=== PATIENT | female | born 1935 | race Caucasian/White ===

== ENCOUNTER 2016-11-03 00:52 | Emergency (ER) | payer MEDICARE, MEDICAID ==
[2016-11-03 01:37] LABS: BASO # 0.1 K/mm3 (0.0-0.2); BASO % 0.6 % (0.0-1.0); EOS # 0.1 K/mm3 (0.0-0.50); EOS % 0.7 % (0.0-3.0); LARGE UNSTAINED CELL # 1.4 K/mm3 (0.0-0.4); LYMPH # 2.4 K/mm3 (1.5-4.5); LYMPH % 4.9 % (24.0-44.0); MEAN CORPUSCULAR HEMOGLOBIN 29.3 pg (27.0-33.0); MEAN CORPUSCULAR HGB CONC 34.2 g/dl (32.0-36.5); MEAN CORPUSCULAR VOLUME 85.8 fl (80.0-96.0); MONO # 1.8 K/mm3 (0.0-0.8); MONO % 8.8 % (0.0-5.0); NEUTROPHILS # 15.7 K/mm3 (1.8-7.7); PLATELET COUNT, AUTOMATED 685 k/mm3 (150-450); WHITE BLOOD COUNT 20.1 K/mm3 (4.0-10.0)
[2016-11-03 01:52] LABS: CALCIUM LEVEL 9.3 MG/DL (8.8-10.2); CREATININE FOR GFR 1.1 MG/DL (0.55-1.02); GLOMERULAR FILTRATION RATE 51.1 (>39); POTASSIUM SERUM 4.3 MEQ/L (3.5-5.1)
[2016-11-03] MEDS ORDERED: IPRATROPIUM 0.5MG/ALBUTEROL 2.5MG INH SOL UD 3ML (DUONEB)(J7620) NEB ONE (02:00)
[2016-11-03] MEDS ORDERED: methylPREDNISolone INJ 40 MG/1 ML VIAL (J2920) IV ONE (02:00)
[2016-11-03] MEDS ORDERED: OMEP40CA2 (03:09)
[2016-11-03] MEDS ORDERED: MONT10TA2 (03:09)
[2016-11-03] MEDS ORDERED: DONE5TAB17 (03:09)
[2016-11-03] MEDS ORDERED: TORS10TA3 (03:09)
[2016-11-03] MEDS ORDERED: LISI-538 (03:09)
[2016-11-03] MEDS ORDERED: DIGI1TAB (03:09)
[2016-11-03] MEDS ORDERED: BISO5TAB5 PO (03:14)
[2016-11-03] MEDS ORDERED: VITAD1000T PO (03:14)
[2016-11-03] MEDS ORDERED: FERR325T3 PO (03:14)
[2016-11-03] MEDS ORDERED: SPIR50TA2 PO (03:14)
[2016-11-03] MEDS ORDERED: ADV250INH INH (03:15)
[2016-11-03] MEDS ORDERED: INCR1INH IN (03:16)
[2016-11-03] MEDS ORDERED: PROA1AER INH (03:20)
[2016-11-03] MEDS ORDERED: ATOR40TA PO (03:20)
[2016-11-03] MEDS ORDERED: CENTCHW3 PO (03:20)
[2016-11-03] MEDS ORDERED: NS 500 ML IV ONE (03:30)
[2016-11-03 04:40] LABS: DIGOXIN LEVEL 1.5 NG/ML (0.5-2.0)
[2016-11-03 05:03] VITALS: BP 163/72
--- NOTE | 2016-11-03 08:28 | ECGEPIP ---
Stationary ECG Study [facility] - ED Test Date: 2016-11-03 Pat Name: MIGUELINA GOMEZ Department: Room: - Gender: F Bellhop: shaniqua : 1935 Requested By: EVANS Cabrales Order Number: [id number] Reading MD: Yuliana Suresh Measurements Intervals [place] Rate: 71 P: 61 WV: 176 QRS: -36 QRSD: 138 T: 79 QT: 373 QTc: 405 Interpretive Statements SINUS RHYTHM MARKED LEFT AXIS DEVIATION LEFT BUNDLE BRANCH BLOCK NO PRIOR FOR COMPARISON Electronically Signed On 11-03-2016 8:28:17 EDT by Yuliana Suresh
--- NOTE | 2016-11-03 09:23 | REP ---
PORTABLE CHEST: AP portable view of the chest is performed. The heart appears slightly enlarged. The pulmonary vasculature is prominent and there are diffuse increased interstitial markings. The findings suggest Congestive heart failure and interstitial edema. Underlying interstitial fibrosis is not excluded. There is some calcification of the thoracic aorta. The visualized osseous structures are intact. IMPRESSION: Findings suggesting mild congestive heart failure and interstitial edema but without prior chest radiographs some degree of chronic interstitial fibrosis is also not excluded. Signed by Cassius Bhatia MD 11/03/2016 07:44 P
== END 2016-11-03 05:13 | disposition home or self-care (01) ==
LOC: EDBD 00:52 → M ED 02:27
DX: R06.02 Shortness of breath (principal); E87.1 Hypo-osmolality and hyponatremia; D72.829 Elevated white blood cell count, unspecified; I50.9 Heart failure, unspecified; Z87.891 Personal history of nicotine dependence; I10 Essential (primary) hypertension; J44.9 Chronic obstructive pulmonary disease, unspecified
CPT/HCPCS: 36415; 71010; 80048; 80162; 81001; 83880; 85025; 93005; 93041; 94640; 94760; 96361; 96374; 99285; J2920

== ENCOUNTER 2017-02-08 19:14 | Emergency (ER) | payer MEDICARE, MEDICAID ==
[~2017-02-08] VITALS: Ht 144.8 cm; Wt 49.5 kg
[~2017-02-08 19:14] MED LIST: ADV250INH INH; ATOR40TA75 PO; BISO5TAB5 PO; CENTCHW3 PO; DIGI1TAB; DONE5TAB17; FERR325T3 PO; INCR1INH IN; LISI-538; MONT10TA2; OMEP40CA2; PROAAER10 INH; SPIR50TA2 PO; TORS10TA3; VITAD1000T PO
[2017-02-08] MEDS: IPRATROPIUM 0.5MG/ALBUTEROL 2.5MG INH SOL UD 3ML (DUONEB)(J7620) NEB PRN ×3 (20:23→20:25)
[2017-02-08 20:29] LABS: ANION GAP 10 MEQ/L (8-16); BLOOD UREA NITROGEN 30 MG/DL (7-18); CALCIUM LEVEL 9.3 MG/DL (8.8-10.2); CARBON DIOXIDE LEVEL 25 MEQ/L (21-32); CHLORIDE LEVEL 95 MEQ/L (98-107); CREATININE FOR GFR 1.58 MG/DL (0.55-1.02); GLOMERULAR FILTRATION RATE 33.6 (>39); GLUCOSE, FASTING 102 MG/DL (83-110); POTASSIUM SERUM 4.5 MEQ/L (3.5-5.1); SODIUM LEVEL 130 MEQ/L (136-145)
[2017-02-08 20:41] LABS: ADD MANUAL DIFFER YES; MEAN CORPUSCULAR HGB CONC 33.9 g/dl (32.0-36.5); MEAN CORPUSCULAR VOLUME 91.4 fl (80.0-96.0); PLATELET COUNT, AUTOMATED 325 k/mm3 (150-450); RED CELL DISTRIBUTION WIDTH 15.5 % (11.5-14.5)
[2017-02-08 21:27] LABS: EOSINOPHILS 5 % (0-5)
[2017-02-08] MEDS ORDERED: OXYMETAZOLINE NASAL SPRAY (AFRIN) ONE (22:45)
[2017-02-08 23:25] VITALS: BP 152/68
[2017-02-09 00:23] LABS: VENOUS BASE EXCESS -1.3 (-2.0-2.0); VENOUS O2 SATURATION 94.6 % (60.0-80.0); VENOUS PARTIAL PRESSURE CO2 30.5 mmHg (38.0-50.0); VENOUS PARTIAL PRESSURE O2 70.5 mmHg (30.0-50.0); VENOUS STANDARD HCO3 23.3 MEQ/L; VENOUS TOTAL CO2 22.3 MEQ/L (24.0-28.0)
[2017-02-09 01:51] VITALS: O2SAT 98
[2017-02-09 02:37] VITALS: BP 108/58
--- NOTE | 2017-02-09 07:51 | REP ---
PA and lateral chest: Comparison is 11/03/2016. The lung betts are clear. The previous interstitial infiltrates have resolved. Lung betts appear hyperinflated suggestive of COPD, requiring clinical confirmation. Cardiac size is normal. The mundo, mediastinum, and bony thorax are unremarkable for patient age. Impression: Lung betts are clear but appear hyperinflated. Signed by Cassius Garza MD 02/09/2017 07:42 A
--- NOTE | 2017-02-10 19:59 | ECGEPIP ---
Stationary ECG Study [facility] - ED Test Date: 2017-02-08 Pat Name: MIGUELINA GOMEZ Department: Room: - Gender: F Room Inspector: david : 1935 Requested By: EVERARDO Choudhury Order Number: [id number] Reading MD: Jimenez Gerber Measurements Intervals [place] Rate: 111 P: 88 [place]: 187 QRS: 33 QRSD: 142 T: 92 QT: 333 QTc: 454 Interpretive Statements SINUS TACHYCARDIA WITH OCCASIONAL VENTRICULAR PREMATURE COMPLEXES LEFT BUNDLE BRANCH BLOCK 11/03/16 RATE DECREASED Electronically Signed On 02-10-2017 19:59:18 EDT by Jimenez Gerber
--- NOTE | 2017-02-10 20:00 | ECGEPIP ---
Stationary ECG Study [facility] - ED Test Date: 2017-02-08 Pat Name: MIGUELINA GOMEZ Department: Room: - Gender: F Career Development Consultant: david : 1935 Requested By: EVERARDO Choudhury Order Number: [id number] Reading MD: Jimenez Gerber Measurements Intervals [place] Rate: 147 P: [place]: 0 QRS: -24 QRSD: 137 T: 94 QT: 294 QTc: 460 Interpretive Statements ATRIAL FLUTTER/TACHYCARDIA WITH RAPID VENTRICULAR RESPONSE LEFT BUNDLE BRANCH BLOCK 02/08/17 RATE INCREASE RHYTHM CHANGE Electronically Signed On 02-10-2017 20:00:39 EDT by Jimenez Gerber
--- NOTE | 2017-02-11 07:09 | ECGEPIP ---
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
== END 2017-02-09 03:06 | disposition home or self-care (01) ==
LOC: M ED 19:14 → EDBD 19:14 → M ED 02-09 03:06
DX: J44.9 Chronic obstructive pulmonary disease, unspecified (principal)

== ENCOUNTER 2017-03-05 09:07 | Emergency (ER) | payer MEDICARE, MEDICAID ==
[2017-03-05 09:12] VITALS: BP 151/61
[2017-03-05] MEDS ORDERED: DIGO0.12 PO (09:27)
[2017-03-05] MEDS ORDERED: XARE15TA PO (09:27)
== END 2017-03-05 10:16 | disposition home or self-care (01) ==
LOC: EDBD 09:07 → M ED 09:07
DX: H11.32 Conjunctival hemorrhage, left eye (principal); Z87.891 Personal history of nicotine dependence

== ENCOUNTER → 2017-03-14 | Outpatient (CLI) | payer MEDICARE, MEDICAID ==
[~2017-03-14] MED LIST changes: +DIGO0.12 PO; +XARE15TA PO
--- NOTE | 2017-03-14 17:32 | REP ---
Clinical: Contusion. Technique: AP, lateral, bilateral oblique views of the right ankle. Findings: Soft tissue swelling is appreciated. Age-related arthritic degenerative changes are noted. No obvious acute fracture or dislocation. Impression: Soft tissue swelling and degenerative changes. No acute fracture or dislocation appreciated. Signed by Torey Varghese MD 03/14/2017 05:24 P
== END ==
LOC: M WUC 16:44
PROVIDERS: ATTEND Physician Assistant
DX: M19.071 Primary osteoarthritis, right ankle and foot (principal)

== ENCOUNTER → 2017-03-17 | Outpatient (REF) | payer MEDICARE ==
[2017-03-17 10:10] LABS: ADD MANUAL DIFFER YES; MEAN CORPUSCULAR HEMOGLOBIN 32.3 pg (27.0-33.0); MEAN CORPUSCULAR HGB CONC 33.5 g/dl (32.0-36.5); MEAN CORPUSCULAR VOLUME 96.4 fl (80.0-96.0); PLATELET COUNT, AUTOMATED 264 k/mm3 (150-450); RED CELL DISTRIBUTION WIDTH 14.7 % (11.5-14.5); WHITE BLOOD COUNT 7.8 K/mm3 (4.0-10.0)
[2017-03-17 11:20] LABS: EOSINOPHILS 2 % (0-5)
[2017-03-17 11:22] LABS: ANISOCYTOSIS 1+
== END ==
PROVIDERS: ATTEND Internal Medicine Pulmonary Disease
DX: D64.9 Anemia, unspecified (principal)

== ENCOUNTER → 2017-05-25 | Outpatient (CLI) | payer MEDICARE ==
[2017-05-25 13:27] LABS: MEAN CORPUSCULAR HEMOGLOBIN 30.6 pg (27.0-33.0); MEAN CORPUSCULAR HGB CONC 32.3 g/dl (32.0-36.5); MEAN CORPUSCULAR VOLUME 94.6 fl (80.0-96.0); PLATELET COUNT, AUTOMATED 367 10^3/uL (150-450); RED CELL DISTRIBUTION WIDTH 13.8 % (11.5-14.5); WHITE BLOOD COUNT 11.4 10^3/uL (4.0-10.0)
[2017-05-25 13:36] LABS: CALCIUM LEVEL 9.7 MG/DL (8.8-10.2); CREATININE FOR GFR 1.73 MG/DL (0.55-1.02); GLOMERULAR FILTRATION RATE 30.2 (>39)
[2017-05-25 13:38] LABS: POTASSIUM SERUM 5.3 MEQ/L (3.5-5.1)
== END ==
LOC: M WUC 09:48
DX: I48.91 Unspecified atrial fibrillation (principal); I10 Essential (primary) hypertension; J44.9 Chronic obstructive pulmonary disease, unspecified; E55.9 Vitamin D deficiency, unspecified

== ENCOUNTER → 2017-07-15 | Outpatient (CLI) | payer MEDICARE | LOC: M WUC 14:04 | DX: R91.8 Other nonspecific abnormal finding of lung field (principal); R05 Cough | CPT/HCPCS: 71046 ==

== ENCOUNTER → 2017-10-28 | Outpatient (CLI) | payer MEDICARE, MEDICAID | LOC: M WUC 11:04 | DX: S20.222A Contusion of left back wall of thorax, initial encounter (principal); X58.XXXA Exposure to other specified factors, initial encounter; Y92.89 Other specified places as the place of occurrence of the external cause | CPT/HCPCS: 71101 ==

== ENCOUNTER → 2017-12-21 | Outpatient (CLI) | payer MEDICARE, MEDICAID ==
[2017-12-21 13:10] LABS: HEMATOCRIT 39.3 % (36.0-47.0); MEAN CORPUSCULAR HEMOGLOBIN 31.3 pg (27.0-33.0); MEAN CORPUSCULAR HGB CONC 33.1 g/dl (32.0-36.5); MEAN CORPUSCULAR VOLUME 94.5 fl (80.0-96.0); PLATELET COUNT, AUTOMATED 344 10^3/uL (150-450); RED BLOOD COUNT 4.16 10^6/uL (4.00-5.40); RED CELL DISTRIBUTION WIDTH 14.2 % (11.5-14.5); WHITE BLOOD COUNT 11.9 10^3/uL (4.0-10.0)
[2017-12-21 13:52] LABS: TOTAL 25(OH) VITAMIN D 37.6 NG/ML (30.0-100.0)
[2017-12-21 14:07] LABS: ALBUMIN 3.9 GM/DL (3.2-5.2); ALBUMIN/GLOBULIN RATIO 0.95 (1.00-1.93); ALKALINE PHOSPHATASE 74 U/L (45-117); ALT/SGPT 67 U/L (12-78); ANION GAP 14 MEQ/L (8-16); AST/SGOT 51 U/L (7-37); BILIRUBIN,TOTAL 0.3 MG/DL (0.2-1.0); BLOOD UREA NITROGEN 68 MG/DL (7-18); CALCIUM LEVEL 9.5 MG/DL (8.8-10.2); CARBON DIOXIDE LEVEL 23 MEQ/L (21-32); CHLORIDE LEVEL 99 MEQ/L (98-107); CHOLESTEROL LEVEL 145 MG/DL (<200); CHOLESTEROL RISK RATIO 4.264 (<5); CREATININE FOR GFR 2.01 MG/DL (0.55-1.30); GLOMERULAR FILTRATION RATE 25.4 (>32); GLUCOSE, FASTING 90 MG/DL (70-100); HDL CHOLESTEROL 34 MG/DL (>40); IRON (FE) 72 UG/DL (50-170); LDL CHOLESTEROL 79.4 MG/DL (<100); NON-HDL-C 111 MG/DL; SODIUM LEVEL 136 MEQ/L (136-145); TRIGLYCERIDES LEVEL 158 MG/DL (<150)
[2017-12-21 14:09] LABS: POTASSIUM SERUM 5.8 MEQ/L (3.5-5.1)
== END ==
LOC: M WUC 09:52
DX: I48.91 Unspecified atrial fibrillation (principal); I10 Essential (primary) hypertension; J44.9 Chronic obstructive pulmonary disease, unspecified; E78.5 Hyperlipidemia, unspecified; D50.9 Iron deficiency anemia, unspecified; E55.9 Vitamin D deficiency, unspecified; Z79.01 Long term (current) use of anticoagulants
CPT/HCPCS: 83540

== ENCOUNTER 2018-01-22 08:46 | Emergency (ER) | payer MEDICARE, MEDICAID ==
[2018-01-22 09:36] LABS: BASO # 0.1 10^3/uL (0.0-0.2); BASO % 0.6 % (0.0-1.0); EOS % 0.3 % (0.0-3.0); HEMATOCRIT 34.4 % (36.0-47.0); HEMOGLOBIN 11.8 g/dl (12.0-15.5); IMMATURE GRANULOCYTE % 1.7 % (0-3.0); LYMPH # 0.8 10^3/uL (1.5-4.5); MEAN CORPUSCULAR HEMOGLOBIN 31.4 pg (27.0-33.0); MEAN CORPUSCULAR HGB CONC 34.3 g/dl (32.0-36.5); MEAN CORPUSCULAR VOLUME 91.5 fl (80.0-96.0); MONO # 1.1 10^3/uL (0.0-0.8); MONO % 7.8 % (0.0-5.0); NEUTROPHILS # 11.7 10^3/uL (1.8-7.7); NEUTROPHILS % 83.6 % (36.0-66.0); PLATELET COUNT, AUTOMATED 314 10^3/uL (150-450); RED BLOOD COUNT 3.76 10^6/uL (4.00-5.40); RED CELL DISTRIBUTION WIDTH 13.8 % (11.5-14.5); WHITE BLOOD COUNT 13.9 10^3/uL (4.0-10.0)
[2018-01-22 10:03] LABS: ANION GAP 9 MEQ/L (8-16); BLOOD UREA NITROGEN 43 MG/DL (7-18); CALCIUM LEVEL 9.3 MG/DL (8.8-10.2); CARBON DIOXIDE LEVEL 27 MEQ/L (21-32); CHLORIDE LEVEL 100 MEQ/L (98-107); CREATININE FOR GFR 1.54 MG/DL (0.55-1.30); GLOMERULAR FILTRATION RATE 34.5 (>32); GLUCOSE, FASTING 115 MG/DL (70-100); POTASSIUM SERUM 4.7 MEQ/L (3.5-5.1); SODIUM LEVEL 136 MEQ/L (136-145); URIC ACID 9.8 MG/DL (2.6-6.0)
[2018-01-22] MEDS ORDERED: cefTRIAXone SOD 1 GM VIAL (J0696) As Ordered (10:48)
[2018-01-22] MEDS: cefTRIAXone SOD 1 GM in D5W MINI-BAG PLUS 50 ML IV (10:51)
[2018-01-22] MEDS: COLCHICINE 0.6 MG TAB PO (11:29)
== END 2018-01-22 12:37 | disposition home or self-care (01) ==
LOC: M ED 08:46
DX: M10.9 Gout, unspecified (principal); L03.115 Cellulitis of right lower limb; N18.3 Chronic kidney disease, stage 3 (moderate); I13.10 Hypertensive heart and chronic kidney disease without heart failure, with stage 1 through stage 4 chronic kidney disease, or unspecified chronic kidney disease; J44.9 Chronic obstructive pulmonary disease, unspecified; B19.20 Unspecified viral hepatitis C without hepatic coma; F03.90 Unspecified dementia, unspecified severity, without behavioral disturbance, psychotic disturbance, mood disturbance, and anxiety; Z87.891 Personal history of nicotine dependence; Z88.0 Allergy status to penicillin; Z88.7 Allergy status to serum and vaccine; Z79.899 Other long term (current) drug therapy; Z79.51 Long term (current) use of inhaled steroids; Z79.01 Long term (current) use of anticoagulants
CPT/HCPCS: J0696

== ENCOUNTER 2018-01-23 07:25 | Emergency (ER) | payer MEDICARE ==
[2018-01-23] MEDS: cefTRIAXone SOD 1 GM in D5W MINI-BAG PLUS 50 ML IV (08:13)
== END 2018-01-23 09:24 | disposition home or self-care (01) ==
LOC: M ED 07:25
DX: Z51.89 Encounter for other specified aftercare (principal); L03.115 Cellulitis of right lower limb; F03.90 Unspecified dementia, unspecified severity, without behavioral disturbance, psychotic disturbance, mood disturbance, and anxiety; I50.9 Heart failure, unspecified; I10 Essential (primary) hypertension; J44.9 Chronic obstructive pulmonary disease, unspecified; K21.9 Gastro-esophageal reflux disease without esophagitis; E03.9 Hypothyroidism, unspecified; D64.9 Anemia, unspecified; F41.9 Anxiety disorder, unspecified; Z79.899 Other long term (current) drug therapy; Z88.0 Allergy status to penicillin; Z88.7 Allergy status to serum and vaccine
CPT/HCPCS: J0696

== ENCOUNTER 2018-03-24 03:48 | Inpatient (IN) | payer MEDICARE ==
[2018-03-24 04:58] LABS: BASO # 0.1 10^3/uL (0.0-0.2); BASO % 0.5 % (0.0-1.0); EOS # 0.2 10^3/uL (0.0-0.50); EOS % 0.7 % (0.0-3.0); HEMATOCRIT 33.3 % (36.0-47.0); HEMOGLOBIN 11.3 g/dl (12.0-15.5); IMMATURE GRANULOCYTE % 1.5 % (0-3.0); LYMPH # 1.3 10^3/uL (1.5-4.5); LYMPH % 6.5 % (24.0-44.0); MEAN CORPUSCULAR HEMOGLOBIN 31.2 pg (27.0-33.0); MEAN CORPUSCULAR HGB CONC 33.9 g/dl (32.0-36.5); MONO # 1.5 10^3/uL (0.0-0.8); MONO % 7.4 % (0.0-5.0); NEUTROPHILS # 17.2 10^3/uL (1.8-7.7); NEUTROPHILS % 83.4 % (36.0-66.0); PLATELET COUNT, AUTOMATED 335 10^3/uL (150-450); RED BLOOD COUNT 3.62 10^6/uL (4.00-5.40); RED CELL DISTRIBUTION WIDTH 14.1 % (11.5-14.5); WHITE BLOOD COUNT 20.7 10^3/uL (4.0-10.0)
[2018-03-24 05:22] LABS: ANION GAP 12 MEQ/L (8-16); BLOOD UREA NITROGEN 40 MG/DL (7-18); CARBON DIOXIDE LEVEL 20 MEQ/L (21-32); CHLORIDE LEVEL 97 MEQ/L (98-107); CPK CREATINE PHOSPHOKINASE 165 U/L (26-192); CREATININE FOR GFR 1.48 MG/DL (0.55-1.30); GLOMERULAR FILTRATION RATE 36.1 (>32); GLUCOSE, FASTING 169 MG/DL (70-100); NT-PRO BNP 4889 PG/ML (<450); POTASSIUM SERUM 4.9 MEQ/L (3.5-5.1); SODIUM LEVEL 129 MEQ/L (136-145); TROPONIN I 0.03 NG/ML (< 0.10)
[2018-03-24] MEDS ORDERED: ISOVUE-370 76% 100ML VIAL (Q9967) As Ordered (05:28)
[2018-03-24 05:42] LABS: KETONE, URINE AUTO RFX NEGATIVE (NEGATIVE); NITRITE, URINE AUTO RFX NEGATIVE (NEGATIVE); RBC, URINE AUTO RFX 3 /HPF (0-3); SPECIFIC GRAVITY UR AUTO RFX 1.008 (1.002-1.035); SQUAM EPITHELIAL CELL UR AURFX 0 /HPF (0-6); WBC, URINE AUTO RFX 2 /HPF (0-3)
[2018-03-24] MEDS: methylPREDNISolone INJ 125 MG/2 ML VIAL (J2930) IV ×2 (05:57→14:29)
[2018-03-24 06:05] LABS: LEUKOCYTE ESTERASE UR AUTO RFX TRACE (NEGATIVE)
[2018-03-24] MEDS: IPRATROPIUM 0.5MG/ALBUTEROL 2.5MG INH SOL UD 3ML (DUONEB)(J7620) NEB ×3 (06:05→10:38)
[2018-03-24 06:12] LABS: ABG BASE EXCESS -3.6 (-2.0-2.0); ABG HCO3 19.6 MEQ/L (22.0-26.0); ABG O2 SATURATION 91.5 % (95.0-99.0); ABG PARTIAL PRESSURE O2 59.9 mmHg (75.0-100.0); ABG STANDARD HCO3 21.4 MEQ/L (22.0-26.0); ABG TOTAL CO2 20.6 MEQ/L (23.0-31.0); ABG pH (ARTERIAL) 7.434 UNITS (7.350-7.450)
[2018-03-24] MEDS ORDERED: ONDANSETRON 4MG/2ML VIAL (J2405) IV (10:45)
[2018-03-24 11:04] LABS: BASO % 0.1 % (0.0-1.0); HEMATOCRIT 33.7 % (36.0-47.0); HEMOGLOBIN 11.6 g/dl (12.0-15.5); IMMATURE GRANULOCYTE % 1.6 % (0-3.0); LYMPH # 0.3 10^3/uL (1.5-4.5); LYMPH % 2.2 % (24.0-44.0); MEAN CORPUSCULAR HEMOGLOBIN 31.3 pg (27.0-33.0); MEAN CORPUSCULAR HGB CONC 34.4 g/dl (32.0-36.5); MEAN CORPUSCULAR VOLUME 90.8 fl (80.0-96.0); MONO # 0.2 10^3/uL (0.0-0.8); MONO % 1.4 % (0.0-5.0); NEUTROPHILS % 94.7 % (36.0-66.0); PLATELET COUNT, AUTOMATED 316 10^3/uL (150-450); RED BLOOD COUNT 3.71 10^6/uL (4.00-5.40); RED CELL DISTRIBUTION WIDTH 14.2 % (11.5-14.5); WHITE BLOOD COUNT 14.8 10^3/uL (4.0-10.0)
[2018-03-24] MEDS: FUROSEMIDE 20 MG/2 ML VIAL (J1940) IV (11:06)
[2018-03-24] MEDS: MOXIFLOXACIN HCL 400 MG in APPROPRIATE DILUENT 1 EA IV (11:07)
[2018-03-24 11:29] LABS: ERYTHROCYTE SEDIMENTATION RATE 70 mm/hr (0-30)
[2018-03-24] MEDS: LEVALBUTEROL 1.25 MG/0.5 ML CONCENTRATE NEB NEB ×3 (11:56→21:27)
[2018-03-24 12:35] LABS: LACTIC ACID SEPSIS PROTOCOL 2.6 MMOL/L (0.4-2.0)
[2018-03-24 12:55] LABS: DIGOXIN LEVEL 1.5 NG/ML (0.5-2.0)
[2018-03-24 12:55] LABS: CALCIUM LEVEL 9.3 MG/DL (8.8-10.2); CPK CREATINE PHOSPHOKINASE 230 U/L (26-192); POTASSIUM SERUM 4.8 MEQ/L (3.5-5.1); T UPTAKE 35 % (30-39)
[2018-03-24] MEDS: VANCOMYCIN HCL 1,000 MG, VIAL MATE ADAPTER 1 EACH in D5W 250 ML IV (13:13)
[2018-03-24] MEDS: NS 1,000 ML IV ×3 (13:13→18:13)
[2018-03-24] MEDS: LACTOBACILLUS ACIDOPHILUS CAP (BACID) PO ×2 (13:44→17:17)
[2018-03-24] MEDS ORDERED: HEPARIN SOD (PORCINE) 5000 UNITS/ML VIAL SC (14:00)
[2018-03-24] MEDS: MULTIVITAMINS/MINERALS THERAP 1 TAB PO (14:28)
[2018-03-24] MEDS: OMEPRAZOLE 20 MG CAP PO (14:28)
[2018-03-24] MEDS: RIVAROXABAN 15 MG TAB (XARELTO) PO (14:28)
[2018-03-24] MEDS: BISOPROLOL FUMARATE 5 MG TAB PO (14:28)
[2018-03-24] MEDS: SENOKOT S TAB PO ×2 (14:29→21:24)
[2018-03-24] MEDS: MONTELUKAST 10 MG TAB PO (14:29)
[2018-03-24] MEDS: VITAMIN D 1,000 INTERNATIONAL UNITS TABLET PO (14:29)
[2018-03-24] MEDS: FERROUS SULFATE 325MG TAB PO ×2 (14:29→21:24)
[2018-03-24] MEDS ORDERED: FUROSEMIDE 20 MG/2 ML VIAL (J1940) IV (18:00)
[2018-03-24 19:14] LABS: ANION GAP 14 MEQ/L (8-16); BLOOD UREA NITROGEN 34 MG/DL (7-18); CARBON DIOXIDE LEVEL 17 MEQ/L (21-32); CHLORIDE LEVEL 96 MEQ/L (98-107); CREATININE FOR GFR 1.62 MG/DL (0.55-1.30); GLOMERULAR FILTRATION RATE 32.5 (>32); GLUCOSE, FASTING 149 MG/DL (70-100); POTASSIUM SERUM 5.1 MEQ/L (3.5-5.1); SODIUM LEVEL 127 MEQ/L (136-145)
[2018-03-24] MEDS: MEROPENEM INJ 1 GM in APPROPRIATE DILUENT 1 EA IV (21:24)
[2018-03-24] MEDS: ATORVASTATIN 20 MG TAB PO (21:24)
[2018-03-24] MEDS: DONEPEZIL 5 MG TAB PO (21:24)
[2018-03-24 22:17] LABS: CPK CREATINE PHOSPHOKINASE 351 U/L (26-192); MB/CK RELATIVE INDEX 3.79 (< OR =4); TROPONIN I 1.93 NG/ML (< 0.10)
[2018-03-24 22:21] LABS: ANION GAP 13 MEQ/L (8-16); BLOOD UREA NITROGEN 34 MG/DL (7-18); C REACTIVE PROTEIN QUANTITATIV 4.25 MG/DL (0.00-0.30); CARBON DIOXIDE LEVEL 18 MEQ/L (21-32); CHLORIDE LEVEL 97 MEQ/L (98-107); CREATININE FOR GFR 1.41 MG/DL (0.55-1.30); GLOMERULAR FILTRATION RATE 38.2 (>32); GLUCOSE, FASTING 178 MG/DL (70-100); MB/CK RELATIVE INDEX 3.26 (< OR =4); SODIUM LEVEL 128 MEQ/L (136-145); TROPONIN I 1.15 NG/ML (< 0.10)
[2018-03-24 22:23] LABS: FREE THYROXINE INDEX 4.7 % (1.3-4.8); THYROXINE (T4) 13.4 UG/DL (4.5-12.0)
[2018-03-24 22:41] LABS: LACTIC ACID SEPSIS PROTOCOL 2.9 MMOL/L (0.4-2.0)
[2018-03-25] MEDS: LEVALBUTEROL 1.25 MG/0.5 ML CONCENTRATE NEB NEB ×6 (00:55→23:30)
[2018-03-25] MEDS: methylPREDNISolone INJ 40 MG/1 ML VIAL (J2920) IV (01:42)
[2018-03-25 02:41] LABS: CPK CREATINE PHOSPHOKINASE 347 U/L (26-192); MB/CK RELATIVE INDEX 4.01 (< OR =4); TROPONIN I 1.59 NG/ML (< 0.10)
[2018-03-25 05:58] LABS: HEMATOCRIT 29.5 % (36.0-47.0); HEMOGLOBIN 10.2 g/dl (12.0-15.5); MEAN CORPUSCULAR HEMOGLOBIN 31.6 pg (27.0-33.0); MEAN CORPUSCULAR HGB CONC 34.6 g/dl (32.0-36.5); MEAN CORPUSCULAR VOLUME 91.3 fl (80.0-96.0); PLATELET COUNT, AUTOMATED 318 10^3/uL (150-450); RED BLOOD COUNT 3.23 10^6/uL (4.00-5.40); RED CELL DISTRIBUTION WIDTH 14.4 % (11.5-14.5); WHITE BLOOD COUNT 18.8 10^3/uL (4.0-10.0)
[2018-03-25] MEDS ORDERED: MOXIFLOXACIN 400 MG TAB PO (06:00)
[2018-03-25 06:24] LABS: ANION GAP 14 MEQ/L (8-16); BLOOD UREA NITROGEN 42 MG/DL (7-18); CALCIUM LEVEL 8.2 MG/DL (8.8-10.2); CARBON DIOXIDE LEVEL 17 MEQ/L (21-32); CHLORIDE LEVEL 96 MEQ/L (98-107); CREATININE FOR GFR 2.03 MG/DL (0.55-1.30); GLOMERULAR FILTRATION RATE 25.1 (>32); GLUCOSE, FASTING 187 MG/DL (70-100); POTASSIUM SERUM 4.5 MEQ/L (3.5-5.1); SODIUM LEVEL 127 MEQ/L (136-145)
[2018-03-25 06:52] LABS: DIGOXIN LEVEL 1.3 NG/ML (0.5-2.0)
[2018-03-25] MEDS: ACETAMINOPHEN TAB 650MG DOSE (2X325MG) PO ×3 (06:52→21:47)
[2018-03-25] MEDS ORDERED: CLOPIDOGREL 75 MG TAB PO (07:07)
[2018-03-25] MEDS ORDERED: ASPIRIN 81 MG ENTERIC TAB PO (07:15)
[2018-03-25] MEDS: NS 1,000 ML IV (07:32)
[2018-03-25] MEDS: ENOXAPARIN 60 MG/0.6 ML SYR (J1650) SC (08:39)
[2018-03-25] MEDS: MONTELUKAST 10 MG TAB PO (08:40)
[2018-03-25] MEDS: SODIUM BICARBONATE 325 MG TAB PO (08:40)
[2018-03-25] MEDS: OMEPRAZOLE 20 MG CAP PO (08:40)
[2018-03-25] MEDS: SENOKOT S TAB PO ×2 (08:40→21:00)
[2018-03-25] MEDS: ASPIRIN 81 MG ENTERIC TAB PO (08:40)
[2018-03-25] MEDS: FERROUS SULFATE 325MG TAB PO ×3 (08:40→21:47)
[2018-03-25] MEDS: VITAMIN D 1,000 INTERNATIONAL UNITS TABLET PO (08:40)
[2018-03-25] MEDS: MEROPENEM INJ 1 GM in APPROPRIATE DILUENT 1 EA IV ×2 (08:40→21:46)
[2018-03-25] MEDS: LACTOBACILLUS ACIDOPHILUS CAP (BACID) PO ×2 (08:40→18:31)
[2018-03-25] MEDS: MULTIVITAMINS/MINERALS THERAP 1 TAB PO (08:40)
[2018-03-25] MEDS: BISOPROLOL FUMARATE 5 MG TAB PO (08:40)
[2018-03-25] MEDS: INFLUENZA VIRUS VACCINE HIGH DOSE 0.5 ML SYRINGE (90662) IM (08:50)
[2018-03-25 10:47] LABS: CPK CREATINE PHOSPHOKINASE 372 U/L (26-192); MB/CK RELATIVE INDEX 3.66 (< OR =4); TROPONIN I 1.14 NG/ML (< 0.10)
[2018-03-25 12:41] LABS: ANION GAP 14 MEQ/L (8-16); BLOOD UREA NITROGEN 46 MG/DL (7-18); CALCIUM LEVEL 8.3 MG/DL (8.8-10.2); CARBON DIOXIDE LEVEL 18 MEQ/L (21-32); CHLORIDE LEVEL 97 MEQ/L (98-107); CREATININE FOR GFR 2.07 MG/DL (0.55-1.30); GLOMERULAR FILTRATION RATE 24.5 (>32); GLUCOSE, FASTING 147 MG/DL (70-100); POTASSIUM SERUM 4.6 MEQ/L (3.5-5.1); SODIUM LEVEL 129 MEQ/L (136-145)
[2018-03-25] MEDS ORDERED: SODIUM BICARBONATE 325 MG TAB PO (13:00)
[2018-03-25] MEDS ORDERED: VANCOMYCIN HCL 750 MG, VIAL MATE ADAPTER 1 EACH in D5W 250 ML IV (13:00)
[2018-03-25] MEDS: SODIUM BICARBONATE 150 MEQ in STERILE WATER LITER BAG 1,000 ML IV (16:23)
[2018-03-25] MEDS: DONEPEZIL 5 MG TAB PO (21:47)
[2018-03-25] MEDS: ATORVASTATIN 20 MG TAB PO (21:47)
[2018-03-26 00:57] LABS: ANION GAP 13 MEQ/L (8-16); BLOOD UREA NITROGEN 52 MG/DL (7-18); CALCIUM LEVEL 8.1 MG/DL (8.8-10.2); CARBON DIOXIDE LEVEL 20 MEQ/L (21-32); CHLORIDE LEVEL 95 MEQ/L (98-107); CREATININE FOR GFR 1.96 MG/DL (0.55-1.30); DIGOXIN LEVEL 1.3 NG/ML (0.5-2.0); GLOMERULAR FILTRATION RATE 26.1 (>32); GLUCOSE, FASTING 116 MG/DL (70-100); POTASSIUM SERUM 4.4 MEQ/L (3.5-5.1); SODIUM LEVEL 128 MEQ/L (136-145)
[2018-03-26] MEDS: LEVALBUTEROL 1.25 MG/0.5 ML CONCENTRATE NEB NEB ×6 (03:04→19:56)
[2018-03-26] MEDS: FUROSEMIDE 20 MG/2 ML VIAL (J1940) IV (04:33)
[2018-03-26] MEDS: SODIUM BICARBONATE 150 MEQ in STERILE WATER LITER BAG 1,000 ML IV (04:34)
[2018-03-26 05:32] LABS: HEMATOCRIT 33.3 % (36.0-47.0); HEMOGLOBIN 11.1 g/dl (12.0-15.5); MEAN CORPUSCULAR HEMOGLOBIN 31.1 pg (27.0-33.0); MEAN CORPUSCULAR HGB CONC 33.3 g/dl (32.0-36.5); MEAN CORPUSCULAR VOLUME 93.3 fl (80.0-96.0); PLATELET COUNT, AUTOMATED 374 10^3/uL (150-450); RED BLOOD COUNT 3.57 10^6/uL (4.00-5.40); RED CELL DISTRIBUTION WIDTH 14.5 % (11.5-14.5); WHITE BLOOD COUNT 27.1 10^3/uL (4.0-10.0)
[2018-03-26 05:57] LABS: ANION GAP 14 MEQ/L (8-16); BLOOD UREA NITROGEN 53 MG/DL (7-18); CALCIUM LEVEL 8.2 MG/DL (8.8-10.2); CARBON DIOXIDE LEVEL 21 MEQ/L (21-32); CHLORIDE LEVEL 92 MEQ/L (98-107); CREATININE FOR GFR 1.99 MG/DL (0.55-1.30); GLOMERULAR FILTRATION RATE 25.7 (>32); GLUCOSE, FASTING 207 MG/DL (70-100); POTASSIUM SERUM 3.9 MEQ/L (3.5-5.1); SODIUM LEVEL 127 MEQ/L (136-145)
[2018-03-26 07:50] LABS: CPK CREATINE PHOSPHOKINASE 233 U/L (26-192); MB/CK RELATIVE INDEX 3.18 (< OR =4); TROPONIN I 0.84 NG/ML (< 0.10)
[2018-03-26] MEDS: ASPIRIN 81 MG ENTERIC TAB PO (08:21)
[2018-03-26] MEDS: FERROUS SULFATE 325MG TAB PO ×3 (08:21→21:25)
[2018-03-26] MEDS: OMEPRAZOLE 20 MG CAP PO (08:21)
[2018-03-26] MEDS: MONTELUKAST 10 MG TAB PO (08:21)
[2018-03-26] MEDS: LINEZOLID 600 MG in APPROPRIATE DILUENT 1 EA IV ×2 (08:22→21:21)
[2018-03-26] MEDS: BISOPROLOL FUMARATE 5 MG TAB PO (08:22)
[2018-03-26] MEDS: VITAMIN D 1,000 INTERNATIONAL UNITS TABLET PO (08:22)
[2018-03-26] MEDS: MULTIVITAMINS/MINERALS THERAP 1 TAB PO (08:22)
[2018-03-26] MEDS: MEROPENEM INJ 1 GM in APPROPRIATE DILUENT 1 EA IV ×2 (08:22→21:22)
[2018-03-26] MEDS: LACTOBACILLUS ACIDOPHILUS CAP (BACID) PO ×2 (08:22→18:00)
[2018-03-26] MEDS: CLOPIDOGREL 75 MG TAB PO (08:22)
[2018-03-26] MEDS: SENOKOT S TAB PO ×2 (08:22→21:24)
[2018-03-26] MEDS: ENOXAPARIN 60 MG/0.6 ML SYR (J1650) SC (08:23)
[2018-03-26 10:20] LABS: REASON FOR REVIEW WBC/LEUKEMIA/BLAST; SLIDE REVIEW Report; SOURCE PERIPHERAL SMEAR
[2018-03-26] MEDS: methylPREDNISolone INJ 125 MG/2 ML VIAL (J2930) IV (13:01)
[2018-03-26] MEDS: **hydrALAZINE** 10 MG TAB PO ×2 (15:01→21:24)
[2018-03-26] MEDS: ISOSORBIDE DIN (ISORDIL) 10 MG TAB PO ×2 (15:01→21:23)
[2018-03-26 15:36] LABS: BODY FLUID CULTURE Not Indicated (.); LEGIONELLA ANTIGEN URINE Negative (Negative); ORGANISM ID Not indicated. (.); SPECIMEN SOURCE Urine (.); URINE STREP PNEUMONIAE ANTIGEN Negative (Negative)
[2018-03-26] MEDS ORDERED: methylPREDNISolone INJ 40 MG/1 ML VIAL (J2920) IV (18:00)
[2018-03-26] MEDS: DONEPEZIL 5 MG TAB PO (21:00)
[2018-03-26] MEDS: ATORVASTATIN 20 MG TAB PO (21:23)
[2018-03-27] MEDS: LEVALBUTEROL 1.25 MG/0.5 ML CONCENTRATE NEB NEB ×6 (00:44→20:43)
[2018-03-27 05:40] LABS: HEMOGLOBIN 9.5 g/dl (12.0-15.5); MEAN CORPUSCULAR HEMOGLOBIN 31.5 pg (27.0-33.0); MEAN CORPUSCULAR HGB CONC 35.2 g/dl (32.0-36.5); MEAN CORPUSCULAR VOLUME 89.4 fl (80.0-96.0); PLATELET COUNT, AUTOMATED 287 10^3/uL (150-450); RED BLOOD COUNT 3.02 10^6/uL (4.00-5.40); RED CELL DISTRIBUTION WIDTH 14.1 % (11.5-14.5); WHITE BLOOD COUNT 13.9 10^3/uL (4.0-10.0)
[2018-03-27] MEDS: ISOSORBIDE DIN (ISORDIL) 10 MG TAB PO ×3 (05:49→21:01)
[2018-03-27] MEDS: ACETAMINOPHEN TAB 650MG DOSE (2X325MG) PO ×2 (05:49→14:37)
[2018-03-27] MEDS: **hydrALAZINE** 10 MG TAB PO ×3 (05:50→21:01)
[2018-03-27 06:14] LABS: ANION GAP 9 MEQ/L (8-16); BLOOD UREA NITROGEN 51 MG/DL (7-18); CALCIUM LEVEL 8.2 MG/DL (8.8-10.2); CARBON DIOXIDE LEVEL 25 MEQ/L (21-32); CHLORIDE LEVEL 92 MEQ/L (98-107); CREATININE FOR GFR 1.59 MG/DL (0.55-1.30); GLOMERULAR FILTRATION RATE 33.3 (>32); GLUCOSE, FASTING 133 MG/DL (70-100); SODIUM LEVEL 126 MEQ/L (136-145)
[2018-03-27 07:28] LABS: OSMOLALITY SERUM 278 MOSM/KG (280-301)
[2018-03-27] MEDS: SENOKOT S TAB PO ×2 (08:19→20:57)
[2018-03-27] MEDS: ENOXAPARIN 60 MG/0.6 ML SYR (J1650) SC (08:19)
[2018-03-27] MEDS: OMEPRAZOLE 20 MG CAP PO (08:19)
[2018-03-27] MEDS: MONTELUKAST 10 MG TAB PO (08:19)
[2018-03-27] MEDS: FERROUS SULFATE 325MG TAB PO ×3 (08:19→20:57)
[2018-03-27] MEDS: VITAMIN D 1,000 INTERNATIONAL UNITS TABLET PO (08:19)
[2018-03-27] MEDS: BISOPROLOL FUMARATE 5 MG TAB PO (08:19)
[2018-03-27] MEDS: LACTOBACILLUS ACIDOPHILUS CAP (BACID) PO ×2 (08:19→17:33)
[2018-03-27] MEDS: INFLUENZA VIRUS VACCINE HIGH DOSE 0.5 ML SYRINGE (90662) IM (08:20)
[2018-03-27] MEDS: MULTIVITAMINS/MINERALS THERAP 1 TAB PO (08:20)
[2018-03-27] MEDS: CLOPIDOGREL 75 MG TAB PO (08:20)
[2018-03-27] MEDS: ASPIRIN 81 MG ENTERIC TAB PO (08:20)
[2018-03-27] MEDS: LINEZOLID 600 MG in APPROPRIATE DILUENT 1 EA IV ×2 (08:22→20:00)
[2018-03-27] MEDS: MEROPENEM INJ 1 GM in APPROPRIATE DILUENT 1 EA IV (08:22)
[2018-03-27] MEDS ORDERED: predniSONE 20 MG TAB PO (09:00)
[2018-03-27] MEDS: TORSEMIDE 20 MG TAB PO (11:45)
[2018-03-27] MEDS: ADVAIR HFA 115/21MCG INHALER INH ×2 (13:39→20:44)
[2018-03-27 20:09] LABS: ANION GAP 13 MEQ/L (8-16); BLOOD UREA NITROGEN 57 MG/DL (7-18); CALCIUM LEVEL 8.2 MG/DL (8.8-10.2); CARBON DIOXIDE LEVEL 22 MEQ/L (21-32); CHLORIDE LEVEL 89 MEQ/L (98-107); GLOMERULAR FILTRATION RATE 28.8 (>32); GLUCOSE, FASTING 158 MG/DL (70-100); POTASSIUM SERUM 3.6 MEQ/L (3.5-5.1); SODIUM LEVEL 124 MEQ/L (136-145)
[2018-03-27] MEDS: DONEPEZIL 5 MG TAB PO (20:56)
[2018-03-27] MEDS: ATORVASTATIN 20 MG TAB PO (20:56)
[2018-03-28] MEDS: LEVALBUTEROL 1.25 MG/0.5 ML CONCENTRATE NEB NEB ×7 (00:02→23:47)
[2018-03-28 04:32] LABS: SODIUM,RANDOM URINE 17 MEQ/L
[2018-03-28] MEDS: SLF 3 ML SYR IV ×3 (05:29→21:55)
[2018-03-28] MEDS: **hydrALAZINE** 10 MG TAB PO ×3 (05:30→21:55)
[2018-03-28] MEDS: ISOSORBIDE DIN (ISORDIL) 10 MG TAB PO ×3 (05:30→21:55)
[2018-03-28 05:38] LABS: HEMATOCRIT 27.9 % (36.0-47.0); HEMOGLOBIN 9.7 g/dl (12.0-15.5); MEAN CORPUSCULAR HEMOGLOBIN 31.4 pg (27.0-33.0); MEAN CORPUSCULAR HGB CONC 34.8 g/dl (32.0-36.5); MEAN CORPUSCULAR VOLUME 90.3 fl (80.0-96.0); PLATELET COUNT, AUTOMATED 305 10^3/uL (150-450); RED BLOOD COUNT 3.09 10^6/uL (4.00-5.40); RED CELL DISTRIBUTION WIDTH 14.1 % (11.5-14.5)
[2018-03-28 06:15] LABS: ANION GAP 12 MEQ/L (8-16); BLOOD UREA NITROGEN 52 MG/DL (7-18); CALCIUM LEVEL 8.3 MG/DL (8.8-10.2); CARBON DIOXIDE LEVEL 23 MEQ/L (21-32); CHLORIDE LEVEL 91 MEQ/L (98-107); CREATININE FOR GFR 1.62 MG/DL (0.55-1.30); DIGOXIN LEVEL 0.7 NG/ML (0.5-2.0); GLOMERULAR FILTRATION RATE 32.5 (>32); GLUCOSE, FASTING 107 MG/DL (70-100); POTASSIUM SERUM 3.7 MEQ/L (3.5-5.1); SODIUM LEVEL 126 MEQ/L (136-145)
[2018-03-28 06:27] LABS: OSMOLALITY URINE 313 MOSM/KG (500-800)
[2018-03-28] MEDS: ADVAIR HFA 115/21MCG INHALER INH ×2 (07:44→20:14)
[2018-03-28] MEDS: MULTIVITAMINS/MINERALS THERAP 1 TAB PO (08:12)
[2018-03-28] MEDS: ACETAMINOPHEN TAB 650MG DOSE (2X325MG) PO (08:12)
[2018-03-28] MEDS: MONTELUKAST 10 MG TAB PO (08:12)
[2018-03-28] MEDS: ASPIRIN 81 MG ENTERIC TAB PO (08:13)
[2018-03-28] MEDS: LACTOBACILLUS ACIDOPHILUS CAP (BACID) PO ×2 (08:13→17:35)
[2018-03-28] MEDS: CLOPIDOGREL 75 MG TAB PO (08:13)
[2018-03-28] MEDS: OMEPRAZOLE 20 MG CAP PO (08:13)
[2018-03-28] MEDS: SENOKOT S TAB PO ×2 (08:13→20:26)
[2018-03-28] MEDS: FERROUS SULFATE 325MG TAB PO ×3 (08:13→20:25)
[2018-03-28] MEDS: BISOPROLOL FUMARATE 5 MG TAB PO (08:13)
[2018-03-28] MEDS: VITAMIN D 1,000 INTERNATIONAL UNITS TABLET PO (08:13)
[2018-03-28] MEDS: ENOXAPARIN 60 MG/0.6 ML SYR (J1650) SC (08:14)
[2018-03-28] MEDS: LINEZOLID 600 MG in APPROPRIATE DILUENT 1 EA IV (08:14)
[2018-03-28] MEDS: TOLVAPTAN 7.5 MG HALF-TAB PO (11:19)
[2018-03-28 19:07] LABS: ANION GAP 9 MEQ/L (8-16); BLOOD UREA NITROGEN 43 MG/DL (7-18); CALCIUM LEVEL 8.2 MG/DL (8.8-10.2); CARBON DIOXIDE LEVEL 24 MEQ/L (21-32); CHLORIDE LEVEL 93 MEQ/L (98-107); CREATININE FOR GFR 1.67 MG/DL (0.55-1.30); GLOMERULAR FILTRATION RATE 31.4 (>32); GLUCOSE, FASTING 133 MG/DL (70-100); POTASSIUM SERUM 3.8 MEQ/L (3.5-5.1); SODIUM LEVEL 126 MEQ/L (136-145)
[2018-03-28] MEDS: ATORVASTATIN 20 MG TAB PO (20:25)
[2018-03-28] MEDS: DONEPEZIL 5 MG TAB PO (20:26)
[2018-03-28] MEDS ORDERED: TORSEMIDE 20 MG TAB PO (21:00)
[2018-03-29] MEDS: LEVALBUTEROL 1.25 MG/0.5 ML CONCENTRATE NEB NEB ×5 (04:00→20:00)
[2018-03-29 05:54] LABS: HEMATOCRIT 29.5 % (36.0-47.0); HEMOGLOBIN 10.1 g/dl (12.0-15.5); MEAN CORPUSCULAR HEMOGLOBIN 31.5 pg (27.0-33.0); MEAN CORPUSCULAR HGB CONC 34.2 g/dl (32.0-36.5); MEAN CORPUSCULAR VOLUME 91.9 fl (80.0-96.0); PLATELET COUNT, AUTOMATED 343 10^3/uL (150-450); RED BLOOD COUNT 3.21 10^6/uL (4.00-5.40); RED CELL DISTRIBUTION WIDTH 14.3 % (11.5-14.5); WHITE BLOOD COUNT 14.3 10^3/uL (4.0-10.0)
[2018-03-29] MEDS: ISOSORBIDE DIN (ISORDIL) 10 MG TAB PO ×3 (06:05→21:31)
[2018-03-29] MEDS: **hydrALAZINE** 10 MG TAB PO ×3 (06:06→21:32)
[2018-03-29] MEDS: SLF 3 ML SYR IV ×3 (06:06→21:32)
[2018-03-29 06:34] LABS: ANION GAP 13 MEQ/L (8-16); BLOOD UREA NITROGEN 40 MG/DL (7-18); CARBON DIOXIDE LEVEL 22 MEQ/L (21-32); CHLORIDE LEVEL 98 MEQ/L (98-107); CREATININE FOR GFR 1.46 MG/DL (0.55-1.30); DIGOXIN LEVEL 0.7 NG/ML (0.5-2.0); GLOMERULAR FILTRATION RATE 36.7 (>32); GLUCOSE, FASTING 106 MG/DL (70-100); POTASSIUM SERUM 4.4 MEQ/L (3.5-5.1); SODIUM LEVEL 133 MEQ/L (136-145)
[2018-03-29] MEDS: ADVAIR HFA 115/21MCG INHALER INH ×2 (07:35→20:30)
[2018-03-29] MEDS: MONTELUKAST 10 MG TAB PO (08:07)
[2018-03-29] MEDS: LACTOBACILLUS ACIDOPHILUS CAP (BACID) PO ×2 (08:09→17:04)
[2018-03-29] MEDS: ENOXAPARIN 60 MG/0.6 ML SYR (J1650) SC (08:09)
[2018-03-29] MEDS: BISOPROLOL FUMARATE 5 MG TAB PO (08:09)
[2018-03-29] MEDS: OMEPRAZOLE 20 MG CAP PO (08:10)
[2018-03-29] MEDS: SENOKOT S TAB PO (08:10)
[2018-03-29] MEDS: FERROUS SULFATE 325MG TAB PO ×3 (08:10→21:32)
[2018-03-29] MEDS: ASPIRIN 81 MG ENTERIC TAB PO (08:10)
[2018-03-29] MEDS: MULTIVITAMINS/MINERALS THERAP 1 TAB PO (08:10)
[2018-03-29] MEDS: CLOPIDOGREL 75 MG TAB PO (08:10)
[2018-03-29] MEDS: VITAMIN D 1,000 INTERNATIONAL UNITS TABLET PO (08:11)
[2018-03-29] MEDS: ACETAMINOPHEN TAB 650MG DOSE (2X325MG) PO (19:10)
[2018-03-29] MEDS: DONEPEZIL 5 MG TAB PO (21:31)
[2018-03-29] MEDS: ATORVASTATIN 20 MG TAB PO (21:32)
[2018-03-30] MEDS: LEVALBUTEROL 1.25 MG/0.5 ML CONCENTRATE NEB NEB ×7 (03:27→23:47)
[2018-03-30] MEDS: SLF 3 ML SYR IV ×3 (05:40→21:30)
[2018-03-30] MEDS: ISOSORBIDE DIN (ISORDIL) 10 MG TAB PO ×3 (05:41→21:29)
[2018-03-30] MEDS: ACETAMINOPHEN TAB 650MG DOSE (2X325MG) PO ×3 (05:41→14:39)
[2018-03-30] MEDS: **hydrALAZINE** 10 MG TAB PO ×3 (05:41→21:30)
[2018-03-30 06:13] LABS: HEMATOCRIT 26.8 % (36.0-47.0); HEMOGLOBIN 9.2 g/dl (12.0-15.5); MEAN CORPUSCULAR HEMOGLOBIN 31.5 pg (27.0-33.0); MEAN CORPUSCULAR HGB CONC 34.3 g/dl (32.0-36.5); MEAN CORPUSCULAR VOLUME 91.8 fl (80.0-96.0); PLATELET COUNT, AUTOMATED 334 10^3/uL (150-450); RED BLOOD COUNT 2.92 10^6/uL (4.00-5.40); RED CELL DISTRIBUTION WIDTH 14.6 % (11.5-14.5); WHITE BLOOD COUNT 12.8 10^3/uL (4.0-10.0)
[2018-03-30 06:37] LABS: ANION GAP 11 MEQ/L (8-16); BLOOD UREA NITROGEN 37 MG/DL (7-18); CARBON DIOXIDE LEVEL 22 MEQ/L (21-32); CHLORIDE LEVEL 103 MEQ/L (98-107); GLUCOSE, FASTING 121 MG/DL (70-100); MAGNESIUM LEVEL 2.7 MG/DL (1.8-2.4); POTASSIUM SERUM 4.4 MEQ/L (3.5-5.1); SODIUM LEVEL 136 MEQ/L (136-145)
[2018-03-30] MEDS: LACTOBACILLUS ACIDOPHILUS CAP (BACID) PO ×2 (07:44→17:02)
[2018-03-30] MEDS: VITAMIN D 1,000 INTERNATIONAL UNITS TABLET PO (07:44)
[2018-03-30] MEDS: OMEPRAZOLE 20 MG CAP PO (07:44)
[2018-03-30] MEDS: CLOPIDOGREL 75 MG TAB PO (07:44)
[2018-03-30] MEDS: FERROUS SULFATE 325MG TAB PO ×3 (07:44→21:00)
[2018-03-30] MEDS: MULTIVITAMINS/MINERALS THERAP 1 TAB PO (07:44)
[2018-03-30] MEDS: ASPIRIN 81 MG ENTERIC TAB PO (07:44)
[2018-03-30] MEDS: MONTELUKAST 10 MG TAB PO (07:44)
[2018-03-30] MEDS: BISOPROLOL FUMARATE 5 MG TAB PO (07:45)
[2018-03-30] MEDS: ADVAIR HFA 115/21MCG INHALER INH ×2 (07:58→20:55)
[2018-03-30] MEDS: TORSEMIDE 20 MG TAB PO (13:01)
[2018-03-30] MEDS: ATORVASTATIN 20 MG TAB PO (21:29)
[2018-03-30] MEDS: DONEPEZIL 5 MG TAB PO (21:30)
[2018-03-30 21:37] LABS: HEMATOCRIT 27.5 % (36.0-47.0); HEMOGLOBIN 9.3 g/dl (12.0-15.5)
[2018-03-31 03:10] LABS: ANION GAP 9 MEQ/L (8-16); BLOOD UREA NITROGEN 36 MG/DL (7-18); CALCIUM LEVEL 8.4 MG/DL (8.8-10.2); CARBON DIOXIDE LEVEL 23 MEQ/L (21-32); CHLORIDE LEVEL 102 MEQ/L (98-107); CREATININE FOR GFR 1.45 MG/DL (0.55-1.30); GLUCOSE, FASTING 119 MG/DL (70-100); POTASSIUM SERUM 4.6 MEQ/L (3.5-5.1); SODIUM LEVEL 134 MEQ/L (136-145)
[2018-03-31] MEDS: LEVALBUTEROL 1.25 MG/0.5 ML CONCENTRATE NEB NEB (04:00)
[2018-03-31] MEDS: NITROGLYCERIN 0.4 MG SUBL TABLET SL (04:13)
[2018-03-31 04:25] LABS: BEDSIDE GLUCOSE 139 MG/DL (83-110)
[2018-03-31] MEDS ORDERED: METOPROLOL 5 MG/5 ML VIAL As Ordered (04:26)
[2018-03-31] MEDS: METOPROLOL 5 MG/5 ML VIAL IV ×2 (04:30→04:40)
[2018-03-31 04:45] LABS: HEMATOCRIT 27.1 % (36.0-47.0); HEMOGLOBIN 9.3 g/dl (12.0-15.5); MEAN CORPUSCULAR HEMOGLOBIN 32.3 pg (27.0-33.0); MEAN CORPUSCULAR HGB CONC 34.3 g/dl (32.0-36.5); MEAN CORPUSCULAR VOLUME 94.1 fl (80.0-96.0); PLATELET COUNT, AUTOMATED 353 10^3/uL (150-450); RED BLOOD COUNT 2.88 10^6/uL (4.00-5.40); RED CELL DISTRIBUTION WIDTH 15.1 % (11.5-14.5); WHITE BLOOD COUNT 17.6 10^3/uL (4.0-10.0)
[2018-03-31 05:07] LABS: ANION GAP 10 MEQ/L (8-16); BLOOD UREA NITROGEN 34 MG/DL (7-18); CALCIUM LEVEL 8.4 MG/DL (8.8-10.2); CARBON DIOXIDE LEVEL 22 MEQ/L (21-32); CHLORIDE LEVEL 102 MEQ/L (98-107); CPK CREATINE PHOSPHOKINASE 78 U/L (26-192); CREATININE FOR GFR 1.47 MG/DL (0.55-1.30); GLOMERULAR FILTRATION RATE 36.4 (>32); GLUCOSE, FASTING 123 MG/DL (70-100); MB/CK RELATIVE INDEX 2.95 (< OR =4); POTASSIUM SERUM 4.6 MEQ/L (3.5-5.1); SODIUM LEVEL 134 MEQ/L (136-145); TROPONIN I 0.08 NG/ML (< 0.10)
[2018-03-31] MEDS: SLF 3 ML SYR IV ×3 (06:00→21:04)
[2018-03-31] MEDS: ACETAMINOPHEN TAB 650MG DOSE (2X325MG) PO ×2 (06:10→21:03)
[2018-03-31] MEDS: ISOSORBIDE DIN (ISORDIL) 10 MG TAB PO ×3 (06:11→21:03)
[2018-03-31] MEDS: **hydrALAZINE** 10 MG TAB PO ×3 (06:11→21:04)
[2018-03-31] MEDS ORDERED: LEVALBUTEROL 1.25 MG/0.5 ML CONCENTRATE NEB INH (07:15)
[2018-03-31] MEDS: ADVAIR HFA 115/21MCG INHALER INH ×2 (07:24→20:14)
[2018-03-31] MEDS: LACTOBACILLUS ACIDOPHILUS CAP (BACID) PO ×2 (08:12→17:12)
[2018-03-31] MEDS: BISOPROLOL FUMARATE 5 MG TAB PO (08:18)
[2018-03-31] MEDS: TORSEMIDE 20 MG TAB PO (08:18)
[2018-03-31] MEDS: MULTIVITAMINS/MINERALS THERAP 1 TAB PO (08:18)
[2018-03-31] MEDS: MONTELUKAST 10 MG TAB PO (08:18)
[2018-03-31] MEDS: PANTOPRAZOLE 40MG INJ (PROTONIX) (C9113) IV ×2 (08:19→21:04)
[2018-03-31] MEDS: VITAMIN D 1,000 INTERNATIONAL UNITS TABLET PO (08:19)
[2018-03-31] MEDS: FERROUS SULFATE 325MG TAB PO ×3 (08:19→21:03)
[2018-03-31 10:44] LABS: HEMATOCRIT 28.2 % (36.0-47.0); HEMOGLOBIN 9.4 g/dl (12.0-15.5)
[2018-03-31] MEDS: DIGOXIN 0.25 MG TAB PO (16:25)
[2018-03-31 18:11] LABS: HEMATOCRIT 27.5 % (36.0-47.0); HEMOGLOBIN 9.4 g/dl (12.0-15.5)
[2018-03-31] MEDS: ATORVASTATIN 20 MG TAB PO (21:03)
[2018-03-31] MEDS: DONEPEZIL 5 MG TAB PO (21:04)
[2018-04-01 01:59] LABS: HEMATOCRIT 25.4 % (36.0-47.0); HEMOGLOBIN 8.6 g/dl (12.0-15.5)
[2018-04-01] MEDS: **hydrALAZINE** 10 MG TAB PO ×3 (05:45→20:20)
[2018-04-01] MEDS: ISOSORBIDE DIN (ISORDIL) 10 MG TAB PO ×3 (05:45→20:19)
[2018-04-01] MEDS: SLF 3 ML SYR IV ×3 (05:45→20:20)
[2018-04-01 06:15] LABS: BEDSIDE GLUCOSE 143 MG/DL (83-110)
[2018-04-01] MEDS: ADVAIR HFA 115/21MCG INHALER INH ×2 (07:42→20:14)
[2018-04-01] MEDS: MONTELUKAST 10 MG TAB PO (08:06)
[2018-04-01] MEDS: VITAMIN D 1,000 INTERNATIONAL UNITS TABLET PO (08:06)
[2018-04-01] MEDS: TORSEMIDE 20 MG TAB PO (08:06)
[2018-04-01] MEDS: PANTOPRAZOLE 40MG INJ (PROTONIX) (C9113) IV ×2 (08:06→20:19)
[2018-04-01] MEDS: FERROUS SULFATE 325MG TAB PO ×3 (08:06→20:20)
[2018-04-01] MEDS: MULTIVITAMINS/MINERALS THERAP 1 TAB PO (08:06)
[2018-04-01] MEDS: LACTOBACILLUS ACIDOPHILUS CAP (BACID) PO ×2 (08:06→17:40)
[2018-04-01] MEDS: DIGOXIN 0.25 MG TAB PO (08:07)
[2018-04-01] MEDS: BISOPROLOL FUMARATE 5 MG TAB PO (08:07)
[2018-04-01] MEDS: ACETAMINOPHEN TAB 650MG DOSE (2X325MG) PO ×2 (08:26→20:18)
[2018-04-01] MEDS: FUROSEMIDE 40 MG/4 ML VIAL (J1940) IV (08:51)
[2018-04-01] MEDS: MORPHINE 4 MG/ML 1ML VIAL/SYRINGE (J2270) IV (08:52)
[2018-04-01] MEDS: AMIODARONE HCL 150 MG in APPROPRIATE DILUENT 1 EA IV (09:28)
[2018-04-01 10:24] LABS: ALBUMIN 3.2 GM/DL (3.2-5.2); ANION GAP 13 MEQ/L (8-16); BLOOD UREA NITROGEN 43 MG/DL (7-18); CALCIUM LEVEL 8.7 MG/DL (8.8-10.2); CARBON DIOXIDE LEVEL 21 MEQ/L (21-32); CHLORIDE LEVEL 102 MEQ/L (98-107); CREATININE FOR GFR 1.75 MG/DL (0.55-1.30); GLOMERULAR FILTRATION RATE 29.8 (>32); GLUCOSE, FASTING 138 MG/DL (70-100); PHOSPHORUS LEVEL 4.1 MG/DL (2.5-4.9); POTASSIUM SERUM 4.7 MEQ/L (3.5-5.1); SODIUM LEVEL 136 MEQ/L (136-145)
[2018-04-01 12:13] LABS: IMMEDIATE SPIN CROSSMATCH 1 1
[2018-04-01] MEDS: ATORVASTATIN 20 MG TAB PO (20:19)
[2018-04-01] MEDS: DONEPEZIL 5 MG TAB PO (20:20)
[2018-04-02 04:49] LABS: ALBUMIN 3.3 GM/DL (3.2-5.2); ANION GAP 12 MEQ/L (8-16); BLOOD UREA NITROGEN 42 MG/DL (7-18); CALCIUM LEVEL 8.9 MG/DL (8.8-10.2); CARBON DIOXIDE LEVEL 21 MEQ/L (21-32); CHLORIDE LEVEL 102 MEQ/L (98-107); CREATININE FOR GFR 1.62 MG/DL (0.55-1.30); GLOMERULAR FILTRATION RATE 32.5 (>32); GLUCOSE, FASTING 115 MG/DL (70-100); PHOSPHORUS LEVEL 3.8 MG/DL (2.5-4.9); POTASSIUM SERUM 4.3 MEQ/L (3.5-5.1); SODIUM LEVEL 135 MEQ/L (136-145)
[2018-04-02] MEDS: SLF 3 ML SYR IV ×3 (05:01→21:06)
[2018-04-02] MEDS: **hydrALAZINE** 10 MG TAB PO (05:01)
[2018-04-02] MEDS: ISOSORBIDE DIN (ISORDIL) 10 MG TAB PO ×3 (05:01→21:04)
[2018-04-02 06:39] LABS: HEMATOCRIT 29.7 % (36.0-47.0); HEMOGLOBIN 10.3 g/dl (12.0-15.5); MEAN CORPUSCULAR HEMOGLOBIN 32.1 pg (27.0-33.0); MEAN CORPUSCULAR HGB CONC 34.7 g/dl (32.0-36.5); MEAN CORPUSCULAR VOLUME 92.5 fl (80.0-96.0); PLATELET COUNT, AUTOMATED 338 10^3/uL (150-450); RED BLOOD COUNT 3.21 10^6/uL (4.00-5.40); RED CELL DISTRIBUTION WIDTH 15.4 % (11.5-14.5); WHITE BLOOD COUNT 18.4 10^3/uL (4.0-10.0)
[2018-04-02 06:51] LABS: ADD MANUAL DIFFER YES; DIFF SLIDE NUMBER 75; POS COUNT POS FLAG; POSITIVE MORPH POS FLAG
[2018-04-02 07:04] LABS: BASOPHILS 1 % (0-4); EOSINOPHILS 1 % (0-5); LYMPHOCYTES 9 % (16-52); MONOCYTES 4 % (0-8); NEUTROPHILS 85 % (35-75)
[2018-04-02 07:06] LABS: PLATELET ESTIMATE NORMAL (NORMAL)
[2018-04-02 07:07] LABS: POLYCHROMASIA 1+
[2018-04-02] MEDS: ADVAIR HFA 115/21MCG INHALER INH ×2 (07:45→20:25)
[2018-04-02] MEDS: MULTIVITAMINS/MINERALS THERAP 1 TAB PO (08:27)
[2018-04-02] MEDS: LACTOBACILLUS ACIDOPHILUS CAP (BACID) PO ×2 (08:27→17:10)
[2018-04-02] MEDS: PANTOPRAZOLE 40MG INJ (PROTONIX) (C9113) IV ×2 (08:27→21:05)
[2018-04-02] MEDS: VITAMIN D 1,000 INTERNATIONAL UNITS TABLET PO (08:27)
[2018-04-02] MEDS: ACETAMINOPHEN TAB 650MG DOSE (2X325MG) PO ×2 (08:27→12:09)
[2018-04-02] MEDS: BISOPROLOL FUMARATE 5 MG TAB PO (08:28)
[2018-04-02] MEDS: TORSEMIDE 20 MG TAB PO ×2 (08:28→17:10)
[2018-04-02] MEDS: DIGOXIN 0.125 MG TAB PO (08:28)
[2018-04-02] MEDS: FERROUS SULFATE 325MG TAB PO ×3 (08:28→21:05)
[2018-04-02] MEDS: MONTELUKAST 10 MG TAB PO ×2 (09:00)
[2018-04-02] MEDS: ASPIRIN 81 MG ENTERIC TAB PO (10:54)
[2018-04-02] MEDS: CLOPIDOGREL 75 MG TAB PO (10:54)
[2018-04-02] MEDS: **hydrALAZINE HCL** 25 MG TAB PO ×2 (13:40→21:05)
[2018-04-02] MEDS: ATORVASTATIN 20 MG TAB PO (21:04)
[2018-04-02] MEDS: DONEPEZIL 5 MG TAB PO (21:04)
[2018-04-03 04:37] LABS: BASO # 0.1 10^3/uL (0.0-0.2); BASO % 0.6 % (0.0-1.0); EOS # 0.1 10^3/uL (0.0-0.50); EOS % 0.5 % (0.0-3.0); HEMATOCRIT 33.5 % (36.0-47.0); HEMOGLOBIN 11.3 g/dl (12.0-15.5); IMMATURE GRANULOCYTE % 4.9 % (0-3.0); LYMPH # 2.4 10^3/uL (1.5-4.5); LYMPH % 11.3 % (24.0-44.0); MEAN CORPUSCULAR HEMOGLOBIN 31.7 pg (27.0-33.0); MEAN CORPUSCULAR HGB CONC 33.7 g/dl (32.0-36.5); MEAN CORPUSCULAR VOLUME 93.8 fl (80.0-96.0); MONO # 1.6 10^3/uL (0.0-0.8); MONO % 7.5 % (0.0-5.0); NEUTROPHILS # 16.1 10^3/uL (1.8-7.7); NEUTROPHILS % 75.2 % (36.0-66.0); PLATELET COUNT, AUTOMATED 367 10^3/uL (150-450); RED BLOOD COUNT 3.57 10^6/uL (4.00-5.40); RED CELL DISTRIBUTION WIDTH 16.1 % (11.5-14.5); WHITE BLOOD COUNT 21.4 10^3/uL (4.0-10.0)
[2018-04-03 05:07] LABS: ALBUMIN 3.5 GM/DL (3.2-5.2); ANION GAP 12 MEQ/L (8-16); BLOOD UREA NITROGEN 41 MG/DL (7-18); CARBON DIOXIDE LEVEL 21 MEQ/L (21-32); CHLORIDE LEVEL 99 MEQ/L (98-107); CREATININE FOR GFR 1.72 MG/DL (0.55-1.30); DIGOXIN LEVEL 1.6 NG/ML (0.5-2.0); GLOMERULAR FILTRATION RATE 30.4 (>32); GLUCOSE, FASTING 121 MG/DL (70-100); PHOSPHORUS LEVEL 3.3 MG/DL (2.5-4.9); POTASSIUM SERUM 4.5 MEQ/L (3.5-5.1); SODIUM LEVEL 132 MEQ/L (136-145)
[2018-04-03] MEDS: ISOSORBIDE DIN (ISORDIL) 10 MG TAB PO ×3 (05:21→21:20)
[2018-04-03] MEDS: **hydrALAZINE HCL** 25 MG TAB PO ×3 (05:22→21:20)
[2018-04-03] MEDS: SLF 3 ML SYR IV ×3 (05:22→21:21)
[2018-04-03] MEDS: ACETAMINOPHEN TAB 650MG DOSE (2X325MG) PO ×2 (06:29→17:24)
[2018-04-03] MEDS: ADVAIR HFA 115/21MCG INHALER INH ×2 (07:34→20:23)
[2018-04-03] MEDS: PANTOPRAZOLE 40MG INJ (PROTONIX) (C9113) IV ×2 (08:11→21:20)
[2018-04-03] MEDS: DIGOXIN 0.125 MG TAB PO (08:12)
[2018-04-03] MEDS: ASPIRIN 81 MG ENTERIC TAB PO (08:12)
[2018-04-03] MEDS: CLOPIDOGREL 75 MG TAB PO (08:12)
[2018-04-03] MEDS: BISOPROLOL FUMARATE 5 MG TAB PO (08:12)
[2018-04-03] MEDS: FERROUS SULFATE 325MG TAB PO ×3 (08:12→21:20)
[2018-04-03] MEDS: VITAMIN D 1,000 INTERNATIONAL UNITS TABLET PO (08:13)
[2018-04-03] MEDS: TORSEMIDE 20 MG TAB PO ×2 (08:13→17:24)
[2018-04-03] MEDS: MONTELUKAST 10 MG TAB PO (08:13)
[2018-04-03] MEDS: LACTOBACILLUS ACIDOPHILUS CAP (BACID) PO ×2 (08:13→17:24)
[2018-04-03] MEDS: MULTIVITAMINS/MINERALS THERAP 1 TAB PO (08:13)
[2018-04-03] MEDS: FUROSEMIDE 40 MG/4 ML VIAL (J1940) IV (11:32)
[2018-04-03] MEDS: ATORVASTATIN 20 MG TAB PO (21:19)
[2018-04-03] MEDS: DONEPEZIL 5 MG TAB PO (21:20)
[2018-04-04] MEDS: ISOSORBIDE DIN (ISORDIL) 10 MG TAB PO ×3 (05:24→21:53)
[2018-04-04] MEDS: **hydrALAZINE HCL** 25 MG TAB PO ×3 (05:24→21:54)
[2018-04-04] MEDS: SLF 3 ML SYR IV ×4 (05:26→21:54)
[2018-04-04 05:34] LABS: BASO # 0.1 10^3/uL (0.0-0.2); BASO % 0.6 % (0.0-1.0); EOS # 0.2 10^3/uL (0.0-0.50); HEMATOCRIT 31.6 % (36.0-47.0); HEMOGLOBIN 10.8 g/dl (12.0-15.5); IMMATURE GRANULOCYTE % 4.5 % (0-3.0); LYMPH # 1.4 10^3/uL (1.5-4.5); MEAN CORPUSCULAR HEMOGLOBIN 32.1 pg (27.0-33.0); MEAN CORPUSCULAR HGB CONC 34.2 g/dl (32.0-36.5); MONO # 1.3 10^3/uL (0.0-0.8); MONO % 8.5 % (0.0-5.0); NEUTROPHILS % 76.4 % (36.0-66.0); PLATELET COUNT, AUTOMATED 334 10^3/uL (150-450); RED BLOOD COUNT 3.36 10^6/uL (4.00-5.40); RED CELL DISTRIBUTION WIDTH 16.3 % (11.5-14.5); WHITE BLOOD COUNT 15.6 10^3/uL (4.0-10.0)
[2018-04-04 05:53] LABS: ALBUMIN 3.1 GM/DL (3.2-5.2); ANION GAP 10 MEQ/L (8-16); BLOOD UREA NITROGEN 34 MG/DL (7-18); CALCIUM LEVEL 8.6 MG/DL (8.8-10.2); CARBON DIOXIDE LEVEL 25 MEQ/L (21-32); CHLORIDE LEVEL 98 MEQ/L (98-107); GLOMERULAR FILTRATION RATE 30.8 (>32); GLUCOSE, FASTING 93 MG/DL (70-100); PHOSPHORUS LEVEL 2.9 MG/DL (2.5-4.9); POTASSIUM SERUM 3.6 MEQ/L (3.5-5.1); SODIUM LEVEL 133 MEQ/L (136-145)
[2018-04-04] MEDS: TIOTROPIUM INHALER/CAPSULE (SPIRIVA) INH (07:47)
[2018-04-04] MEDS: ADVAIR HFA 115/21MCG INHALER INH ×2 (07:48→20:22)
[2018-04-04] MEDS: LACTOBACILLUS ACIDOPHILUS CAP (BACID) PO ×2 (08:13→17:14)
[2018-04-04] MEDS: ACETAMINOPHEN TAB 650MG DOSE (2X325MG) PO ×3 (09:06→21:58)
[2018-04-04] MEDS: FERROUS SULFATE 325MG TAB PO ×3 (09:08→21:52)
[2018-04-04] MEDS: BISOPROLOL FUMARATE 5 MG TAB PO ×2 (09:08→21:53)
[2018-04-04] MEDS: TORSEMIDE 20 MG TAB PO ×2 (09:08→17:14)
[2018-04-04] MEDS: ASPIRIN 81 MG ENTERIC TAB PO (09:09)
[2018-04-04] MEDS: PANTOPRAZOLE 40MG TAB (PROTONIX) PO ×2 (09:09→21:53)
[2018-04-04] MEDS: MONTELUKAST 10 MG TAB PO (09:09)
[2018-04-04] MEDS: VITAMIN D 1,000 INTERNATIONAL UNITS TABLET PO (09:09)
[2018-04-04] MEDS: MULTIVITAMINS/MINERALS THERAP 1 TAB PO (09:09)
[2018-04-04] MEDS: FUROSEMIDE 40 MG/4 ML VIAL (J1940) IV (11:35)
[2018-04-04] MEDS: DONEPEZIL 5 MG TAB PO (21:53)
[2018-04-04] MEDS: ATORVASTATIN 20 MG TAB PO (21:53)
[2018-04-05] MEDS: ISOSORBIDE DIN (ISORDIL) 10 MG TAB PO ×2 (05:08→13:49)
[2018-04-05] MEDS: **hydrALAZINE HCL** 25 MG TAB PO ×3 (05:09→23:59)
[2018-04-05] MEDS: SLF 3 ML SYR IV ×3 (05:09→23:58)
[2018-04-05 06:07] LABS: BASO # 0.1 10^3/uL (0.0-0.2); BASO % 0.7 % (0.0-1.0); EOS # 0.2 10^3/uL (0.0-0.50); EOS % 1.2 % (0.0-3.0); HEMATOCRIT 34.2 % (36.0-47.0); HEMOGLOBIN 11.5 g/dl (12.0-15.5); IMMATURE GRANULOCYTE % 2.7 % (0-3.0); LYMPH # 1.1 10^3/uL (1.5-4.5); LYMPH % 7.6 % (24.0-44.0); MEAN CORPUSCULAR HGB CONC 33.6 g/dl (32.0-36.5); MEAN CORPUSCULAR VOLUME 95.3 fl (80.0-96.0); MONO # 1.3 10^3/uL (0.0-0.8); MONO % 8.5 % (0.0-5.0); NEUTROPHILS # 11.9 10^3/uL (1.8-7.7); NEUTROPHILS % 79.3 % (36.0-66.0); PLATELET COUNT, AUTOMATED 369 10^3/uL (150-450); RED BLOOD COUNT 3.59 10^6/uL (4.00-5.40); RED CELL DISTRIBUTION WIDTH 16.8 % (11.5-14.5); WHITE BLOOD COUNT 14.9 10^3/uL (4.0-10.0)
[2018-04-05 06:33] LABS: ALBUMIN 3.5 GM/DL (3.2-5.2); ANION GAP 12 MEQ/L (8-16); BLOOD UREA NITROGEN 40 MG/DL (7-18); CALCIUM LEVEL 9.4 MG/DL (8.8-10.2); CARBON DIOXIDE LEVEL 25 MEQ/L (21-32); CHLORIDE LEVEL 101 MEQ/L (98-107); GLOMERULAR FILTRATION RATE 30.8 (>32); GLUCOSE, FASTING 97 MG/DL (70-100); PHOSPHORUS LEVEL 3.5 MG/DL (2.5-4.9); POTASSIUM SERUM 3.6 MEQ/L (3.5-5.1); SODIUM LEVEL 138 MEQ/L (136-145)
[2018-04-05] MEDS ORDERED: MAGNESIUM OXIDE 400 MG TAB (MAG-OX) PO (06:45)
[2018-04-05] MEDS: TIOTROPIUM INHALER/CAPSULE (SPIRIVA) INH (07:17)
[2018-04-05] MEDS: ADVAIR HFA 115/21MCG INHALER INH ×2 (07:18→20:35)
[2018-04-05] MEDS: LACTOBACILLUS ACIDOPHILUS CAP (BACID) PO ×2 (07:49→18:05)
[2018-04-05] MEDS: PANTOPRAZOLE 40MG TAB (PROTONIX) PO ×2 (08:24→20:08)
[2018-04-05] MEDS: MULTIVITAMINS/MINERALS THERAP 1 TAB PO (08:24)
[2018-04-05] MEDS: MONTELUKAST 10 MG TAB PO (08:24)
[2018-04-05] MEDS: VITAMIN D 1,000 INTERNATIONAL UNITS TABLET PO (08:24)
[2018-04-05] MEDS: ASPIRIN 81 MG ENTERIC TAB PO (08:24)
[2018-04-05] MEDS: TORSEMIDE 20 MG TAB PO ×2 (08:24→16:40)
[2018-04-05] MEDS: BISOPROLOL FUMARATE 5 MG TAB PO ×2 (08:25→20:08)
[2018-04-05] MEDS: FERROUS SULFATE 325MG TAB PO ×3 (08:25→20:08)
[2018-04-05] MEDS: ACETAMINOPHEN TAB 650MG DOSE (2X325MG) PO ×2 (08:26→13:00)
[2018-04-05] MEDS: ATORVASTATIN 20 MG TAB PO (20:06)
[2018-04-05] MEDS: DONEPEZIL 5 MG TAB PO (20:08)
[2018-04-06] MEDS: SLF 3 ML SYR IV ×3 (06:18→21:17)
[2018-04-06] MEDS: ISOSORBIDE DIN (ISORDIL) 10 MG TAB PO ×4 (06:18→21:15)
[2018-04-06] MEDS: **hydrALAZINE HCL** 25 MG TAB PO ×3 (06:18→21:16)
[2018-04-06 06:20] LABS: BASO # 0.1 10^3/uL (0.0-0.2); BASO % 0.5 % (0.0-1.0); EOS # 0.2 10^3/uL (0.0-0.50); EOS % 1.1 % (0.0-3.0); HEMATOCRIT 36.4 % (36.0-47.0); HEMOGLOBIN 12.1 g/dl (12.0-15.5); IMMATURE GRANULOCYTE % 1.4 % (0-3.0); LYMPH # 1.1 10^3/uL (1.5-4.5); LYMPH % 7.5 % (24.0-44.0); MEAN CORPUSCULAR HEMOGLOBIN 31.5 pg (27.0-33.0); MEAN CORPUSCULAR HGB CONC 33.2 g/dl (32.0-36.5); MEAN CORPUSCULAR VOLUME 94.8 fl (80.0-96.0); MONO # 1.1 10^3/uL (0.0-0.8); MONO % 7.7 % (0.0-5.0); NEUTROPHILS % 81.8 % (36.0-66.0); PLATELET COUNT, AUTOMATED 376 10^3/uL (150-450); RED BLOOD COUNT 3.84 10^6/uL (4.00-5.40); RED CELL DISTRIBUTION WIDTH 16.5 % (11.5-14.5); WHITE BLOOD COUNT 14.6 10^3/uL (4.0-10.0)
[2018-04-06 06:42] LABS: ALBUMIN 3.7 GM/DL (3.2-5.2); ANION GAP 11 MEQ/L (8-16); BLOOD UREA NITROGEN 49 MG/DL (7-18); CALCIUM LEVEL 9.7 MG/DL (8.8-10.2); CARBON DIOXIDE LEVEL 25 MEQ/L (21-32); CHLORIDE LEVEL 100 MEQ/L (98-107); CREATININE FOR GFR 1.74 MG/DL (0.55-1.30); GLUCOSE, FASTING 103 MG/DL (70-100); PHOSPHORUS LEVEL 3.9 MG/DL (2.5-4.9); POTASSIUM SERUM 3.5 MEQ/L (3.5-5.1); SODIUM LEVEL 136 MEQ/L (136-145)
[2018-04-06] MEDS: VITAMIN D 1,000 INTERNATIONAL UNITS TABLET PO (08:06)
[2018-04-06] MEDS: BISOPROLOL FUMARATE 5 MG TAB PO ×2 (08:06→21:17)
[2018-04-06] MEDS: ASPIRIN 81 MG ENTERIC TAB PO (08:06)
[2018-04-06] MEDS: TORSEMIDE 20 MG TAB PO (08:06)
[2018-04-06] MEDS: LACTOBACILLUS ACIDOPHILUS CAP (BACID) PO ×2 (08:06→18:01)
[2018-04-06] MEDS: MULTIVITAMINS/MINERALS THERAP 1 TAB PO (08:07)
[2018-04-06] MEDS: FERROUS SULFATE 325MG TAB PO ×3 (08:07→21:16)
[2018-04-06] MEDS: PANTOPRAZOLE 40MG TAB (PROTONIX) PO ×2 (08:07→21:17)
[2018-04-06] MEDS: MONTELUKAST 10 MG TAB PO (08:07)
[2018-04-06] MEDS: ADVAIR HFA 115/21MCG INHALER INH ×2 (08:42→20:07)
[2018-04-06] MEDS: TIOTROPIUM INHALER/CAPSULE (SPIRIVA) INH (08:42)
[2018-04-06] MEDS: ACETAMINOPHEN TAB 650MG DOSE (2X325MG) PO (10:13)
[2018-04-06] MEDS: ATORVASTATIN 20 MG TAB PO (21:16)
[2018-04-06] MEDS: DONEPEZIL 5 MG TAB PO (21:17)
[2018-04-07] MEDS: ISOSORBIDE DIN (ISORDIL) 10 MG TAB PO ×3 (05:49→21:01)
[2018-04-07] MEDS: **hydrALAZINE HCL** 25 MG TAB PO ×3 (05:49→21:01)
[2018-04-07] MEDS: SLF 3 ML SYR IV ×3 (05:51→14:00)
[2018-04-07 05:56] LABS: BASO # 0.1 10^3/uL (0.0-0.2); BASO % 0.6 % (0.0-1.0); EOS # 0.2 10^3/uL (0.0-0.50); EOS % 1.4 % (0.0-3.0); HEMOGLOBIN 12.1 g/dl (12.0-15.5); IMMATURE GRANULOCYTE % 1.4 % (0-3.0); LYMPH % 6.3 % (24.0-44.0); MEAN CORPUSCULAR HEMOGLOBIN 32.1 pg (27.0-33.0); MEAN CORPUSCULAR HGB CONC 33.6 g/dl (32.0-36.5); MEAN CORPUSCULAR VOLUME 95.5 fl (80.0-96.0); MONO # 1.3 10^3/uL (0.0-0.8); MONO % 8.2 % (0.0-5.0); NEUTROPHILS # 13.4 10^3/uL (1.8-7.7); NEUTROPHILS % 82.1 % (36.0-66.0); PLATELET COUNT, AUTOMATED 365 10^3/uL (150-450); RED BLOOD COUNT 3.77 10^6/uL (4.00-5.40); RED CELL DISTRIBUTION WIDTH 16.7 % (11.5-14.5); WHITE BLOOD COUNT 16.3 10^3/uL (4.0-10.0)
[2018-04-07 06:21] LABS: ALBUMIN 3.4 GM/DL (3.2-5.2); ANION GAP 9 MEQ/L (8-16); BLOOD UREA NITROGEN 47 MG/DL (7-18); CALCIUM LEVEL 8.6 MG/DL (8.8-10.2); CARBON DIOXIDE LEVEL 24 MEQ/L (21-32); CHLORIDE LEVEL 102 MEQ/L (98-107); CREATININE FOR GFR 1.87 MG/DL (0.55-1.30); GLOMERULAR FILTRATION RATE 27.6 (>32); GLUCOSE, FASTING 98 MG/DL (70-100); PHOSPHORUS LEVEL 3.6 MG/DL (2.5-4.9); POTASSIUM SERUM 3.6 MEQ/L (3.5-5.1); SODIUM LEVEL 135 MEQ/L (136-145)
[2018-04-07] MEDS: ADVAIR HFA 115/21MCG INHALER INH ×2 (06:59→20:39)
[2018-04-07] MEDS: TIOTROPIUM INHALER/CAPSULE (SPIRIVA) INH (07:00)
[2018-04-07] MEDS: LACTOBACILLUS ACIDOPHILUS CAP (BACID) PO ×2 (07:31→17:39)
[2018-04-07] MEDS: ACETAMINOPHEN TAB 650MG DOSE (2X325MG) PO ×2 (07:46→17:05)
[2018-04-07] MEDS: PANTOPRAZOLE 40MG TAB (PROTONIX) PO ×2 (09:05→20:56)
[2018-04-07] MEDS: MULTIVITAMINS/MINERALS THERAP 1 TAB PO (09:05)
[2018-04-07] MEDS: TORSEMIDE 20 MG TAB PO (09:05)
[2018-04-07] MEDS: VITAMIN D 1,000 INTERNATIONAL UNITS TABLET PO (09:06)
[2018-04-07] MEDS: MONTELUKAST 10 MG TAB PO (09:06)
[2018-04-07] MEDS: FERROUS SULFATE 325MG TAB PO ×3 (09:06→20:56)
[2018-04-07] MEDS: ASPIRIN 81 MG ENTERIC TAB PO (09:06)
[2018-04-07] MEDS: BISOPROLOL FUMARATE 5 MG TAB PO ×2 (09:07→20:56)
[2018-04-07] MEDS: DONEPEZIL 5 MG TAB PO (20:56)
[2018-04-07] MEDS: ATORVASTATIN 20 MG TAB PO (20:56)
[2018-04-08] MEDS: **hydrALAZINE HCL** 25 MG TAB PO (05:42)
[2018-04-08] MEDS: ISOSORBIDE DIN (ISORDIL) 10 MG TAB PO (05:42)
[2018-04-08 05:52] LABS: BASO # 0.1 10^3/uL (0.0-0.2); BASO % 0.8 % (0.0-1.0); EOS # 0.2 10^3/uL (0.0-0.50); EOS % 1.8 % (0.0-3.0); HEMOGLOBIN 11.7 g/dl (12.0-15.5); LYMPH # 1.3 10^3/uL (1.5-4.5); MEAN CORPUSCULAR HEMOGLOBIN 31.6 pg (27.0-33.0); MEAN CORPUSCULAR HGB CONC 33.4 g/dl (32.0-36.5); MEAN CORPUSCULAR VOLUME 94.6 fl (80.0-96.0); MONO # 1.1 10^3/uL (0.0-0.8); MONO % 8.6 % (0.0-5.0); NEUTROPHILS # 10.2 10^3/uL (1.8-7.7); NEUTROPHILS % 77.8 % (36.0-66.0); PLATELET COUNT, AUTOMATED 355 10^3/uL (150-450); RED CELL DISTRIBUTION WIDTH 16.4 % (11.5-14.5); WHITE BLOOD COUNT 13.1 10^3/uL (4.0-10.0)
[2018-04-08 06:20] LABS: ALBUMIN 3.5 GM/DL (3.2-5.2); ANION GAP 10 MEQ/L (8-16); BLOOD UREA NITROGEN 49 MG/DL (7-18); CALCIUM LEVEL 9.1 MG/DL (8.8-10.2); CARBON DIOXIDE LEVEL 24 MEQ/L (21-32); CHLORIDE LEVEL 105 MEQ/L (98-107); CREATININE FOR GFR 1.67 MG/DL (0.55-1.30); GLOMERULAR FILTRATION RATE 31.4 (>32); GLUCOSE, FASTING 88 MG/DL (70-100); PHOSPHORUS LEVEL 3.3 MG/DL (2.5-4.9); POTASSIUM SERUM 3.4 MEQ/L (3.5-5.1); SODIUM LEVEL 139 MEQ/L (136-145)
[2018-04-08] MEDS: ADVAIR HFA 115/21MCG INHALER INH (07:55)
[2018-04-08] MEDS: TIOTROPIUM INHALER/CAPSULE (SPIRIVA) INH (07:58)
[2018-04-08] MEDS: LACTOBACILLUS ACIDOPHILUS CAP (BACID) PO (08:12)
[2018-04-08] MEDS: ASPIRIN 81 MG ENTERIC TAB PO (08:13)
[2018-04-08] MEDS: TORSEMIDE 20 MG TAB PO (08:13)
[2018-04-08] MEDS: VITAMIN D 1,000 INTERNATIONAL UNITS TABLET PO (08:13)
[2018-04-08] MEDS: MONTELUKAST 10 MG TAB PO (08:13)
[2018-04-08] MEDS: MULTIVITAMINS/MINERALS THERAP 1 TAB PO (08:13)
[2018-04-08] MEDS: FERROUS SULFATE 325MG TAB PO (08:13)
[2018-04-08] MEDS: ACETAMINOPHEN TAB 650MG DOSE (2X325MG) PO (08:13)
[2018-04-08] MEDS: PANTOPRAZOLE 40MG TAB (PROTONIX) PO (08:13)
[2018-04-08] MEDS: BISOPROLOL FUMARATE 5 MG TAB PO (08:34)
== END 2018-04-08 12:53 | DRG 280 ==
LOC: M MSPAV 03-31 15:51 → M PCU 04-03 06:10 → M ICU 04-01 09:50 → M PCU 03-25 12:07 → M ED 03:48 → M ED INP 10:39 → M MSPAV 13:51
PROC: 30233N1 Transfusion of Nonautologous Red Blood Cells into Peripheral Vein, Percutaneous Approach (ICD-10-PCS; principal; 2018-04-01)
DX: I21.4 Non-ST elevation (NSTEMI) myocardial infarction (principal); I50.23 Acute on chronic systolic (congestive) heart failure; I13.0 Hypertensive heart and chronic kidney disease with heart failure and stage 1 through stage 4 chronic kidney disease, or unspecified chronic kidney disease; E87.2 Acidosis; N17.9 Acute kidney failure, unspecified; N18.4 Chronic kidney disease, stage 4 (severe); I47.2 Ventricular tachycardia; E87.1 Hypo-osmolality and hyponatremia; K92.2 Gastrointestinal hemorrhage, unspecified; D68.32 Hemorrhagic disorder due to extrinsic circulating anticoagulants; I42.0 Dilated cardiomyopathy; J44.9 Chronic obstructive pulmonary disease, unspecified; Z66 Do not resuscitate; I25.10 Atherosclerotic heart disease of native coronary artery without angina pectoris; I48.0 Paroxysmal atrial fibrillation; I44.7 Left bundle-branch block, unspecified; T50.8X5A Adverse effect of diagnostic agents, initial encounter; N14.2 Nephropathy induced by unspecified drug, medicament or biological substance; E78.5 Hyperlipidemia, unspecified; F03.90 Unspecified dementia, unspecified severity, without behavioral disturbance, psychotic disturbance, mood disturbance, and anxiety; K21.9 Gastro-esophageal reflux disease without esophagitis; E55.9 Vitamin D deficiency, unspecified; D63.1 Anemia in chronic kidney disease; E78.00 Pure hypercholesterolemia, unspecified; D50.9 Iron deficiency anemia, unspecified; Z90.710 Acquired absence of both cervix and uterus; Z87.891 Personal history of nicotine dependence; Z79.82 Long term (current) use of aspirin; Z79.51 Long term (current) use of inhaled steroids; Z79.899 Other long term (current) drug therapy; Z88.0 Allergy status to penicillin; Z88.7 Allergy status to serum and vaccine

== ENCOUNTER 2018-04-18 00:01 | Inpatient (IN) | payer MEDICARE ==
[2018-04-18] MEDS: NITROGLYCERIN 2% OINT 1 GM *U/D* PKT TOP (00:45)
[2018-04-18 00:48] LABS: BASO # 0.2 10^3/uL (0.0-0.2); BASO % 0.9 % (0.0-1.0); EOS # 0.3 10^3/uL (0.0-0.50); EOS % 1.5 % (0.0-3.0); HEMATOCRIT 41.6 % (36.0-47.0); HEMOGLOBIN 13.1 g/dl (12.0-15.5); IMMATURE GRANULOCYTE % 3.5 % (0-3.0); LYMPH # 3.6 10^3/uL (1.5-4.5); LYMPH % 19.3 % (24.0-44.0); MEAN CORPUSCULAR HEMOGLOBIN 31.3 pg (27.0-33.0); MEAN CORPUSCULAR HGB CONC 31.5 g/dl (32.0-36.5); MEAN CORPUSCULAR VOLUME 99.5 fl (80.0-96.0); MONO # 1.1 10^3/uL (0.0-0.8); MONO % 5.8 % (0.0-5.0); NEUTROPHILS # 12.8 10^3/uL (1.8-7.7); PLATELET COUNT, AUTOMATED 370 10^3/uL (150-450); RED BLOOD COUNT 4.18 10^6/uL (4.00-5.40); RED CELL DISTRIBUTION WIDTH 15.5 % (11.5-14.5); WHITE BLOOD COUNT 18.6 10^3/uL (4.0-10.0)
[2018-04-18] MEDS: FUROSEMIDE 40 MG/4 ML VIAL (J1940) IV ×4 (00:50→20:57)
[2018-04-18 01:02] LABS: ANION GAP 12 MEQ/L (8-16); BLOOD UREA NITROGEN 55 MG/DL (7-18); CALCIUM LEVEL 8.4 MG/DL (8.8-10.2); CARBON DIOXIDE LEVEL 23 MEQ/L (21-32); CHLORIDE LEVEL 97 MEQ/L (98-107); CPK CREATINE PHOSPHOKINASE 86 U/L (26-192); CREATININE FOR GFR 2.17 MG/DL (0.55-1.30); GLOMERULAR FILTRATION RATE 23.2 (>32); GLUCOSE, FASTING 350 MG/DL (70-100); MB/CK RELATIVE INDEX 1.74 (< OR =4); NT-PRO BNP 13880 PG/ML (<450); POTASSIUM SERUM 4.5 MEQ/L (3.5-5.1); SODIUM LEVEL 132 MEQ/L (136-145); TROPONIN I 0.07 NG/ML (< 0.10)
[2018-04-18] MEDS: IPRATROPIUM 0.5MG/ALBUTEROL 2.5MG INH SOL UD 3ML (DUONEB)(J7620) NEB ×8 (01:03→23:35)
[2018-04-18 01:04] LABS: ABG BASE EXCESS -8.7 (-2.0-2.0); ABG HCO3 21.6 MEQ/L (22.0-26.0); ABG O2 SATURATION 99.1 % (95.0-99.0); ABG PARTIAL PRESSURE CO2 66.4 mmHg (35.0-45.0); ABG PARTIAL PRESSURE O2 178.8 mmHg (75.0-100.0); ABG STANDARD HCO3 17.6 MEQ/L (22.0-26.0); ABG TOTAL CO2 23.6 MEQ/L (23.0-31.0)
[2018-04-18 01:09] LABS: INFLUENZA A AMPLIFICATION NEGATIVE (NEGATIVE); INFLUENZA B AMPLIFICATION NEGATIVE (NEGATIVE)
[2018-04-18 01:10] LABS: LACTIC ACID SEPSIS PROTOCOL 4.9 MMOL/L (0.4-2.0)
[2018-04-18 01:12] LABS: PROTHROMBIN TIME 14.3 SECONDS (12.1-14.4)
[2018-04-18] MEDS: ERTAPENEM SODIUM 1 GM in NS MINI-BAG PLUS 50 ML IV (01:15)
[2018-04-18 02:30] LABS: ABG BASE EXCESS -8.1 (-2.0-2.0); ABG HCO3 22.1 MEQ/L (22.0-26.0); ABG O2 SATURATION 95.3 % (95.0-99.0); ABG PARTIAL PRESSURE O2 98.6 mmHg (75.0-100.0); ABG TOTAL CO2 24.1 MEQ/L (23.0-31.0)
[2018-04-18 02:31] LABS: ABG pH (ARTERIAL) 7.146 UNITS (7.350-7.450)
[2018-04-18 02:32] LABS: ABG PARTIAL PRESSURE CO2 65.4 mmHg (35.0-45.0)
[2018-04-18 04:23] LABS: ABG HCO3 18.8 MEQ/L (22.0-26.0); ABG O2 SATURATION 96.1 % (95.0-99.0); ABG PARTIAL PRESSURE O2 87.3 mmHg (75.0-100.0); ABG STANDARD HCO3 18.8 MEQ/L (22.0-26.0); ABG pH (ARTERIAL) 7.301 UNITS (7.350-7.450)
[2018-04-18] MEDS ORDERED: GLUCAGON FOR INJ 1 MG VIAL (J1610) SC (05:30)
[2018-04-18] MEDS ORDERED: DEXTROSE 50% 50 ML SYRINGE IV (05:30)
[2018-04-18] MEDS ORDERED: GLUCOSE 4 GM CHEW TABLET PO (05:30)
[2018-04-18 06:01] LABS: BEDSIDE GLUCOSE 123 MG/DL (83-110)
[2018-04-18] MEDS: HumaLOG INSULIN (NovoLOG) PER UNIT SC ×4 (06:09→18:51)
[2018-04-18] MEDS: HEPARIN SOD (PORCINE) 5000 UNITS/ML VIAL SC ×3 (07:51→20:58)
[2018-04-18] MEDS: cefTRIAXone SOD 1 GM in D5W MINI-BAG PLUS 50 ML IV (07:51)
[2018-04-18] MEDS: methylPREDNISolone INJ 125 MG/2 ML VIAL (J2930) IV (07:51)
[2018-04-18 07:54] LABS: BASO # 0.1 10^3/uL (0.0-0.2); BASO % 0.3 % (0.0-1.0); HEMOGLOBIN 15.4 g/dl (12.0-15.5); IMMATURE GRANULOCYTE % 1.6 % (0-3.0); LYMPH # 0.5 10^3/uL (1.5-4.5); LYMPH % 2.1 % (24.0-44.0); MEAN CORPUSCULAR HEMOGLOBIN 31.6 pg (27.0-33.0); MEAN CORPUSCULAR HGB CONC 32.1 g/dl (32.0-36.5); MEAN CORPUSCULAR VOLUME 98.4 fl (80.0-96.0); MONO % 4.4 % (0.0-5.0); NEUTROPHILS # 21.4 10^3/uL (1.8-7.7); NEUTROPHILS % 91.6 % (36.0-66.0); PLATELET COUNT, AUTOMATED 284 10^3/uL (150-450); RED BLOOD COUNT 4.88 10^6/uL (4.00-5.40); RED CELL DISTRIBUTION WIDTH 15.3 % (11.5-14.5); WHITE BLOOD COUNT 23.3 10^3/uL (4.0-10.0)
[2018-04-18] MEDS ORDERED: AZITHROMYCIN INJ 500 MG, VIAL MATE ADAPTER 1 EACH in D5W 250 ML IV (08:00)
[2018-04-18] MEDS: FERROUS SULFATE 325MG TAB PO ×3 (08:01→20:57)
[2018-04-18] MEDS: VITAMIN D 1,000 INTERNATIONAL UNITS TABLET PO (08:01)
[2018-04-18] MEDS: OMEPRAZOLE 20 MG CAP PO (08:02)
[2018-04-18] MEDS: BISOPROLOL FUMARATE 5 MG TAB PO (08:02)
[2018-04-18] MEDS: MULTIVITAMINS/MINERALS THERAP 1 TAB PO (08:02)
[2018-04-18] MEDS: MONTELUKAST 10 MG TAB PO (08:04)
[2018-04-18 08:31] LABS: ALBUMIN 3.3 GM/DL (3.2-5.2); ALBUMIN/GLOBULIN RATIO 0.77 (1.00-1.93); ALKALINE PHOSPHATASE 82 U/L (45-117); ALT/SGPT 35 U/L (12-78); ANION GAP 13 MEQ/L (8-16); AST/SGOT 54 U/L (7-37); BILIRUBIN,TOTAL 0.5 MG/DL (0.2-1.0); BLOOD UREA NITROGEN 60 MG/DL (7-18); CALCIUM LEVEL 8.9 MG/DL (8.8-10.2); CARBON DIOXIDE LEVEL 23 MEQ/L (21-32); CHLORIDE LEVEL 102 MEQ/L (98-107); CREATININE FOR GFR 2.26 MG/DL (0.55-1.30); GLOMERULAR FILTRATION RATE 22.2 (>32); GLUCOSE, FASTING 119 MG/DL (70-100); POTASSIUM SERUM 3.8 MEQ/L (3.5-5.1); SODIUM LEVEL 138 MEQ/L (136-145); TOTAL PROTEIN 7.6 GM/DL (6.4-8.2)
[2018-04-18] MEDS: ADVAIR HFA 115/21MCG INHALER INH ×2 (09:00→20:05)
[2018-04-18] MEDS ORDERED: FUROSEMIDE 40 MG/4 ML VIAL (J1940) IV (09:00)
[2018-04-18] MEDS: POTASSIUM CHLORIDE 10 MEQ SR TABLET PO (09:01)
[2018-04-18 09:57] LABS: TOTAL T3 90.5 NG/DL (60.0-181.0)
[2018-04-18] MEDS: ACETAMINOPHEN TAB 650MG DOSE (2X325MG) PO (11:09)
[2018-04-18 11:59] LABS: BEDSIDE GLUCOSE 127 MG/DL (83-110)
[2018-04-18 12:55] LABS: TROPONIN I 1.54 NG/ML (< 0.10)
[2018-04-18] MEDS: CLOPIDOGREL 75 MG TAB PO (15:50)
[2018-04-18] MEDS: ASPIRIN 325 MG TAB PO (15:50)
[2018-04-18 16:01] LABS: APPEARANCE, URINE CLEAR (CLEAR); BACTERIA, URINE AUTO 1+ (NEGATIVE); BILIRUBIN, URINE AUTO NEGATIVE (NEGATIVE); BLOOD, URINE BLOOD 2+ (NEGATIVE); COLOR, URINE YELLOW (YELLOW); GLUCOSE, URINE (UA) AUTO NEGATIVE (NEGATIVE); KETONE, URINE AUTO NEGATIVE (NEGATIVE); LEUKOCYTE ESTERASE, URINE AUTO 2+ (NEGATIVE); NITRITE, URINE AUTO NEGATIVE (NEGATIVE); PROTEIN, URINE AUTO NEGATIVE (NEGATIVE); RBC, URINE AUTO 20 /HPF (0-3); SPECIFIC GRAVITY URINE AUTO 1.014 (1.002-1.035); SQUAMOUS EPITHELIAL CELL UR AU 0 /HPF (0-6); UROBILINOGEN, URINE AUTO 0.2 mg/dL (0.0-2.0); WBC, URINE AUTO 38 /HPF (0-3)
[2018-04-18 18:05] LABS: BEDSIDE GLUCOSE 113 MG/DL (83-110)
[2018-04-18 18:51] LABS: CPK CREATINE PHOSPHOKINASE 201 U/L (26-192); MB/CK RELATIVE INDEX 5.62 (< OR =4); TROPONIN I 1.93 NG/ML (< 0.10)
[2018-04-18] MEDS: ATORVASTATIN 20 MG TAB PO (20:57)
[2018-04-18] MEDS: DONEPEZIL 5 MG TAB PO (21:00)
[2018-04-18 23:56] LABS: BEDSIDE GLUCOSE 111 MG/DL (83-110)
[2018-04-19] MEDS: HumaLOG INSULIN (NovoLOG) PER UNIT SC ×6 (00:02→20:11)
[2018-04-19] MEDS: IPRATROPIUM 0.5MG/ALBUTEROL 2.5MG INH SOL UD 3ML (DUONEB)(J7620) NEB ×5 (04:00→20:00)
[2018-04-19 05:08] LABS: BASO % 0.1 % (0.0-1.0); EOS % 0.1 % (0.0-3.0); HEMATOCRIT 34.8 % (36.0-47.0); IMMATURE GRANULOCYTE % 0.7 % (0-3.0); LYMPH # 1.2 10^3/uL (1.5-4.5); LYMPH % 6.2 % (24.0-44.0); MEAN CORPUSCULAR HEMOGLOBIN 31.5 pg (27.0-33.0); MEAN CORPUSCULAR HGB CONC 33.3 g/dl (32.0-36.5); MEAN CORPUSCULAR VOLUME 94.6 fl (80.0-96.0); MONO # 1.1 10^3/uL (0.0-0.8); MONO % 5.6 % (0.0-5.0); NEUTROPHILS # 16.9 10^3/uL (1.8-7.7); NEUTROPHILS % 87.3 % (36.0-66.0); PLATELET COUNT, AUTOMATED 249 10^3/uL (150-450); RED BLOOD COUNT 3.68 10^6/uL (4.00-5.40); RED CELL DISTRIBUTION WIDTH 15.1 % (11.5-14.5); WHITE BLOOD COUNT 19.3 10^3/uL (4.0-10.0)
[2018-04-19 05:22] LABS: HEMOGLOBIN 11.6 g/dl (12.0-15.5)
[2018-04-19 05:32] LABS: ALBUMIN 2.8 GM/DL (3.2-5.2); ALKALINE PHOSPHATASE 57 U/L (45-117); ALT/SGPT 26 U/L (12-78); ANION GAP 11 MEQ/L (8-16); AST/SGOT 46 U/L (7-37); BILIRUBIN,TOTAL 0.4 MG/DL (0.2-1.0); BLOOD UREA NITROGEN 67 MG/DL (7-18); CALCIUM LEVEL 8.6 MG/DL (8.8-10.2); CARBON DIOXIDE LEVEL 24 MEQ/L (21-32); CHLORIDE LEVEL 101 MEQ/L (98-107); CREATININE FOR GFR 2.04 MG/DL (0.55-1.30); GLOMERULAR FILTRATION RATE 24.9 (>32); GLUCOSE, FASTING 102 MG/DL (70-100); MAGNESIUM LEVEL 2.5 MG/DL (1.8-2.4); POTASSIUM SERUM 4.2 MEQ/L (3.5-5.1); SODIUM LEVEL 136 MEQ/L (136-145); TOTAL PROTEIN 6.3 GM/DL (6.4-8.2)
[2018-04-19] MEDS: HEPARIN SOD (PORCINE) 5000 UNITS/ML VIAL SC ×3 (06:21→21:23)
[2018-04-19] MEDS: cefTRIAXone SOD 1 GM in D5W MINI-BAG PLUS 50 ML IV (06:21)
[2018-04-19 07:56] LABS: TROPONIN I 1.68 NG/ML (< 0.10)
[2018-04-19] MEDS: methylPREDNISolone INJ 40 MG/1 ML VIAL (J2920) IV (08:15)
[2018-04-19] MEDS: FUROSEMIDE 40 MG/4 ML VIAL (J1940) IV ×2 (08:15→20:36)
[2018-04-19] MEDS: MULTIVITAMINS/MINERALS THERAP 1 TAB PO (08:16)
[2018-04-19] MEDS: BISOPROLOL FUMARATE 5 MG TAB PO (08:16)
[2018-04-19] MEDS: ASPIRIN 325 MG TAB PO (08:16)
[2018-04-19] MEDS: VITAMIN D 1,000 INTERNATIONAL UNITS TABLET PO (08:16)
[2018-04-19] MEDS: OMEPRAZOLE 20 MG CAP PO (08:16)
[2018-04-19] MEDS: CLOPIDOGREL 75 MG TAB PO (08:16)
[2018-04-19] MEDS: FERROUS SULFATE 325MG TAB PO ×3 (08:16→20:36)
[2018-04-19] MEDS: MONTELUKAST 10 MG TAB PO (08:16)
[2018-04-19] MEDS: ADVAIR HFA 115/21MCG INHALER INH ×2 (08:38→21:05)
[2018-04-19 12:34] LABS: BEDSIDE GLUCOSE 128 MG/DL (83-110)
[2018-04-19 16:41] LABS: BEDSIDE GLUCOSE 179 MG/DL (83-110)
[2018-04-19] MEDS ORDERED: SLF 3 ML SYR IV (17:00)
[2018-04-19 20:09] LABS: BEDSIDE GLUCOSE 105 MG/DL (83-110)
[2018-04-19] MEDS: ATORVASTATIN 20 MG TAB PO (20:36)
[2018-04-19] MEDS: DONEPEZIL 5 MG TAB PO (20:36)
[2018-04-19] MEDS: SLF 3 ML SYR IV (21:24)
[2018-04-20] MEDS: IPRATROPIUM 0.5MG/ALBUTEROL 2.5MG INH SOL UD 3ML (DUONEB)(J7620) NEB ×6 (04:00→20:00)
[2018-04-20 05:15] LABS: BASO % 0.1 % (0.0-1.0); EOS % 0.1 % (0.0-3.0); HEMATOCRIT 34.5 % (36.0-47.0); HEMOGLOBIN 11.6 g/dl (12.0-15.5); IMMATURE GRANULOCYTE % 1.4 % (0-3.0); LYMPH # 1.1 10^3/uL (1.5-4.5); LYMPH % 6.6 % (24.0-44.0); MEAN CORPUSCULAR HEMOGLOBIN 31.3 pg (27.0-33.0); MEAN CORPUSCULAR HGB CONC 33.6 g/dl (32.0-36.5); MONO # 1.4 10^3/uL (0.0-0.8); MONO % 8.6 % (0.0-5.0); NEUTROPHILS # 13.8 10^3/uL (1.8-7.7); NEUTROPHILS % 83.2 % (36.0-66.0); PLATELET COUNT, AUTOMATED 313 10^3/uL (150-450); RED BLOOD COUNT 3.71 10^6/uL (4.00-5.40); RED CELL DISTRIBUTION WIDTH 15.4 % (11.5-14.5); WHITE BLOOD COUNT 16.6 10^3/uL (4.0-10.0)
[2018-04-20] MEDS: SLF 3 ML SYR IV ×3 (05:15→22:00)
[2018-04-20] MEDS: HEPARIN SOD (PORCINE) 5000 UNITS/ML VIAL SC ×3 (05:29→22:00)
[2018-04-20] MEDS: cefTRIAXone SOD 1 GM in D5W MINI-BAG PLUS 50 ML IV (05:30)
[2018-04-20 05:51] LABS: ALBUMIN 3.1 GM/DL (3.2-5.2); ALBUMIN/GLOBULIN RATIO 0.84 (1.00-1.93); ALKALINE PHOSPHATASE 59 U/L (45-117); ALT/SGPT 32 U/L (12-78); ANION GAP 11 MEQ/L (8-16); AST/SGOT 57 U/L (7-37); BILIRUBIN,TOTAL 0.4 MG/DL (0.2-1.0); BLOOD UREA NITROGEN 63 MG/DL (7-18); CALCIUM LEVEL 9.2 MG/DL (8.8-10.2); CARBON DIOXIDE LEVEL 23 MEQ/L (21-32); CHLORIDE LEVEL 103 MEQ/L (98-107); CREATININE FOR GFR 1.71 MG/DL (0.55-1.30); GLOMERULAR FILTRATION RATE 30.6 (>32); GLUCOSE, FASTING 104 MG/DL (70-100); MAGNESIUM LEVEL 2.7 MG/DL (1.8-2.4); SODIUM LEVEL 137 MEQ/L (136-145); TOTAL PROTEIN 6.8 GM/DL (6.4-8.2)
[2018-04-20] MEDS: HumaLOG INSULIN (NovoLOG) PER UNIT SC ×4 (07:30→21:00)
[2018-04-20] MEDS: ASPIRIN 325 MG TAB PO (08:57)
[2018-04-20] MEDS: FUROSEMIDE 40 MG/4 ML VIAL (J1940) IV ×2 (08:57→20:54)
[2018-04-20] MEDS: predniSONE 20 MG TAB PO (08:58)
[2018-04-20] MEDS: OMEPRAZOLE 20 MG CAP PO (08:58)
[2018-04-20] MEDS: MULTIVITAMINS/MINERALS THERAP 1 TAB PO (08:58)
[2018-04-20] MEDS: MONTELUKAST 10 MG TAB PO (08:58)
[2018-04-20] MEDS: CLOPIDOGREL 75 MG TAB PO (08:58)
[2018-04-20] MEDS: VITAMIN D 1,000 INTERNATIONAL UNITS TABLET PO (08:58)
[2018-04-20] MEDS: FERROUS SULFATE 325MG TAB PO ×3 (09:00→20:54)
[2018-04-20] MEDS: BISOPROLOL FUMARATE 5 MG TAB PO (09:00)
[2018-04-20] MEDS: ADVAIR HFA 115/21MCG INHALER INH ×2 (09:20→21:00)
[2018-04-20 11:57] LABS: BEDSIDE GLUCOSE 115 MG/DL (83-110)
[2018-04-20 16:41] LABS: BEDSIDE GLUCOSE 134 MG/DL (83-110)
[2018-04-20 19:55] LABS: BEDSIDE GLUCOSE 116 MG/DL (83-110)
[2018-04-20] MEDS: ATORVASTATIN 20 MG TAB PO (20:53)
[2018-04-20] MEDS: DONEPEZIL 5 MG TAB PO (20:53)
[2018-04-21] MEDS: IPRATROPIUM 0.5MG/ALBUTEROL 2.5MG INH SOL UD 3ML (DUONEB)(J7620) NEB ×6 (03:19→20:00)
[2018-04-21 05:15] LABS: BASO % 0.3 % (0.0-1.0); EOS % 0.3 % (0.0-3.0); HEMATOCRIT 36.9 % (36.0-47.0); HEMOGLOBIN 12.5 g/dl (12.0-15.5); IMMATURE GRANULOCYTE % 4.4 % (0-3.0); LYMPH # 1.5 10^3/uL (1.5-4.5); LYMPH % 9.2 % (24.0-44.0); MEAN CORPUSCULAR HEMOGLOBIN 31.6 pg (27.0-33.0); MEAN CORPUSCULAR HGB CONC 33.9 g/dl (32.0-36.5); MEAN CORPUSCULAR VOLUME 93.2 fl (80.0-96.0); MONO # 1.4 10^3/uL (0.0-0.8); NEUTROPHILS # 12.2 10^3/uL (1.8-7.7); NEUTROPHILS % 76.8 % (36.0-66.0); PLATELET COUNT, AUTOMATED 333 10^3/uL (150-450); RED BLOOD COUNT 3.96 10^6/uL (4.00-5.40); RED CELL DISTRIBUTION WIDTH 15.1 % (11.5-14.5); WHITE BLOOD COUNT 15.9 10^3/uL (4.0-10.0)
[2018-04-21] MEDS: HEPARIN SOD (PORCINE) 5000 UNITS/ML VIAL SC ×3 (05:19→22:00)
[2018-04-21] MEDS: SLF 3 ML SYR IV ×3 (05:20→22:00)
[2018-04-21] MEDS: cefTRIAXone SOD 1 GM in D5W MINI-BAG PLUS 50 ML IV (05:20)
[2018-04-21 05:47] LABS: ANION GAP 9 MEQ/L (8-16); AST/SGOT 41 U/L (7-37); BLOOD UREA NITROGEN 61 MG/DL (7-18); CALCIUM LEVEL 8.8 MG/DL (8.8-10.2); CARBON DIOXIDE LEVEL 26 MEQ/L (21-32); CHLORIDE LEVEL 102 MEQ/L (98-107); GLOMERULAR FILTRATION RATE 30.8 (>32); GLUCOSE, FASTING 85 MG/DL (70-100); POTASSIUM SERUM 3.6 MEQ/L (3.5-5.1); SODIUM LEVEL 137 MEQ/L (136-145)
[2018-04-21 05:48] LABS: ALBUMIN/GLOBULIN RATIO 0.77 (1.00-1.93); ALKALINE PHOSPHATASE 56 U/L (45-117); ALT/SGPT 33 U/L (12-78); BILIRUBIN,TOTAL 0.3 MG/DL (0.2-1.0); MAGNESIUM LEVEL 2.4 MG/DL (1.8-2.4); TOTAL PROTEIN 6.9 GM/DL (6.4-8.2)
[2018-04-21] MEDS: HumaLOG INSULIN (NovoLOG) PER UNIT SC ×4 (07:28→20:57)
[2018-04-21] MEDS: ADVAIR HFA 115/21MCG INHALER INH ×2 (07:57→21:51)
[2018-04-21] MEDS: CLOPIDOGREL 75 MG TAB PO (08:42)
[2018-04-21] MEDS: OMEPRAZOLE 20 MG CAP PO (08:42)
[2018-04-21] MEDS: FERROUS SULFATE 325MG TAB PO ×3 (08:42→20:57)
[2018-04-21] MEDS: predniSONE 20 MG TAB PO (08:42)
[2018-04-21] MEDS: ASPIRIN 325 MG TAB PO (08:42)
[2018-04-21] MEDS: VITAMIN D 1,000 INTERNATIONAL UNITS TABLET PO (08:43)
[2018-04-21] MEDS: MONTELUKAST 10 MG TAB PO (08:43)
[2018-04-21] MEDS: BISOPROLOL FUMARATE 5 MG TAB PO (08:43)
[2018-04-21] MEDS: FUROSEMIDE 40 MG/4 ML VIAL (J1940) IV ×2 (08:43→20:57)
[2018-04-21] MEDS: MULTIVITAMINS/MINERALS THERAP 1 TAB PO (08:43)
[2018-04-21 15:09] LABS: BEDSIDE GLUCOSE 111 MG/DL (83-110)
[2018-04-21 17:03] LABS: BEDSIDE GLUCOSE 200 MG/DL (83-110)
[2018-04-21 20:11] LABS: BEDSIDE GLUCOSE 98 MG/DL (83-110)
[2018-04-21] MEDS: ATORVASTATIN 20 MG TAB PO (20:56)
[2018-04-21] MEDS: DONEPEZIL 5 MG TAB PO (20:57)
[2018-04-22] MEDS: IPRATROPIUM 0.5MG/ALBUTEROL 2.5MG INH SOL UD 3ML (DUONEB)(J7620) NEB ×2 (04:00)
[2018-04-22 06:02] LABS: HEMATOCRIT 36.9 % (36.0-47.0); HEMOGLOBIN 12.2 g/dl (12.0-15.5); MEAN CORPUSCULAR HEMOGLOBIN 31.1 pg (27.0-33.0); MEAN CORPUSCULAR HGB CONC 33.1 g/dl (32.0-36.5); MEAN CORPUSCULAR VOLUME 94.1 fl (80.0-96.0); PLATELET COUNT, AUTOMATED 321 10^3/uL (150-450); RED BLOOD COUNT 3.92 10^6/uL (4.00-5.40); RED CELL DISTRIBUTION WIDTH 14.8 % (11.5-14.5); WHITE BLOOD COUNT 15.2 10^3/uL (4.0-10.0)
[2018-04-22 06:07] LABS: ADD MANUAL DIFFER YES; POS COUNT POS FLAG; POSITIVE MORPH POS FLAG
[2018-04-22 06:08] LABS: DIFF SLIDE NUMBER 10
[2018-04-22 06:26] LABS: ALBUMIN 3.2 GM/DL (3.2-5.2); ALBUMIN/GLOBULIN RATIO 0.89 (1.00-1.93); ALKALINE PHOSPHATASE 54 U/L (45-117); ALT/SGPT 39 U/L (12-78); ANION GAP 8 MEQ/L (8-16); AST/SGOT 43 U/L (7-37); BILIRUBIN,TOTAL 0.3 MG/DL (0.2-1.0); BLOOD UREA NITROGEN 53 MG/DL (7-18); CALCIUM LEVEL 9.1 MG/DL (8.8-10.2); CARBON DIOXIDE LEVEL 26 MEQ/L (21-32); CHLORIDE LEVEL 100 MEQ/L (98-107); CREATININE FOR GFR 1.53 MG/DL (0.55-1.30); GLOMERULAR FILTRATION RATE 34.8 (>32); GLUCOSE, FASTING 83 MG/DL (70-100); MAGNESIUM LEVEL 2.5 MG/DL (1.8-2.4); POTASSIUM SERUM 3.8 MEQ/L (3.5-5.1); SODIUM LEVEL 134 MEQ/L (136-145); TOTAL PROTEIN 6.8 GM/DL (6.4-8.2)
[2018-04-22] MEDS: cefTRIAXone SOD 1 GM in D5W MINI-BAG PLUS 50 ML IV (06:30)
[2018-04-22] MEDS: HEPARIN SOD (PORCINE) 5000 UNITS/ML VIAL SC (06:30)
[2018-04-22] MEDS: SLF 3 ML SYR IV (06:30)
[2018-04-22 06:41] LABS: ATYPICAL LYMPH 1 % (0-5); EOSINOPHILS 2 % (0-5); LYMPHOCYTES 10 % (16-52); MONOCYTES 8 % (0-8)
[2018-04-22 06:42] LABS: MYELOCYTES 0 % (0-0); NEUTROPHILS 79 % (35-75)
[2018-04-22 06:43] LABS: ANISOCYTOSIS 1+; PLATELET ESTIMATE NORMAL (NORMAL)
[2018-04-22] MEDS: ADVAIR HFA 115/21MCG INHALER INH (08:28)
[2018-04-22 08:58] LABS: BEDSIDE GLUCOSE 177 MG/DL (83-110)
[2018-04-22] MEDS: HumaLOG INSULIN (NovoLOG) PER UNIT SC ×2 (09:00→12:00)
[2018-04-22] MEDS: ASPIRIN 325 MG TAB PO (10:45)
[2018-04-22] MEDS: OMEPRAZOLE 20 MG CAP PO (10:45)
[2018-04-22] MEDS: MONTELUKAST 10 MG TAB PO (10:46)
[2018-04-22] MEDS: CLOPIDOGREL 75 MG TAB PO (10:46)
[2018-04-22] MEDS: MULTIVITAMINS/MINERALS THERAP 1 TAB PO (10:46)
[2018-04-22] MEDS: predniSONE 20 MG TAB PO (10:46)
[2018-04-22] MEDS: VITAMIN D 1,000 INTERNATIONAL UNITS TABLET PO (10:46)
[2018-04-22] MEDS: FERROUS SULFATE 325MG TAB PO (10:46)
[2018-04-22] MEDS: FUROSEMIDE 40 MG/4 ML VIAL (J1940) IV (10:48)
[2018-04-22] MEDS: BISOPROLOL FUMARATE 5 MG TAB PO (10:48)
[2018-04-22 11:57] LABS: BEDSIDE GLUCOSE 54 MG/DL (83-110)
[2018-04-22 13:07] LABS: BEDSIDE GLUCOSE 174 MG/DL (83-110)
== END 2018-04-22 13:25 | DRG 280 ==
LOC: M PCU 04-19 16:42 → M ED 00:01 → M ED INP 06:13 → M ICU 06:45
DX: I13.0 Hypertensive heart and chronic kidney disease with heart failure and stage 1 through stage 4 chronic kidney disease, or unspecified chronic kidney disease (principal); I21.4 Non-ST elevation (NSTEMI) myocardial infarction; J96.21 Acute and chronic respiratory failure with hypoxia; J96.22 Acute and chronic respiratory failure with hypercapnia; I50.23 Acute on chronic systolic (congestive) heart failure; J44.1 Chronic obstructive pulmonary disease with (acute) exacerbation; I47.2 Ventricular tachycardia; N18.3 Chronic kidney disease, stage 3 (moderate); D50.9 Iron deficiency anemia, unspecified; E78.5 Hyperlipidemia, unspecified; K21.9 Gastro-esophageal reflux disease without esophagitis; Z66 Do not resuscitate; I25.10 Atherosclerotic heart disease of native coronary artery without angina pectoris; I25.5 Ischemic cardiomyopathy; Z79.899 Other long term (current) drug therapy; Z87.891 Personal history of nicotine dependence

== ENCOUNTER → 2018-05-24 | Outpatient (REF) | payer MEDICARE ==
[2018-05-24 10:46] LABS: BASO # 0.1 10^3/uL (0.0-0.2); BASO % 1.3 % (0.0-1.0); EOS # 0.2 10^3/uL (0.0-0.50); EOS % 1.6 % (0.0-3.0); HEMATOCRIT 39.8 % (36.0-47.0); HEMOGLOBIN 13.1 g/dl (12.0-15.5); LYMPH # 1.7 10^3/uL (1.5-4.5); MEAN CORPUSCULAR HEMOGLOBIN 30.5 pg (27.0-33.0); MEAN CORPUSCULAR HGB CONC 32.9 g/dl (32.0-36.5); MEAN CORPUSCULAR VOLUME 92.8 fl (80.0-96.0); MONO # 1.1 10^3/uL (0.0-0.8); MONO % 11.2 % (0.0-5.0); NEUTROPHILS # 6.3 10^3/uL (1.8-7.7); NEUTROPHILS % 63.9 % (36.0-66.0); PLATELET COUNT, AUTOMATED 498 10^3/uL (150-450); RED BLOOD COUNT 4.29 10^6/uL (4.00-5.40); RED CELL DISTRIBUTION WIDTH 15.1 % (11.5-14.5); WHITE BLOOD COUNT 9.8 10^3/uL (4.0-10.0)
[2018-05-24 11:08] LABS: ALBUMIN 3.5 GM/DL (3.2-5.2); ANION GAP 7 MEQ/L (8-16); BLOOD UREA NITROGEN 36 MG/DL (7-18); CALCIUM LEVEL 9.4 MG/DL (8.8-10.2); CARBON DIOXIDE LEVEL 29 MEQ/L (21-32); CHLORIDE LEVEL 98 MEQ/L (98-107); CREATININE FOR GFR 1.47 MG/DL (0.55-1.30); GLOMERULAR FILTRATION RATE 36.4 (>32); GLUCOSE, FASTING 81 MG/DL (70-100); MAGNESIUM LEVEL 2.5 MG/DL (1.8-2.4); PHOSPHORUS LEVEL 4.1 MG/DL (2.5-4.9); POTASSIUM SERUM 4.5 MEQ/L (3.5-5.1); SODIUM LEVEL 134 MEQ/L (136-145); URIC ACID 9.9 MG/DL (2.6-6.0)
[2018-05-24 11:19] LABS: PTH INTACT 45.2 PG/ML (18.5-88.0)
[2018-05-24 18:33] LABS: APPEARANCE, URINE CLEAR (CLEAR); BACTERIA, URINE AUTO NEGATIVE (NEGATIVE); BILIRUBIN, URINE AUTO NEGATIVE (NEGATIVE); BLOOD, URINE BLOOD NEGATIVE (NEGATIVE); COLOR, URINE YELLOW (YELLOW); GLUCOSE, URINE (UA) AUTO NEGATIVE (NEGATIVE); KETONE, URINE AUTO NEGATIVE (NEGATIVE); LEUKOCYTE ESTERASE, URINE AUTO TRACE (NEGATIVE); NITRITE, URINE AUTO NEGATIVE (NEGATIVE); PROTEIN, URINE AUTO NEGATIVE (NEGATIVE); RBC, URINE AUTO 0 /HPF (0-3); SPECIFIC GRAVITY URINE AUTO 1.011 (1.002-1.035); SQUAMOUS EPITHELIAL CELL UR AU 0 /HPF (0-6); UROBILINOGEN, URINE AUTO 0.2 mg/dL (0.0-2.0); WBC, URINE AUTO 1 /HPF (0-3)
== END ==
DX: N18.3 Chronic kidney disease, stage 3 (moderate) (principal)
CPT/HCPCS: 83735

== ENCOUNTER 2018-06-07 09:26 | Emergency (ER) | payer MEDICARE ==
[2018-06-07 11:00] LABS: VENOUS HCO3 22.9 MEQ/L (23.0-27.0); VENOUS O2 SATURATION 86.5 % (60.0-80.0); VENOUS PARTIAL PRESSURE CO2 35.7 mmHg (38.0-50.0); VENOUS PARTIAL PRESSURE O2 54.6 mmHg (30.0-50.0); VENOUS PH 7.425 UNITS (7.330-7.430); VENOUS STANDARD HCO3 23.4 MEQ/L
[2018-06-07 11:10] LABS: BASO # 0.1 10^3/uL (0.0-0.2); EOS # 0.2 10^3/uL (0.0-0.50); EOS % 1.6 % (0.0-3.0); HEMATOCRIT 37.6 % (36.0-47.0); HEMOGLOBIN 12.7 g/dl (12.0-15.5); IMMATURE GRANULOCYTE % 1.6 % (0-3.0); LYMPH # 1.2 10^3/uL (1.5-4.5); LYMPH % 10.2 % (24.0-44.0); MEAN CORPUSCULAR HEMOGLOBIN 30.9 pg (27.0-33.0); MEAN CORPUSCULAR HGB CONC 33.8 g/dl (32.0-36.5); MEAN CORPUSCULAR VOLUME 91.5 fl (80.0-96.0); MONO % 8.4 % (0.0-5.0); NEUTROPHILS # 9.1 10^3/uL (1.8-7.7); NEUTROPHILS % 77.2 % (36.0-66.0); PLATELET COUNT, AUTOMATED 434 10^3/uL (150-450); RED BLOOD COUNT 4.11 10^6/uL (4.00-5.40); RED CELL DISTRIBUTION WIDTH 14.5 % (11.5-14.5); WHITE BLOOD COUNT 11.8 10^3/uL (4.0-10.0)
[2018-06-07 11:23] LABS: INR 1.04; PROTHROMBIN TIME 13.7 SECONDS (12.1-14.4)
[2018-06-07 11:30] LABS: LACTIC ACID SEPSIS PROTOCOL 1.3 MMOL/L (0.4-2.0)
[2018-06-07 11:38] LABS: ALBUMIN 3.2 GM/DL (3.2-5.2); ALBUMIN/GLOBULIN RATIO 0.68 (1.00-1.93); ALKALINE PHOSPHATASE 74 U/L (45-117); ALT/SGPT 63 U/L (12-78); ANION GAP 8 MEQ/L (8-16); AST/SGOT 63 U/L (7-37); BILIRUBIN,DIRECT < 0.1 MG/DL (0.0-0.2); BILIRUBIN,TOTAL 0.3 MG/DL (0.2-1.0); BLOOD UREA NITROGEN 36 MG/DL (7-18); CALCIUM LEVEL 9.6 MG/DL (8.8-10.2); CARBON DIOXIDE LEVEL 25 MEQ/L (21-32); CHLORIDE LEVEL 100 MEQ/L (98-107); CPK CREATINE PHOSPHOKINASE 68 U/L (26-192); CREATININE FOR GFR 1.48 MG/DL (0.55-1.30); GLOMERULAR FILTRATION RATE 36.1 (>32); GLUCOSE, FASTING 105 MG/DL (70-100); MB/CK RELATIVE INDEX 1.76 (< OR =4); NT-PRO BNP 4233 PG/ML (<450); POTASSIUM SERUM 3.8 MEQ/L (3.5-5.1); SODIUM LEVEL 133 MEQ/L (136-145); TOTAL PROTEIN 7.9 GM/DL (6.4-8.2); TROPONIN I 0.02 NG/ML (< 0.10)
[2018-06-07] MEDS: FUROSEMIDE 40 MG/4 ML VIAL (J1940) IV (13:01)
[2018-06-07] MEDS: FUROSEMIDE 100 MG/10 ML VIAL (J1940) IV (14:55)
== END 2018-06-07 15:56 | disposition home or self-care (01) ==
LOC: M ED 09:26
DX: I50.9 Heart failure, unspecified (principal); I44.7 Left bundle-branch block, unspecified; I48.91 Unspecified atrial fibrillation; I25.10 Atherosclerotic heart disease of native coronary artery without angina pectoris; I10 Essential (primary) hypertension; J44.9 Chronic obstructive pulmonary disease, unspecified; E78.5 Hyperlipidemia, unspecified; N18.9 Chronic kidney disease, unspecified; I25.5 Ischemic cardiomyopathy; Z87.891 Personal history of nicotine dependence; I51.7 Cardiomegaly; Z79.82 Long term (current) use of aspirin; Z79.899 Other long term (current) drug therapy; Z88.0 Allergy status to penicillin; Z88.7 Allergy status to serum and vaccine
CPT/HCPCS: J1940

== ENCOUNTER 2018-06-21 21:07 | Observation (INO) | payer MEDICARE ==
[2018-06-21 21:51] LABS: BASO # 0.1 10^3/uL (0.0-0.2); BASO % 0.8 % (0.0-1.0); EOS # 0.5 10^3/uL (0.0-0.50); EOS % 2.5 % (0.0-3.0); HEMOGLOBIN 11.1 g/dl (12.0-15.5); LYMPH # 1.8 10^3/uL (1.5-4.5); LYMPH % 9.7 % (24.0-44.0); MEAN CORPUSCULAR HEMOGLOBIN 30.2 pg (27.0-33.0); MEAN CORPUSCULAR HGB CONC 33.6 g/dl (32.0-36.5); MEAN CORPUSCULAR VOLUME 89.7 fl (80.0-96.0); MONO % 5.7 % (0.0-5.0); NEUTROPHILS # 14.4 10^3/uL (1.8-7.7); NEUTROPHILS % 79.3 % (36.0-66.0); PLATELET COUNT, AUTOMATED 495 10^3/uL (150-450); RED BLOOD COUNT 3.68 10^6/uL (4.00-5.40); RED CELL DISTRIBUTION WIDTH 14.1 % (11.5-14.5); WHITE BLOOD COUNT 18.2 10^3/uL (4.0-10.0)
[2018-06-21 22:17] LABS: LACTIC ACID SEPSIS PROTOCOL 1.9 MMOL/L (0.4-2.0)
[2018-06-21 22:23] LABS: ABG BASE EXCESS -3.9 (-2.0-2.0); ABG HCO3 18.3 MEQ/L (22.0-26.0); ABG O2 SATURATION 98.5 % (95.0-99.0); ABG PARTIAL PRESSURE CO2 25.2 mmHg (35.0-45.0); ABG PARTIAL PRESSURE O2 115.2 mmHg (75.0-100.0); ABG STANDARD HCO3 21.2 MEQ/L (22.0-26.0); ABG TOTAL CO2 19.1 MEQ/L (23.0-31.0)
[2018-06-21 22:49] LABS: ANION GAP 11 MEQ/L (8-16); BLOOD UREA NITROGEN 29 MG/DL (7-18); CALCIUM LEVEL 8.3 MG/DL (8.8-10.2); CARBON DIOXIDE LEVEL 24 MEQ/L (21-32); CHLORIDE LEVEL 95 MEQ/L (98-107); CPK CREATINE PHOSPHOKINASE 91 U/L (26-192); GLUCOSE, FASTING 230 MG/DL (70-100); MB/CK RELATIVE INDEX 1.98 (< OR =4); POTASSIUM SERUM 3.9 MEQ/L (3.5-5.1); SODIUM LEVEL 130 MEQ/L (136-145); TROPONIN I 0.04 NG/ML (< 0.10)
[2018-06-21 23:28] LABS: NT-PRO BNP 28218 PG/ML (<450)
[2018-06-21] MEDS: FUROSEMIDE 40 MG/4 ML VIAL (J1940) IV (23:55)
[2018-06-22] MEDS: ADVAIR HFA 115/21MCG INHALER INH ×3 (01:15→23:19)
[2018-06-22] MEDS ORDERED: UMECLIDINIUM INH (01:15)
[2018-06-22] MEDS ORDERED: ONDANSETRON 4MG/2ML VIAL (J2405) IV (01:15)
[2018-06-22] MEDS ORDERED: ACETAMINOPHEN TAB 650MG DOSE (2X325MG) PO (01:15)
[2018-06-22] MEDS ORDERED: IPRATROPIUM 0.5MG/ALBUTEROL 2.5MG INH SOL UD 3ML (DUONEB)(J7620) NEB (01:15)
[2018-06-22] MEDS: DONEPEZIL 5 MG TAB PO ×2 (01:46→22:02)
[2018-06-22] MEDS: ATORVASTATIN 20 MG TAB PO ×2 (01:46→22:02)
[2018-06-22] MEDS: FUROSEMIDE 40 MG/4 ML VIAL (J1940) IV ×2 (04:29→08:24)
[2018-06-22] MEDS: HEPARIN SOD (PORCINE) 5000 UNITS/ML VIAL SC ×3 (06:20→22:02)
[2018-06-22 07:16] LABS: CPK CREATINE PHOSPHOKINASE 77 U/L (26-192); MB/CK RELATIVE INDEX 2.73 (< OR =4); TROPONIN I 0.07 NG/ML (< 0.10)
[2018-06-22 07:35] LABS: BASO % 0.3 % (0.0-1.0); EOS % 0.1 % (0.0-3.0); HEMATOCRIT 32.5 % (36.0-47.0); LYMPH # 0.6 10^3/uL (1.5-4.5); LYMPH % 5.9 % (24.0-44.0); MEAN CORPUSCULAR HEMOGLOBIN 29.6 pg (27.0-33.0); MEAN CORPUSCULAR HGB CONC 33.8 g/dl (32.0-36.5); MEAN CORPUSCULAR VOLUME 87.6 fl (80.0-96.0); MONO # 0.1 10^3/uL (0.0-0.8); MONO % 1.5 % (0.0-5.0); NEUTROPHILS # 8.8 10^3/uL (1.8-7.7); NEUTROPHILS % 91.2 % (36.0-66.0); PLATELET COUNT, AUTOMATED 506 10^3/uL (150-450); RED BLOOD COUNT 3.71 10^6/uL (4.00-5.40); RED CELL DISTRIBUTION WIDTH 13.9 % (11.5-14.5); WHITE BLOOD COUNT 9.6 10^3/uL (4.0-10.0)
[2018-06-22 07:44] LABS: ALBUMIN 2.4 GM/DL (3.2-5.2); ALKALINE PHOSPHATASE 69 U/L (45-117); ALT/SGPT 31 U/L (12-78); ANION GAP 11 MEQ/L (8-16); AST/SGOT 27 U/L (7-37); BILIRUBIN,TOTAL 0.3 MG/DL (0.2-1.0); BLOOD UREA NITROGEN 25 MG/DL (7-18); CALCIUM LEVEL 9.1 MG/DL (8.8-10.2); CARBON DIOXIDE LEVEL 24 MEQ/L (21-32); CHLORIDE LEVEL 99 MEQ/L (98-107); CREATININE FOR GFR 1.34 MG/DL (0.55-1.30); GLOMERULAR FILTRATION RATE 40.5 (>32); GLUCOSE, FASTING 159 MG/DL (70-100); MAGNESIUM LEVEL 2.2 MG/DL (1.8-2.4); POTASSIUM SERUM 3.4 MEQ/L (3.5-5.1); SODIUM LEVEL 134 MEQ/L (136-145); TOTAL PROTEIN 7.2 GM/DL (6.4-8.2)
[2018-06-22] MEDS: FERROUS SULFATE 325MG TAB PO (08:24)
[2018-06-22] MEDS: CLOPIDOGREL 75 MG TAB PO (08:24)
[2018-06-22] MEDS: BISOPROLOL FUMARATE 5 MG TAB PO (08:24)
[2018-06-22] MEDS: VITAMIN D 1,000 INTERNATIONAL UNITS TABLET PO (08:24)
[2018-06-22] MEDS: OMEPRAZOLE 20 MG CAP PO (08:24)
[2018-06-22] MEDS: MONTELUKAST 10 MG TAB PO (08:24)
[2018-06-22] MEDS: ASPIRIN ENTERIC 325 MG TAB PO (08:24)
[2018-06-22] MEDS: MULTIVITAMINS/MINERALS THERAP 1 TAB PO (08:24)
[2018-06-22] MEDS: POTASSIUM CHLORIDE 10 MEQ SR TABLET PO (10:26)
[2018-06-22 15:05] LABS: CPK CREATINE PHOSPHOKINASE 80 U/L (26-192); MB/CK RELATIVE INDEX 2.88 (< OR =4); TROPONIN I 0.04 NG/ML (< 0.10)
[2018-06-22] MEDS: FUROSEMIDE 40 MG TAB PO (17:19)
[2018-06-22 22:38] LABS: CPK CREATINE PHOSPHOKINASE 74 U/L (26-192); MB/CK RELATIVE INDEX 2.84 (< OR =4); TROPONIN I 0.03 NG/ML (< 0.10)
[2018-06-23] MEDS: HEPARIN SOD (PORCINE) 5000 UNITS/ML VIAL SC (05:56)
[2018-06-23 06:16] LABS: HEMATOCRIT 30.7 % (36.0-47.0); HEMOGLOBIN 10.3 g/dl (12.0-15.5); MEAN CORPUSCULAR HEMOGLOBIN 29.8 pg (27.0-33.0); MEAN CORPUSCULAR HGB CONC 33.6 g/dl (32.0-36.5); MEAN CORPUSCULAR VOLUME 88.7 fl (80.0-96.0); PLATELET COUNT, AUTOMATED 522 10^3/uL (150-450); RED BLOOD COUNT 3.46 10^6/uL (4.00-5.40); WHITE BLOOD COUNT 14.8 10^3/uL (4.0-10.0)
[2018-06-23 06:32] LABS: ANION GAP 12 MEQ/L (8-16); BLOOD UREA NITROGEN 37 MG/DL (7-18); CALCIUM LEVEL 9.1 MG/DL (8.8-10.2); CARBON DIOXIDE LEVEL 22 MEQ/L (21-32); CHLORIDE LEVEL 100 MEQ/L (98-107); CREATININE FOR GFR 1.31 MG/DL (0.55-1.30); GLOMERULAR FILTRATION RATE 41.6 (>32); GLUCOSE, FASTING 115 MG/DL (70-100); POTASSIUM SERUM 3.8 MEQ/L (3.5-5.1); SODIUM LEVEL 134 MEQ/L (136-145)
[2018-06-23] MEDS: FUROSEMIDE 40 MG TAB PO (08:05)
[2018-06-23] MEDS: MULTIVITAMINS/MINERALS THERAP 1 TAB PO (08:06)
[2018-06-23] MEDS: BISOPROLOL FUMARATE 5 MG TAB PO (08:06)
[2018-06-23] MEDS: CLOPIDOGREL 75 MG TAB PO (08:06)
[2018-06-23] MEDS: FERROUS SULFATE 325MG TAB PO (08:06)
[2018-06-23] MEDS: ASPIRIN ENTERIC 325 MG TAB PO (08:06)
[2018-06-23] MEDS: OMEPRAZOLE 20 MG CAP PO (08:06)
[2018-06-23] MEDS: VITAMIN D 1,000 INTERNATIONAL UNITS TABLET PO (08:06)
[2018-06-23] MEDS: PREVNAR 13 VACCINE SYRINGE (CPT CODE:90670) IM (08:07)
[2018-06-23] MEDS: MONTELUKAST 10 MG TAB PO (08:08)
[2018-06-23] MEDS: ADVAIR HFA 115/21MCG INHALER INH (08:12)
== END 2018-06-23 13:16 ==
LOC: M ED INP 06-22 00:31 → M MSPAV 06-22 12:41 → M ED 21:07
DX: J96.01 Acute respiratory failure with hypoxia (principal); I50.23 Acute on chronic systolic (congestive) heart failure; I25.5 Ischemic cardiomyopathy; N18.3 Chronic kidney disease, stage 3 (moderate); F03.90 Unspecified dementia, unspecified severity, without behavioral disturbance, psychotic disturbance, mood disturbance, and anxiety; I25.10 Atherosclerotic heart disease of native coronary artery without angina pectoris; D50.9 Iron deficiency anemia, unspecified; K21.9 Gastro-esophageal reflux disease without esophagitis; Z79.01 Long term (current) use of anticoagulants; Z79.82 Long term (current) use of aspirin; Z79.899 Other long term (current) drug therapy; Z88.0 Allergy status to penicillin; Z88.7 Allergy status to serum and vaccine; Z87.891 Personal history of nicotine dependence
CPT/HCPCS: J1940

== ENCOUNTER → 2018-08-01 | Outpatient (REF) | payer MEDICARE ==
[~2018-08-01] MED LIST changes: +ACET1TAB55 PO; +ACET500T15 PO; +ALLO10TA PO; +ASPI1TAB20 PO; +ASPI325T25 PO; +ASPI81TAEC PO; +CENTTAB12 PO; +CLOP75TA2 PO; -DONE5TAB17; +DONE5TAB64 PO; +HYDR10TAB PO; +HYDR25TA PO; -INCR1INH IN; +INCR1INH INH; +ISOS10TA PO; +KEFL500C17 PO; -LISI-538; +LISI-538 PO; -MONT10TA2; +MONT10TA2 PO; -OMEP40CA2; +OMEP40CA2 PO; +PRED10TA2 PO; +SING10TA32 PO; +SPIR-10 PO; -SPIR50TA2 PO; +SPIR50TA4 PO; -TORS10TA3; +TORS10TA3 PO; +TORS20TA2 PO; +VITA100066 PO; +VITMTA PO
[2018-08-01 14:27] LABS: APPEARANCE, URINE CLEAR (CLEAR); BACTERIA, URINE AUTO NEGATIVE (NEGATIVE); BILIRUBIN, URINE AUTO NEGATIVE (NEGATIVE); BLOOD, URINE BLOOD NEGATIVE (NEGATIVE); COLOR, URINE YELLOW (YELLOW); GLUCOSE, URINE (UA) AUTO NEGATIVE (NEGATIVE); KETONE, URINE AUTO NEGATIVE (NEGATIVE); LEUKOCYTE ESTERASE, URINE AUTO TRACE (NEGATIVE); NITRITE, URINE AUTO NEGATIVE (NEGATIVE); PROTEIN, URINE AUTO NEGATIVE (NEGATIVE); RBC, URINE AUTO 0 /HPF (0-3); SPECIFIC GRAVITY URINE AUTO 1.006 (1.002-1.035); SQUAMOUS EPITHELIAL CELL UR AU 0 /HPF (0-6); UROBILINOGEN, URINE AUTO 0.2 mg/dL (0.0-2.0); WBC, URINE AUTO 1 /HPF (0-3)
== END ==
LOC: M LAB REF 14:10
PROVIDERS: ATTEND Internal Medicine Nephrology
DX: N18.3 Chronic kidney disease, stage 3 (moderate) (principal); D50.9 Iron deficiency anemia, unspecified; E79.0 Hyperuricemia without signs of inflammatory arthritis and tophaceous disease

== ENCOUNTER → 2018-08-02 | Outpatient (REF) | payer MEDICARE ==
[2018-08-02 10:23] LABS: BASO # 0.1 10^3/uL (0.0-0.2); BASO % 1.1 % (0.0-1.0); EOS # 0.3 10^3/uL (0.0-0.50); EOS % 3.3 % (0.0-3.0); HEMATOCRIT 29.2 % (36.0-47.0); HEMOGLOBIN 9.3 g/dl (12.0-15.5); LYMPH # 1.2 10^3/uL (1.5-4.5); LYMPH % 14.5 % (24.0-44.0); MEAN CORPUSCULAR HEMOGLOBIN 29.8 pg (27.0-33.0); MEAN CORPUSCULAR HGB CONC 31.8 g/dl (32.0-36.5); MEAN CORPUSCULAR VOLUME 93.6 fl (80.0-96.0); MONO # 0.8 10^3/uL (0.0-0.8); MONO % 9.8 % (0.0-5.0); NEUTROPHILS # 5.8 10^3/uL (1.8-7.7); NEUTROPHILS % 70.7 % (36.0-66.0); PLATELET COUNT, AUTOMATED 393 10^3/uL (150-450); RED BLOOD COUNT 3.12 10^6/uL (4.00-5.40); WHITE BLOOD COUNT 8.2 10^3/uL (4.0-10.0)
[2018-08-02 10:47] LABS: ALBUMIN 3.5 GM/DL (3.2-5.2); CALCIUM LEVEL 9.2 MG/DL (8.8-10.2); CREATININE FOR GFR 1.35 MG/DL (0.55-1.30); GLOMERULAR FILTRATION RATE 40.2 (>32); MAGNESIUM LEVEL 2.4 MG/DL (1.8-2.4); PHOSPHORUS LEVEL 3.7 MG/DL (2.5-4.9); POTASSIUM SERUM 4.3 MEQ/L (3.5-5.1); URIC ACID 6.6 MG/DL (2.6-6.0)
== END ==
PROVIDERS: ATTEND Internal Medicine Nephrology
DX: N18.9 Chronic kidney disease, unspecified (principal); D50.9 Iron deficiency anemia, unspecified

== ENCOUNTER → 2018-08-18 | Outpatient (CLI) | payer MEDICARE ==
--- NOTE | 2018-08-18 14:57 | REP ---
LUMBAR SPINE, FIVE VIEWS: HISTORY: Back pain. There is no acute fracture or subluxation. There is an old compression fracture of the L1 vertebral body with minimal height loss. The lumbar intervertebral discs are decreased in height consistent with disc degeneration. Osteophytes are present on L2 through L5. There is narrowing of the L5-S1 facet joints. The bony structure is osteopenic. IMPRESSION: Degenerative change, as described above. Electronically Signed by Ryan Sanchez MD 08/18/2018 03:00 P
== END ==
LOC: M WUC 14:03
PROVIDERS: ATTEND Physician Assistant
DX: M54.5 Low back pain (principal); M51.36 Other intervertebral disc degeneration, lumbar region

== ENCOUNTER 2018-12-23 05:45 | Emergency (ER) | payer MEDICARE, MEDICAID ==
[~2018-12-23] VITALS: Ht 152.4 cm; Wt 55.0 kg
[~2018-12-23 05:45] MED LIST changes: +ASPI-255 PO; -ASPI325T25 PO
[2018-12-23] MEDS ORDERED: DONE5TAB82 PO (06:17)
[2018-12-23] MEDS ORDERED: HYDR-3910 PO (06:17)
[2018-12-23] MEDS ORDERED: TORS10TA3 PO (06:17)
[2018-12-23] MEDS ORDERED: LISI-538 PO (06:17)
[2018-12-23] MEDS ORDERED: ISOS1TAB13 PO (06:17)
[2018-12-23] MEDS ORDERED: NS 1,000 ML IV ONE (06:30)
[2018-12-23] MEDS ORDERED: TORSEMIDE 20 MG TAB PO STA (06:32)
[2018-12-23] MEDS ORDERED: BISOPROLOL FUMARATE 5 MG TAB PO ONE (06:45)
[2018-12-23] MEDS ORDERED: ASPIRIN 325 MG TAB PO ONE (06:45)
[2018-12-23] MEDS ORDERED: ISOSORBIDE DIN (ISORDIL) 10 MG TAB PO ONE (06:45)
[2018-12-23 07:09] LABS: HEMATOCRIT 35.4 % (36.0-47.0); MEAN CORPUSCULAR HEMOGLOBIN 32.3 pg (27.0-33.0); MEAN CORPUSCULAR HGB CONC 33.9 g/dl (32.0-36.5); MEAN CORPUSCULAR VOLUME 95.4 fl (80.0-96.0); PLATELET COUNT, AUTOMATED 291 10^3/uL (150-450); RED BLOOD COUNT 3.71 10^6/uL (4.00-5.40); WHITE BLOOD COUNT 11.9 10^3/uL (4.0-10.0)
[2018-12-23 07:28] VITALS: BP 150/78
[2018-12-23 07:49] LABS: ALBUMIN 3.4 GM/DL (3.2-5.2); BILIRUBIN,DIRECT 0.1 MG/DL (0.0-0.2); BILIRUBIN,TOTAL 0.2 MG/DL (0.2-1.0); CK-MB VALUE MASS 2.3 NG/ML (<3.6); MB/CK RELATIVE INDEX 1.52 (< OR =4); THYROID STIMULATING HORMONE 8.01 uIU/ML (0.358-3.740); TOTAL PROTEIN 6.9 GM/DL (6.4-8.2); TROPONIN I 0.07 NG/ML (< 0.10)
--- NOTE | 2018-12-23 07:59 | REP ---
PA and lateral chest: Comparison is 03/25/2018. There is chronic hyperinflation compatible with COPD, unchanged. There are no infiltrates. There are no pleural effusions. The previous bilateral pleural effusions have resolved. There is chronic cardiomegaly. The mundo, mediastinum, skeletal structures are unremarkable. Impression: Chronic cardiomegaly. Chronic hyperinflation compatible with COPD. No acute cardiopulmonary findings. Electronically Signed by Cassius Garza MD 12/23/2018 07:51 A
[2018-12-23] MEDS ORDERED: NS 500 ML IV ONE (08:15)
[2018-12-23 09:09] LABS: MAGNESIUM LEVEL 2.4 MG/DL (1.8-2.4)
[2018-12-23 11:04] LABS: CK-MB VALUE MASS 2.6 NG/ML (<3.6); MB/CK RELATIVE INDEX 1.88 (< OR =4); TROPONIN I 0.06 NG/ML (< 0.10)
[2018-12-23] MEDS ORDERED: MACR100C43 PO (11:50)
[2018-12-23 11:57] VITALS: BP 166/70
--- NOTE | 2018-12-25 06:30 | ECGEPIP ---
[facility] - ED Test Date: 2018-12-23 Pat Name: MIGUELINA GOMEZ Department: Room: - Gender: Female Business Services Associate: joyce : 1935 Requested By: KANIKA Zamora PA-C Order Number: [id number] Reading MD: Bunny Najera Measurements Intervals [place] Rate: 67 P: 81 OR: 206 QRS: QRSD: 154 T: 81 QT: 442 QTc: 468 Interpretive Statements SINUS RHYTHM LEFT BUNDLE BRANCH BLOCK SIMILAR TO PRIOR ON SAME DATE Electronically Signed on 12-25-2018 6:29:52 EDT by Bunny Najera
--- NOTE | 2018-12-25 06:30 | ECGEPIP ---
[facility] - ED Test Date: 2018-12-23 Pat Name: MIGUELINA GOMEZ Department: Room: - Gender: Female Die Cast Technician: LOUIE : 1935 Requested By: NEHA HALL Order Number: [id number] Reading MD: Bunny Najera Measurements Intervals [place] Rate: 76 P: 83 [place]: 183 QRS: QRSD: 160 T: 127 QT: 409 QTc: 462 Interpretive Statements SINUS RHYTHM WITH FREQUENT VENTRICULAR PREMATURE COMPLEXES LEFT BUNDLE BRANCH BLOCK SIMILAR TO 06/21/18 Electronically Signed on 12-25-2018 6:29:34 EDT by Bunny Najera
== END 2018-12-23 12:10 | disposition home or self-care (01) ==
LOC: M ED 05:45
DX: J44.9 Chronic obstructive pulmonary disease, unspecified (principal); N39.0 Urinary tract infection, site not specified; R61 Generalized hyperhidrosis; I44.7 Left bundle-branch block, unspecified; K92.1 Melena; I48.91 Unspecified atrial fibrillation; I50.9 Heart failure, unspecified; I25.2 Old myocardial infarction; I13.0 Hypertensive heart and chronic kidney disease with heart failure and stage 1 through stage 4 chronic kidney disease, or unspecified chronic kidney disease; N18.3 Chronic kidney disease, stage 3 (moderate); E78.5 Hyperlipidemia, unspecified; K21.9 Gastro-esophageal reflux disease without esophagitis; F03.90 Unspecified dementia, unspecified severity, without behavioral disturbance, psychotic disturbance, mood disturbance, and anxiety; I47.2 Ventricular tachycardia; Z87.891 Personal history of nicotine dependence; Z88.0 Allergy status to penicillin; Z88.7 Allergy status to serum and vaccine; Z79.899 Other long term (current) drug therapy; Z79.51 Long term (current) use of inhaled steroids; Z79.82 Long term (current) use of aspirin; Z79.02 Long term (current) use of antithrombotics/antiplatelets

== ENCOUNTER → 2019-01-19 | Outpatient (REF) | payer MEDICARE, MEDICAID ==
[~2019-01-19] MED LIST changes: +ASPI-524 PO; -ASPI1TAB20 PO; +DONE5TAB82 PO; +HYDR-3910 PO; +ISOS1TAB13 PO; +MACR100C43 PO
[2019-01-19 17:43] LABS: APPEARANCE, URINE CLEAR (CLEAR); BACTERIA, URINE AUTO NEGATIVE (NEGATIVE); BILIRUBIN, URINE AUTO NEGATIVE (NEGATIVE); BLOOD, URINE BLOOD NEGATIVE (NEGATIVE); COLOR, URINE YELLOW (YELLOW); GLUCOSE, URINE (UA) AUTO NEGATIVE (NEGATIVE); KETONE, URINE AUTO NEGATIVE (NEGATIVE); LEUKOCYTE ESTERASE, URINE AUTO TRACE (NEGATIVE); NITRITE, URINE AUTO NEGATIVE (NEGATIVE); PROTEIN, URINE AUTO NEGATIVE (NEGATIVE); RBC, URINE AUTO 1 /HPF (0-3); SPECIFIC GRAVITY URINE AUTO 1.009 (1.002-1.035); SQUAMOUS EPITHELIAL CELL UR AU 0 /HPF (0-6); UROBILINOGEN, URINE AUTO 0.2 mg/dL (0.0-2.0); WBC, URINE AUTO 0 /HPF (0-3)
== END ==
PROVIDERS: ATTEND Nurse Practitioner Family
DX: M54.5 Low back pain (principal); N39.9 Disorder of urinary system, unspecified; N18.3 Chronic kidney disease, stage 3 (moderate); E79.0 Hyperuricemia without signs of inflammatory arthritis and tophaceous disease

== ENCOUNTER → 2019-03-07 | Outpatient (REF) | payer MEDICARE, MEDICAID ==
[2019-03-07 08:55] LABS: BASO # 0.1 10^3/uL (0.0-0.2); BASO % 1.4 % (0.0-1.0); EOS # 0.3 10^3/uL (0.0-0.5); EOS % 3.6 % (0.0-3.0); HEMATOCRIT 38.9 % (36.0-47.0); LYMPH # 1.2 10^3/uL (1.5-5.0); LYMPH % 14.3 % (24.0-44.0); MEAN CORPUSCULAR HEMOGLOBIN 31.3 pg (27.0-33.0); MEAN CORPUSCULAR HGB CONC 33.4 g/dl (32.0-36.5); MEAN CORPUSCULAR VOLUME 93.5 fl (80.0-96.0); MONO # 0.7 10^3/uL (0.0-0.8); MONO % 8.6 % (0.0-5.0); NEUTROPHILS # 5.7 10^3/uL (1.5-8.5); NEUTROPHILS % 70.4 % (36.0-66.0); PLATELET COUNT, AUTOMATED 319 10^3/uL (150-450); RED BLOOD COUNT 4.16 10^6/uL (4.00-5.40)
[2019-03-07 09:22] LABS: ALBUMIN 3.9 GM/DL (3.2-5.2); CALCIUM LEVEL 10.2 MG/DL (8.8-10.2); CREATININE FOR GFR 1.48 MG/DL (0.55-1.30); PHOSPHORUS LEVEL 3.8 MG/DL (2.5-4.9); POTASSIUM SERUM 4.3 MEQ/L (3.5-5.1); URIC ACID 5.6 MG/DL (2.6-6.0)
[2019-03-07 09:32] LABS: PTH INTACT 46.8 PG/ML (18.5-88.0); TOTAL 25(OH) VITAMIN D 38.5 NG/ML (30.0-100.0)
== END ==
PROVIDERS: ATTEND Internal Medicine Nephrology
DX: N18.3 Chronic kidney disease, stage 3 (moderate) (principal); E79.0 Hyperuricemia without signs of inflammatory arthritis and tophaceous disease

== ENCOUNTER 2019-03-23 07:15 | Emergency (ER) | payer MEDICARE, MEDICAID ==
[~2019-03-23] VITALS: Ht 142.2 cm; Wt 54.5 kg
[~2019-03-23 07:15] MED LIST changes: -ASPI-524 PO; +ASPI325T57 PO; +BISO5TAB14 PO; -BISO5TAB5 PO; +CHOL100029 PO; +DIGO0.123 PO; -OMEP40CA2 PO; +OMEP40CA97 PO; -VITAD1000T PO
[2019-03-23 08:13] LABS: BASO # 0.1 10^3/uL (0.0-0.2); EOS # 0.2 10^3/uL (0.0-0.5); EOS % 1.7 % (0.0-3.0); HEMATOCRIT 38.1 % (36.0-47.0); HEMOGLOBIN 13.2 g/dl (12.0-15.5); LYMPH % 9.6 % (24.0-44.0); MEAN CORPUSCULAR HEMOGLOBIN 32.4 pg (27.0-33.0); MEAN CORPUSCULAR HGB CONC 34.6 g/dl (32.0-36.5); MEAN CORPUSCULAR VOLUME 93.4 fl (80.0-96.0); MONO # 0.9 10^3/uL (0.0-0.8); MONO % 8.3 % (0.0-5.0); NEUTROPHILS # 8.2 10^3/uL (1.5-8.5); NEUTROPHILS % 77.9 % (36.0-66.0); PLATELET COUNT, AUTOMATED 304 10^3/uL (150-450); RED BLOOD COUNT 4.08 10^6/uL (4.00-5.40); WHITE BLOOD COUNT 10.5 10^3/uL (4.0-10.0)
[2019-03-23] MEDS ORDERED: TORS20TA2 PO (08:19)
[2019-03-23] MEDS ORDERED: ADV250INH INH (08:19)
[2019-03-23] MEDS ORDERED: ASPI81TA26 PO (08:19)
[2019-03-23 08:24] LABS: INR 1.11
[2019-03-23 08:36] LABS: ALBUMIN 3.6 GM/DL (3.2-5.2); ALT/SGPT 65 U/L (12-78); BILIRUBIN,DIRECT 0.1 MG/DL (0.0-0.2); BILIRUBIN,TOTAL 0.5 MG/DL (0.2-1.0); BLOOD UREA NITROGEN 39 MG/DL (7-18); CALCIUM LEVEL 9.4 MG/DL (8.8-10.2); CARBON DIOXIDE LEVEL 21 MEQ/L (21-32); CHLORIDE LEVEL 104 MEQ/L (98-107); CK-MB VALUE MASS 2.2 NG/ML (<3.6); CPK CREATINE PHOSPHOKINASE 123 U/L (26-192); CREATININE FOR GFR 1.34 MG/DL (0.55-1.30); GLOMERULAR FILTRATION RATE 40.4 (>32); GLUCOSE, FASTING 104 MG/DL (70-100); LIPASE 225 U/L (73-393); MB/CK RELATIVE INDEX 1.79 (< OR =4); SODIUM LEVEL 136 MEQ/L (136-145); TOTAL PROTEIN 6.8 GM/DL (6.4-8.2); TROPONIN I < 0.02 NG/ML (< 0.10)
[2019-03-23] MEDS ORDERED: OMEPRAZOLE 20 MG CAP PO ONE (09:15)
[2019-03-23] MEDS ORDERED: TORSEMIDE 20 MG TAB PO ONE (09:15)
[2019-03-23] MEDS ORDERED: ISOSORBIDE DIN (ISORDIL) 10 MG TAB PO ONE (09:15)
[2019-03-23] MEDS ORDERED: bisoproloL fumarate 5 MG TAB PO ONE ×2 (09:15→13:00)
[2019-03-23] MEDS ORDERED: ASPIRIN 81 MG CHEW TABLET PO ONE (09:15)
[2019-03-23] MEDS ORDERED: CLOPIDOGREL 75 MG TAB PO ONE (09:15)
[2019-03-23] MEDS ORDERED: **hydrALAZINE** 50 MG TAB PO ONE (09:15)
[2019-03-23] MEDS ORDERED: FERROUS SULFATE 325MG TAB PO ONE (09:15)
--- NOTE | 2019-03-23 10:21 | REP ---
PA and lateral chest: Comparison is 12/23/2018. The lung betts are hyperinflated, unchanged. There are no infiltrates or pleural effusions. There are no masses or nodules. There is cardiomegaly, unchanged. The mundo, mediastinum, and skeletal structures are unchanged. 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 Impression: There are no acute cardiopulmonary findings. There is chronic hyperinflation and chronic cardiomegaly. Electronically Signed by Cassius Garza MD 03/23/2019 10:13 A
[2019-03-23] MEDS ORDERED: BISOPROLOL FUM 2.5 MG PER 1/2TAB PO ONE (12:45)
[2019-03-23] MEDS ORDERED: PILL CUTTER 1 EACH XX ONE (12:57)
[2019-03-23] MEDS ORDERED: AMIODARONE HCL 150 MG in IV 1 EA IV STA ×2 (15:12→16:28)
[2019-03-23 18:20] VITALS: BP 139/72
--- NOTE | 2019-03-23 21:37 | ECGEPIP ---
[facility] - ED Test Date: 2019-03-23 Pat Name: MIGUELINA GOMEZ Department: Room: - Gender: Female Station Manager: DEMARCUS : 1935 Requested By: Yuliana Suresh Order Number: [id number] Reading MD: Yuliana Suresh Measurements Intervals [place] Rate: 122 P: 237 [place]: 145 QRS: -3 QRSD: 146 T: 116 QT: 327 QTc: 468 Interpretive Statements ATRIAL FLUTTER/JUNCTIONAL TACHYCARDIA WITH FREQUENT VENTRICULAR PREMATURE COMPLEXES LEFT BUNDLE BRANCH BLOCK Electronically Signed on 03-23-2019 21:37:42 EDT by Yuliana Suresh
--- NOTE | 2019-03-23 21:45 | ECGEPIP ---
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
--- NOTE | 2019-03-24 06:27 | ECGEPIP ---
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
[2019-03-28] MEDS ORDERED: BISO5TAB14 PO (12:04)
== END 2019-03-23 18:27 | disposition home or self-care (01) ==
LOC: M ED 07:15 → EDBD 07:15 → M ED 18:27
DX: R00.0 Tachycardia, unspecified (principal); J44.9 Chronic obstructive pulmonary disease, unspecified; I44.7 Left bundle-branch block, unspecified; I48.91 Unspecified atrial fibrillation; Z79.899 Other long term (current) drug therapy; Z79.82 Long term (current) use of aspirin; Z79.01 Long term (current) use of anticoagulants; Z88.0 Allergy status to penicillin; Z88.7 Allergy status to serum and vaccine

== ENCOUNTER 2019-03-24 07:06 | Inpatient (IN) | payer MEDICARE, MEDICAID ==
[~2019-03-24] VITALS: Ht 152.4 cm; Wt 56.1 kg
[~2019-03-24 07:06] MED LIST changes: +ASPI81TA26 PO; -BISO5TAB14 PO; +BISO5TAB9 PO; -DIGO0.123 PO; +OMEP40CA2 PO; -OMEP40CA97 PO
[2019-03-24 07:49] LABS: BASO # 0.1 10^3/uL (0.0-0.2); BASO % 0.8 % (0.0-1.0); EOS # 0.2 10^3/uL (0.0-0.5); EOS % 1.8 % (0.0-3.0); HEMATOCRIT 39.6 % (36.0-47.0); HEMOGLOBIN 13.6 g/dl (12.0-15.5); LYMPH # 0.9 10^3/uL (1.5-5.0); LYMPH % 9.5 % (24.0-44.0); MEAN CORPUSCULAR HEMOGLOBIN 31.9 pg (27.0-33.0); MEAN CORPUSCULAR HGB CONC 34.3 g/dl (32.0-36.5); MONO # 0.7 10^3/uL (0.0-0.8); MONO % 7.2 % (0.0-5.0); NEUTROPHILS # 7.7 10^3/uL (1.5-8.5); NEUTROPHILS % 79.4 % (36.0-66.0); PLATELET COUNT, AUTOMATED 324 10^3/uL (150-450); RED BLOOD COUNT 4.26 10^6/uL (4.00-5.40); WHITE BLOOD COUNT 9.7 10^3/uL (4.0-10.0)
[2019-03-24] MEDS ORDERED: BISOPROLOL FUMARATE 5 MG TAB PO ONE (08:00)
[2019-03-24 08:01] LABS: INR 1.14; PROTHROMBIN TIME 14.3 SECONDS (11.8-14.0)
[2019-03-24 08:02] LABS: PARTIAL THROMBOPLASTIN TIME 30.3 SECONDS (25.0-38.4)
[2019-03-24 08:06] LABS: BLOOD UREA NITROGEN 41 MG/DL (7-18); CALCIUM LEVEL 9.4 MG/DL (8.8-10.2); CARBON DIOXIDE LEVEL 22 MEQ/L (21-32); CHLORIDE LEVEL 99 MEQ/L (98-107); CPK CREATINE PHOSPHOKINASE 106 U/L (26-192); CREATININE FOR GFR 1.55 MG/DL (0.55-1.30); GLOMERULAR FILTRATION RATE 34.2 (>32); GLUCOSE, FASTING 120 MG/DL (70-100); MB/CK RELATIVE INDEX 1.89 (< OR =4); POTASSIUM SERUM 3.6 MEQ/L (3.5-5.1); SODIUM LEVEL 133 MEQ/L (136-145); TROPONIN I < 0.02 NG/ML (< 0.10)
[2019-03-24 08:07] LABS: FREE T4 1.35 NG/DL (0.76-1.46); MAGNESIUM LEVEL 2.2 MG/DL (1.8-2.4); PHOSPHORUS LEVEL 3.5 MG/DL (2.5-4.9); THYROID STIMULATING HORMONE 5.32 uIU/ML (0.358-3.740)
--- NOTE | 2019-03-24 08:22 | REP ---
Portable chest, 07:57 a.m., single AP view with the patient sitting: Comparison is the PA and lateral chest of 03/23/2019. There is hyperinflation, unchanged. However, there is diffuse interstitial coarsening as an interval change compatible with vascular engorgement. There are no focal infiltrates or pleural effusions. There is cardiomegaly, unchanged, considering the current study is performed portably. The mundo, mediastinum, skeletal structures are unchanged. Impression: Diffuse interstitial coarsening compatible with vascular engorgement as an interval change. No pleural effusion or focal infiltrate. Cardiomegaly and hyperinflation are unchanged. Electronically Signed by Cassius Garza MD 03/24/2019 08:13 A
[2019-03-24] MEDS ORDERED: TORSEMIDE 20 MG TAB PO ONE (08:30)
[2019-03-24 12:30] VITALS: BP 120/60
--- NOTE | 2019-03-24 12:48 | HPEPDOC ---
[facility] Medical History & Physical Date of Admission Mar 24, 2019 Date of Service: Mar 24, 2019 History and Physical CHIEF COMPLAINT: Near-syncope HISTORY OF PRESENT ILLNESS: Patient is a 83 year old Female with PMH Afib, CAD, HFrEF, CKD, and COPD presented brought into the ER after being unsteady and reported experienced near syncope this morning. Patient was previously in the ER yesterday in Afib and subsequently discharged home after treatment. However, developed similar problems today, didn't feel well this morning and came in also noted to have intermittent periods of Afib. Patient currently appears well and denies any particular complaints including any chest pain, SOB, palpitations, fever, chills. PAST MEDICAL HISTORY: Refer to [facility] PAST SURGICAL HISTORY: Appendectomy SOCIAL HISTORY: Former tobacco use. Denies alcohol or illicit drug use. FAMILY HISTORY: Adopted. Unknown ALLERGIES: Please see below. REVIEW OF SYSTEMS: 10 point review of system negative except as stated in HPI HOME MEDICATIONS: Please see below. PHYSICAL EXAMINATION: General: No acute distress, Alert Eyes: Normal sclera, EOMI, DAVID HENT: Atraumatic, neck supple, moist mucous membranes Cardiovascular: Irregular irregular rhythm, HR 80-110s. Pulmonary: Clear to auscultation b/l, bibasilar crackles. GI: Soft, nontender, nondistended Skin: Warm and dry Neuro: CN grossly intact. No focal deficits. LABORATORY DATA: See below. IMAGING: CXR- Impression: Diffuse interstitial coarsening compatible with vascular engorgement as an interval change. No pleural effusion or focal infiltrate. Cardiomegaly and hyperinflation are unchanged. MICROBIOLOGY: Please see below. ASSESSMENT AND PLAN: 1. Afib w/ RVR - HR still fluctuates between 80-110s. - Asymptomatic currently. - Will require PT given unsteadiness prior to arrival. - Follows with Dr. Alvarez as outpatient. Consult Dr. Ybarra while inpatient. - c/w Bisoprolol at current dose currently. Will monitor until tomorrow to see if any adjustments needed. - On ASA and Plavix but not AC? Antiplatelets held. Started on 1mg/kg Lovenox daily for now in setting of CKD. Cardio to follow. 2. HFrEF - Last ECHO 2018 EF 35-40%. - No LE swelling but has bibasilar crackles and congestion on CXR. - BNP 7000. On torsemide 20 mg at home. Will hold and start on lasix 40 mg IV BID instead. - Monitor I/O. daily weights, fluid restriction. 3. CAD - Resume home meds. 4. CKD - Monitor BMPs. code status: DNR Vital Signs Vital Signs Date Time Temp Pulse Resp B/P (MAP) Pulse Ox O2 Delivery O2 Flow Rate FiO2 03/24/19 12:06 100 03/24/19 12:00 20 126/65 (85) 95 Room Air 03/24/19 07:15 97.0 Laboratory Data Labs 24H Laboratory Tests 2 03/24/19 07:27: Immature Granulocyte % (Auto) 1.3, White Blood Count 9.7, Red Blood Count 4.26, Hemoglobin 13.6, Hematocrit 39.6, Mean Corpuscular Volume 93.0, Mean Corpuscular Hemoglobin 31.9, Mean Corpuscular Hemoglobin Concent 34.3, Red Cell Distribution Width 15.8H, Platelet Count 324, Neutrophils (%) (Auto) 79.4H, Lymphocytes (%) (Auto) 9.5L, Monocytes (%) (Auto) 7.2H, Eosinophils (%) (Auto) 1.8, Basophils (%) (Auto) 0.8, Neutrophils # (Auto) 7.7, Lymphocytes # (Auto) 0.9L, Monocytes # (Auto) 0.7, Eosinophils # (Auto) 0.2, Basophils # (Auto) 0.1, Nucleated Red Blood Cells % (auto) 0.0, Prothrombin Time 14.3H, Prothromb Time International Ratio 1.14, Activated Partial Thromboplast Time 30.3, Anion Gap 12, Glomerular Filtration Rate 34.2, Blood Urea Nitrogen 41H, Creatinine 1.55H, Sodium Level 133L, Potassium Level 3.6, Chloride Level 99, Carbon Dioxide Level 22, Calcium Level 9.4, Total Creatine Kinase 106, Phosphorus Level 3.5, Magnesium Level 2.2, Creatine Kinase MB 2.0, Creatine Kinase MB Relative Index 1.89, Troponin I < 0.02, RC-Uqa-I-Type Natriuretic Peptide 7273H, Thyroid Stimulating Hormone (TSH) 5.320H, Free Thyroxine 1.35 CBC/BMP Laboratory Tests 03/24/19 07:27 Red Blood Count 4.26, Mean Corpuscular Volume 93.0, Mean Corpuscular Hemoglobin 31.9, Mean Corpuscular Hemoglobin Concent 34.3, Red Cell Distribution Width 15.8 H, Neutrophils (%) (Auto) 79.4 H, Lymphocytes (%) (Auto) 9.5 L, Monocytes (%) (Auto) 7.2 H, Eosinophils (%) (Auto) 1.8, Basophils (%) (Auto) 0.8, Neutrophils # (Auto) 7.7, Lymphocytes # (Auto) 0.9 L, Monocytes # (Auto) 0.7, Eosinophils # (Auto) 0.2, Basophils # (Auto) 0.1, Calcium Level 9.4, Total Creatine Kinase 106 Home Medications Scheduled Allopurinol (Allopurinol) 100 Mg Tab, 200 MG PO DAILY Aspirin (Aspirin EC) 81 Mg Tablet.dr, 81 MG PO DAILY Atorvastatin Calcium (Atorvastatin Calcium) 40 Mg Tab, 40 MG PO QHS Bisoprolol Fumarate (Bisoprolol Fumarate) 5 Mg Tab, 5 MG PO DAILY Cholecalciferol (Vitamin D3) (Vitamin D3) 1,000 Unit Tab, 1,000 UNIT PO DAILY Clopidogrel Bisulfate (Clopidogrel) 75 Mg Tab, 75 MG PO DAILY Ferrous Sulfate (Ferrous Sulfate) 325 Mg Tab, 325 MG PO TID 899/ Hydralazine HCl (Hydralazine HCl) 25 Mg Tablet, 50 MG PO TID 899/ Isosorbide Dinitrate (Isosorbide Dinitrate) 10 Mg Tablet, 10 MG PO TID 00/ Montelukast Sodium (Singulair) 10 Mg Tab, 10 MG PO DAILY Multivitamins (Thera M Plus Tablet) 1 Tab Tab, 1 TAB PO DAILY Omeprazole (Omeprazole) 40 Mg Cap, 40 MG PO DAILY Salmeterol/Fluticasone (Advair 250-50 Diskus) 1 Each Blst.w.dev, 1 PUFF INH BID Torsemide (Torsemide) 20 Mg Tablet, 20 MG PO DAILY Umeclidinium [place] (Incruse Ellipta) 62.5 Mcg/Inh Inh, 1 PUFF INH DAILY Scheduled PRN Acetaminophen (Acetaminophen) 325 Mg Tab, 650 MG PO Q6H PRN for PAIN Albuterol Sulfate (Proair Hfa) 108 Mcg/Act Aer, 2 PUFF INH QID PRN for SHORTNESS OF BREATH Allergies Coded Allergies: tetanus toxoid, adsorbed (Verified Allergy, Mild, REDNESS / SWELLING, 03/24/19) Penicillins (Verified Allergy, Unknown, 03/24/19) A-FIB/CHADSVASC A-FIB History Current/History of A-Fib/PAF?: Yes Current PO Anticoag Therapy: Yes SHYAM THOMSON MD Mar 24, 2019 12:48
[2019-03-24] MEDS ORDERED: IPRATROPIUM 0.5MG/ALBUTEROL 2.5MG INH SOL UD 3ML (DUONEB)(J7620) NEB PRN (13:00)
[2019-03-24] MEDS: ALLOPURINOL 100 MG TAB PO SCH (14:00)
[2019-03-24] MEDS ORDERED: HEPARIN SOD (PORCINE) 5000 UNITS/ML VIAL SQ SCH (14:00)
[2019-03-24] MEDS ORDERED: FUROSEMIDE 40 MG/4 ML VIAL (J1940) IV ONE (14:00)
[2019-03-24] MEDS: OMEPRAZOLE 20 MG CAP PO SCH (14:01)
[2019-03-24] MEDS: FERROUS SULFATE 325MG TAB PO SCH ×2 (14:01→20:39)
[2019-03-24] MEDS: MONTELUKAST 10 MG TAB PO SCH (14:01)
[2019-03-24] MEDS: MULTIVITAMINS/MINERALS THERAP 1 TAB PO SCH (14:01)
[2019-03-24] MEDS: **hydrALAZINE** 50 MG TAB PO SCH ×2 (14:01→20:39)
[2019-03-24] MEDS: VITAMIN D 1,000 INTERNATIONAL UNITS TABLET PO SCH (14:01)
[2019-03-24] MEDS: ENOXAPARIN 60 MG/0.6 ML SYR (J1650) SC SCH (15:44)
[2019-03-24 16:00] VITALS: BP 125/81
--- NOTE | 2019-03-24 19:08 | ECGEPIP ---
[facility] - ED Test Date: 2019-03-24 Pat Name: MIGUELINA GOMEZ Department: Room: - Gender: Female Director Of Preclinical Research: PETERSON : 1935 Requested By: MARYLOU Carpenter Order Number: [id number] Reading MD: Bunny Najera Measurements Intervals [place] Rate: 107 P: OR: 0 QRS: -28 QRSD: 154 T: 96 QT: 382 QTc: 512 Interpretive Statements ATRIAL FLUTTER WITH RAPID VENTRICULAR RESPONSE LEFT BUNDLE BRANCH BLOCK SIMILAR TO PRIOR ON SAME DATE Electronically Signed on 03-24-2019 19:08:45 EDT by Bunny Najera
--- NOTE | 2019-03-24 19:08 | ECGEPIP ---
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
[2019-03-24 20:00] VITALS: BP 116/79
[2019-03-24] MEDS: ATORVASTATIN 20 MG TAB PO SCH (20:39)
[2019-03-24] MEDS: ISOSORBIDE DIN (ISORDIL) 10 MG TAB PO SCH (20:40)
[2019-03-24] MEDS: ADVAIR HFA 115/21MCG INHALER INH SCH (20:54)
[2019-03-24] MEDS ORDERED: AMIODARONE HCL 150 MG in APPROPRIATE DILUENT 1 EA IV STA (20:58)
[2019-03-24 23:59] VITALS: BP 131/79
[2019-03-25] MEDS ORDERED: AMIODARONE 100MG TABLET (PACERONE) PO STA (00:14)
[2019-03-25 04:00] VITALS: BP 124/76
[2019-03-25] MEDS ORDERED: METOPROLOL 5 MG/5 ML VIAL IV STA (04:36)
[2019-03-25 05:55] LABS: HEMOGLOBIN 13.4 g/dl (12.0-15.5); MEAN CORPUSCULAR HEMOGLOBIN 32.3 pg (27.0-33.0); MEAN CORPUSCULAR HGB CONC 34.4 g/dl (32.0-36.5); PLATELET COUNT, AUTOMATED 319 10^3/uL (150-450); RED BLOOD COUNT 4.15 10^6/uL (4.00-5.40); WHITE BLOOD COUNT 9.3 10^3/uL (4.0-10.0)
[2019-03-25 06:17] LABS: CALCIUM LEVEL 9.3 MG/DL (8.8-10.2); CREATININE FOR GFR 1.69 MG/DL (0.55-1.30); GLOMERULAR FILTRATION RATE 30.9 (>32); POTASSIUM SERUM 3.8 MEQ/L (3.5-5.1)
[2019-03-25] MEDS ORDERED: AMIODARONE HCL 150 MG in APPROPRIATE DILUENT 1 EA IV STA (06:30)
--- NOTE | 2019-03-25 06:38 | IPNPDOC ---
Text Note Date of Service The patient was seen on 03/25/19. NOTE Pt is here for AF RVR. She is on Bisoprolol 5 mg po daily. Yesterday pt was given Amiodarone 150 mg IVP one time dose with good result. She became tachy again during the night and was given another dose of Amiodarone 100 mg po one time, again with good result. This morning, HR is 130/min. Lopressor 5 mg IVp was tried with no response at all. CCB is not preferred due to underlying HFrEF. Will initiate full 24 hr dosing of IV Amiodarone, starting with IVP and followed by IV maintenance rate. Then oral Amiodarone can be started tomorrow. VS,Fishbone, I+O VS, Fishbone, I+O Laboratory Tests 03/24/19 07:27 Red Blood Count 4.26, Mean Corpuscular Volume 93.0, Mean Corpuscular Hemoglobin 31.9, Mean Corpuscular Hemoglobin Concent 34.3, Red Cell Distribution Width 15.8 H, Neutrophils (%) (Auto) 79.4 H, Lymphocytes (%) (Auto) 9.5 L, Monocytes (%) (Auto) 7.2 H, Eosinophils (%) (Auto) 1.8, Basophils (%) (Auto) 0.8, Neutrophils # (Auto) 7.7, Lymphocytes # (Auto) 0.9 L, Monocytes # (Auto) 0.7, Eosinophils # (Auto) 0.2, Basophils # (Auto) 0.1, Calcium Level 9.4, Total Creatine Kinase 106 03/25/19 05:41 Red Blood Count 4.15, Mean Corpuscular Volume 94.0, Mean Corpuscular Hemoglobin 32.3, Mean Corpuscular Hemoglobin Concent 34.4, Red Cell Distribution Width 15.7 H, Calcium Level 9.3 Vital Signs Date Time Temp Pulse Resp B/P (MAP) Pulse Ox O2 Delivery O2 Flow Rate FiO2 03/25/19 04:49 130 138/84 03/25/19 04:00 97.7 16 96 03/24/19 12:00 Room Air I&O- Last 24 Hours up to 6 AM 03/25/19 05:59 Intake Total 340 ml Output Total 2100 ml Balance -1760 ml GEOFFREY LEON MD Mar 25, 2019 06:38
[2019-03-25] MEDS ORDERED: AMIODARONE HCL 360 MG in APPROPRIATE DILUENT 1 EA IV SCH (06:45)
[2019-03-25] MEDS: ADVAIR HFA 115/21MCG INHALER INH SCH ×2 (07:36→21:02)
[2019-03-25 08:00] VITALS: BP 130/77
[2019-03-25] MEDS: VITAMIN D 1,000 INTERNATIONAL UNITS TABLET PO SCH (08:37)
[2019-03-25] MEDS: MULTIVITAMINS/MINERALS THERAP 1 TAB PO SCH (08:43)
[2019-03-25] MEDS: FERROUS SULFATE 325MG TAB PO SCH ×3 (08:43→20:24)
[2019-03-25] MEDS: MONTELUKAST 10 MG TAB PO SCH (08:44)
[2019-03-25] MEDS: ISOSORBIDE DIN (ISORDIL) 10 MG TAB PO SCH ×3 (08:44→20:25)
[2019-03-25] MEDS: ALLOPURINOL 100 MG TAB PO SCH (08:44)
[2019-03-25] MEDS: OMEPRAZOLE 20 MG CAP PO SCH (08:44)
[2019-03-25] MEDS: **hydrALAZINE** 50 MG TAB PO SCH ×3 (08:44→20:25)
[2019-03-25] MEDS ORDERED: TORSEMIDE 20 MG TAB PO SCH (09:00)
[2019-03-25] MEDS ORDERED: CLOPIDOGREL 75 MG TAB PO SCH (09:00)
[2019-03-25] MEDS ORDERED: FUROSEMIDE 40 MG/4 ML VIAL (J1940) IV SCH (09:00)
[2019-03-25] MEDS ORDERED: ASPIRIN 81 MG ENTERIC TAB PO SCH (09:00)
[2019-03-25] MEDS ORDERED: BISOPROLOL FUMARATE 5 MG TAB PO SCH (09:00)
[2019-03-25 12:00] VITALS: BP 137/82
[2019-03-25] MEDS: AMIODARONE HCL 360 MG in APPROPRIATE DILUENT 1 EA IV SCH (12:44)
--- NOTE | 2019-03-25 14:45 | IPN ---
DATE: 03/25/2019 Mrs. Goncalves tells me this morning that she is feeling well. She denies any sensation of chest pain, palpitations or shortness of breath. She does report though that in the last few weeks she has had virtually constant sensation of weakness. She denies any luz dyspnea unless she is ambulating. She also denies any chest discomfort, paroxysmal nocturnal dyspnea (PND), orthopnea in the last few weeks. On presentation to emergency room, she was found to be in atrial flutter with rapid ventricular response. She was given initial amiodarone which led to transient slowing of the atrial flutter. It was interpreted as a resumption of sinus rhythm, but I believe it was incorrect. She then was discharged, but then came back again with the same complaint and this time she was admitted. At her baseline, she takes bisoprolol 5 mg daily. She was given just her standard dose yesterday and was relatively reasonably well-controlled during the day, but then evening hours became tachycardiac again and additional doses of amiodarone were given. This morning, her heart rate is around 110 beats per minute. She still receiving additional dose of intravenous (IV) amiodarone. She has no acute complaints. VITAL SIGNS: Blood pressure 130/77, heart rate 120 irregularly irregular, afebrile. Saturation 95% on room air. Weight is documented as 55 kg. She is alert and oriented, appropriate. I do not appreciate jugular venous pulse elevation. Lungs are reasonably clear. No wheezing, rhonchi is noted. Heart exam reveals somewhat difficult to hear heart sounds. I do not appreciate any gallop, rub or murmur. Abdomen is soft, nontender. There is no peripheral edema. Neurologically she is intact. LABORATORY: As of this morning, sodium 135, potassium 3.8, BUN 46, creatinine 1.7, glucose 115. Complete blood count (CBC) is within normal limits. Several ECGs on her chart all demonstrate left bundle branch block atrial flutter that is of atypical variety and variable heart rate. Review of telemetry tracings do not reveal any bradycardic arrhythmic episodes. ASSESSMENT AND PLAN: Mr. Goncalves is an 83-year-old female who comes with atrial flutter with rapid ventricular response (RVR). She has a questionable history of prior coronary artery disease and based on records from last year, she had approximately moderate left ventricular systolic dysfunction. She is relatively asymptomatic other than poorly described sensation of weakness. She has been treated with recurrent doses of amiodarone. In my opinion, it is not overly realistic that we will accomplish resumption of sinus mechanism. It is not completely clear to me whether she has been in the atrial flutter for a long period of time or just recently, but she was not properly anticoagulated and consequently, I do not believe we should attempt converting her into sinus rhythm. I am going to increase the dose of bisoprolol to 5 mg twice a day. I would discontinue amiodarone. We will continue Lovenox for the time being and depending on her clinical state, most likely will replace it with oral anticoagulants within a day or two, but I still want to have some flexibility in case there is some change in her condition that requires additional procedures or interventions. Hopefully, the bisoprolol will be sufficient to control her rate and if not, then we can consider adding second agent. The second issue is that of congestive heart failure. On presentation, she had a very high BNP, but it is in setting of renal insufficiency and also in setting of prominent tachycardia. 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 Echocardiogram is pending. She has been treated with diuretics, bisoprolol, amiodarone and hydralazine. Blood pressure is well-controlled. For the time being, I am going to leave medications unchanged, but the sharma in controlling her heart failure is principally rate control and that should remain our focus. I will follow the patient with you.
[2019-03-25] MEDS: ENOXAPARIN 60 MG/0.6 ML SYR (J1650) SC SCH (14:56)
--- NOTE | 2019-03-25 15:26 | IPNPDOC ---
Date Seen The patient was seen on 03/25/19. Progress Note SUBJECTIVE: Patient reported feeling well and denies any complaints. Reportedly continued to go into Afib w/ RVR overnight. Was given IV amiodarone followed by one dose of PO amiodarone with improvement after each time but went into tachyarrythmia again. Subsequently started on Amiodarone drip. OBJECTIVE PHYSICAL EXAMINATION: VITAL SIGNS: Please see below. General: No acute distress, Alert Eyes: Normal sclera, EOMI, DAVID HENT: Atraumatic, neck supple, moist mucous membranes Cardiovascular: Irregular irregular rhythm Pulmonary: Clear to auscultation b/l, bibasilar crackles. GI: Soft, nontender, nondistended Skin: Warm and dry Neuro: CN grossly intact. No focal deficits. LABORATORY DATA, IMAGING STUDIES, MICROBIOLOGY: Please see below. ASSESSMENT AND PLAN: 1. Afib w/ RVR - HR labile with periods of Afib w/ RVR. - Asymptomatic - Follows with Dr. Alvarez as outpatient. - c/w Bisoprolol had been increased per cardio recommendation. Amiodarone drip discontinued. - On ASA and Plavix but not AC? Antiplatelets held. Started on 1mg/kg Lovenox daily for now in setting of CKD. 2. HFrEF - Last ECHO 2018 EF 35-40%. - No LE swelling but has bibasilar crackles and congestion on CXR. - BNP 7000. On torsemide 20 mg at home. Will hold and start on lasix 40 mg IV BID instead. - Monitor I/O. daily weights, fluid restriction. 3. CAD - Resume home meds. 4. CKD - Monitor BMPs. code status: DNR VS, I&O, 24H, Fishbone Vital Signs/I&O Vital Signs Date Time Temp Pulse Resp B/P (MAP) Pulse Ox O2 Delivery O2 Flow Rate FiO2 03/25/19 12:43 137/82 03/25/19 12:00 96.8 108 16 96 03/24/19 12:00 Room Air I&O- Last 24 Hours up to 6 AM 03/25/19 06:00 Intake Total 340 ml Output Total 2100 ml Balance -1760 ml Laboratory Data 24H LABS Laboratory Tests 2 03/25/19 05:41: Nucleated Red Blood Cells % (auto) 0.0, Anion Gap 11, Glomerular Filtration Rate 30.9L, Blood Urea Nitrogen 46H, Creatinine 1.69H, Sodium Level 135L, Potassium Level 3.8, Chloride Level 99, Carbon Dioxide Level 25, Calcium Level 9.3 CBC/BMP Laboratory Tests 03/25/19 05:41 Red Blood Count 4.15, Mean Corpuscular Volume 94.0, Mean Corpuscular Hemoglobin 32.3, Mean Corpuscular Hemoglobin Concent 34.4, Red Cell Distribution Width 15.7 H, Calcium Level 9.3 SHYAM THOMSON MD Mar 25, 2019 15:26
[2019-03-25 16:00] VITALS: BP 127/76
[2019-03-25 20:00] VITALS: BP 118/65
[2019-03-25] MEDS: BISOPROLOL FUMARATE 5 MG TAB PO SCH (20:25)
[2019-03-25] MEDS: ATORVASTATIN 20 MG TAB PO SCH (20:25)
[2019-03-25 23:59] VITALS: BP 108/64
[2019-03-26] MEDS: AMIODARONE HCL 360 MG in APPROPRIATE DILUENT 1 EA IV SCH (01:17)
[2019-03-26 04:00] VITALS: BP 119/74
[2019-03-26 06:06] LABS: HEMATOCRIT 34.2 % (36.0-47.0); HEMOGLOBIN 11.8 g/dl (12.0-15.5); MEAN CORPUSCULAR HGB CONC 34.5 g/dl (32.0-36.5); MEAN CORPUSCULAR VOLUME 92.7 fl (80.0-96.0); PLATELET COUNT, AUTOMATED 270 10^3/uL (150-450); RED BLOOD COUNT 3.69 10^6/uL (4.00-5.40); WHITE BLOOD COUNT 8.7 10^3/uL (4.0-10.0)
[2019-03-26 06:29] LABS: CALCIUM LEVEL 9.1 MG/DL (8.8-10.2); CREATININE FOR GFR 1.57 MG/DL (0.55-1.30); GLOMERULAR FILTRATION RATE 33.7 (>32)
[2019-03-26] MEDS: ADVAIR HFA 115/21MCG INHALER INH SCH ×2 (07:25→19:46)
[2019-03-26] MEDS: VITAMIN D 1,000 INTERNATIONAL UNITS TABLET PO SCH (07:42)
[2019-03-26] MEDS: OMEPRAZOLE 20 MG CAP PO SCH (07:42)
[2019-03-26] MEDS: ALLOPURINOL 100 MG TAB PO SCH (07:42)
[2019-03-26] MEDS: MONTELUKAST 10 MG TAB PO SCH (07:43)
[2019-03-26] MEDS: FERROUS SULFATE 325MG TAB PO SCH ×3 (07:43→20:33)
[2019-03-26] MEDS: MULTIVITAMINS/MINERALS THERAP 1 TAB PO SCH (07:43)
[2019-03-26] MEDS: **hydrALAZINE** 50 MG TAB PO SCH ×3 (07:44→20:34)
[2019-03-26] MEDS: ISOSORBIDE DIN (ISORDIL) 10 MG TAB PO SCH ×3 (07:45→20:34)
[2019-03-26] MEDS: BISOPROLOL FUMARATE 5 MG TAB PO SCH ×2 (07:45→20:34)
[2019-03-26] MEDS: FUROSEMIDE 40 MG/4 ML VIAL (J1940) IV SCH (07:49)
[2019-03-26 08:00] VITALS: BP 142/78
[2019-03-26] MEDS ORDERED: POTASSIUM CHLORIDE 10 MEQ SR TABLET PO ONE ×2 (08:00→10:00)
[2019-03-26] MEDS ORDERED: FLUBLOK(EGG FREE)(QUAD)INFLUENZA VACC 0.5ML SYRINGE (90682)18YRS&OLDER IM ONE (09:00)
[2019-03-26] MEDS ORDERED: BISOPROLOL FUMARATE 5 MG TAB PO ONE (11:45)
[2019-03-26 12:00] VITALS: BP 121/60
--- NOTE | 2019-03-26 13:27 | IPNPDOC ---
Date Seen The patient was seen on 03/26/19. Progress Note SUBJECTIVE: Patient denies any complaints this morning. Reportedly had some confusion overnight. HR up to 100s yesterday evenings but had been noted to be <100 today so far. OBJECTIVE PHYSICAL EXAMINATION: VITAL SIGNS: Please see below. General: No acute distress, Alert Eyes: Normal sclera, EOMI, DAVID HENT: Atraumatic, neck supple, moist mucous membranes Cardiovascular: Irregular irregular rhythm Pulmonary: Clear to auscultation b/l, bibasilar crackles. GI: Soft, nontender, nondistended Skin: Warm and dry Neuro: CN grossly intact. No focal deficits. LABORATORY DATA, IMAGING STUDIES, MICROBIOLOGY: Please see below. ASSESSMENT AND PLAN: 1. Afib w/ RVR - HR labile with periods of Afib w/ RVR. - Asymptomatic - Follows with Dr. Alvarez as outpatient. - c/w Bisoprolol had been increased per cardio recommendation. Amiodarone drip discontinued. - On ASA and Plavix but not AC? Antiplatelets held. Started on 1mg/kg Lovenox daily for now in setting of CKD. 2. HFrEF - Last ECHO 2018 EF 35-40%. - No LE swelling but has bibasilar crackles and congestion on CXR on presentation. - BNP 7000. On torsemide 20 mg at home. c/w lasix 40 mg IV daily here. - Monitor I/O. daily weights, fluid restriction. 3. CAD - Resume home meds. 4. CKD - Monitor BMPs. Dispo: Likely can be d/c tomorrow if HR remains stable with no periods of Afib/flutter w/ RVR. code status: DNR VS, I&O, 24H, [facility] Vital Signs/I&O Vital Signs Date Time Temp Pulse Resp B/P (MAP) Pulse Ox O2 Delivery O2 Flow Rate FiO2 03/26/19 08:00 97.6 96 20 142/78 (99) 96 03/24/19 12:00 Room Air I&O- Last 24 Hours up to 6 AM 03/26/19 05:59 Intake Total 540 ml Output Total 800 ml Balance -260 ml Laboratory Data 24H LABS Laboratory Tests 2 03/26/19 05:39: Nucleated Red Blood Cells % (auto) 0.0, Anion Gap 12, Glomerular Filtration Rate 33.7, Blood Urea Nitrogen 49H, Creatinine 1.57H, Sodium Level 136, Potassium Level 3.0#L, Chloride Level 101, Carbon Dioxide Level 23, Calcium Level 9.1 CBC/BMP Laboratory Tests 03/26/19 05:39 Red Blood Count 3.69 L, Mean Corpuscular Volume 92.7, Mean Corpuscular H emoglobin 32.0, Mean Corpuscular Hemoglobin Concent 34.5, Red Cell Distribution Width 15.5 H, Calcium Level 9.1 SHYAM THOMSON MD Mar 26, 2019 13:27
--- NOTE | 2019-03-26 14:17 | IPN ---
DATE: 03/26/2019 Mrs. Goncalves continues to feel well. She denies any sensation of palpitation, shortness of breath or chest discomfort. She seemed to be in good mood. Telemetry monitoring reveals ongoing atrial fibrillation/flutter. Heart rate is on average around 100 beats per minute, but she gets at times quite tachycardiac, especially with activity. There have not been any bradycardic events. Blood pressure 142/78, heart rate as above. She is afebrile. Saturation 96% on room air. Fluid balance yesterday was poorly recorded, but weight is unchanged and 55.3 kg. She is alert and oriented and appropriate. Jugular venous pulse does not appear grossly elevated. Lungs clear. Heart exam irregularly irregular rhythm. No gallop or rub. Abdomen is soft, nontender. No peripheral edema. LABORATORY: Sodium 136, potassium 3.0, BUN 59, creatinine 1.6 and glucose 112. Complete blood count (CBC): Hemoglobin 11.9, hematocrit 34, platelet count 270,000. An echocardiogram was not performed. ASSESSMENT AND PLAN: Mrs. Goncalves is an 83-year-old female who presents with atrial fibrillation/flutter that is still not well rate-controlled. I am going to give her an extra dose of bisoprolol today, but hopefully the increased dose of 10 mg daily will eventually accomplish reasonable rate control. I do not believe we are too far from that goal already. Otherwise, as far as the heart failure is concerned, she seems to be reasonably well compensated. I do not appreciate any obvious volume overload. I do think that the manifestation is principally due to tachycardia. I did not make any additional changes to her medications today. I will still leave her on Lovenox in order to provide flexibility with anticoagulation provided she still might need a pacemaker we see some evidence for tachy/kathie syndrome. So far it has not been the case.
[2019-03-26] MEDS: ENOXAPARIN 60 MG/0.6 ML SYR (J1650) SC SCH (14:19)
[2019-03-26 16:00] VITALS: BP 132/70
[2019-03-26] MEDS: ACETAMINOPHEN TAB 650MG DOSE (2X325MG) PO PRN (18:58)
[2019-03-26 20:00] VITALS: BP 128/60
[2019-03-26] MEDS: ATORVASTATIN 20 MG TAB PO SCH (20:34)
[2019-03-27] VITALS: BP 129/65
[2019-03-27 04:00] VITALS: BP 126/68
[2019-03-27 05:53] LABS: HEMOGLOBIN 11.3 g/dl (12.0-15.5); MEAN CORPUSCULAR HEMOGLOBIN 31.7 pg (27.0-33.0); MEAN CORPUSCULAR HGB CONC 34.2 g/dl (32.0-36.5); MEAN CORPUSCULAR VOLUME 92.4 fl (80.0-96.0); PLATELET COUNT, AUTOMATED 262 10^3/uL (150-450); RED BLOOD COUNT 3.57 10^6/uL (4.00-5.40); WHITE BLOOD COUNT 9.7 10^3/uL (4.0-10.0)
[2019-03-27 06:09] LABS: CREATININE FOR GFR 1.88 MG/DL (0.55-1.30); GLOMERULAR FILTRATION RATE 27.3 (>32); POTASSIUM SERUM 3.5 MEQ/L (3.5-5.1)
--- NOTE | 2019-03-27 07:44 | IPN ---
DATE: 03/27/2019 Mrs. Goncalves has been feeling well. She does not have any complaints today. Yesterday after she received her morning dose of bisoprolol, she went into a higher degree of AV block and 2:1 conduction of her atrial flutter around noontime, but then last night converted to sinus rhythm. Her heart rate stayed in the 60s. Vital signs otherwise, blood pressure reveals 126/68, heart rate as above. She is afebrile. Saturation 94% on room air. Fluid balance yesterday was about negative 900. Weight is 55.9, which is not much change since yesterday. She is alert and oriented, appropriate. Her jugular venous pressure (JVP) does not sound elevated, lungs though reveal bilateral fine crackles. I do not appreciate any wheezing or rhonchi. Heart exam reveals regular rhythm without gallop or rub. Abdomen is soft. Extremities are free of edema. LABORATORIES: Basic metabolic panel reveals sodium 134, potassium 3.5, BUN 54, creatinine 1.9, glucose 96 and CBC unchanged, essentially with hemoglobin of 11.3, hematocrit 33, platelet count 262,000. ASSESSMENT/PLAN: Mrs. Goncalves is an elderly female who presented with multiple runs of atrial flutter with rapid ventricular response. She received several doses of amiodarone, mostly for rate control, but then to my surprise she actually converted to sinus rhythm on higher dose of beta-olga lidia. Even before conversion, her heart rate was well controlled on bisoprolol 5 mg twice a day. Consequently, I would leave her medications unchanged and continue current dose of bisoprolol. We need to anticoagulate her but I am somewhat concerned about the fact that her hemoglobin has been slowly dropping. Because she is elderly, I think she probably would be better off resuming Xarelto at a reduced dose rather than Eliquis. Will see how the hemoglobin evolves from now on. The other complication is that of progressive renal failure. It is probably from over diuresis even though she still has crackles, she is completely comfortable and she is not hypoxic. Consequently, I am going to hold her dose of diuretic today and we will order a followup BNP tomorrow. Her condition remains guarded anyway even though she clinically feels well.
[2019-03-27 07:58] VITALS: BP 140/62
[2019-03-27] MEDS: VITAMIN D 1,000 INTERNATIONAL UNITS TABLET PO SCH (08:30)
[2019-03-27] MEDS: ALLOPURINOL 100 MG TAB PO SCH (08:30)
[2019-03-27] MEDS: BISOPROLOL FUMARATE 5 MG TAB PO SCH ×2 (08:30→21:15)
[2019-03-27] MEDS: MONTELUKAST 10 MG TAB PO SCH (08:31)
[2019-03-27] MEDS: OMEPRAZOLE 20 MG CAP PO SCH (08:31)
[2019-03-27] MEDS: ISOSORBIDE DIN (ISORDIL) 10 MG TAB PO SCH ×3 (08:31→21:16)
[2019-03-27] MEDS: **hydrALAZINE** 50 MG TAB PO SCH ×3 (08:31→21:16)
[2019-03-27] MEDS: FERROUS SULFATE 325MG TAB PO SCH ×3 (08:31→21:16)
[2019-03-27] MEDS: MULTIVITAMINS/MINERALS THERAP 1 TAB PO SCH (08:31)
[2019-03-27] MEDS: ADVAIR HFA 115/21MCG INHALER INH SCH ×2 (09:19→20:49)
[2019-03-27 11:51] VITALS: BP 130/66
[2019-03-27] MEDS: ENOXAPARIN 60 MG/0.6 ML SYR (J1650) SC SCH (14:06)
[2019-03-27 16:00] VITALS: BP 133/69
--- NOTE | 2019-03-27 18:34 | IPNPDOC ---
Text Note Date of Service The patient was seen on 03/27/19. NOTE Subjective: Patient stated that she feels better today, she denies fever, chi lls, nausea, vomiting, diarrhea or dysuria Objective: General - NAD, sitting up in bed, well groomed Eyes - PERRLA, EOM intact Neck - No noticeable or palpable swelling, redness or rash around throat or on face Lymph Nodes - No lymphadenopathy Cardiovascular - RRR no m/r/g, no JVD, no carotid bruits Lungs - no use of accessory muscles, mild crackles no wheezes Skin - No rashes, skin warm and dry, no erythematous areas Abdomen - Normal bowel sounds, abdomen soft and nontender Extremities - No edema, cyanosis or clubbing Musculo Skeletal - 5/5 strength, normal range of motion, no swollen or erythematous joints. Neurological Alert and oriented x 3, CN 2-12 grossly intact Assessment and plan: Patient is 83 years old female with past medical history of atrial fibrillation who presented hospital with atrial flutter. Patient has been treated with amiodarone, after that she was converted to sinus rhythm. 1. Afib w/ RVR - Skin Former recommended to continue bisoprolol 5 mg twice a day. Patient on the sinus rhythm - Follows with Dr. Alvarez as outpatient. - Xarelto 2. HFrEF - Last ECHO 2018 EF 35-40%. I will hold diuresis for today due to worsening kidney function - Monitor I/O. daily weights, fluid restriction. 3. CAD - Resume home meds. 4. CKD Worsening kidney function today most likely due to over diuresis - Monitor BMPs. VS,Fishbone, I+O VS, Fishbone, I+O Laboratory Tests 03/27/19 05:08 Red Blood Count 3.57 L, Mean Corpuscular Volume 92.4, Mean Corpuscular Hemoglobin 31.7, Mean Corpuscular Hemoglobin Concent 34.2, Red Cell Distribution Width 15.5 H, Calcium Level 9.0 Vital Signs Date Time Temp Pulse Resp B/P (MAP) Pulse Ox O2 Delivery O2 Flow Rate FiO2 03/27/19 16:00 99.4 72 18 133/69 (90) 95 03/24/19 12:00 Room Air I&O- Last 24 Hours up to 6 AM 03/27/19 05:59 Intake Total 840 ml Output Total 1150 ml Balance -310 ml MINESH ROUSE DO Mar 27, 2019 18:34
[2019-03-27] MEDS: ACETAMINOPHEN TAB 650MG DOSE (2X325MG) PO PRN (18:52)
[2019-03-27 20:00] VITALS: BP 141/63
--- NOTE | 2019-03-27 20:10 | ECGEPIP ---
[facility] Test Date: 2019-03-27 Pat Name: MIGUELINA GOMEZ Department: Room: [place] [address] Gender: Female [employer]: SERGIO : 1935 Requested By: Bianca Ybarra Order Number: [id number] Reading MD: Koko Esquivel Measurements Intervals [place] Rate: 62 P: 54 [place]: 220 QRS: -17 QRSD: 158 T: 60 QT: 461 QTc: 471 Interpretive Statements Normal sinus rhythm with first degree AV block Left bundle branch block Compared to prior tracing of 03/24/2019, atrial fibrillation has resolved Electronically Signed on 03-27-2019 20:10:27 EDT by Koko Esquivel
--- NOTE | 2019-03-27 20:15 | ECHO ---
DATE OF PROCEDURE: 03/27/2019 REFERRING PHYSICIAN: Dr. Pavon and Dr. Ybarra. INDICATION: Shortness of breath. Left bundle branch block. Height 152 cm, weight 55 kg. DIMENSIONS: IVS: 0.6 LV: 5.3 LVPW: 0.9 LA: 4.3 Aorta: 2.8 IVC: 2.0 Left atrial volume index: 44 Mitral E wave velocity: 119 A wave: 34 E prime septal: 5.6 E prime lateral: 8.3 FINDINGS: The study is of acceptable technical quality. The patient is in sinus rhythm with first-degree AV block and left bundle branch block. Left ventricle is of normal size. There is septal wall motion abnormality consistent with underlying conduction system disease. Overall left ventricular ejection fraction (LVEF) is estimated at around 45-50%. Right ventricle appears at least mildly dilated. Both atria are severely enlarged. Aortic valve is sclerotic but mobility of leaflets is preserved. There are degenerative abnormalities of mitral valve with thickening of mitral leaflets. I do not appreciate any prolapse. Tricuspid valve appears normal. Pulmonic valve also appears normal. No pericardial effusion is noted. Inferior vena cava is in upper limits of normal size, and there is no appreciable collapse with respiration indicative of high central venous pressure. Aortic root is normal. Aortic arch and abdominal aorta were not seen. Doppler interrogation of aortic valve reveals no significant stenosis or insufficiency. There is approximately moderate mitral insufficiency and mild tricuspid insufficiency. Calculated pulmonary artery pressure is around 70 mmHg corresponding at a minimum to moderately severe pulmonary hypertension. Pulmonic valve exhibits trace insufficiency. Mitral inflow pattern and tissue Doppler imaging of mitral annulus revealed grade 2 diastolic dysfunction. CONCLUSIONS: 1. Study is of acceptable technical quality. 2. Normal LV size with septal wall motion abnormality consistent with left bundle branch block, overall estimated LVEF 45-50%. Grade 2 diastolic dysfunction. 3. Aortic sclerosis but no significant stenosis or insufficiency. 4. Moderate mitral insufficiency. 5. Mild tricuspid insufficiency. 6. High central venous pressure. 7. Moderately severe pulmonary hypertension. COMMENTS: Subacute bacterial endocarditis (SBE) prophylaxis is not recommended.
[2019-03-27] MEDS: ATORVASTATIN 20 MG TAB PO SCH (21:16)
[2019-03-28] VITALS: BP 148/69
[2019-03-28 04:00] VITALS: BP 124/68
[2019-03-28 06:14] LABS: HEMATOCRIT 32.5 % (36.0-47.0); HEMOGLOBIN 11.3 g/dl (12.0-15.5); MEAN CORPUSCULAR HEMOGLOBIN 32.4 pg (27.0-33.0); MEAN CORPUSCULAR HGB CONC 34.8 g/dl (32.0-36.5); MEAN CORPUSCULAR VOLUME 93.1 fl (80.0-96.0); PLATELET COUNT, AUTOMATED 236 10^3/uL (150-450); RED BLOOD COUNT 3.49 10^6/uL (4.00-5.40)
[2019-03-28 06:42] LABS: CALCIUM LEVEL 9.1 MG/DL (8.8-10.2); CREATININE FOR GFR 1.2 MG/DL (0.55-1.30); GLOMERULAR FILTRATION RATE 45.9 (>32); MAGNESIUM LEVEL 2.5 MG/DL (1.8-2.4); POTASSIUM SERUM 3.4 MEQ/L (3.5-5.1)
--- NOTE | 2019-03-28 07:40 | IPN ---
DATE OF SERVICE: 03/28/2019 Mrs. Goncalves tells me that she is feeling well. She slept well. She denies any significant dyspnea even though she does admit that yesterday when she was ambulating she got short of breath with activity. Fortunately, on telemetry, she has been maintaining sinus rhythm. There has not been any recurrence of arrhythmia since yesterday. She denies any chest pain. Vital Signs: Blood pressure 124/68. Heart rate has been mostly in 60s and 70s, sinus rhythm. Saturation 95% room air. She is afebrile. Fluid balance yesterday was recorded about 300 positive, but I am sure that both intake as was output is not well recorded. Weight is 56.1 kg, which is slightly up since yesterday. Her jugular venous pulse (JVP), I do not appreciate any elevation. Lungs: Reveal bilateral end inspiratory crackles over bases only, sounds better than yesterday. Heart exam reveals a regular rhythm. There is a paradoxical splitting second heart sound. I do not appreciate any obvious murmur corresponding to mitral insufficiency. The abdomen is soft, nontender. No peripheral edema. Neurologically, she is mostly intact. LABORATORIES: Basic metabolic panel: Sodium 136, potassium 3.4, BUN 35, creatinine 1.2, GFR 46 and glucose 98. Terminal pro BNP is almost 14,000 though. An echocardiogram performed yesterday revealed left ventricle ejection fraction of around 45-50% with septal wall motion abnormality corresponding to left bundle branch block and approximately moderate mitral insufficiency. Grade 2 diastolic dysfunction. There was a high CVP and moderately severe pulmonary hypertension. ASSESSMENT/PLAN: Mrs. Goncalves is an 83-year-old female who presented with paroxysmal atrial flutter. She received several doses of amiodarone and ultimately converted to sinus rhythm and currently has been maintaining it on bisoprolol 5 mg twice a day which represents a doubling of her outpatient dose. As a second issue, it is that of congestive heart failure. She does have ejection fraction (EF) of around 40-45%. It is more in keeping with heart failure with preserved rather than reduced ejection fraction. Because there are no therapies in this setting that has been shown to improve prognosis, it is not clear what is the appropriate treatment. She certainly does need the beta blockers to reduce the frequency of tachycardia, but what additional therapies to apply is certainly unclear. The current medications seem to be appropriate. She developed fairly rapidly worsening renal insufficiency since admission, but creatinine has improved since yesterday just holding the Lasix yesterday. I would recommend to restart it at a 40 mg daily dose. I think that we can continue her hydralazine as well. She potentially could have underlying renal vascular disease. Unfortunately, the presence of fairly significant pulmonary hypertension is typically a harbinger of poor prognosis and generally difficult to treat a situation. Finally, as far as the atrial fibrillation/flutter is concerned, she needs anticoagulation. Xarelto was chosen by hospitalist team, which I think is perfectly appropriate, but she is only on 10 mg daily which is not a therapeutic dose. I recommend to increase the dose to 15 mg daily on discharge. She is feeling much better and from my perspective she probably can be discharged. I will arrange for prompt followup next week with Dr. Alvarez.
[2019-03-28] MEDS ORDERED: POTASSIUM CHLORIDE 10 MEQ SR TABLET PO ONE (07:45)
[2019-03-28 07:55] VITALS: BP 131/63
[2019-03-28] MEDS: FUROSEMIDE 40 MG/4 ML VIAL (J1940) IV SCH (09:21)
[2019-03-28] MEDS: VITAMIN D 1,000 INTERNATIONAL UNITS TABLET PO SCH (09:22)
[2019-03-28] MEDS: MULTIVITAMINS/MINERALS THERAP 1 TAB PO SCH (09:22)
[2019-03-28] MEDS: OMEPRAZOLE 20 MG CAP PO SCH (09:22)
[2019-03-28] MEDS: ALLOPURINOL 100 MG TAB PO SCH (09:22)
[2019-03-28] MEDS: BISOPROLOL FUMARATE 5 MG TAB PO SCH (09:22)
[2019-03-28] MEDS: FERROUS SULFATE 325MG TAB PO SCH ×2 (09:23→12:33)
[2019-03-28] MEDS: ISOSORBIDE DIN (ISORDIL) 10 MG TAB PO SCH ×2 (09:23→12:34)
[2019-03-28] MEDS: MONTELUKAST 10 MG TAB PO SCH (09:23)
[2019-03-28] MEDS: **hydrALAZINE** 50 MG TAB PO SCH ×2 (09:23→12:34)
[2019-03-28] MEDS: ADVAIR HFA 115/21MCG INHALER INH SCH (11:40)
[2019-03-28] MEDS ORDERED: BISO5TAB9 PO (12:04)
[2019-03-28] MEDS ORDERED: XARE10TA PO (12:04)
[2019-03-28 12:34] VITALS: BP 140/63
[2019-03-28] MEDS ORDERED: RIVAROXABAN 10 MG TAB (XARELTO) PO SCH (18:00)
--- NOTE | 2019-03-28 21:37 | DS.PDOC ---
Discharge Summary General Date of Admission Mar 24, 2019 at 11:20 Date of Discharge 03/28/19 Attending Physician: MINESH ROUSE DO Discharge Summary PROCEDURES PERFORMED DURING STAY: None ADMITTING DIAGNOSES: 1. Afib w/ RVR 2. HFrEF, acute on chronic 3. CAD 4. JOSE ANTONIO DISCHARGE DIAGNOSES: 1. Afib w/ RVR 2. HFrEF, acute on chronic 3. CAD 4. JOSE ANTONIO COMPLICATIONS/CHIEF COMPLAINT: Atrial Flutter W Rapid Ventricular Response. HISTORY OF PRESENT ILLNESS:Patient is a 83 year old Female with PMH Afib, CAD, HFrEF, CKD, and COPD presented brought into the ER after being unsteady and reported experienced near syncope this morning. Patient was previously in the ER yesterday in Afib and subsequently discharged home after treatment. However, developed similar problems today, didn't feel well this morning and came in also noted to have intermittent periods of Afib. Patient currently appears well and denies any particular complaints including any chest pain, SOB, palpitations, fever, chills. HOSPITAL COURSE: She received several doses of amiodarone and ultimately converted to sinus rhythm and currently has been maintaining it on bisoprolol 5 mg twice a day which represents a doubling of her outpatient dose. As a second issue, it is that of congestive heart failure. She does have ejection fraction (EF) of around 40- 45%. It is more in keeping with heart failure with preserved rather than reduced ejection fraction. She developed fairly rapidly worsening renal insufficiency since admission, but creatinine has improved when Lasix was on hold. Xarelto was prescribed for atrial fibrillation. followup next week with Dr. Alvarez. DISCHARGE MEDICATIONS: Please see below. ALLERGIES: Please see below. PHYSICAL EXAMINATION ON DISCHARGE: General: No acute distress, Alert Eyes: Normal sclera, EOMI, DAVID HENT: Atraumatic, neck supple, moist mucous membranes Cardiovascular: Irregular irregular rhythm, HR 80-110s. Pulmonary: Clear to auscultation b/l, bibasilar crackles. GI: Soft, nontender, nondistended Skin: Warm and dry Neuro: CN grossly intact. No focal deficits. LABORATORY DATA: Please see below. IMAGING: Echocardiogram Height 152 cm, weight 55 kg. DIMENSIONS: IVS: 0.6 LV: 5.3 LVPW: 0.9 LA: 4.3 Aorta: 2.8 IVC: 2.0 Left atrial volume index: 44 Mitral E wave velocity: 119 A wave: 34 E prime septal: 5.6 E prime lateral: 8.3 FINDINGS: The study is of acceptable technical quality. The patient is in sinus rhythm with first-degree AV block and left bundle branch block. Left ventricle is of normal size. There is septal wall motion abnormality consistent with underlying conduction system disease. Overall left ventricular ejection fraction (LVEF) is estimated at around 45-50%. Right ventricle appears at least mildly dilated. Both atria are severely enlarged. Aortic valve is sclerotic but mobility of leaflets is preserved. There are degenerative abnormalities of mitral valve with thickening of mitral leaflets. I do not appreciate any prolapse. Tricuspid valve appears normal. Pulmonic valve also appears normal. No pericardial effusion is noted. Inferior vena cava is in upper limits of normal size, and there is no appreciable collapse with respiration indicative of high central venous pressure. Aortic root is normal. Aortic arch and abdominal aorta were not seen. Doppler interrogation of aortic valve reveals no significant stenosis or insufficiency. There is approximately moderate mitral insufficiency and mild tricuspid insufficiency. Calculated pulmonary artery pressure is around 70 mmHg corresponding at a minimum to moderately severe pulmonary hypertension. Pulmonic valve exhibits trace insufficiency. Mitral inflow pattern and tissue Doppler imaging of mitral annulus revealed grade 2 diastolic dysfunction. CONCLUSIONS: 1. Study is of acceptable technical quality. 2. Normal LV size with septal wall motion abnormality consistent with left bundle branch block, overall estimated LVEF 45-50%. Grade 2 diastolic dysfunction. 3. Aortic sclerosis but no significant stenosis or insufficiency. 4. Moderate mitral insufficiency. 5. Mild tricuspid insufficiency. 6. High central venous pressure. 7. Moderately severe pulmonary hypertension. COMMENTS: Subacute bacterial endocarditis (SBE) prophylaxis is not recommended PROGNOSIS: Favorable ACTIVITY: As tolerated DIET: Cardiac DISCHARGE PLAN:followup next week with Dr. Alvarez. DISPOSITION: [facility]. DISCHARGE INSTRUCTIONS: Take all prescribed medications ITEMS TO FOLLOWUP ON ON OUTPATIENT: Follow-up with PCP in one week DISCHARGE CONDITION: Stable TIME SPENT ON DISCHARGE: Greater than 20 minutes. Vital Signs/I&Os Vital Signs Date Time Temp Pulse Resp B/P (MAP) Pulse Ox O2 Delivery O2 Flow Rate FiO2 03/28/19 12:34 140/63 03/28/19 09:22 70 03/28/19 07:55 99.7 18 94 03/24/19 12:00 Room Air I&O- Last 24 Hours up to 6 AM 03/28/19 05:59 Intake Total 800 ml Output Total 800 ml Balance 0 ml Laboratory Data Labs 24H Laboratory Tests 2 03/28/19 05:57: Nucleated Red Blood Cells % (auto) 0.0, Anion Gap 9, Glomerular Filtration Rate 45.9, Blood Urea Nitrogen 35H, Creatinine 1.20, Sodium Level 136, Potassium Level 3.4L, Chloride Level 107, Carbon Dioxide Level 20L, Calcium Level 9.1, Magnesium Level 2.5H, [id number]-Type Natriuretic Peptide 58524N CBC/BMP Laboratory Tests 03/28/19 05:57 Red Blood Count 3.49 L, Mean Corpuscular Volume 93.1, Mean Corpuscular Hemoglobin 32.4, Mean Corpuscular Hemoglobin Concent 34.8, Red Cell Distribution Width 15.5 H, Calcium Level 9.1 Discharge Medications Scheduled Allopurinol (Allopurinol) 100 Mg Tab, 200 MG PO DAILY, (Reported) Aspirin (Aspirin EC) 81 Mg Tablet.dr, 81 MG PO DAILY, (Reported) Atorvastatin Calcium (Atorvastatin Calcium) 40 Mg Tab, 40 MG PO QHS, (Reported) Bisoprolol Fumarate (Bisoprolol Fumarate) 5 Mg Tablet, 5 MG PO BID Cholecalciferol (Vitamin D3) (Vitamin D3) 1,000 Unit Tab, 1,000 UNIT PO DAILY, (Reported) Clopidogrel Bisulfate (Clopidogrel) 75 Mg Tab, 75 MG PO DAILY, (Reported) Ferrous Sulfate (Ferrous Sulfate) 325 Mg Tab, 325 MG PO TID, (Reported) Hydralazine HCl (Hydralazine HCl) 25 Mg Tablet, 50 MG PO TID, (Reported) Isosorbide Dinitrate (Isosorbide Dinitrate) 10 Mg Tablet, 10 MG PO TID, (Reported) Montelukast Sodium (Singulair) 10 Mg Tab, 10 MG PO DAILY, (Reported) Multivitamins (Thera M Plus Tablet) 1 Tab Tab, 1 TAB PO DAILY, (Reported) Omeprazole (Omeprazole) 40 Mg Cap, 40 MG PO DAILY, (Reported) Rivaroxaban (Xarelto) 10 Mg Tablet, 10 MG PO DAILY@18 Salmeterol/Fluticasone (Advair 250-50 Diskus) 1 Each Blst.w.dev, 1 PUFF INH BID, (Reported) Torsemide (Torsemide) 20 Mg Tablet, 20 MG PO DAILY, (Reported) Umeclidinium [place] (Incruse Ellipta) 62.5 Mcg/Inh Inh, 1 PUFF INH DAILY, (Reported) Scheduled PRN Acetaminophen (Acetaminophen) 325 Mg Tab, 650 MG PO Q6H PRN for PAIN, (Reported) Albuterol Sulfate (Proair Hfa) 108 Mcg/Act Aer, 2 PUFF INH QID PRN for SHORTNESS OF BREATH, (Reported) Allergies Coded Allergies: tetanus toxoid, adsorbed (Verified Allergy, Mild, REDNESS / SWELLING, 03/24/19) Penicillins (Verified Allergy, Unknown, 03/24/19) MINESH ROUSE DO Mar 28, 2019 21:37
== END 2019-03-28 13:31 | DRG 291 ==
LOC: EDBD 07:06 → M ED 07:06 → M ED INP 11:20 → M PCU 12:35
PROVIDERS: ADMIT Student in an Organized Health Care Education/Training Program; ATTEND Internal Medicine
DX: I13.0 Hypertensive heart and chronic kidney disease with heart failure and stage 1 through stage 4 chronic kidney disease, or unspecified chronic kidney disease (principal); I50.33 Acute on chronic diastolic (congestive) heart failure; I48.92 Unspecified atrial flutter; N17.9 Acute kidney failure, unspecified; I35.8 Other nonrheumatic aortic valve disorders; I25.10 Atherosclerotic heart disease of native coronary artery without angina pectoris; N18.9 Chronic kidney disease, unspecified; I44.7 Left bundle-branch block, unspecified; I48.91 Unspecified atrial fibrillation; I42.8 Other cardiomyopathies; Z66 Do not resuscitate; Z79.82 Long term (current) use of aspirin; Z79.899 Other long term (current) drug therapy; Z88.0 Allergy status to penicillin; Z88.7 Allergy status to serum and vaccine; Z79.02 Long term (current) use of antithrombotics/antiplatelets

== ENCOUNTER → 2019-04-05 | Outpatient (REF) | payer MEDICARE, MEDICAID ==
[~2019-04-05] MED LIST changes: +XARE10TA PO
[2019-04-05 10:13] LABS: HEMATOCRIT 35.4 % (36.0-47.0); HEMOGLOBIN 11.7 g/dl (12.0-15.5); MEAN CORPUSCULAR HEMOGLOBIN 32.3 pg (27.0-33.0); MEAN CORPUSCULAR HGB CONC 33.1 g/dl (32.0-36.5); MEAN CORPUSCULAR VOLUME 97.8 fl (80.0-96.0); PLATELET COUNT, AUTOMATED 359 10^3/uL (150-450); RED BLOOD COUNT 3.62 10^6/uL (4.00-5.40); WHITE BLOOD COUNT 11.4 10^3/uL (4.0-10.0)
[2019-04-05 10:25] LABS: ALBUMIN 3.6 GM/DL (3.2-5.2); BILIRUBIN,TOTAL 0.4 MG/DL (0.2-1.0); CALCIUM LEVEL 9.8 MG/DL (8.8-10.2); CHOLESTEROL RISK RATIO 3.056 (<5); CREATININE FOR GFR 1.57 MG/DL (0.55-1.30); GLOMERULAR FILTRATION RATE 33.7 (>32); POTASSIUM SERUM 3.8 MEQ/L (3.5-5.1); THYROID STIMULATING HORMONE 5.14 uIU/ML (0.358-3.740); TOTAL PROTEIN 7.3 GM/DL (6.4-8.2)
[2019-04-05 10:54] LABS: TOTAL 25(OH) VITAMIN D 39.6 NG/ML (30.0-100.0)
== END ==
PROVIDERS: ATTEND Family Medicine
DX: I48.91 Unspecified atrial fibrillation (principal); I10 Essential (primary) hypertension; E78.5 Hyperlipidemia, unspecified; D50.9 Iron deficiency anemia, unspecified; Z79.01 Long term (current) use of anticoagulants; E55.9 Vitamin D deficiency, unspecified

== ENCOUNTER 2019-04-09 01:59 | Emergency (ER) | payer MEDICARE, MEDICAID ==
[~2019-04-09] VITALS: Ht 152.4 cm; Wt 54.5 kg
[~2019-04-09 01:59] MED LIST changes: -OMEP40CA2 PO; +OMEP40CA97 PO
[2019-04-09 03:45] LABS: BASO # 0.1 10^3/uL (0.0-0.2); BASO % 0.4 % (0.0-1.0); EOS # 0.2 10^3/uL (0.0-0.5); EOS % 1.1 % (0.0-3.0); HEMATOCRIT 28.4 % (36.0-47.0); HEMOGLOBIN 9.4 g/dl (12.0-15.5); LYMPH # 0.7 10^3/uL (1.5-5.0); LYMPH % 4.8 % (24.0-44.0); MEAN CORPUSCULAR HEMOGLOBIN 31.6 pg (27.0-33.0); MEAN CORPUSCULAR HGB CONC 33.1 g/dl (32.0-36.5); MEAN CORPUSCULAR VOLUME 95.6 fl (80.0-96.0); MONO # 0.8 10^3/uL (0.0-0.8); MONO % 5.4 % (0.0-5.0); NEUTROPHILS # 12.4 10^3/uL (1.5-8.5); NEUTROPHILS % 86.8 % (36.0-66.0); PLATELET COUNT, AUTOMATED 329 10^3/uL (150-450); RED BLOOD COUNT 2.97 10^6/uL (4.00-5.40); WHITE BLOOD COUNT 14.3 10^3/uL (4.0-10.0)
[2019-04-09 04:04] LABS: BLOOD UREA NITROGEN 47 MG/DL (7-18); CALCIUM LEVEL 8.4 MG/DL (8.8-10.2); CARBON DIOXIDE LEVEL 25 MEQ/L (21-32); CHLORIDE LEVEL 104 MEQ/L (98-107); CK-MB VALUE MASS 1.2 NG/ML (<3.6); CPK CREATINE PHOSPHOKINASE 61 U/L (26-192); CREATININE FOR GFR 1.41 MG/DL (0.55-1.30); GLOMERULAR FILTRATION RATE 38.1 (>32); GLUCOSE, FASTING 107 MG/DL (70-100); MAGNESIUM LEVEL 2.1 MG/DL (1.8-2.4); MB/CK RELATIVE INDEX 1.97 (< OR =4); POTASSIUM SERUM 3.3 MEQ/L (3.5-5.1); SODIUM LEVEL 138 MEQ/L (136-145); TROPONIN I < 0.02 NG/ML (< 0.10)
[2019-04-09 05:00] VITALS: BP 147/68
--- NOTE | 2019-04-09 08:03 | REP ---
Portable chest, 03:09 a.m., single AP view with the patient sitting: Comparison is 03/24/2019. Lung betts are hyperinflated, unchanged. There is diffuse interstitial coarsening, unchanged. There is cardiomegaly, unchanged. The mundo, mediastinum, skeletal structures are unchanged. Impression: There is no interval change. Electronically Signed by Cassius Garza MD 04/09/2019 07:55 A
--- NOTE | 2019-04-18 07:29 | ECGEPIP ---
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
== END 2019-04-09 05:17 | disposition home or self-care (01) ==
LOC: M ED 01:59
DX: I48.92 Unspecified atrial flutter (principal); I44.7 Left bundle-branch block, unspecified; I50.9 Heart failure, unspecified; E07.9 Disorder of thyroid, unspecified; Z79.899 Other long term (current) drug therapy; Z79.82 Long term (current) use of aspirin; Z79.01 Long term (current) use of anticoagulants; Z88.0 Allergy status to penicillin; Z88.7 Allergy status to serum and vaccine

== ENCOUNTER → 2019-05-02 | Outpatient (REF) | payer MEDICARE, MEDICAID ==
[2019-05-02 08:48] LABS: HEMATOCRIT 37.1 % (36.0-47.0); HEMOGLOBIN 12.1 g/dl (12.0-15.5); MEAN CORPUSCULAR HEMOGLOBIN 33.1 pg (27.0-33.0); MEAN CORPUSCULAR HGB CONC 32.6 g/dl (32.0-36.5); MEAN CORPUSCULAR VOLUME 101.4 fl (80.0-96.0); PLATELET COUNT, AUTOMATED 340 10^3/uL (150-450); RED BLOOD COUNT 3.66 10^6/uL (4.00-5.40); WHITE BLOOD COUNT 8.3 10^3/uL (4.0-10.0)
[2019-05-02 09:28] LABS: ALBUMIN 3.8 GM/DL (3.2-5.2); BILIRUBIN,TOTAL 0.4 MG/DL (0.2-1.0); CALCIUM LEVEL 9.8 MG/DL (8.8-10.2); CHOLESTEROL RISK RATIO 2.584 (<5); CREATININE FOR GFR 1.38 MG/DL (0.55-1.30); GLOMERULAR FILTRATION RATE 39.1 (>32); POTASSIUM SERUM 3.9 MEQ/L (3.5-5.1); THYROID STIMULATING HORMONE 4.92 uIU/ML (0.358-3.740); TOTAL PROTEIN 7.1 GM/DL (6.4-8.2)
[2019-05-02 09:29] LABS: TOTAL 25(OH) VITAMIN D 40.1 NG/ML (30.0-100.0)
== END ==
PROVIDERS: ATTEND Family Medicine
DX: I48.91 Unspecified atrial fibrillation (principal); F41.9 Anxiety disorder, unspecified; I11.0 Hypertensive heart disease with heart failure; J44.9 Chronic obstructive pulmonary disease, unspecified; I50.9 Heart failure, unspecified; E78.5 Hyperlipidemia, unspecified; D50.9 Iron deficiency anemia, unspecified; Z79.899 Other long term (current) drug therapy

== ENCOUNTER → 2019-06-22 | Outpatient (REF) | payer MEDICARE ==
[~2019-06-22] MED LIST changes: +DIGO0.123 PO
== END ==
PROVIDERS: ATTEND Internal Medicine Nephrology
DX: Z53.9 Procedure and treatment not carried out, unspecified reason (principal)

== ENCOUNTER → 2019-07-04 | Outpatient (REF) | payer MEDICARE, MEDICAID ==
[2019-07-04 10:06] LABS: BASO # 0.1 10^3/uL (0.0-0.2); BASO % 0.8 % (0.0-1.0); EOS # 0.2 10^3/uL (0.0-0.5); EOS % 1.3 % (0.0-3.0); HEMATOCRIT 36.2 % (36.0-47.0); HEMOGLOBIN 11.8 g/dl (12.0-15.5); LYMPH # 1.4 10^3/uL (1.5-5.0); MEAN CORPUSCULAR HEMOGLOBIN 31.8 pg (27.0-33.0); MEAN CORPUSCULAR HGB CONC 32.6 g/dl (32.0-36.5); MEAN CORPUSCULAR VOLUME 97.6 fl (80.0-96.0); MONO % 7.3 % (0.0-5.0); NEUTROPHILS # 10.9 10^3/uL (1.5-8.5); PLATELET COUNT, AUTOMATED 327 10^3/uL (150-450); RED BLOOD COUNT 3.71 10^6/uL (4.00-5.40); WHITE BLOOD COUNT 13.6 10^3/uL (4.0-10.0)
[2019-07-04 10:35] LABS: ALBUMIN 3.6 GM/DL (3.2-5.2); CALCIUM LEVEL 9.3 MG/DL (8.8-10.2); CREATININE FOR GFR 1.37 MG/DL (0.55-1.30); GLOMERULAR FILTRATION RATE 39.4 (>32); MAGNESIUM LEVEL 2.3 MG/DL (1.8-2.4); PHOSPHORUS LEVEL 3.3 MG/DL (2.5-4.9); POTASSIUM SERUM 4.3 MEQ/L (3.5-5.1)
[2019-07-04 10:46] LABS: PTH INTACT 100.2 PG/ML (18.5-88.0)
== END ==
PROVIDERS: ATTEND Nurse Practitioner Family
DX: N18.3 Chronic kidney disease, stage 3 (moderate) (principal); N25.81 Secondary hyperparathyroidism of renal origin; D63.1 Anemia in chronic kidney disease; E83.42 Hypomagnesemia

== ENCOUNTER 2019-07-23 12:36 | Inpatient (IN) | payer MEDICARE, MEDICAID ==
[~2019-07-23] VITALS: Ht 152.4 cm; Wt 53.9 kg
[~2019-07-23 12:36] MED LIST changes: +BISO5TAB14 PO; -BISO5TAB9 PO
[2019-07-23 13:27] LABS: BASO # 0.1 10^3/uL (0.0-0.2); BASO % 0.7 % (0.0-1.0); EOS # 0.1 10^3/uL (0.0-0.5); EOS % 0.8 % (0.0-3.0); HEMATOCRIT 28.8 % (36.0-47.0); HEMOGLOBIN 9.2 g/dl (12.0-15.5); LYMPH # 0.6 10^3/uL (1.5-5.0); LYMPH % 5.3 % (24.0-44.0); MEAN CORPUSCULAR HEMOGLOBIN 31.1 pg (27.0-33.0); MEAN CORPUSCULAR HGB CONC 31.9 g/dl (32.0-36.5); MEAN CORPUSCULAR VOLUME 97.3 fl (80.0-96.0); MONO # 0.6 10^3/uL (0.0-0.8); MONO % 4.8 % (0.0-5.0); NEUTROPHILS # 10.3 10^3/uL (1.5-8.5); NEUTROPHILS % 86.5 % (36.0-66.0); PLATELET COUNT, AUTOMATED 317 10^3/uL (150-450); RED BLOOD COUNT 2.96 10^6/uL (4.00-5.40); WHITE BLOOD COUNT 11.9 10^3/uL (4.0-10.0)
[2019-07-23 13:42] LABS: INR 1.25; PARTIAL THROMBOPLASTIN TIME 31.7 SECONDS (25.0-38.4); PROTHROMBIN TIME 15.4 SECONDS (11.8-14.0)
[2019-07-23] MEDS ORDERED: CENT1TAB PO (13:49)
[2019-07-23] MEDS ORDERED: TORS10TA3 PO (13:49)
[2019-07-23] MEDS ORDERED: BISO5TAB14 PO (13:49)
[2019-07-23] MEDS ORDERED: ALPR0.25 PO (13:49)
[2019-07-23] MEDS ORDERED: XARE10TA PO (13:49)
[2019-07-23] MEDS ORDERED: SERT-141 PO (13:49)
[2019-07-23] MEDS ORDERED: VITAD1000T PO (13:49)
[2019-07-23 13:54] LABS: ALBUMIN 3.3 GM/DL (3.2-5.2); ALT/SGPT 37 U/L (12-78); BILIRUBIN,DIRECT < 0.1 MG/DL (0.0-0.2); BILIRUBIN,TOTAL 0.2 MG/DL (0.2-1.0); LIPASE 208 U/L (73-393); TOTAL PROTEIN 6.4 GM/DL (6.4-8.2)
[2019-07-23 14:43] LABS: APPEARANCE, URINE CLEAR (CLEAR); BACTERIA, URINE AUTO NEGATIVE (NEGATIVE); BILIRUBIN, URINE AUTO NEGATIVE (NEGATIVE); BLOOD, URINE BLOOD NEGATIVE (NEGATIVE); COLOR, URINE YELLOW (YELLOW); GLUCOSE, URINE (UA) AUTO NEGATIVE (NEGATIVE); KETONE, URINE AUTO NEGATIVE (NEGATIVE); LEUKOCYTE ESTERASE, URINE AUTO NEGATIVE (NEGATIVE); NITRITE, URINE AUTO NEGATIVE (NEGATIVE); PROTEIN, URINE AUTO NEGATIVE (NEGATIVE); RBC, URINE AUTO 0 /HPF (0-3); SPECIFIC GRAVITY URINE AUTO 1.004 (1.002-1.035); SQUAMOUS EPITHELIAL CELL UR AU 0 /HPF (0-6); UROBILINOGEN, URINE AUTO 0.2 mg/dL (0.0-2.0); WBC, URINE AUTO 0 /HPF (0-3)
[2019-07-23] MEDS ORDERED: ACETAMINOPHEN 325 MG TAB PO PRN (15:45)
[2019-07-23] MEDS ORDERED: ALPRAZolam 0.25 MG TAB PO PRN (15:45)
[2019-07-23] MEDS ORDERED: ALBUTEROL 90 MCG/ACT 8GM HFA INHALER INH PRN (15:45)
[2019-07-23 17:15] VITALS: BP 165/69
[2019-07-23 17:51] LABS: INR 1.23; PROTHROMBIN TIME 15.2 SECONDS (11.8-14.0)
--- NOTE | 2019-07-23 17:56 | HPE ---
DATE OF ADMISSION: 07/23/2019 PRIMARY CARE PROVIDER: Nicole Light NP TIME: Approximately 3:30 p.m. CHIEF COMPLAINT: Melena. HISTORY OF PRESENT ILLNESS: Ms. Goncalves is an 83-year-old woman who has a past medical history notable for paroxysmal atrial fibrillation. She was last hospitalized on 03/24 though 03/28/2019 for syncope and treatment of acute on chronic systolic congestive heart failure (CHF). At that time, she was started on Xarelto. She also has a history of chronic obstructive pulmonary disease (COPD). She is not oxygen or steroid dependent. She has chronic kidney disease stage III. She does not use any nonsteroidal antiinflammatory drugs (NSAIDs) but appears that she was on aspirin in addition to the Xarelto based on medication reconciliation form. She is a resident of [facility] and over the last several days has had melanotic stools. These have not been associated with any lightheadedness, chest discomfort, angina, increasing fatigue, or worsening shortness of breath. She was brought to the emergency room today by her daughter, Christoph, for evaluation. In the emergency department, she was noted to be guaiac positive. In addition, review of her complete blood count (CBC) today indicates that she has a hemoglobin of 9.2 g/dL, which is a drop from 19 days ago back on 07/04/2019 when her hemoglobin was 11.8 as an outpatient. The patient's daughter, Christoph, tells me that four years ago her mother also had a gastrointestinal bleed when she lived in [place] and at that time she had been on Xarelto and needed blood transfusion during that hospital stay. She apparently was never scoped, from what they told me, but she did followup with a GI specialist as an outpatient and underwent a capsule endoscopy, which Christoph tells me did not find a source of bleeding. Therefore, she was discontinued from the Xarelto up until this past March when it was resumed. ALLERGIES: PENICILLIN, which causes unknown reaction that she can not recollect, as well as TETANUS TOXOID, which causes her to develop swelling and redness. HOME MEDICATIONS: - acetaminophen - ProAir - allopurinol - alprazolam - aspirin - atorvastatin - bisoprolol - cholecalciferol - ferrous sulfate - hydralazine - isosorbide dinitrate - Singulair - multivitamin - omeprazole - Advair - sertraline - torsemide - Ellipta PAST MEDICAL HISTORY: Notable for: 1. Atrial fibrillation, paroxysmal. 2. Coronary artery disease. 3. Chronic kidney disease stage III. 4. Chronic obstructive pulmonary disease (COPD). 5. Chronic systolic congestive heart failure (CHF) with a left ventricular ejection fraction between 35 and 40%. 6. History of blood transfusion 4 years ago following a gastrointestinal bleed. 7. History of gastrointestinal bleed, unspecified, 4 years ago. 8. History of hyperuricemia. 9. History of chronic iron deficiency anemia. Currently on iron tablets and was recently decreased from two iron tablets a day to one iron tablet a day by her kidney specialist. SURGICAL HISTORY: Notable for: 1. Appendectomy. SOCIAL HISTORY: She lives at [facility]. She has been there for approximately 4 years. She is otherwise independent. She uses no assistive devices to ambulate. She is a DO NOT RESUSCITATE. Her daughter Christoph is her medical power of windsurfing instructor. FAMILY HISTORY: Unknown as the patient was adopted. She has no known family history. REVIEW OF SYSTEMS: 12-systems reviewed with the patient and otherwise negative except what is mentioned in the history of present illness. PHYSICAL EXAMINATION: VITAL SIGNS: The patient's temperature is 96.6, pulse 70, respirations 18, blood pressure is 152/69, oxygen saturation 97% on room air. GENERAL: The is alert and oriented times three. She does not have any pallor, diaphoresis or jaundice. No bruising is noted on her skin. HEENT: Head is atraumatic. Pupils are symmetric and reactive to light. Oropharynx is clear. NECK: Supple. LUNGS: Lung sounds are present without any wheeze or rhonchi. HEART: S1, S2. She is currently in normal sinus rhythm. No audible murmurs or gallops. ABDOMEN: Soft, nontender, nondistended without any palpable masses. No noticeable organomegaly. EXTREMITIES: Without any significant cyanosis, clubbing, or edema. NEUROLOGIC: Cranial nerves II through XII are grossly intact. The patient's speech is fluent. She has no facial asymmetry. She is moving all four extremities. She is able to communicate her needs without assistance. LABORATORIES: Relevant laboratories: White count 11.9, hemoglobin 9.2, hematocrit 28.8, platelet count 317,000. PT is 15.4, INR is 1.25. Lipase 208, albumin 3.3, total protein 6.4, alkaline phosphatase 70, ALT is 37, AST is 36. Urinalysis is negative. Creatinine is 1.5, BUN 29. Sodium 130, potassium 3.8, chloride 97, bicarbonate 23. Lactic acid is 1.1. IMPRESSION: 1. Recurrent gastrointestinal bleed on Xarelto. 2. Acute blood loss anemia secondary to Xarelto therapy. 3. Paroxysmal atrial fibrillation, currently in sinus rhythm. 4. Chronic systolic congestive heart failure (CHF), currently compensated. 5. Chronic kidney disease stage III. 6. Chronic iron deficiency anemia. 7. Chronic obstructive pulmonary disease (COPD), currently compensated. PLAN: The patient will be admitted to the general medical floor with telemetry. She is rather stable from this. I am going to check a complete blood count (CBC) in the morning unless she becomes hemodynamically unstable or has further large melanotic stools. She will be placed on Protonix 40 mg intravenously every 12 hours. No GI is available today, but she is rather stable. I will consult Dr. Woodward of GI in the morning to reassess her. Given that this is likely her secondary bleed within 4 years on Xarelto, would recommend discontinuing it and likely just keeping her on a baby aspirin. We can ask her nurses' association executive director to weigh in on this also. The patient will be continued on her Zebeta, as well as torsemide. We will hold isosorbide and hydralazine, as well as aspirin and Xarelto for now. The remainder of her home medications will be continued, see my orders for details. She will be placed on SCDs and thromboembolic compression stockings (TEDS) for deep vein thrombosis (DVT) prophylaxis. She will be on Protonix for GI prophylaxis. The patient can have dinner tonight. I will keep her nothing by mouth after midnight in the event that Dr. Woodward will possibly do an esophagogastroduodenoscopy (EGD) tomorrow. I will contact Dr. Woodward in the morning to update him and see if he can perform upper endoscopy of her, at least I think that she needs that. If he can not, then we can start her on a clear diet and we will can proceed with an endoscopy or colonoscopy at his discretion.
[2019-07-23] MEDS: ADVAIR HFA 230/21MCG INHALER INH SCH (20:22)
[2019-07-23] MEDS: ATORVASTATIN 20 MG TAB PO SCH (21:54)
[2019-07-23] MEDS: PANTOPRAZOLE 40MG INJ (PROTONIX) (C9113) IV SCH (21:54)
[2019-07-23] MEDS: bisoproloL fumarate 5 MG TAB PO SCH (21:54)
[2019-07-23 22:00] VITALS: BP 136/85
[2019-07-23] MEDS ORDERED: D5W/0.9% SODIUM CHLORIDE 1,000 ML IV SCH (23:55)
[2019-07-24] VITALS (8 sets, daily range): BP systolic 148–169; BP diastolic 57–68
[2019-07-24 01:41] LABS: BASO # 0.1 10^3/uL (0.0-0.2); BASO % 0.6 % (0.0-1.0); EOS # 0.3 10^3/uL (0.0-0.5); EOS % 2.5 % (0.0-3.0); HEMATOCRIT 26.5 % (36.0-47.0); HEMOGLOBIN 8.8 g/dl (12.0-15.5); LYMPH # 1.4 10^3/uL (1.5-5.0); LYMPH % 13.8 % (24.0-44.0); MEAN CORPUSCULAR HEMOGLOBIN 31.5 pg (27.0-33.0); MEAN CORPUSCULAR HGB CONC 33.2 g/dl (32.0-36.5); MONO # 1.1 10^3/uL (0.0-0.8); MONO % 10.5 % (0.0-5.0); NEUTROPHILS # 7.2 10^3/uL (1.5-8.5); NEUTROPHILS % 71.3 % (36.0-66.0); PLATELET COUNT, AUTOMATED 270 10^3/uL (150-450); RED BLOOD COUNT 2.79 10^6/uL (4.00-5.40); WHITE BLOOD COUNT 10.1 10^3/uL (4.0-10.0)
[2019-07-24 02:04] LABS: CK-MB VALUE MASS 1.8 NG/ML (<3.6); MB/CK RELATIVE INDEX 1.62 (< OR =4); TROPONIN I 0.02 NG/ML (< 0.10)
[2019-07-24 05:58] LABS: HEMATOCRIT 26.7 % (36.0-47.0); HEMOGLOBIN 8.8 g/dl (12.0-15.5); MEAN CORPUSCULAR HEMOGLOBIN 31.4 pg (27.0-33.0); MEAN CORPUSCULAR VOLUME 95.4 fl (80.0-96.0); PLATELET COUNT, AUTOMATED 279 10^3/uL (150-450); WHITE BLOOD COUNT 7.9 10^3/uL (4.0-10.0)
[2019-07-24 06:26] LABS: CALCIUM LEVEL 8.5 MG/DL (8.8-10.2); CREATININE FOR GFR 1.46 MG/DL (0.55-1.30); GLOMERULAR FILTRATION RATE 36.6 (>32); POTASSIUM SERUM 3.5 MEQ/L (3.5-5.1)
[2019-07-24] MEDS: ADVAIR HFA 230/21MCG INHALER INH SCH ×2 (07:26→19:25)
[2019-07-24] MEDS ORDERED: TORSEMIDE 10 MG TABLET PO SCH (09:00)
[2019-07-24] MEDS: bisoproloL fumarate 5 MG TAB PO SCH ×2 (09:00→20:19)
[2019-07-24] MEDS: PANTOPRAZOLE 40MG INJ (PROTONIX) (C9113) IV SCH ×2 (10:24→20:16)
[2019-07-24] MEDS ORDERED: LIDOCAINE 2% INJ 100 MG/5 ML SDV (FOR ANES.) As Ordered ONE (13:45)
[2019-07-24] MEDS ORDERED: propofoL 200 MG/20 ML VIAL As Ordered ONE (13:45)
--- NOTE | 2019-07-24 15:03 | CR.PDOC ---
General Date of Consultation: Jul 24, 2019 Referring Provider: MARJORIE TAYLOR MD Attending Physician: SAM ESTEVES MD Consultation Primary physician/ hospitalist: -Dr. Taylor Reason for consult: -Melena and drop in hemoglobin and hematocrit. HPI: 83-year-old female patient with COPD, CKD stage III, OPD, chronic systolic CHF, paroxysmal atrial fibrillation, on xarelto and aspirin, prior history of obscure GI bleeding (had EGD, colonoscopy, capsule endoscopy in past as per patient's d aughter), was admitted from [facility], for symptoms of dark stools for the past several days. Patient is noted to have drop in hemoglobin and hematocrit from baseline and GI was consulted for further evaluation. Patient has mild dementia but is alert, oriented 3, and able to answer q uestions appropriately. Patient reports dark stools for a few weeks without any abdominal pain, nausea or vomiting. Patient reports not having any bowel movement today. As per patient's daughter, patient had similar symptoms in the past with anemia and recalls having workup in [facility] or in [place] in the past. (On review of records, patient did not have any prior endoscopic tests in [facility].) Pertinent negative GI symptoms: Patient denies fever, sick contacts, recent travel, nausea, vomiting, diarrhea, abdominal pain, loss of appetite, early satiety or unintentional weight loss. No history of hematemesis, melena or hematochezia. Patient reports regular bowel movements. Review of Systems: GI: as stated above CVS: No chest pain, No palpitations, No leg swelling. RS: No Shortness of breath, No Wheezing, no cough RN REVIEW: No dizziness, No motor weakness, No sensory problems Hematology: No bruising, No gum bleeding, Musculoskeletal: No joint pain, ambulating well. Skin: No rash : No hematuria, No burning sensation of the urine ENT: No ear discharge/ pain, No dysphagia. Eyes: No photophobia. Jaundice Home medications: reviewed. Antithrombotic agents: -On aspirin and Xarelto Medical h/o: As above. Surgical h/o: None on abdomen. Social h/o: Alcohol: -Denies, smoking: Denies, IVDA/ drugs: Denies. Family h/o of GI cancers - None Prior Endoscopies: As per HPI. No prior endoscopy workup noted in [facility] provation EMR.. Prior GI evaluations: -None in [facility] Exam: Vitals: reviewed General: Alert and oriented x 3, not in distress HEENT: Mild pallor, no icterus. Normal oropharynx, NO cervical lymph nodes. Chest: symmetric with bilateral clear air entry, CVS: S1, S2 heard, normal, no murmurs . Abdomen: non-distended, no surgical scars, soft, non-tender, no palpable masses, normal bowel sounds heard. Rectal exam: Patient refused. Extremities: no pedal edema, pulses palpable. RN REVIEW: no focal motor or sensory deficits. Moves all extremities Skin: no rash. Labs: reviewed. Impression: -History of dark/melanotic stools, for past few weeks with drop in hemoglobin and hematocrit in a patient on anticoagulation, and history of CHF and CKD -- likely upper GI bleeding from AVMs vs PUD vs less likely right sided Colon bleeding vs small bowel bleeding. Recommendations: - Patient educated about the test results, possible differential diagnoses and All questions answered. - Monitor hemoglobin and hematocrit and transfuse if needed to keep hemoglobin around 8-9. - Avoid NSAIDs. Can continue aspirin 81 MG. - Continue to hold Xarelto for now. If not contraindicated. - Patient is scheduled for urgent EGD for further evaluation - The procedure, indications, risks (bleeding, perforation, infection, hypotension, respiratory depression, allergy, need for endotracheal intubation, surgery, colostomy, cardiac arrest, even ), benefits, limitations (e.g., missing a lesion), and all other alternatives (including no intervention) were explained to the patient who understood and agreed for the procedure. - Obtain prior endoscopy results from [facility]. - Post procedure recommendations based on EGD findings. Addendum postprocedure: -- No active bleeding or high-risk lesions noted in EGD. -- obtain prior records and further work up based on that. -- At this time, but on the diet. -- Continue monitoring hemoglobin and hematocrit and clinical symptoms.. -- If any drop in hemoglobin or external bleeding, consider obtaining a GI bleeding scan to localize the bleeding. -- Based on prior records, we will consider colonoscopy, either as inpatient or outpatient. -- At this time, discussed the risks and benefits of Xarelto with patient and her daughter. Further decision on anticoagulation as per risks and benefits. As there is no active GI bleeding at this time, there is no contraindication for anticoagulation at this time. Plan of care discussed with patient, her daughter and primary team. Patient verbalized understanding and agreed with the plan. Vital Signs/I&O Vital Signs Date Time Temp Pulse Resp B/P (MAP) Pulse Ox O2 Delivery O2 Flow Rate FiO2 07/24/19 09:00 97.8 57 18 152/58 (89) 96 Room Air I&O- Last 24 Hours up to 6 AM 07/24/19 06:00 Intake Total 1105 ml Output Total 1200 ml Balance -95 ml Laboratory Data CBC/BMP Laboratory Tests 07/24/19 01:31 07/24/19 05:38 Allergies Coded Allergies: tetanus toxoid, adsorbed (Verified Allergy, Mild, REDNESS / SWELLING, 04/09/19) Penicillins (Verified Allergy, Unknown, 04/09/19) Home Medications Scheduled Allopurinol (Allopurinol) 100 Mg Tab, 200 MG PO DAILY, (Reported) Aspirin (Aspirin EC) 81 Mg Tablet.dr, 81 MG PO DAILY, (Reported) Atorvastatin Calcium (Atorvastatin Calcium) 40 Mg Tab, 40 MG PO QHS, (Reported) Bisoprolol Fumarate (Bisoprolol Fumarate) 5 Mg Tablet, 5 MG PO BID, (Reported) Cholecalciferol (Vitamin D3) (Vitamin D3) 1,000 Unit Tablet, 1,000 UNITS PO DAILY, (Reported) Ferrous Sulfate (Ferrous Sulfate) 325 Mg Tab, 325 MG PO DAILY, (Reported) Hydralazine HCl (Hydralazine HCl) 25 Mg Tablet, 50 MG PO TID, (Reported) 899/ Isosorbide Dinitrate (Isosorbide Dinitrate) 10 Mg Tablet, 10 MG PO TID, (Reported) 899/ Montelukast Sodium (Singulair) 10 Mg Tab, 10 MG PO DAILY, (Reported) Multivit-Min/FA/Lycopen/Lutein (Centrum Silver Tablet) 1 Each Tablet, 1 TAB PO DAILY, (Reported) Omeprazole (Omeprazole) 40 Mg Cap, 40 MG PO DAILY, (Reported) Rivaroxaban (Xarelto) 10 Mg Tablet, 10 MG PO QPM, (Reported) Salmeterol/Fluticasone (Advair 250-50 Diskus) 1 Each Blst.w.dev, 1 PUFF INH BID, (Reported) Sertraline Hcl (Sertraline HCl) 50 Mg Tablet, 50 MG PO DAILY, (Reported) Torsemide (Torsemide) 10 Mg Tablet, 20 MG PO DAILY, (Reported) Umeclidinium [place] (Incruse Ellipta) 62.5 Mcg/Inh Inh, 1 PUFF INH DAILY, (Reported) Scheduled PRN Acetaminophen (Acetaminophen) 325 Mg Tab, 650 MG PO Q6H PRN for PAIN, (Reported) Albuterol Sulfate (Proair Hfa) 108 Mcg/Act Aer, 2 PUFF INH QID PRN for SHORTNESS OF BREATH, (Reported) Alprazolam (Alprazolam) 0.25 Mg Tablet, 0.25 MG PO DAILY PRN for ANXIETY, (Reported) SAM ESTEVES MD Jul 24, 2019 15:03
--- NOTE | 2019-07-24 15:17 | ROOR ---
Patient Name: Chana Goncalves Procedure Date: 07/24/2019 2:59 PM Date of : 1935 Age: 83 Room: [facility] Gender: Female Note Status: Finalized Procedure: Upper GI endoscopy Indications: Melena Providers: Rosalino Woodward MD Referring MD: 2. Inpatient 2. Inpatient Requesting Provider: Medicines: Monitored Anesthesia Care Complications: No immediate complications. Procedure: Pre-Anesthesia Assessment: - Prior to the procedure, a History and Physical was performed, and patient medications and allergies were reviewed. The patient is competent. The risks and benefits of the procedure and the sedation options and risks were discussed with the patient. All questions were answered and informed consent was obtained. Patient identification and proposed procedure were verified by the physician, the nurse and the anesthesiologist in the procedure room. Mental Status Examination: alert and oriented. Airway Examination: normal oropharyngeal airway and neck mobility. Respiratory Examination: clear to auscultation. CV Examination: normal. Prophylactic Antibiotics: The patient does not require prophylactic antibiotics. Prior Anticoagulants: The patient has taken no previous anticoagulant or antiplatelet agents. ASA Grade Assessment: III - A patient with severe systemic disease. After reviewing the risks and benefits, the patient was deemed in satisfactory condition to undergo the procedure. The anesthesia plan was to use monitored anesthesia care (MAC). Immediately prior to administration of medications, the patient was re-assessed for adequacy to receive sedatives. The heart rate, respiratory rate, oxygen saturations, blood pressure, adequacy of pulmonary ventilation, and response to care were monitored throughout the procedure. The physical status of the patient was re-assessed after the procedure. The Endoscope was introduced through the mouth, and advanced to the third part of duodenum. The upper GI endoscopy was accomplished without difficulty. The patient tolerated the procedure well. Findings: The examined esophagus was normal. No gross lesions were noted in the entire examined stomach. There is no endoscopic evidence of bleeding or ulceration in the entire examined stomach. The duodenal bulb and second portion of the duodenum were normal. Impression: - Normal esophagus. - No gross lesions in the stomach. - Normal duodenal bulb and second portion of the duodenum. - No specimens collected. Recommendation: - Patient has a contact number available for emergencies. The signs and symptoms of potential delayed complications were discussed with the patient. Return to normal activities tomorrow. Written discharge instructions were provided to the patient. - High fiber diet. - Continue present medications. - Perform a colonoscopy if patient agrees, to be scheduled after bowel preparation. - [facility] patient [facility] for [facility] care. - Check hemoglobin and hematocrit daily. - Return to primary care physician. Rosalino Woodward MD Rosalino Woodward MD 07/24/2019 3:16:43 PM Electronically signed by Rosalino Woodward MD Number of Addenda: 0 Note Initiated On: 07/24/2019 2:59 PM Estimated Blood Loss: Estimated blood loss: none.
[2019-07-24] MEDS: VITAMIN D 1,000 INTERNATIONAL UNITS TABLET PO SCH (16:30)
[2019-07-24] MEDS: MULTIVITAMINS/MINERALS THERAP 1 TAB PO SCH (16:30)
[2019-07-24] MEDS: allopurinoL 100 MG TAB PO SCH (16:31)
[2019-07-24] MEDS: SERTRALINE HCL 50 MG TAB PO SCH (16:31)
[2019-07-24] MEDS: MONTELUKAST 10 MG TAB PO SCH (16:31)
[2019-07-24] MEDS: TORSEMIDE 20 MG TAB PO SCH (16:32)
[2019-07-24] MEDS: ATORVASTATIN 20 MG TAB PO SCH (20:16)
--- NOTE | 2019-07-24 20:35 | IPNPDOC ---
Subjective Date Seen The patient was seen on 07/24/19. Subjective Chief Complaint/HPI Resting comfortably this morning awaiting EGD. Objective Physical Examination General Exam: Positive: Alert Eye Exam: Negative: Sclera icteric ENT Exam: Positive: Atraumatic, Mucous membr. moist/pink Neck Exam: Positive: Supple Chest Exam: Positive: Clear to auscultation Heart Exam: Positive: Rate Normal Telemetry: Positive: No significant arrhythmia, Sinus Abdomen Exam: Positive: Normal bowel sounds Extremity Exam: Negative: Edema Skin Exam: Negative: Rash Neuro Exam: Positive: Normal Speech Assessment /Plan Assessment 1. Recurrent gastrointestinal bleed on Xarelto. 2. Acute blood loss anemia secondary to Xarelto therapy. 3. Paroxysmal atrial fibrillation, currently in sinus rhythm. 4. Chronic systolic congestive heart failure (CHF), currently compensated. 5. Chronic kidney disease stage III. 6. Chronic iron deficiency anemia. 7. Chronic obstructive pulmonary disease (COPD), currently compensated. Plan: - EGD results d/w Dr. Woodward - monitor CBC - start diet - likely home in next 1-2 days if CBC stable - continue to home xarelto - GI trying to get results of previous GI studies done 5 years ago Plan/VTE VTE Prophylaxis Ordered?: No (gi bleed) VS, I&O, 24H, Fishbone Vital Signs/I&O Vital Signs Date Time Temp Pulse Resp B/P (MAP) Pulse Ox O2 Delivery O2 Flow Rate FiO2 07/24/19 20:19 62 153/57 07/24/19 18:00 97.8 20 94 Room Air I&O- Last 24 Hours up to 6 AM 07/24/19 09:00 Intake Total 1105 ml Output Total 1750 ml Balance -645 ml Laboratory Data 24H LABS Laboratory Tests 2 07/24/19 01:31: Immature Granulocyte % (Auto) 1.3, Neutrophils (%) (Auto) 71.3H, Lymphocytes (%) (Auto) 13.8L, Monocytes (%) (Auto) 10.5H, Eosinophils (%) (Auto) 2.5, Basophils (%) (Auto) 0.6, Neutrophils # (Auto) 7.2, Lymphocytes # (Auto) 1.4L, Monocytes # (Auto) 1.1H, Eosinophils # (Auto) 0.3, Basophils # (Auto) 0.1, Nucleated Red B lood Cells % (auto) 0.0, Total Creatine Kinase 111, Creatine Kinase MB 1.8, Creatine Kinase MB Relative Index 1.62, Troponin I 0.02 07/24/19 05:38: Nucleated Red Blood Cells % (auto) 0.0, Anion Gap 6L, Glomerular Filtration Rate 36.6, Calcium Level 8.5L, Magnesium Level 2.4 CBC/BMP Laboratory Tests 07/24/19 01:31 07/24/19 05:38 MARJORIE GOMEZ MD Jul 24, 2019 20:35
[2019-07-25] VITALS (7 sets, daily range): BP systolic 102–157; BP diastolic 40–86
[2019-07-25 06:15] LABS: HEMATOCRIT 28.7 % (36.0-47.0); HEMOGLOBIN 9.6 g/dl (12.0-15.5); MEAN CORPUSCULAR HEMOGLOBIN 31.6 pg (27.0-33.0); MEAN CORPUSCULAR HGB CONC 33.4 g/dl (32.0-36.5); MEAN CORPUSCULAR VOLUME 94.4 fl (80.0-96.0); PLATELET COUNT, AUTOMATED 320 10^3/uL (150-450); RED BLOOD COUNT 3.04 10^6/uL (4.00-5.40); WHITE BLOOD COUNT 10.7 10^3/uL (4.0-10.0)
--- NOTE | 2019-07-25 06:45 | ECGEPIP ---
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
[2019-07-25] MEDS: ADVAIR HFA 230/21MCG INHALER INH SCH ×2 (07:37→20:00)
[2019-07-25] MEDS: allopurinoL 100 MG TAB PO SCH (09:59)
[2019-07-25] MEDS: PANTOPRAZOLE 40MG INJ (PROTONIX) (C9113) IV SCH ×2 (09:59→20:47)
[2019-07-25] MEDS: SERTRALINE HCL 50 MG TAB PO SCH (10:00)
[2019-07-25] MEDS: MULTIVITAMINS/MINERALS THERAP 1 TAB PO SCH (10:00)
[2019-07-25] MEDS: VITAMIN D 1,000 INTERNATIONAL UNITS TABLET PO SCH (10:00)
[2019-07-25] MEDS: TORSEMIDE 20 MG TAB PO SCH (10:00)
[2019-07-25] MEDS: MONTELUKAST 10 MG TAB PO SCH (10:09)
[2019-07-25] MEDS: bisoproloL fumarate 5 MG TAB PO SCH ×2 (10:09→20:47)
[2019-07-25] MEDS ORDERED: ISOS1TAB13 PO (12:16)
[2019-07-25] MEDS ORDERED: HYDR-3911 PO (12:16)
[2019-07-25] MEDS: ISOSORBIDE DIN (ISORDIL) 10 MG TAB PO SCH ×2 (12:36→17:25)
[2019-07-25 12:47] LABS: HEMATOCRIT 30.5 % (36.0-47.0); HEMOGLOBIN 9.9 g/dl (12.0-15.5)
[2019-07-25 13:06] LABS: CALCIUM LEVEL 9.5 MG/DL (8.8-10.2); CREATININE FOR GFR 1.37 MG/DL (0.55-1.30); GLOMERULAR FILTRATION RATE 39.4 (>32); POTASSIUM SERUM 3.4 MEQ/L (3.5-5.1)
--- NOTE | 2019-07-25 15:46 | IPN ---
DATE: 07/25/2019 The patient denies any bright red blood per rectum, melena, black-tarry stools. Denies dizziness, lightheadedness, chest pain, pressure, tightness, shortness of breath, fever, chills, cough. The patient denies dysuria, urgency, frequency. She has now worked with physical therapy (PT). According to Dr. Woodward, esophagogastroduodenoscopy (EGD) was negative. No signs of acute bleeding. Awaiting records from her previous colonoscopy. The patient is continued only on aspirin and has been off of the anticoagulation due to recent bleed. White count remains stable with hemoglobin of 9.6, hematocrit of 28.7. The patient says that she does well in assisted living, she goes with the flow, walks around with her walker without any dyspnea on exertion. PHYSICAL EXAMINATION: VITAL SIGNS: Temperature 97.8, pulse 63, respiratory rate 21, blood pressure 152/58, 94% on room air. GENERAL: The patient is awake, alert, oriented. Answering questions appropriately. Anicteric. No jaundice. No use of respiratory accessory muscles. No jugular venous distention (JVD). No thyromegaly. LUNGS: Clear to auscultation. No wheezing or rales. HEART: S1, S2. Sinus rhythm. No murmurs, rubs or gallops. ABDOMEN: Soft, nontender, nondistended. EXTREMITIES: No pitting edema, cyanosis. No clubbing. LABORATORY DATA: 07/25/2019 white count 10.7, hemoglobin 9.6, hematocrit 28, platelet count 320. Sodium 137, potassium 3.5, chloride 107, bicarbonate 24, BUN 28, creatinine 1.46, glucose 103. Repeat metabolic panel is still pending. Esophagogastroduodenoscopy (EGD) by Dr. Woodward of gastroenterology showed normal esophagus, no gross lesions in the stomach, normal duodenal bulb in second portion of the duodenum. No specimens collected. Recommendation is for high fiber diet. ASSESSMENT AND PLAN: This is an 83-year-old female with paroxysmal atrial fibrillation, systolic heart failure, follows with Dr. Alvarez, chronic obstructive pulmonary disease (COPD), not oxygen or steroid dependent with chronic kidney disease stage III, denied any nonsteroidal antiinflammatory drugs use, presented to the emergency room with melena. EGD was negative. Per Dr. Woodward, the patient may followup in the office for outpatient colonoscopy if needed. ACTIVE ISSUES: 1. Melena, resolved. EGD was negative. The patient has continued on aspirin. Xarelto has been discontinued due to melena. Defer to gastroenterology for further workup as an outpatient. Await physical therapy (PT) clearance and then the patient may be discharged home. 2. Hypertension. The patient may be resumed back on hydralazine and isosorbide with holding parameters for a systolic pressure less than 140. She appears to be stable on torsemide 20 mg daily with no complaints of dizziness or lightheadedness and Bisoprolol 5 mg twice a day. 3. Chronic obstructive pulmonary disease (COPD), currently compensated. Continue on ProAir as needed. She is not steroid or home oxygen dependent. 4. Chronic iron deficiency anemia. Continue with ferrous sulfate. 5. Depression. On sertraline. 6. Congestive heart failure (CHF) with systolic dysfunction, stable and compensated on torsemide, Bisoprolol and atorvastatin. 7. Dyslipidemia. On chronic atorvastatin. 8. Anxiety. On as needed alprazolam. 9. Active gastrointestinal bleed, resolved. EGD was negative. Xarelto has been discontinued. She is currently only on aspirin and Prilosec. Diet has been advanced to 2-gram sodium diet, which she is tolerating. DISPOSITION: Discharge today if cleared by physical therapy (PT). Outpatient followup with gastroenterology, Dr. Woodward. [facility]
[2019-07-25] MEDS: **hydrALAZINE** 50 MG TAB PO SCH ×2 (17:25→20:45)
[2019-07-25] MEDS: ATORVASTATIN 20 MG TAB PO SCH (20:45)
[2019-07-26] VITALS (8 sets, daily range): BP systolic 138–156; BP diastolic 52–68
[2019-07-26] MEDS: ISOSORBIDE DIN (ISORDIL) 10 MG TAB PO SCH ×3 (06:01→17:44)
[2019-07-26] MEDS: ADVAIR HFA 230/21MCG INHALER INH SCH ×2 (07:32→19:49)
[2019-07-26] MEDS: MONTELUKAST 10 MG TAB PO SCH (08:25)
[2019-07-26] MEDS: bisoproloL fumarate 5 MG TAB PO SCH ×2 (08:25→20:21)
[2019-07-26] MEDS: PANTOPRAZOLE 40MG INJ (PROTONIX) (C9113) IV SCH (08:25)
[2019-07-26] MEDS: VITAMIN D 1,000 INTERNATIONAL UNITS TABLET PO SCH (08:25)
[2019-07-26] MEDS: TORSEMIDE 20 MG TAB PO SCH (08:26)
[2019-07-26] MEDS: MULTIVITAMINS/MINERALS THERAP 1 TAB PO SCH (08:26)
[2019-07-26] MEDS: allopurinoL 100 MG TAB PO SCH (08:26)
[2019-07-26] MEDS: **hydrALAZINE** 50 MG TAB PO SCH ×3 (08:26→20:21)
[2019-07-26] MEDS: SERTRALINE HCL 50 MG TAB PO SCH (08:26)
[2019-07-26] MEDS ORDERED: POTASSIUM CHLORIDE 10% LIQ 20 MEQ/15 ML UDC PO ONE (08:30)
[2019-07-26] MEDS: CIPROFLOXACIN 250 MG TAB PO SCH (10:12)
[2019-07-26] MEDS: LACTOBACILLUS ACIDOPHILUS CAP (BACID) PO SCH ×3 (10:12→17:44)
[2019-07-26] MEDS: SUCRALFATE SUSP 1GM/10ML UD PO SCH ×2 (10:12→20:21)
[2019-07-26 12:07] LABS: HEMATOCRIT 29.7 % (36.0-47.0); HEMOGLOBIN 9.5 g/dl (12.0-15.5)
--- NOTE | 2019-07-26 14:56 | IPN ---
DATE: 07/26/2019 Per nursing, the patient had a melanotic stool, small amount. According to the patient, it was very small. She denies any lightheadedness, dizziness, shortness of breath, chest pain, pressure, tightness. No gastric pain, nausea or vomiting. PHYSICAL EXAMINATION: VITAL SIGNS: Temperature 98.1, pulse 58, respiratory rate 15, blood pressure 138/58, 96% on room air. GENERAL: Awake, alert, oriented times three. Answering questions appropriately. Anicteric sclerae. No jaundice. Edentulous. Moist mucous membranes. LUNGS: Clear to auscultation. No wheezing, rales or rhonchi. HEART: S1, S2. Sinus rhythm. No murmurs, rubs or gallops. ABDOMEN: Soft, nontender, nondistended. Positive bowel sounds times four quadrants. No hepatosplenomegaly. No abdominal bruits. EXTREMITIES: No cyanosis or clubbing. LABORATORY DATA: Hemoglobin 9.9, hematocrit 30.5 on 07/25/2019. Today's laboratories are still pending. ASSESSMENT AND PLAN: 83-year-old female with a history of paroxysmal atrial fibrillation, systolic heart failure, follows with Dr. Alvarez, chronic obstructive pulmonary disease (COPD), not oxygen or steroid dependent with chronic kidney disease stage III, who presented to the emergency room with melena, transfused 1 unit of blood. Underwent esophagogastroduodenoscopy (EGD), which was negative with outpatient followup for colonoscopy if needed. ACTIVE ISSUES: 1. Melena. Hemoglobin and hematocrit are stable. EGD was negative. The patient was continued on aspirin. Xarelto has been discontinued. Per gastroenterology, outpatient workup is needed. The patient has had a prior workup in the past. She has been encouraged to continue just on aspirin. No bright red blood per rectum or coffee ground emesis. Awaiting physical therapy (PT) clearance and may be discharged any time. 2. Hypertension. On hydralazine and isosorbide with holding parameters. She has been resumed on torsemide and bisoprolol. 3. Chronic obstructive pulmonary disease (COPD). On ProAir. Not steroid or home oxygen dependent. Appears to be compensated. 4. Chronic iron deficiency anemia. On ferrous sulfate. 5. Depression. On sertraline. 6. Congestive heart failure (CHF) with systolic dysfunction. Currently euvolemic and stable. Appears to be compensated. She was resumed back on her torsemide, bisoprolol and atorvastatin. 7. Dyslipidemia. On chronic atorvastatin. 8. Anxiety. On alprazolam. DISPOSITION: Awaiting clearance from physical therapy (PT). Otherwise, repeat hemoglobin and hematocrit. If stable, may be discharged home. [facility]
[2019-07-26] MEDS: ATORVASTATIN 20 MG TAB PO SCH (20:21)
[2019-07-26] MEDS: PANTOPRAZOLE 40MG TAB (PROTONIX) PO SCH (20:21)
[2019-07-26 22:12] LABS: HEMATOCRIT 27.1 % (36.0-47.0)
[2019-07-27 02:00] VITALS: BP 136/61
[2019-07-27] MEDS: CIPROFLOXACIN 250 MG TAB PO SCH (03:16)
[2019-07-27 06:00] VITALS: BP 130/64
[2019-07-27] MEDS: ISOSORBIDE DIN (ISORDIL) 10 MG TAB PO SCH ×2 (06:03→11:49)
[2019-07-27 06:04] LABS: HEMATOCRIT 31.1 % (36.0-47.0); HEMOGLOBIN 10.6 g/dl (12.0-15.5); MEAN CORPUSCULAR HEMOGLOBIN 31.7 pg (27.0-33.0); MEAN CORPUSCULAR HGB CONC 34.1 g/dl (32.0-36.5); MEAN CORPUSCULAR VOLUME 93.1 fl (80.0-96.0); PLATELET COUNT, AUTOMATED 369 10^3/uL (150-450); RED BLOOD COUNT 3.34 10^6/uL (4.00-5.40); WHITE BLOOD COUNT 11.6 10^3/uL (4.0-10.0)
[2019-07-27] MEDS: ADVAIR HFA 230/21MCG INHALER INH SCH (07:28)
[2019-07-27 10:00] VITALS: BP 131/75
[2019-07-27] MEDS: SERTRALINE HCL 50 MG TAB PO SCH (10:47)
[2019-07-27] MEDS: MONTELUKAST 10 MG TAB PO SCH (10:47)
[2019-07-27] MEDS: MULTIVITAMINS/MINERALS THERAP 1 TAB PO SCH (10:47)
[2019-07-27] MEDS: VITAMIN D 1,000 INTERNATIONAL UNITS TABLET PO SCH (10:47)
[2019-07-27] MEDS: SUCRALFATE SUSP 1GM/10ML UD PO SCH (10:47)
[2019-07-27] MEDS: LACTOBACILLUS ACIDOPHILUS CAP (BACID) PO SCH ×2 (10:47→11:48)
[2019-07-27] MEDS: PANTOPRAZOLE 40MG TAB (PROTONIX) PO SCH (10:47)
[2019-07-27] MEDS: TORSEMIDE 20 MG TAB PO SCH (10:48)
[2019-07-27] MEDS: allopurinoL 100 MG TAB PO SCH (10:48)
[2019-07-27] MEDS: bisoproloL fumarate 5 MG TAB PO SCH (10:49)
[2019-07-27] MEDS: **hydrALAZINE** 50 MG TAB PO SCH (10:50)
[2019-07-27 11:49] VITALS: BP 129/80
[2019-07-27] MEDS ORDERED: CIPR-250 PO (11:56)
[2019-07-27] MEDS ORDERED: POTASSIUM CHLORIDE 10 MEQ SR TABLET PO ONE (12:00)
[2019-07-27 12:37] LABS: CALCIUM LEVEL 9.3 MG/DL (8.8-10.2); CREATININE FOR GFR 1.33 MG/DL (0.55-1.30); GLOMERULAR FILTRATION RATE 40.8 (>32); POTASSIUM SERUM 4.1 MEQ/L (3.5-5.1)
[2019-07-27] MEDS ORDERED: CARA1TAB6 PO (12:50)
--- NOTE | 2019-07-27 14:13 | DSES ---
DATE OF ADMISSION: 07/23/2019 DATE OF DISCHARGE: 07/27/2019 DISCHARGE DIAGNOSES: Melena. Acute gastrointestinal (GI) bleed. Acute blood loss anemia. Symptomatic anemia. Chronic atrial fibrillation. Recurrent GI bleed in the setting of chronic Xarelto use. Chronic congestive heart failure. Systolic dysfunction, compensated. Chronic kidney disease, stage III. Chronic iron deficiency anemia. Chronic obstructive pulmonary disease (COPD), compensated. Urinary tract infection. DISCHARGE INSTRUCTIONS: Patient is to continue aspirin but to stop Xarelto. Followup with Dr. Woodward as an outpatient. Followup with cardiology within a week of hospital discharge and primary care physician to monitor for fluid balance and congestive heart failure exacerbation in light of recent symptomatic anemia. DISCHARGE MEDICATIONS: - Cipro 250 by mouth every 18 hours for 3 days, two tablets dispensed - hydralazine 50 mg by mouth three times a day - isosorbide 10 mg three times a day - acetaminophen 650 mg every 6 hours as needed - ProAir two puffs four times a day as needed - allopurinol 200 daily - alprazolam 0.25 as needed for anxiety - aspirin 81 mg daily - atorvastatin 40 mg nightly - bisoprolol 5 twice a day - vitamin D 1000 mcg daily - ferrous sulfate 325 daily - montelukast 10 daily - multivitamin one tablet daily - Prilosec 40 daily - Advair 250/50 one puff twice a day - sertraline 50 daily - torsemide 20 daily - Incruse Ellipta one puff daily Patient's Xarelto has been discontinued due to acute GI bleed. HOSPITAL COURSE: This is an 83-year-old female from [facility] who presented to the emergency room with melena for several days with drop in her hemoglobin and hematocrit to 9.2 and 8.8 not requiring blood transfusion. Patient was hemodynamically stable. Her baseline hemoglobin was 11.8. Pressure on admission was [address] Woodward was consulted. Esophagogastroduodenoscopy (EGD) was normal. She was kept off of Xarelto and was given Protonix twice a day and kept on aspirin. Patient had two more episodes of melanotic stools which were small in amount. Vital signs remained stable with systolic pressures of 130-140, hemoglobin remained stable with 10 on discharge and hematocrit of 31. Patient had no complaints of hematemesis, coffee-ground emesis or bright red blood per rectum. Denied any chest pain, pressure or tightness. She passed a home safety evaluation. Daughter was concerned due to slight mental status change of being disoriented to date. Urinalysis was sent and was found to have 3+ leukocyte esterase, 79 WBC and 2+ bacteria. She was treated with 3 days of ciprofloxacin renally dosed at 250 every 18 hours to be finished as an outpatient. She was resumed back on her home dose of hydralazine and isosorbide. She was continued on Carafate and Prilosec and currently stable for hospital discharge without patient followup with Dr. Woodward. PHYSICAL EXAM ON DISCHARGE: Temperature 97.6, pulse 65, respiratory rate 18, blood pressure 130/64, 97% on room air. Generally, the patient is edentulous. No jugular venous distention (JVD). No thyromegaly or cervical lymphadenopathy. No icterus, jaundice. No pallor. No cyanosis. No use of respiratory accessory muscle. Able to speak in full sentences. Cooperative. Moist mucous membranes. Lungs clear to auscultation. No wheezing, rales or rhonchi. Heart: S1, S2 irregularly irregular. Abdomen is soft, nontender, nondistended. Positive bowel sounds. Extremity: No pitting edema. DISCHARGE LABORATORY DATA: White count 11.6, hemoglobin 10, hematocrit 31, platelet count 369. Sodium 134, potassium 4.1, chloride 103, bicarbonate 23, BUN 33, creatinine 0.33, glucose 9.3. Microbiology: Urine cultures pending. Urinalysis: Hazy in appearance, 5 pH, specific gravity 1.011, negative protein, glucose, ketone, blood, nitrate, bilirubin urobilinogen of 0.2, leukocyte esterase is 3+, 79 WBC, 2+ bacteria. Time spent on discharge: 30 minutes. [facility]
== END 2019-07-27 14:18 | DRG 378 ==
LOC: M ED 12:36 → M ED INP 15:39 → ENRESERV 16:14 → M MSPAV 17:12
PROVIDERS: ADMIT Internal Medicine; ATTEND General Practice
PROC: 0DJ08ZZ Inspection of Upper Intestinal Tract, Via Natural or Artificial Opening Endoscopic (ICD-10-PCS; principal; 2019-07-24 14:40)
DX: K92.1 Melena (principal); I50.22 Chronic systolic (congestive) heart failure; D62 Acute posthemorrhagic anemia; I48.0 Paroxysmal atrial fibrillation; J44.9 Chronic obstructive pulmonary disease, unspecified; N18.3 Chronic kidney disease, stage 3 (moderate); D50.9 Iron deficiency anemia, unspecified; I25.10 Atherosclerotic heart disease of native coronary artery without angina pectoris; Z66 Do not resuscitate; Z88.0 Allergy status to penicillin; Z88.7 Allergy status to serum and vaccine; Z79.82 Long term (current) use of aspirin; Z79.899 Other long term (current) drug therapy; Z90.49 Acquired absence of other specified parts of digestive tract

== ENCOUNTER 2019-09-07 15:39 | Emergency (ER) | payer MEDICARE, MEDICAID ==
[~2019-09-07 15:39] MED LIST changes: +ALPR0.25 PO; +CARA1TAB6 PO; +CENT1TAB PO; +CIPR-250 PO; +HYDR-3911 PO; -MONT10TA2 PO; +MONT10TA4 PO; +SERT-141 PO; +VITAD1000T PO
[2019-09-07] MEDS ORDERED: EMLA CREAM 5GM (LIDOCAINE/PRILOCAINE) TOP ONE (16:15)
--- NOTE | 2019-09-07 16:51 | REPVR ---
PROCEDURE INFORMATION: Exam: CT Head Without Contrast Exam date and time: 09/07/2019 4:01 PM Age: 83 years old Clinical indication: Injury or trauma; Fall; Initial encounter; Blunt trauma (contusions or hematomas) TECHNIQUE: Imaging protocol: Computed tomography of the head without contrast. Radiation optimization: All CT scans at this facility use at least one of these dose optimization techniques: automated exposure control; mA and/or kV adjustment per patient size (includes targeted exams where dose is matched to clinical indication); or iterative reconstruction. COMPARISON: No relevant prior studies available. FINDINGS: Brain: There is no acute intracranial hemorrhage, cerebral edema, or midline shift. Chronic microvascular ischemic changes are seen in the periventricular white matter. Moderate cerebral and mild cerebellar volume loss is present. Ventricles: Mild ex vacuo dilation of the lateral and third ventricles is noted. Bones/joints: No acute fracture. Sinuses: There is no acute sinusitis. Mastoid air cells: The mastoid air cells are clear. Orbits: The included orbital structures are unremarkable. Soft tissues: Unremarkable. Vasculature: Atherosclerotic calcifications are seen involving the cavernous carotid arteries. IMPRESSION: 1. No acute intracranial abnormality. 2. Atrophy and chronic deep white matter ischemic change. Electronically signed by: Omer Aparicio On 09/07/2019 16:50:36 PM
--- NOTE | 2019-09-07 17:00 | REPVR ---
PROCEDURE INFORMATION: Exam: CT Cervical Spine Without Contrast Exam date and time: 09/07/2019 4:01 PM Age: 83 years old Clinical indication: Injury or trauma; Fall; Initial encounter; Blunt trauma TECHNIQUE: Imaging protocol: Computed tomography images of the cervical spine without contrast. Radiation optimization: All CT scans at this facility use at least one of these dose optimization techniques: automated exposure control; mA and/or kV adjustment per patient size (includes targeted exams where dose is matched to clinical indication); or iterative reconstruction. COMPARISON: CR SPINE LS COMPLETE 08/18/2018 2:09 PM FINDINGS: Vertebrae: There is no acute fracture. Minimal anterolisthesis of C3 on C4 is present. There is 3 mm of anterolisthesis of C4 on C5. Minor retrolisthesis of C5 on C6 is present. Discs/Spinal canal/Neural foramina: Moderate/severe degenerative changes of the cervical spine are present. Severe disc space narrowing is present at C5-C6 and C6-C7. There is at least moderate spinal canal stenosis at C5-C6. Multilevel neural foraminal narrowing from uncinate spurring and facet arthropathy is noted. Soft tissues: Unremarkable. Lungs: Is centrilobular emphysema is present in the lung apices. Vasculature: Atherosclerotic calcifications are present at the carotid bifurcations. IMPRESSION: 1. No acute abnormality. 2. Chronic findings as discussed above. Electronically signed by: Omer Aparicio On 09/07/2019 17:00:11 PM
--- NOTE | 2019-09-07 17:07 | REPVR ---
PROCEDURE INFORMATION: Exam: CT Lumbar Spine Without Contrast Exam date and time: 09/07/2019 4:13 PM Age: 83 years old Clinical indication: Injury or trauma; Fall; Initial encounter; Blunt trauma (contusions or hematomas); Additional info: Fall, vertebral tenderness TECHNIQUE: Imaging protocol: Computed tomography images of the lumbar spine without contrast. Radiation optimization: All CT scans at this facility use at least one of these dose optimization techniques: automated exposure control; mA and/or kV adjustment per patient size (includes targeted exams where dose is matched to clinical indication); or iterative reconstruction. COMPARISON: CR SPINE LS COMPLETE 08/18/2018 2:09 PM FINDINGS: Vertebrae: Bone mineralization is decreased, suggestive of osteopenia. A chronic L1 superior endplate compression fracture is present. Additionally, there appears to be an acute fracture involving the inferior endplate of L1. There is approximately 40% loss of L1 vertebral body height. No significant retropulsion into the spinal canal is present. No other fracture is seen. Discs/Spinal canal/Neural foramina: Moderate degenerative changes of the lumbar spine are present. There is moderate spinal canal stenosis at L3-L4 due to circumferential disc bulging and thickening of the ligamentum flavum. Moderate/severe canal stenosis is present at L4-L5 due to the same reasons. Vasculature: Atherosclerotic calcifications are noted within the aorta and its branches. Soft tissues: Unremarkable. IMPRESSION: Probable acute inferior endplate compression fracture at L1, superimposed on a chronic superior endplate L1 compression fracture Electronically signed by: Omer Aparicio On 09/07/2019 17:06:38 PM
[2019-09-07] MEDS ORDERED: ACETAMINOPH W/CODEINE #3 TAB UD PO ONE (17:45)
[2019-09-07] MEDS ORDERED: TYLETAB14 PO (18:21)
[2019-09-07 19:03] VITALS: BP 129/55
== END 2019-09-07 19:04 | disposition home or self-care (01) ==
LOC: M ED 15:39
DX: S01.01XA Laceration without foreign body of scalp, initial encounter (principal); W01.198A Fall on same level from slipping, tripping and stumbling with subsequent striking against other object, initial encounter; Y92.128 Other place in nursing home as the place of occurrence of the external cause; I10 Essential (primary) hypertension; J44.9 Chronic obstructive pulmonary disease, unspecified; I48.91 Unspecified atrial fibrillation; Z79.899 Other long term (current) drug therapy; Z79.82 Long term (current) use of aspirin; Z88.0 Allergy status to penicillin; Z88.7 Allergy status to serum and vaccine; Z87.891 Personal history of nicotine dependence

== ENCOUNTER 2019-09-24 07:40 | Inpatient (IN) | payer MEDICARE, MEDICAID ==
[~2019-09-24] VITALS: Ht 160 cm; Wt 51.6 kg
[~2019-09-24 07:40] MED LIST changes: +TYLETAB14 PO
[2019-09-24] MEDS ORDERED: ONDANSETRON 4MG/2ML VIAL (J2405) IV ONE (08:00)
[2019-09-24] MEDS ORDERED: MORPHINE 2 MG/ML 1ML VIAL (J2270) IV ONE (08:00)
--- NOTE | 2019-09-24 08:20 | REP ---
Clinical: Fall. Comparison: 09/07/2019 . Findings: Age-related atrophy and microvascular ischemic changes are appreciated. The ventricles and sulci are symmetric. Bhatia-white differentiation is maintained. There is no evidence for acute intracranial hemorrhage, mass/mass effect, pathology or infarction. No extra-axial fluid collection. Calvarium is intact. Paranasal sinuses and mastoid air cells are clear. Impression: Age related atrophy and microvascular ischemic changes. No acute intracranial hemorrhage, infarction, or mass/mass effect. Electronically Signed by Torey Varghese MD 09/24/2019 08:12 A
--- NOTE | 2019-09-24 08:25 | REP ---
Clinical: Trauma. Fall. Technique: Axial noncontrast images from the skull base to the thoracic inlet with coronal and sagittal re-formations. Comparison: 09/07/2019. Findings: Advanced multilevel degenerative disc osteophyte complexes are appreciated centered at C5-6 with endplate heterogeneity, subchondral cystic changes, osteophytosis, and disc space obliteration along with osteophytosis is most pronounced. Findings remain stable compared to prior examination and there is no evidence for acute fracture / compression injury or subluxation. Spinal canal appears patent. Posterior elements and spinous processes appear intact. Paravertebral soft tissues are within normal limits. Impression: Advanced multilevel degenerative spondylosis essentially unchanged compared to 09/07/2019. No evidence for acute cervical spine trauma/injury. Electronically Signed by Torey Varghese MD 09/24/2019 08:16 A
--- NOTE | 2019-09-24 08:39 | REP ---
Clinical: Trauma. Fall. Technique: AP, lateral, bilateral oblique views of the right hand. Findings: Advanced osteopenia and arthritic degenerative changes are appreciated. No obvious acute fracture or dislocation identified. No subcutaneous emphysema or radiodense foreign body. Impression: Osteopenia and degenerative changes. No obvious acute fracture or dislocation. Electronically Signed by Torey Varghese MD 09/24/2019 08:31 A
--- NOTE | 2019-09-24 08:40 | REP ---
Clinical: Trauma. Fall. Technique: AP, lateral, bilateral oblique views of the right wrist. Findings: Advanced osteopenia and arthritic degenerative changes are appreciated. No obvious acute fracture or dislocation identified. No subcutaneous emphysema or radiodense foreign body. Impression: Osteopenia and degenerative changes. No obvious acute fracture or dislocation. Electronically Signed by Torey Varghese MD 09/24/2019 08:32 A
--- NOTE | 2019-09-24 08:42 | REP ---
Clinical: Trauma. Fall. Technique: AP and lateral views of the right humerus. Findings: There is a displaced transverse fracture through the proximal humeral metaphysis. Overlying soft tissue swelling noted. No subcutaneous emphysema or foreign body. Impression: Displaced transverse fracture through the proximal humeral metaphysis. Electronically Signed by Torey Varghese MD 09/24/2019 08:34 A
--- NOTE | 2019-09-24 08:43 | REP ---
Clinical: Trauma. Fall. Technique: Single AP view of the right forearm. Findings: Osteopenia and age-related degenerative changes noted at the elbow and wrist. No acute fracture or dislocation. Subcutaneous emphysema or foreign body. Impression: No acute fracture or dislocation. Electronically Signed by Torey Varghese MD 09/24/2019 08:35 A
--- NOTE | 2019-09-24 08:45 | REP ---
Clinical: Trauma. Fall. Technique: Internal rotation, external rotation, and Y view of the right shoulder. Findings: There is a comminuted displaced fracture involving the proximal humeral metaphysis. Overlying soft tissue swelling noted. Acromioclavicular joint and associated osseous structures appear intact. The glenoid appears grossly intact. Impression: Comminuted displaced fracture involving the proximal humeral metaphysis. Electronically Signed by Torey Varghese MD 09/24/2019 08:37 A
[2019-09-24] MEDS ORDERED: TYLETAB14 PO (08:50)
[2019-09-24] MEDS ORDERED: SERT25TA21 PO (08:50)
[2019-09-24] MEDS ORDERED: HYDR-3911 PO (08:50)
[2019-09-24] MEDS ORDERED: ISOS10TA PO (08:50)
[2019-09-24] MEDS ORDERED: TORS20TA2 PO (08:50)
[2019-09-24 09:00] LABS: BASO # 0.1 10^3/uL (0.0-0.2); BASO % 0.6 % (0.0-1.0); EOS # 0.2 10^3/uL (0.0-0.5); EOS % 1.7 % (0.0-3.0); HEMATOCRIT 38.5 % (36.0-47.0); HEMOGLOBIN 12.7 g/dl (12.0-15.5); LYMPH # 0.7 10^3/uL (1.5-5.0); LYMPH % 5.2 % (24.0-44.0); MEAN CORPUSCULAR HEMOGLOBIN 29.5 pg (27.0-33.0); MEAN CORPUSCULAR VOLUME 89.5 fl (80.0-96.0); MONO # 0.8 10^3/uL (0.0-0.8); NEUTROPHILS # 10.8 10^3/uL (1.5-8.5); NEUTROPHILS % 85.1 % (36.0-66.0); PLATELET COUNT, AUTOMATED 300 10^3/uL (150-450); WHITE BLOOD COUNT 12.7 10^3/uL (4.0-10.0)
[2019-09-24] MEDS: ADVAIR HFA 115/21MCG INHALER INH SCH ×2 (09:00→20:49)
--- NOTE | 2019-09-24 09:34 | REP ---
Clinical: Trauma. Fracture. Technique: Axial noncontrast images through the right shoulder with coronal and sagittal re-formations. Findings: There is a comminuted displaced fracture involving the proximal humeral metaphysis extending cranially with involvement through the humeral neck, tuberosity and humeral head. Overlying post traumatic soft tissue swelling and small joint effusion. The scapula including glenoid and acromion process are intact. The clavicle is intact. The acromioclavicular joint appears stable. Impression: Comminuted displaced fracture of the proximal humerus extending from the humeral metaphysis through the region of the tuberosity and humeral head. Electronically Signed by Torey Varghese MD 09/24/2019 09:25 A
[2019-09-24] MEDS ORDERED: PERCOCET 5MG/325MG TAB PO ONE (09:45)
[2019-09-24] MEDS ORDERED: ALBUTEROL 90 MCG/ACT 8GM HFA INHALER INH PRN (10:00)
[2019-09-24] MEDS ORDERED: ACETAMINOPHEN TAB 650MG DOSE (2X325MG) PO PRN (10:00)
[2019-09-24] MEDS ORDERED: ALPRAZolam 0.25 MG TAB PO PRN (10:00)
--- NOTE | 2019-09-24 10:03 | REP ---
Clinical: Trauma . Comparison: 04/09/2019 . Findings: The mediastinum and cardiac silhouette are stable and mild cardiomegaly is again suggested. The lung betts demonstrate chronic interstitial changes without acute consolidation, effusion, or pneumothorax. Proximal right humeral fracture. Impression: Stable cardiomegaly and chronic interstitial changes. No acute cardiopulmonary process appreciated. Electronically Signed by Torey Varghese MD 09/24/2019 09:54 A
--- NOTE | 2019-09-24 10:09 | HPEPDOC ---
General Date of Admission Sep 24, 2019 at 07:41 Date of Service: Sep 24, 2019 Chief Complaint The patient is a 83-year-old female admitted with a reason for visit of Fx Humeral Head Closed. Source: Patient Exam Limitations: No limitations Timing/Duration: 1-3 hours Severity: Mild Associated Symptoms: Mechanical fall History of Present Illness Patient is 83 years old female with past history of atrial fibrillation, COPD, systolic CHF presented to the hospital after mechanical fall. Patient stated that in the morning due to slippage she fell down on the floor, she did not hit her head. In Emergency room patient was found to have comminuted displaced fracture of the proximal humerus extending from the humeral metaphysis through the region of the tuberosity and humeral head. Also patient complaining only moderate pain over her right hand on flexion and extension. Imaging study right hand negative fracture. Orthopedic team was contacted by phone, they recommended no surgical intervention at this time. Patient denied fever, chills, nausea, vomiting, chest pain, diarrhea or dysuria Home Medications Scheduled Allopurinol (Allopurinol) 100 Mg Tab, 200 MG PO DAILY, (Reported) Aspirin (Aspirin EC) 81 Mg Tablet.dr, 81 MG PO DAILY, (Reported) Atorvastatin Calcium (Atorvastatin Calcium) 40 Mg Tab, 40 MG PO QHS, (Reported) Bisoprolol Fumarate (Bisoprolol Fumarate) 5 Mg Tablet, 5 MG PO BID, (Reported) Cholecalciferol (Vitamin D3) (Vitamin D3) 1,000 Unit Tablet, 1,000 UNITS PO DAILY, (Reported) Ferrous Sulfate (Ferrous Sulfate) 325 Mg Tab, 325 MG PO DAILY, (Reported) Hydralazine HCl (Hydralazine HCl) 50 Mg Tablet, 50 MG PO TID, (Reported) Isosorbide Dinitrate (Isosorbide Dinitrate) 10 Mg Tablet, 10 MG PO TID, (Reported) Montelukast Sodium (Singulair) 10 Mg Tab, 10 MG PO DAILY, (Reported) Multivit-Min/FA/Lycopen/Lutein (Centrum Silver Tablet) 1 Each Tablet, 1 TAB PO DAILY, (Reported) Omeprazole (Omeprazole) 40 Mg Cap, 40 MG PO DAILY, (Reported) Salmeterol/Fluticasone (Advair 250-50 Diskus) 1 Each Blst.w.dev, 1 PUFF INH BID, (Reported) Sertraline HCl (Sertraline HCl) 25 Mg Tablet, 25 MG PO DAILY, (Reported) TAKE WITH 50MG FOR 75MG DAILY DOSE Sertraline Hcl (Sertraline HCl) 50 Mg Tablet, 50 MG PO DAILY, (Reported) TAKE WITH 25MG FOR 75MG DAILY DOSE Torsemide (Torsemide) 20 Mg Tablet, 20 MG PO DAILY, (Reported) Umeclidinium [place] (Incruse Ellipta) 62.5 Mcg/Inh Inh, 1 PUFF INH DAILY, (Reported) Scheduled PRN Acetaminophen (Acetaminophen) 325 Mg Tab, 650 MG PO Q6H PRN for PAIN, (Reported) Acetaminophen with Codeine (Tylenol with Codeine #3 Tablet) 1 Each Tablet, 1 TAB PO Q4H PRN for PAIN, (Reported) Albuterol Sulfate (Proair Hfa) 108 Mcg/Act Aer, 2 PUFF INH QID PRN for SHORTNESS OF BREATH, (Reported) Alprazolam (Alprazolam) 0.25 Mg Tablet, 0.25 MG PO DAILY PRN for ANXIETY, (Reported) Allergies Coded Allergies: tetanus toxoid, adsorbed (Verified Allergy, Mild, REDNESS / SWELLING, 04/09/19) Penicillins (Verified Allergy, Unknown, 04/09/19) Past Medical History Medical History 1. Atrial fibrillation, paroxysmal. 2. Coronary artery disease. 3. Chronic kidney disease stage III. 4. Chronic obstructive pulmonary disease (COPD). 5. Chronic systolic congestive heart failure (CHF) with a left ventricular ejection fraction between 35 and 40%. 6. History of blood transfusion 4 years ago following a gastrointestinal bleed. 7. History of gastrointestinal bleed, unspecified, 4 years ago. 8. History of hyperuricemia. 9. History of chronic iron deficiency anemia. Currently on iron tablets and was recently decreased from two iron tablets a day to one iron tablet a day by her kidney specialist. Surgical History Appendectomy. Family History Unknown as the patient was adopted. She has no known family history. Social History * Smoker: Denies Alcohol: Denies Drugs: denies [place] [facility] [place] approximately 4 years. She is otherwise independent. She uses no assistive devices to ambulate. She is a DO NOT RESUSCITATE. Her daughter Christoph is her medical power of commonwealth attorney. A-FIB/CHADSVASC A-FIB History Current/History of A-Fib/PAF?: Yes Current PO Anticoag Therapy: No Treatment Reason Anticoagulant not given: Other (recent GI bleed, risk of mechanical falls) Review of Systems Constitutional: Denies: Chills, Fever Eyes: Denies: Pain, Vision change ENT: Denies: Head Aches Skin: Denies: Rash Pulmonary: Denies: Dyspnea Cardiovascular: Denies: Chest Pain Gastrointestinal: Denies: Nausea, Vomiting Genitourinary: Denies: Dysuria, Frequency Hematologic: Denies: Bruising, Bleeding Excessively Endocrine: Denies: Polydipsia, Polyphagia Musculoskeletal: Reports: Shoulder Pain, Arm Pain Neurological: Denies: Weakness Psych: Reports: Mood Normal Physical Examination General Exam: Positive: Alert, Cooperative Eye Exam: Positive: PERRLA ENT Exam: Positive: Atraumatic Neck Exam: Positive: Supple; Negative: JVD Chest Exam: Positive: Clear to auscultation Heart Exam: Positive: Rate Normal, Irregular Rhythm; Negative: Regular Rhythm Telemetry: Negative: No significant arrhythmia Abdomen Exam: Positive: Normal bowel sounds Extremity Exam: Positive: Clubbing, Tenderness (over the right shoulder), Swelling (over the right shoulder); Negative: Cyanosis Skin Exam: Positive: Nl turgor and temperature Neuro Exam: Positive: Sensation Intact, Cranial Nerves 3-12 NL Psych Exam: Positive: Mental status NL Vital Signs Vital Signs Date Time Temp Pulse Resp B/P (MAP) Pulse Ox O2 Delivery O2 Flow Rate FiO2 09/24/19 09:55 55 18 143/67 95 Nasal Cannula 1.0 09/24/19 07:55 96.0 Laboratory Data Labs 24H Laboratory Tests 2 09/24/19 08:08: POC Glucose (Misc Panel) 111H, POC Sodium (Misc Panel) 133L, POC Potassium (Misc Panel) 4.6, POC Chloride (Misc Panel) 98, POC Total CO2 (Misc Panel) 28.0H, POC Blood Urea Nitrogen (Misc Panel 33H, POC Ionized Calcium (Misc Panel) 4.6, POC Creatinine (Misc Panel) 1.0, POC Hematocrit (Misc Panel) 45.0 09/24/19 08:41: Immature Granulocyte % (Auto) 1.4, Neutrophils (%) (Auto) 85.1H, Lymphocytes (%) (Auto) 5.2L, Monocytes (%) (Auto) 6.0H, Eosinophils (%) (Auto) 1.7, Basophils (%) (Auto) 0.6, Neutrophils # (Auto) 10.8H, Lymphocytes # (Auto) 0.7L, Monocytes # (Auto) 0.8, Eosinophils # (Auto) 0.2, Basophils # (Auto) 0.1, Nucleated Red Blood Cells % (auto) 0.0 CBC/BMP Laboratory Tests 09/24/19 08:41 Assessment/Plan Patient is 83 years old female with past history of atrial fibrillation, COPD, systolic CHF presented to the hospital after mechanical fall. Patient stated that in the morning due to slippage she fell down on the floor, she did not hit her head. In Emergency room patient was found to have comminuted displaced fracture of the proximal humerus extending from the humeral metaphysis through the region of the tuberosity and humeral head. Orthopedic team was contacted by phone, they recommended no surgical intervention at this time. Patient denied fever, chills, nausea, vomiting, chest pain, diarrhea or dysuria Problems (1) Fracture of humeral head, closed Status: Acute Problem Text: Appreciate/agree with orthopedic team consult PT OT evaluation Pain management (2) CHF (congestive heart failure) Status: Acute Problem Text: Not in acute exacerbation Systolic CHF with ejection fraction around 35-40% Continue home meds (3) Fall Status: Acute Problem Text: PT/OT evaluation (4) Sprain of wrist, right Status: Acute Problem Text: Pain management PT/OT (5) Atrial fibrillation Status: Chronic Problem Text: Patient was not on the anticoagulation therapy due to recent GI bleed Heart rate is under control Continue home meds Plan / VTE VTE Prophylaxis Ordered?: Yes MINESH ROUSE DO Sep 24, 2019 10:09
[2019-09-24] MEDS ORDERED: traMADol 50 MG TAB PO PRN (10:15)
[2019-09-24] MEDS: **hydrALAZINE** 50 MG TAB PO SCH ×3 (10:22→20:35)
[2019-09-24] MEDS: ASPIRIN 81 MG ENTERIC TAB PO SCH (10:22)
[2019-09-24] MEDS: FERROUS SULFATE 325MG TAB PO SCH (10:23)
[2019-09-24] MEDS: SERTRALINE HCL 50 MG TAB PO SCH (10:23)
[2019-09-24] MEDS: SERTRALINE HCL 25 MG TABLET PO SCH (10:23)
[2019-09-24] MEDS: OMEPRAZOLE 20 MG CAP PO SCH (10:23)
[2019-09-24] MEDS: TORSEMIDE 20 MG TAB PO SCH (10:24)
[2019-09-24] MEDS: bisoproloL fumarate 5 MG TAB PO SCH ×2 (10:24→20:35)
[2019-09-24] MEDS: VITAMIN D 1,000 INTERNATIONAL UNITS TABLET PO SCH (10:24)
[2019-09-24] MEDS: MONTELUKAST 10 MG TAB PO SCH (10:25)
[2019-09-24] MEDS: MULTIVITAMINS/MINERALS THERAP 1 TAB PO SCH (10:25)
[2019-09-24 10:58] VITALS: BP 138/68
[2019-09-24] MEDS: ISOSORBIDE DIN (ISORDIL) 10 MG TAB PO SCH ×2 (12:03→16:36)
--- NOTE | 2019-09-24 13:49 | CR ---
DATE OF CONSULTATION: 09/24/2019 INDICATION: Right proximal humerus fracture. HISTORY OF PRESENT ILLNESS: Ms. Goncalves is an elderly female that sustained a mechanical fall and injured her right shoulder. X-rays of the shoulder, humerus, elbow, wrist, forearm were obtained. She has a significantly displaced right proximal humerus fracture. No fractures in the hand. She is having some wrist pain, so I asked the emergency room (ER) to place her in a removable Colles splint. By report, she had a skin tear on one of her fingers. Most of the pain is in her shoulder. She denies any numbness and tingling in her fingers. The patient was seen up on the medical-surgical floor. For the patient's full past medical history, past surgical history, medications, allergies, social history and review of systems, please see the admitting hospitalist's history and physical. PHYSICAL EXAMINATION: Reveals an elderly female in no distress. She is alert and oriented times three. She responds to questions appropriately. The patient frequently laughs; there may be some early dementia or that could just be her. Skin: In the shoulder is intact without open lesions. However, there is extensive swelling and ecchymosis. Musculoskeletal: The patient can fire EPL, FPL and IO. Any palpation at the right shoulder elicits pain. Shoulder range of motion deferred. I personally reviewed all of her x-rays, as well as a CT scan that I requested of the right shoulder. It shows a significantly displaced and angulated proximal humerus fracture. Glenohumeral joint is reduced. ASSESSMENT/PLAN: Chana has a displaced right proximal humerus fracture. She may have an occult fracture in her wrist but nothing conclusive on x-ray. The recommendations are for her to use a sling and swathe. The sling she has for now is sufficient. We discussed operative and nonoperative treatment. The patient does not want surgery. I agree with this. Although the patient might heal her fracture in its current alignment, it is significantly displaced. I will strongly consider placing her into a hanging arm cast for approximately 2 weeks to allow gravity to work on ligamentotaxis to help realign the fracture. Certainly she is at a risk for nonunion in its current alignment, but there is still a greater than 50% chance that it heals. I think if we can get her in a better alignment with the hanging arm cast, this will be best for her and will do that at the office. For now, the wrist brace can be removed for hygiene. When she follows up in the office, will also repeat the wrist x-rays. She should take vitamin D anywhere from 2-5000 units by mouth daily for next 3 months. She should follow up in [facility] office either this afternoon or early the following week with Dr. Saeed. All the patient's questions were answered, and the plan was communicated to her nurse.
[2019-09-24] MEDS: ACETAMINOPH W/CODEINE #3 TAB UD PO PRN ×2 (15:05→20:34)
[2019-09-24] MEDS: HEPARIN SOD (PORCINE) 5000 UNITS/ML VIAL (J1644 PER 1000UNITS) SC SCH (20:35)
[2019-09-24] MEDS ORDERED: ATORVASTATIN 20 MG TAB PO SCH (21:00)
[2019-09-24 22:00] VITALS: BP 98/46
[2019-09-25 05:09] LABS: HEMATOCRIT 37.4 % (36.0-47.0); HEMOGLOBIN 12.2 g/dl (12.0-15.5); MEAN CORPUSCULAR HEMOGLOBIN 29.2 pg (27.0-33.0); MEAN CORPUSCULAR HGB CONC 32.6 g/dl (32.0-36.5); MEAN CORPUSCULAR VOLUME 89.5 fl (80.0-96.0); PLATELET COUNT, AUTOMATED 294 10^3/uL (150-450); RED BLOOD COUNT 4.18 10^6/uL (4.00-5.40)
[2019-09-25 05:30] LABS: CALCIUM LEVEL 9.3 MG/DL (8.8-10.2); CREATININE FOR GFR 1.25 MG/DL (0.55-1.30); GLOMERULAR FILTRATION RATE 43.8 (>32); POTASSIUM SERUM 3.8 MEQ/L (3.5-5.1)
[2019-09-25 06:00] VITALS: BP 152/51
[2019-09-25] MEDS: ACETAMINOPH W/CODEINE #3 TAB UD PO PRN (06:38)
[2019-09-25] MEDS: ISOSORBIDE DIN (ISORDIL) 10 MG TAB PO SCH ×2 (06:39→13:26)
[2019-09-25] MEDS: ADVAIR HFA 115/21MCG INHALER INH SCH (08:19)
[2019-09-25] MEDS ORDERED: allopurinoL 100 MG TAB PO SCH (09:00)
[2019-09-25] MEDS: HEPARIN SOD (PORCINE) 5000 UNITS/ML VIAL (J1644 PER 1000UNITS) SC SCH (09:41)
[2019-09-25] MEDS: ASPIRIN 81 MG ENTERIC TAB PO SCH (09:42)
[2019-09-25] MEDS: MONTELUKAST 10 MG TAB PO SCH (09:42)
[2019-09-25] MEDS: TORSEMIDE 20 MG TAB PO SCH (09:42)
[2019-09-25] MEDS: MULTIVITAMINS/MINERALS THERAP 1 TAB PO SCH (09:42)
[2019-09-25] MEDS: OMEPRAZOLE 20 MG CAP PO SCH (09:42)
[2019-09-25] MEDS: FERROUS SULFATE 325MG TAB PO SCH (09:42)
[2019-09-25] MEDS: VITAMIN D 1,000 INTERNATIONAL UNITS TABLET PO SCH (09:42)
[2019-09-25] MEDS: **hydrALAZINE** 50 MG TAB PO SCH (09:43)
[2019-09-25] MEDS: SERTRALINE HCL 25 MG TABLET PO SCH (09:43)
[2019-09-25] MEDS: SERTRALINE HCL 50 MG TAB PO SCH (09:43)
[2019-09-25] MEDS: bisoproloL fumarate 5 MG TAB PO SCH (09:43)
--- NOTE | 2019-09-25 11:04 | IPNPDOC ---
Text Note Date of Service The patient was seen on 09/25/19. NOTE Subjective: No any acute events overnight. Patient stated that she has a mode rate pain in her right shoulder 5 out of 10. Patient denies fever, chills, nausea, vomiting, chest pain, diarrhea or dysuria Objective: VITAL SIGNS: Please see below. GENERAL APPEARANCE: Well-nourished, well-developed, not in apparent distress HEENT: Normocephalic, atraumatic. Mucous members moist and pink CARDIOVASCULAR: Regular rate and rhythm. No murmurs, rubs or gallops. Radial pulses are intact. There is no lower extremity edema LUNGS: Diminished lung sounds ABDOMEN: Abdomen is soft and nontender. MUSCULOSKELETAL: Range of motion is intact in all 4 extremities NEUROLOGICAL: Cranial nerves II-12 are grossly intact. Speech is not dysarthric Assessment/Plan Patient is 83 years old female with past history of atrial fibrillation, COPD, systolic CHF presented to the hospital after mechanical fall. Patient stated that in the morning due to slippage she fell down on the floor, she did not hit her head. In Emergency room patient was found to have comminuted displaced fracture of the proximal humerus extending from the humeral metaphysis through the region of the tuberosity and humeral head. Orthopedic team was contacted by phone, they recommended no surgical intervention at this time. Patient denied fever, chills, nausea, vomiting, chest pain, diarrhea or dysuria Problems (1) Fracture of humeral head, closed No surgical intervention at this time PT OT evaluation Pain management (2) CHF (congestive heart failure) Not in acute exacerbation Systolic CHF with ejection fraction around 35-40% Continue home meds (3) Fall PT/OT evaluation (4) Sprain of wrist, right Pain management PT/OT (5) Atrial fibrillation Patient was not on the anticoagulation therapy due to recent GI bleed Heart rate is under control Continue home meds Plan / VTE VTE Prophylaxis Ordered?: Yes VS,Regulobone, I+O VS, Regulobone, I+O Laboratory Tests 09/25/19 04:56 Vital Signs Date Time Temp Pulse Resp B/P (MAP) Pulse Ox O2 Delivery O2 Flow Rate FiO2 09/25/19 09:43 152/51 09/25/19 09:43 54 09/25/19 07:08 18 Room Air 09/25/19 06:00 97.7 97 1.0 I&O- Last 24 Hours up to 6 AM 09/25/19 06:00 Intake Total 760 ml Output Total 450 ml Balance 310 ml MINESH ROUSE DO Sep 25, 2019 11:04
[2019-09-25] MEDS ORDERED: TRAM50TA2 PO (12:10)
--- NOTE | 2019-09-25 12:16 | DS.PDOC ---
Discharge Summary General Date of Admission Sep 25, 2019 at 10:53 Date of Discharge 09/25/19 Discharge Summary PROCEDURES PERFORMED DURING STAY: [None]. ADMITTING DIAGNOSES: Fracture of humeral head, closed CHF (congestive heart failure) Fall Sprain of wrist, right Atrial fibrillation DISCHARGE DIAGNOSES: Fracture of humeral head, closed CHF (congestive heart failure) Fall Sprain of wrist, right Atrial fibrillation COMPLICATIONS/CHIEF COMPLAINT: Fx Humeral Head Closed. HISTORY OF PRESENT ILLNESS: Patient is 83 years old female with past history of atrial fibrillation, COPD, systolic CHF presented to the hospital after mechanical fall. Patient stated that in the morning due to slippage she fell d own on the floor, she did not hit her head. In Emergency room patient was found to have comminuted displaced fracture of the proximal humerus extending from the humeral metaphysis through the region of the tuberosity and humeral head. Orthopedic team was contacted by phone, they recommended no surgical intervention at this time. Patient denied fever, chills, nausea, vomiting, chest pain, diarrhea or dysuria HOSPITAL COURSE: During hospital stay patient received pain management. Orthopedic team recommended no surgical intervention at this time DISCHARGE MEDICATIONS: Please see below. ALLERGIES: Please see below. PHYSICAL EXAMINATION ON DISCHARGE: VITAL SIGNS: Please see below. Objective: VITAL SIGNS: Please see below. GENERAL APPEARANCE: Well-nourished, well-developed, not in apparent distress HEENT: Normocephalic, atraumatic. Mucous members moist and pink CARDIOVASCULAR: Regular rate and rhythm. No murmurs, rubs or gallops. Radial pulses are intact. There is no lower extremity edema LUNGS: Diminished lung sounds ABDOMEN: Abdomen is soft and nontender. MUSCULOSKELETAL: Range of motion is intact in all 4 extremities NEUROLOGICAL: Cranial nerves II-12 are grossly intact. Speech is not dysarthric LABORATORY DATA: Please see below. IMAGING:Clinical: Trauma. Fracture. Technique: Axial noncontrast images through the right shoulder with coronal and sagittal re-formations. Findings: There is a comminuted displaced fracture involving the proximal humeral metaphysis extending cranially with involvement through the humeral neck, tuberosity and humeral head. Overlying post traumatic soft tissue swelling and small joint effusion. The scapula including glenoid and acromion process are intact. The clavicle is intact. The acromioclavicular joint appears stable. Impression: Comminuted displaced fracture of the proximal humerus extending from the humeral metaphysis through the region of the tuberosity and humeral head. PROGNOSIS: Fair ACTIVITY: [As tolerated]. DIET: Cardiac DISCHARGE PLAN: prison DISCHARGE INSTRUCTIONS: Follow-up recommendations of orthopedic team ITEMS TO FOLLOWUP ON ON OUTPATIENT: PCP and orthopedic surgeon DISCHARGE CONDITION: [Stable]. TIME SPENT ON DISCHARGE: Greater than 20 minutes. Vital Signs/I&Os Vital Signs Date Time Temp Pulse Resp B/P (MAP) Pulse Ox O2 Delivery O2 Flow Rate FiO2 09/25/19 09:43 152/51 09/25/19 09:43 54 09/25/19 07:08 18 Room Air 09/25/19 06:00 97.7 97 1.0 I&O- Last 24 Hours up to 6 AM 09/25/19 05:59 Intake Total 640 ml Output Total 0 ml Balance 640 ml Laboratory Data Labs 24H Laboratory Tests 2 09/25/19 04:56: Nucleated Red Blood Cells % (auto) 0.0, Anion Gap 6L, Glomerular Filtration Rate 43.8, Calcium Level 9.3 CBC/BMP Laboratory Tests 09/25/19 04:56 Discharge Medications Scheduled Allopurinol (Allopurinol) 100 Mg Tab, 200 MG PO DAILY, (Reported) Aspirin (Aspirin EC) 81 Mg Tablet.dr, 81 MG PO DAILY, (Reported) Atorvastatin Calcium (Atorvastatin Calcium) 40 Mg Tab, 40 MG PO QHS, (Reported) Bisoprolol Fumarate (Bisoprolol Fumarate) 5 Mg Tablet, 5 MG PO BID, (Reported) Cholecalciferol (Vitamin D3) (Vitamin D3) 1,000 Unit Tablet, 1,000 UNITS PO DAILY, (Reported) Ferrous Sulfate (Ferrous Sulfate) 325 Mg Tab, 325 MG PO DAILY, (Reported) Hydralazine HCl (Hydralazine HCl) 50 Mg Tablet, 50 MG PO TID, (Reported) Isosorbide Dinitrate (Isosorbide Dinitrate) 10 Mg Tablet, 10 MG PO TID, (Report ed) Montelukast Sodium (Singulair) 10 Mg Tab, 10 MG PO DAILY, (Reported) Multivit-Min/FA/Lycopen/Lutein (Centrum Silver Tablet) 1 Each Tablet, 1 TAB PO DAILY, (Reported) Omeprazole (Omeprazole) 40 Mg Cap, 40 MG PO DAILY, (Reported) Salmeterol/Fluticasone (Advair 250-50 Diskus) 1 Each Blst.w.dev, 1 PUFF INH BID, (Reported) Sertraline HCl (Sertraline HCl) 25 Mg Tablet, 25 MG PO DAILY, (Reported) TAKE WITH 50MG FOR 75MG DAILY DOSE Sertraline Hcl (Sertraline HCl) 50 Mg Tablet, 50 MG PO DAILY, (Reported) TAKE WITH 25MG FOR 75MG DAILY DOSE Torsemide (Torsemide) 20 Mg Tablet, 20 MG PO DAILY, (Reported) Umeclidinium [place] (Incruse Ellipta) 62.5 Mcg/Inh Inh, 1 PUFF INH DAILY, (Reported) Scheduled PRN Acetaminophen (Acetaminophen) 325 Mg Tab, 650 MG PO Q6H PRN for PAIN, (Reported) Acetaminophen with Codeine (Tylenol with Codeine #3 Tablet) 1 Each Tablet, 1 TAB PO Q4H PRN for PAIN, (Reported) Albuterol Sulfate (Proair Hfa) 108 Mcg/Act Aer, 2 PUFF INH QID PRN for SHORTNESS OF BREATH, (Reported) Alprazolam (Alprazolam) 0.25 Mg Tablet, 0.25 MG PO DAILY PRN for ANXIETY, (Reported) Tramadol HCl (Tramadol HCl) 50 Mg Tablet, 100 MG PO Q8HP PRN for pain Allergies Coded Allergies: tetanus toxoid, adsorbed (Verified Allergy, Mild, REDNESS / SWELLING, 04/09/19) Penicillins (Verified Allergy, Unknown, 04/09/19) MINESH ROUSE DO Sep 25, 2019 12:16
[2019-09-25 13:26] VITALS: BP 128/60
== END 2019-09-25 14:15 | DRG 563 ==
LOC: EDBD 07:40 → M ED 07:40 → M ED INP 07:41 → ENRESERVDT 10:17 → ENRESERVTM 10:17 → M MS5PR 10:45 → OBSVTOIN 09-25 10:53
PROVIDERS: ADMIT Internal Medicine; ATTEND Internal Medicine
DX: S42.291A Other displaced fracture of upper end of right humerus, initial encounter for closed fracture (principal); I50.22 Chronic systolic (congestive) heart failure; I48.20 Chronic atrial fibrillation, unspecified; J44.9 Chronic obstructive pulmonary disease, unspecified; W01.0XXA Fall on same level from slipping, tripping and stumbling without subsequent striking against object, initial encounter; Y92.008 Other place in unspecified non-institutional (private) residence as the place of occurrence of the external cause; Z79.82 Long term (current) use of aspirin; Z79.899 Other long term (current) drug therapy; Z88.7 Allergy status to serum and vaccine; Z88.0 Allergy status to penicillin; N18.3 Chronic kidney disease, stage 3 (moderate); D50.9 Iron deficiency anemia, unspecified; Z90.49 Acquired absence of other specified parts of digestive tract; S63.501A Unspecified sprain of right wrist, initial encounter

== ENCOUNTER → 2019-10-02 | Outpatient (REF) ==
[~2019-10-02] MED LIST changes: +SERT25TA21 PO; +TRAM50TA2 PO
[2019-10-02 10:08] LABS: HEMATOCRIT 38.5 % (36.0-47.0); HEMOGLOBIN 12.6 g/dl (12.0-15.5); MEAN CORPUSCULAR HEMOGLOBIN 29.2 pg (27.0-33.0); MEAN CORPUSCULAR HGB CONC 32.7 g/dl (32.0-36.5); MEAN CORPUSCULAR VOLUME 89.1 fl (80.0-96.0); PLATELET COUNT, AUTOMATED 531 10^3/uL (150-450); RED BLOOD COUNT 4.32 10^6/uL (4.00-5.40); WHITE BLOOD COUNT 12.7 10^3/uL (4.0-10.0)
[2019-10-02 10:44] LABS: CALCIUM LEVEL 9.2 MG/DL (8.8-10.2); CREATININE FOR GFR 1.13 MG/DL (0.55-1.30); GLOMERULAR FILTRATION RATE 49.2 (>32)
== END ==
PROVIDERS: ATTEND Internal Medicine
DX: I10 Essential (primary) hypertension (principal)

== ENCOUNTER → 2019-10-04 | Outpatient (REF) ==
[2019-10-04 10:34] LABS: CALCIUM LEVEL 8.7 MG/DL (8.8-10.2); CREATININE FOR GFR 1.09 MG/DL (0.55-1.30); GLOMERULAR FILTRATION RATE 51.3 (>32); POTASSIUM SERUM 3.7 MEQ/L (3.5-5.1)
== END ==
PROVIDERS: ATTEND Internal Medicine
DX: R11.0 Nausea (principal)

== ENCOUNTER → 2019-10-09 | Outpatient (REF) ==
[2019-10-09 11:35] LABS: BASO # 0.1 10^3/uL (0.0-0.2); BASO % 0.7 % (0.0-1.0); EOS # 0.1 10^3/uL (0.0-0.5); EOS % 0.9 % (0.0-3.0); HEMATOCRIT 34.2 % (36.0-47.0); HEMOGLOBIN 11.2 g/dl (12.0-15.5); LYMPH # 0.7 10^3/uL (1.5-5.0); LYMPH % 5.4 % (24.0-44.0); MEAN CORPUSCULAR HEMOGLOBIN 29.6 pg (27.0-33.0); MEAN CORPUSCULAR HGB CONC 32.7 g/dl (32.0-36.5); MEAN CORPUSCULAR VOLUME 90.2 fl (80.0-96.0); MONO # 0.9 10^3/uL (0.0-0.8); NEUTROPHILS # 10.5 10^3/uL (1.5-8.5); NEUTROPHILS % 83.8 % (36.0-66.0); PLATELET COUNT, AUTOMATED 568 10^3/uL (150-450); RED BLOOD COUNT 3.79 10^6/uL (4.00-5.40); WHITE BLOOD COUNT 12.5 10^3/uL (4.0-10.0)
[2019-10-09 12:09] LABS: BLOOD UREA NITROGEN 20 MG/DL (7-18); CALCIUM LEVEL 9.1 MG/DL (8.8-10.2); CARBON DIOXIDE LEVEL 24 MEQ/L (21-32); CHLORIDE LEVEL 106 MEQ/L (98-107); CREATININE FOR GFR 0.96 MG/DL (0.55-1.30); FERRITIN 220 NG/ML (8-252); GLOMERULAR FILTRATION RATE 59.4 (>32); GLUCOSE, FASTING 117 MG/DL (70-100); IRON (FE) 45 UG/DL (50-170); PERCENT SATURATION 17.2 % (13.2-45.0); POTASSIUM SERUM 3.6 MEQ/L (3.5-5.1); SODIUM LEVEL 139 MEQ/L (136-145); TOTAL IRON BINDING CAPACITY 261 UG/DL (250-450)
[2019-10-09 12:15] LABS: VITAMIN B12 LEVEL 837 PG/ML
[2019-10-09 12:34] LABS: FOLATE > 24.0 NG/ML
== END ==
PROVIDERS: ATTEND Internal Medicine
DX: N39.0 Urinary tract infection, site not specified (principal)

== ENCOUNTER → 2019-11-01 | Outpatient (REF) | payer MEDICARE, MEDICAID ==
[2019-11-01 11:57] LABS: HEMATOCRIT 37.1 % (36.0-47.0); MEAN CORPUSCULAR HEMOGLOBIN 29.2 pg (27.0-33.0); MEAN CORPUSCULAR HGB CONC 32.3 g/dl (32.0-36.5); MEAN CORPUSCULAR VOLUME 90.3 fl (80.0-96.0); PLATELET COUNT, AUTOMATED 413 10^3/uL (150-450); RED BLOOD COUNT 4.11 10^6/uL (4.00-5.40); WHITE BLOOD COUNT 8.4 10^3/uL (4.0-10.0)
[2019-11-01 12:15] LABS: BLOOD UREA NITROGEN 27 MG/DL (7-18); CALCIUM LEVEL 9.2 MG/DL (8.8-10.2); CARBON DIOXIDE LEVEL 24 MEQ/L (21-32); CHLORIDE LEVEL 106 MEQ/L (98-107); GLOMERULAR FILTRATION RATE > 60.0 (>32); GLUCOSE, FASTING 104 MG/DL (70-100); POTASSIUM SERUM 4.1 MEQ/L (3.5-5.1); SODIUM LEVEL 138 MEQ/L (136-145)
== END ==
PROVIDERS: ATTEND Internal Medicine
DX: I10 Essential (primary) hypertension (principal)

== ENCOUNTER → 2019-11-20 | Outpatient (REF) | PROVIDERS: ATTEND Internal Medicine | DX: Z03.818 Encounter for observation for suspected exposure to other biological agents ruled out (principal) ==

== ENCOUNTER → 2019-12-27 | Outpatient (REF) ==
[~2019-12-27] MED LIST changes: +ASPE16CR TOP; +BISA10SU27 PR; +D31000TA2 PO; +ENEMENE PR; +ENSU1LIQ50 PO; -LISI-538 PO; +LISI20TA33 PO; +MILKSUS3 PO; +MONT10TA10 PO; -MONT10TA4 PO; +POTA10TA67 PO; -VITAD1000T PO
[2019-12-27 11:25] LABS: HEMATOCRIT 35.2 % (36.0-47.0); HEMOGLOBIN 11.6 g/dl (12.0-15.5); MEAN CORPUSCULAR HEMOGLOBIN 31.2 pg (27.0-33.0); MEAN CORPUSCULAR VOLUME 94.6 fl (80.0-96.0); PLATELET COUNT, AUTOMATED 287 10^3/uL (150-450); RED BLOOD COUNT 3.72 10^6/uL (4.00-5.40); WHITE BLOOD COUNT 8.9 10^3/uL (4.0-10.0)
[2019-12-27 11:59] LABS: CALCIUM LEVEL 8.4 MG/DL (8.8-10.2); CREATININE FOR GFR 1.34 MG/DL (0.55-1.30); GLOMERULAR FILTRATION RATE 40.3 (>32); POTASSIUM SERUM 3.4 MEQ/L (3.5-5.1)
== END ==
PROVIDERS: ATTEND Internal Medicine
DX: I10 Essential (primary) hypertension (principal)

== ENCOUNTER → 2020-01-11 | Outpatient (REF) ==
[~2020-01-11] MED LIST changes: -ASPE16CR TOP; -BISA10SU27 PR; -D31000TA2 PO; -ENEMENE PR; -ENSU1LIQ50 PO; +LISI-538 PO; -LISI20TA33 PO; -MILKSUS3 PO; -MONT10TA10 PO; +MONT10TA4 PO; -POTA10TA67 PO; +VITAD1000T PO
[2020-01-11 11:40] LABS: HEMATOCRIT 36.2 % (36.0-47.0); HEMOGLOBIN 12.2 g/dl (12.0-15.5); MEAN CORPUSCULAR HEMOGLOBIN 31.9 pg (27.0-33.0); MEAN CORPUSCULAR HGB CONC 33.7 g/dl (32.0-36.5); MEAN CORPUSCULAR VOLUME 94.5 fl (80.0-96.0); PLATELET COUNT, AUTOMATED 273 10^3/uL (150-450); RED BLOOD COUNT 3.83 10^6/uL (4.00-5.40); WHITE BLOOD COUNT 11.3 10^3/uL (4.0-10.0)
[2020-01-11 12:19] LABS: CALCIUM LEVEL 9.1 MG/DL (8.8-10.2); CREATININE FOR GFR 1.33 MG/DL (0.55-1.30); GLOMERULAR FILTRATION RATE 40.7 (>32); POTASSIUM SERUM 3.8 MEQ/L (3.5-5.1)
--- NOTE | 2020-01-11 14:06 | REPPI ---
CHEST, SINGLE VIEW: Single view of the chest is performed and compared to multiple prior exam, most recently 09/24/2019. Cardiomegaly is again noted with vascular congestion. There is chronic increase in interstitial markings suggesting chronic interstitial edema/fibrosis. There is calcification of the thoracic aorta. Mediastinal silhouette is unchanged. Healing fracture is noted in the proximal right humerus. Electronically Signed by Cassius Bhatia MD 01/14/2020 10:20 P
== END ==
PROVIDERS: ATTEND Physician Assistant
DX: R06.02 Shortness of breath (principal)

== ENCOUNTER → 2020-01-15 | Outpatient (REF) ==
[2020-01-15 09:08] LABS: BASO # 0.1 10^3/uL (0.0-0.2); BASO % 0.5 % (0.0-1.0); EOS # 0.1 10^3/uL (0.0-0.5); EOS % 1.4 % (0.0-3.0); HEMATOCRIT 33.8 % (36.0-47.0); HEMOGLOBIN 11.5 g/dl (12.0-15.5); LYMPH # 0.9 10^3/uL (1.5-5.0); LYMPH % 9.6 % (24.0-44.0); MEAN CORPUSCULAR VOLUME 94.2 fl (80.0-96.0); MONO # 0.9 10^3/uL (0.0-0.8); MONO % 8.7 % (0.0-5.0); NEUTROPHILS # 7.8 10^3/uL (1.5-8.5); PLATELET COUNT, AUTOMATED 254 10^3/uL (150-450); RED BLOOD COUNT 3.59 10^6/uL (4.00-5.40); WHITE BLOOD COUNT 9.8 10^3/uL (4.0-10.0)
[2020-01-15 09:32] LABS: CALCIUM LEVEL 9.2 MG/DL (8.8-10.2); CREATININE FOR GFR 1.39 MG/DL (0.55-1.30); GLOMERULAR FILTRATION RATE 38.6 (>32); POTASSIUM SERUM 3.7 MEQ/L (3.5-5.1)
== END ==
PROVIDERS: ATTEND Internal Medicine
DX: I50.9 Heart failure, unspecified (principal)

== ENCOUNTER → 2020-01-18 | Outpatient (REF) ==
[2020-01-18 16:12] LABS: CALCIUM LEVEL 8.7 MG/DL (8.8-10.2); CREATININE FOR GFR 1.13 MG/DL (0.55-1.30); GLOMERULAR FILTRATION RATE 49.1 (>32); POTASSIUM SERUM 3.4 MEQ/L (3.5-5.1)
== END ==
PROVIDERS: ATTEND Internal Medicine
DX: I50.23 Acute on chronic systolic (congestive) heart failure (principal)

== ENCOUNTER → 2020-01-24 | Outpatient (REF) | payer MEDICARE, MEDICAID ==
[~2020-01-24] MED LIST changes: +D31000TA2 PO; -VITAD1000T PO
[2020-01-24 10:37] LABS: CALCIUM LEVEL 9.5 MG/DL (8.8-10.2); CREATININE FOR GFR 1.12 MG/DL (0.55-1.30); GLOMERULAR FILTRATION RATE 49.6 (>32); POTASSIUM SERUM 4.1 MEQ/L (3.5-5.1)
== END ==
PROVIDERS: ATTEND Internal Medicine
DX: I50.23 Acute on chronic systolic (congestive) heart failure (principal)

== ENCOUNTER → 2020-01-31 | Outpatient (REF) | payer MEDICARE, MEDICAID ==
[2020-03-15 10:24] LABS: APPEARANCE, URINE CLEAR (CLEAR); BACTERIA, URINE AUTO 1+ (NEGATIVE); BILIRUBIN, URINE AUTO NEGATIVE (NEGATIVE); BLOOD, URINE BLOOD NEGATIVE (NEGATIVE); COLOR, URINE YELLOW (YELLOW); GLUCOSE, URINE (UA) AUTO NEGATIVE (NEGATIVE); KETONE, URINE AUTO NEGATIVE (NEGATIVE); LEUKOCYTE ESTERASE, URINE AUTO TRACE (NEGATIVE); MUCUS, URINE SMALL (NEGATIVE); NITRITE, URINE AUTO NEGATIVE (NEGATIVE); PROTEIN, URINE AUTO NEGATIVE (NEGATIVE); RBC, URINE AUTO 1 /HPF (0-3); SPECIFIC GRAVITY URINE AUTO 1.009 (1.002-1.035); SQUAMOUS EPITHELIAL CELL UR AU 0 /HPF (0-6); UROBILINOGEN, URINE AUTO 0.2 mg/dL (0.0-2.0); WBC, URINE AUTO 4 /HPF (0-3)
[2020-03-15 10:29] LABS: BASO # 0.1 10^3/uL (0.0-0.2); BASO % 1.4 % (0.0-1.0); EOS # 0.2 10^3/uL (0.0-0.5); EOS % 2.5 % (0.0-3.0); HEMATOCRIT 44.3 % (36.0-47.0); HEMOGLOBIN 14.3 g/dl (12.0-15.5); LYMPH % 13.7 % (24.0-44.0); MEAN CORPUSCULAR HGB CONC 32.3 g/dl (32.0-36.5); MEAN CORPUSCULAR VOLUME 96.1 fl (80.0-96.0); MONO # 0.4 10^3/uL (0.0-0.8); NEUTROPHILS # 5.6 10^3/uL (1.5-8.5); NEUTROPHILS % 75.9 % (36.0-66.0); PLATELET COUNT, AUTOMATED 529 10^3/uL (150-450); RED BLOOD COUNT 4.61 10^6/uL (4.00-5.40); WHITE BLOOD COUNT 7.3 10^3/uL (4.0-10.0)
[2020-03-17 02:28] LABS: ALBUMIN 4.2 GM/DL (3.2-5.2); CALCIUM LEVEL 9.6 MG/DL (8.8-10.2); CREATININE FOR GFR 1.67 MG/DL (0.55-1.30); GLOMERULAR FILTRATION RATE 31.3 (>32); MAGNESIUM LEVEL 2.7 MG/DL (1.8-2.4); PHOSPHORUS LEVEL 4.8 MG/DL (2.5-4.9); POTASSIUM SERUM 3.9 MEQ/L (3.5-5.1); PTH INTACT 60.6 PG/ML (18.5-88.0); URIC ACID 5.2 MG/DL (2.6-6.0)
== END ==
PROVIDERS: ATTEND Internal Medicine
DX: I10 Essential (primary) hypertension (principal)

== ENCOUNTER → 2020-02-23 | Outpatient (CLI) | payer MEDICARE, MEDICAID ==
[2020-02-23 20:13] LABS: HEMATOCRIT 39.1 % (36.0-47.0); HEMOGLOBIN 13.1 g/dl (12.0-15.5); MEAN CORPUSCULAR HGB CONC 33.5 g/dl (32.0-36.5); MEAN CORPUSCULAR VOLUME 95.6 fl (80.0-96.0); PLATELET COUNT, AUTOMATED 248 10^3/uL (150-450); RED BLOOD COUNT 4.09 10^6/uL (4.00-5.40); WHITE BLOOD COUNT 7.9 10^3/uL (4.0-10.0)
[2020-02-23 20:54] LABS: CALCIUM LEVEL 9.1 MG/DL (8.8-10.2); CREATININE FOR GFR 1.41 MG/DL (0.55-1.30); FREE T4 0.82 NG/DL (0.76-1.46); POTASSIUM SERUM 3.8 MEQ/L (3.5-5.1); THYROID STIMULATING HORMONE 4.32 uIU/ML (0.358-3.740)
== END ==
LOC: SKLAB3 19:51
PROVIDERS: ATTEND Internal Medicine
DX: R53.83 Other fatigue (principal)

== ENCOUNTER → 2020-02-27 | Outpatient (REF) ==
[2020-02-27 20:24] LABS: CREATININE FOR GFR 1.37 MG/DL (0.55-1.30); GLOMERULAR FILTRATION RATE 39.3 (>32)
== END ==
PROVIDERS: ATTEND Internal Medicine
DX: R53.83 Other fatigue (principal)

== ENCOUNTER → 2020-03-04 | Outpatient (REF) ==
[2020-03-04 11:24] LABS: CALCIUM LEVEL 9.4 MG/DL (8.8-10.2); CREATININE FOR GFR 1.26 MG/DL (0.55-1.30); GLOMERULAR FILTRATION RATE 43.3 (>32); POTASSIUM SERUM 4.3 MEQ/L (3.5-5.1)
== END ==
PROVIDERS: ATTEND Internal Medicine
DX: N17.9 Acute kidney failure, unspecified (principal)

== ENCOUNTER → 2020-03-13 | Outpatient (REF) ==
[2020-03-13 11:36] LABS: CREATININE FOR GFR 1.51 MG/DL (0.55-1.30); GLOMERULAR FILTRATION RATE 35.1 (>32); POTASSIUM SERUM 3.7 MEQ/L (3.5-5.1)
== END ==
PROVIDERS: ATTEND Physician Assistant
DX: I10 Essential (primary) hypertension (principal)

== ENCOUNTER → 2020-03-19 | Outpatient (REF) | payer MEDICARE, MEDICAID ==
[2020-03-19 11:41] LABS: CALCIUM LEVEL 9.4 MG/DL (8.8-10.2); CREATININE FOR GFR 1.02 MG/DL (0.55-1.30); GLOMERULAR FILTRATION RATE 55.2 (>32); POTASSIUM SERUM 4.4 MEQ/L (3.5-5.1)
== END ==
PROVIDERS: ATTEND Internal Medicine
DX: I50.9 Heart failure, unspecified (principal)

== ENCOUNTER → 2020-05-02 | Outpatient (REF) | payer MEDICARE, MEDICAID ==
[2020-05-02 10:08] LABS: ALBUMIN 3.6 GM/DL (3.2-5.2); CALCIUM LEVEL 9.4 MG/DL (8.8-10.2); CREATININE FOR GFR 1.53 MG/DL (0.55-1.30); GLOMERULAR FILTRATION RATE 34.6 (>32); MAGNESIUM LEVEL 2.4 MG/DL (1.8-2.4); PHOSPHORUS LEVEL 3.1 MG/DL (2.5-4.9); POTASSIUM SERUM 3.8 MEQ/L (3.5-5.1)
[2020-05-02 11:11] LABS: PTH INTACT 45.2 PG/ML (18.5-88.0)
== END ==
PROVIDERS: ATTEND Internal Medicine
DX: N18.30 Chronic kidney disease, stage 3 unspecified (principal)

== ENCOUNTER → 2020-05-06 | Outpatient (REF) | payer MEDICARE, MEDICAID ==
[2020-05-06 10:15] LABS: CALCIUM LEVEL 9.9 MG/DL (8.8-10.2); CREATININE FOR GFR 0.97 MG/DL (0.55-1.30); GLOMERULAR FILTRATION RATE 58.5 (>32); POTASSIUM SERUM 4.5 MEQ/L (3.5-5.1)
== END ==
PROVIDERS: ATTEND Internal Medicine
DX: N17.9 Acute kidney failure, unspecified (principal); E86.0 Dehydration

== ENCOUNTER → 2020-05-10 | Outpatient (REF) | payer MEDICARE, MEDICAID ==
[2020-05-10 17:20] LABS: HEMATOCRIT 38.5 % (36.0-47.0); HEMOGLOBIN 13.1 g/dl (12.0-15.5); MEAN CORPUSCULAR HEMOGLOBIN 33.4 pg (27.0-33.0); MEAN CORPUSCULAR VOLUME 98.2 fl (80.0-96.0); PLATELET COUNT, AUTOMATED 395 10^3/uL (150-450); RED BLOOD COUNT 3.92 10^6/uL (4.00-5.40); WHITE BLOOD COUNT 10.4 10^3/uL (4.0-10.0)
== END ==
PROVIDERS: ATTEND Internal Medicine
DX: D64.9 Anemia, unspecified (principal)

== ENCOUNTER → 2020-05-16 | Outpatient (REF) | PROVIDERS: ATTEND Internal Medicine | DX: Z20.828 Contact with and (suspected) exposure to other viral communicable diseases (principal) ==

== ENCOUNTER → 2020-05-23 | Outpatient (REF) | payer MEDICARE, MEDICAID ==
[~2020-05-23] MED LIST changes: +ASPE16CR TOP; +BISA10SU27 PR; +ENEMENE PR; +ENSU1LIQ50 PO; +MILKSUS3 PO; -MONT10TA4 PO; +MONT5TAB2 PO; +POTA10TA67 PO
== END ==
LOC: EDSTATUS 07-02 12:01
PROVIDERS: ATTEND Internal Medicine
DX: Z20.828 Contact with and (suspected) exposure to other viral communicable diseases (principal)

== ENCOUNTER → 2020-05-29 | Outpatient (REF) | payer MEDICARE, MEDICAID ==
[~2020-05-29] MED LIST changes: -LISI-538 PO; +LISI20TA33 PO; +MONT10TA10 PO; -MONT5TAB2 PO
== END ==
PROVIDERS: ATTEND Internal Medicine
DX: Z20.828 Contact with and (suspected) exposure to other viral communicable diseases (principal)

== ENCOUNTER → 2020-05-29 | Outpatient (REF) | payer MEDICARE, MEDICAID ==
[~2020-05-29] MED LIST changes: -ASPE16CR TOP; -BISA10SU27 PR; -ENEMENE PR; -ENSU1LIQ50 PO; +LISI-538 PO; -LISI20TA33 PO; -MILKSUS3 PO; -MONT10TA10 PO; +MONT5TAB2 PO; -POTA10TA67 PO
[2020-05-29 10:43] LABS: HEMATOCRIT 34.8 % (36.0-47.0); HEMOGLOBIN 11.6 g/dl (12.0-15.5); MEAN CORPUSCULAR HEMOGLOBIN 33.4 pg (27.0-33.0); MEAN CORPUSCULAR HGB CONC 33.3 g/dl (32.0-36.5); MEAN CORPUSCULAR VOLUME 100.3 fl (80.0-96.0); PLATELET COUNT, AUTOMATED 339 10^3/uL (150-450); RED BLOOD COUNT 3.47 10^6/uL (4.00-5.40); WHITE BLOOD COUNT 8.5 10^3/uL (4.0-10.0)
[2020-05-29 11:12] LABS: CALCIUM LEVEL 9.4 MG/DL (8.8-10.2); CREATININE FOR GFR 1.35 MG/DL (0.55-1.30); POTASSIUM SERUM 4.2 MEQ/L (3.5-5.1)
== END ==
PROVIDERS: ATTEND Internal Medicine
DX: I10 Essential (primary) hypertension (principal)

== ENCOUNTER → 2020-06-16 | Outpatient (REF) | PROVIDERS: ATTEND Internal Medicine | DX: Z20.828 Contact with and (suspected) exposure to other viral communicable diseases (principal) ==

== ENCOUNTER → 2020-06-20 | Outpatient (REF) | payer MEDICARE, MEDICAID ==
[~2020-06-20] MED LIST changes: +ASPE16CR TOP; +BISA10SU27 PR; +ENEMENE PR; +ENSU1LIQ50 PO; -LISI-538 PO; +LISI20TA33 PO; +MILKSUS3 PO; +MONT10TA10 PO; -MONT5TAB2 PO; +POTA10TA67 PO
== END ==
PROVIDERS: ATTEND Internal Medicine
DX: Z20.828 Contact with and (suspected) exposure to other viral communicable diseases (principal)

== ENCOUNTER → 2020-06-26 | Outpatient (REF) | payer MEDICARE, MEDICAID ==
[~2020-06-26] MED LIST changes: +LISI-538 PO; -LISI20TA33 PO; -MONT10TA10 PO; +MONT5TAB2 PO
== END ==
PROVIDERS: ATTEND Internal Medicine
DX: Z20.828 Contact with and (suspected) exposure to other viral communicable diseases (principal)

== ENCOUNTER → 2020-07-02 | Outpatient (REF) | payer MEDICARE, MEDICAID | PROVIDERS: ATTEND Internal Medicine | DX: Z20.828 Contact with and (suspected) exposure to other viral communicable diseases (principal) ==

== ENCOUNTER 2020-07-04 12:45 | Emergency (ER) | payer MEDICARE, MEDICAID ==
[~2020-07-04] VITALS: Ht 175.3 cm; Wt 54.5 kg
[~2020-07-04 12:45] MED LIST changes: -ASPE16CR TOP; -BISA10SU27 PR; -ENEMENE PR; -ENSU1LIQ50 PO; -MILKSUS3 PO; -POTA10TA67 PO
[2020-07-04] MEDS ORDERED: BISA10SU27 PR (13:18)
[2020-07-04] MEDS ORDERED: POTA10TA67 PO (13:18)
[2020-07-04] MEDS ORDERED: SPIR-10 PO (13:18)
[2020-07-04] MEDS ORDERED: ENSU1LIQ50 PO (13:18)
[2020-07-04] MEDS ORDERED: ENEMENE PR (13:18)
[2020-07-04] MEDS ORDERED: ACET500T15 PO (13:18)
[2020-07-04] MEDS ORDERED: ASPE16CR TOP (13:18)
[2020-07-04] MEDS ORDERED: MILKSUS3 PO (13:18)
--- NOTE | 2020-07-04 13:18 | REP ---
INDICATION: truama COMPARISON: 09/24/2019 TECHNIQUE: Internal rotation, external rotation, and Y view. FINDINGS: Comminuted displaced fracture involving the proximal humerus with displaced fracture components and overlying soft tissue swelling. Findings may represent acute and or nonacute fracture given the prior similar fracture on 09/24/2019. IMPRESSION: Comminuted displaced fracture of the proximal humerus again noted. <Electronically signed by Torey Varghese > 07/04/20 [id number]
--- NOTE | 2020-07-04 13:19 | REP ---
INDICATION: truama COMPARISON: 03/14/2017 TECHNIQUE: AP, lateral, bilateral oblique views. FINDINGS: Age-related osteopenia and degenerative changes are appreciated. Ankle mortise intact. No acute fracture or dislocation identified IMPRESSION: No acute fracture or dislocation appreciated. <Electronically signed by Torey Varghese > 07/04/20 [id number]
--- NOTE | 2020-07-04 13:22 | REP ---
INDICATION: truama COMPARISON: None. TECHNIQUE: AP, lateral, bilateral oblique views right foot. FINDINGS: Osteopenia and advanced generalized osteoarthritic degenerative changes noted including significant hallux valgus deformity. There is an acute mildly angulated fracture involving the mid to distal aspect of the 5th metatarsal bone with overlying soft tissue swelling. IMPRESSION: Acute mildly angulated fracture of the 5th metatarsal bone with overlying soft tissue swelling. <Electronically signed by Torey Varghese > 07/04/20 [id number]
[2020-07-04 14:19] VITALS: BP 120/65
== END 2020-07-04 15:09 | disposition home or self-care (01) ==
LOC: EDBD 12:45 → M ED 12:45
DX: S42.291A Other displaced fracture of upper end of right humerus, initial encounter for closed fracture (principal); S92.351A Displaced fracture of fifth metatarsal bone, right foot, initial encounter for closed fracture; W18.39XA Other fall on same level, initial encounter; Y92.128 Other place in nursing home as the place of occurrence of the external cause; I50.9 Heart failure, unspecified; J44.9 Chronic obstructive pulmonary disease, unspecified; M18.9 Osteoarthritis of first carpometacarpal joint, unspecified; F03.90 Unspecified dementia, unspecified severity, without behavioral disturbance, psychotic disturbance, mood disturbance, and anxiety; I48.91 Unspecified atrial fibrillation; Z79.899 Other long term (current) drug therapy; Z79.82 Long term (current) use of aspirin; Z88.0 Allergy status to penicillin; Z88.7 Allergy status to serum and vaccine

== ENCOUNTER → 2020-07-04 | Outpatient (REF) | payer MEDICARE, MEDICAID | PROVIDERS: ATTEND Internal Medicine | DX: M79.89 Other specified soft tissue disorders (principal); M25.411 Effusion, right shoulder ==

== ENCOUNTER → 2020-07-08 | Outpatient (REF) | payer MEDICARE, MEDICAID ==
[~2020-07-08] MED LIST changes: +ASPE16CR TOP; +BISA10SU27 PR; +ENEMENE PR; +ENSU1LIQ50 PO; +MILKSUS3 PO; +POTA10TA67 PO
--- NOTE | 2020-07-08 16:08 | REPPI ---
INDICATION: FALL 3A. COMPARISON: None. TECHNIQUE: AP and lateral views. FINDINGS: Two views of the left hand demonstrate flexion deformities at the MCP joints of the index, long, ring, and small finger. This is most pronounced at the and long and ring finger where there is in 90 degree flexion deformity. There is osteoarthritis at the DIP joints of the index and small finger and at the IP joint of the thumb. There is some diffuse osteopenia.. No fracture or subluxation is seen. No opaque foreign body noted. IMPRESSION: Diffuse osteopenia. MCP joint flexion deformities. Osteoarthritis. No fracture or other acute bony abnormality seen.. <Electronically signed by Solo Bailey > 07/08/20 [id number]
== END ==
PROVIDERS: ATTEND Internal Medicine
DX: Z20.822 Contact with and (suspected) exposure to COVID-19 (principal); M19.042 Primary osteoarthritis, left hand; M85.88 Other specified disorders of bone density and structure, other site
CPT/HCPCS: 73120; U0003

== ENCOUNTER 2020-07-11 16:58 | Inpatient (IN) | payer MEDICARE, MEDICAID ==
[~2020-07-11] VITALS: Ht 149.9 cm; Wt 54.2 kg
[2020-07-11] MEDS ORDERED: bisoproloL fumarate 5 MG TAB PO ONE (18:00)
--- NOTE | 2020-07-11 19:03 | REP ---
INDICATION: CHEST PAIN COMPARISON: Multiple examinations dating through 03/23/2019 TECHNIQUE: PA and lateral. FINDINGS: Cardiomegaly and diffuse chronic interstitial changes are appreciated with elements of CHF/pulmonary vascular congestion. Lateral view suggests moderate pleural effusion. No pneumothorax. Skeletal structures demonstrate nonacute right humeral neck fracture. IMPRESSION: Cardiomegaly and findings to suggest pulmonary vascular congestion/early CHF. Lateral view demonstrates moderate pleural effusion. <Electronically signed by Torey Varghese > 07/11/20 [id number]
--- NOTE | 2020-07-11 19:05 | REP ---
INDICATION: CHEST PAIN COMPARISON: None. TECHNIQUE: AP, lateral, bilateral oblique, and coned-down views of the lumbar spine. FINDINGS: Osteopenia and advanced multilevel degenerative changes are appreciated along with chronic compression deformity at L1 which appears to have progressed since CT dated 09/07/2019. Alignment and lordosis otherwise maintained. No obvious acute fracture or subluxation noted. IMPRESSION: Osteopenia and advanced multilevel degenerative changes. Nonacute compression deformity at L1. No obvious acute fracture or subluxation. <Electronically signed by Torey Varghese > 07/11/20 [id number]
--- NOTE | 2020-07-11 19:06 | REP ---
INDICATION: CHEST PAIN COMPARISON: None. TECHNIQUE: AP, lateral, and swimmers views. FINDINGS: Osteopenia and multilevel degenerative changes are appreciated. Chronic compression deformity at L1 noted. Alignment and kyphosis through the thoracic spine is maintained. No evidence for acute fracture/compression injury or subluxation.. IMPRESSION: Osteopenia and advanced multilevel degenerative changes. No evidence for acute fracture/compression injury or subluxation. <Electronically signed by Torey Varghese > 07/11/20 [id number]
[2020-07-11] MEDS: METOPROLOL 5 MG/5 ML VIAL IV SCH ×6 (19:11→21:22)
[2020-07-11 19:18] LABS: BASO # 0.1 10^3/uL (0.0-0.2); BASO % 0.6 % (0.0-1.0); EOS # 0.1 10^3/uL (0.0-0.5); EOS % 1.1 % (0.0-3.0); HEMATOCRIT 34.5 % (36.0-47.0); HEMOGLOBIN 11.3 g/dl (12.0-15.5); LYMPH # 1.4 10^3/uL (1.5-5.0); LYMPH % 12.1 % (24.0-44.0); MEAN CORPUSCULAR HEMOGLOBIN 32.6 pg (27.0-33.0); MEAN CORPUSCULAR HGB CONC 32.8 g/dl (32.0-36.5); MEAN CORPUSCULAR VOLUME 99.4 fl (80.0-96.0); MONO % 8.8 % (0.0-5.0); NEUTROPHILS # 9.1 10^3/uL (1.5-8.5); NEUTROPHILS % 76.3 % (36.0-66.0); PLATELET COUNT, AUTOMATED 270 10^3/uL (150-450); RED BLOOD COUNT 3.47 10^6/uL (4.00-5.40); WHITE BLOOD COUNT 11.9 10^3/uL (4.0-10.0)
[2020-07-11 19:29] LABS: INR 1.25; PARTIAL THROMBOPLASTIN TIME 30.3 SECONDS (24.2-38.5)
[2020-07-11 19:47] LABS: ALBUMIN 3.8 GM/DL (3.2-5.2); BILIRUBIN,DIRECT 0.2 MG/DL (0.0-0.2); BILIRUBIN,TOTAL 0.4 MG/DL (0.2-1.0); CALCIUM LEVEL 9.2 MG/DL (8.8-10.2); CK-MB VALUE MASS 4.1 NG/ML (<3.6); CREATININE FOR GFR 1.28 MG/DL (0.55-1.30); FREE T4 1.65 NG/DL (0.76-1.46); GLOMERULAR FILTRATION RATE 42.5 (>32); MB/CK RELATIVE INDEX 3.94 (< OR =4); POTASSIUM SERUM 4.5 MEQ/L (3.5-5.1); THYROID STIMULATING HORMONE 4.5 uIU/ML (0.358-3.740); TOTAL PROTEIN 6.8 GM/DL (6.4-8.2); TROPONIN I 0.03 NG/ML (< 0.10)
[2020-07-11] MEDS ORDERED: FUROSEMIDE 40MG/4ML VIAL (J1940) IV ONE (20:15)
[2020-07-11] MEDS ORDERED: DIGOXIN INJ 0.5 MG/2 ML AMP (J1160) IV ONE (22:30)
[2020-07-11 22:35] LABS: MAGNESIUM LEVEL 2.2 MG/DL (1.8-2.4)
--- NOTE | 2020-07-12 01:22 | HPEPDOC ---
[facility] Medical History & Physical Date of Admission Jul 12, 2020 Date of Service: Jul 12, 2020 History and Physical CHIEF COMPLAINT: afib w rvr HISTORY OF PRESENT ILLNESS: 84-year-old female with a history of A. fib, COPD, systolic CHF, CAD, stage III, coronary artery disease, was brought to ER from [facility] after a mechanical fall? (details unclear, attempted to contact [facility] with no success), as well as tachycardia to 130s and shortness of breath. On arrival, patient found to be in A. fib with RVR received a total of 10 mg IV metoprolol with no improvement. Additional 0.5 mg of digoxin were ordered and administered. Patient is a poor historian due to underlying dementia. She denies chest pain, tenderness of breath, nausea, vomiting, diarrhea, fevers or chills. Pertinent labs include WBC count 11.9. Hemoglobin 11.3. Sodium 126. BUN 41. BNP 28,000. Trop neg. Covid-19 negative. Will be admitted to the hospital service for management of A. fib with RVR as well as acute systolic congestive heart failure exacerbation. PAST MEDICAL HISTORY: 1. Atrial fibrillation, paroxysmal. 2. Coronary artery disease. 3. Chronic kidney disease stage III. 4. Chronic obstructive pulmonary disease (COPD). 5. Chronic diastolic congestive heart failure (CHF) 6. History of blood transfusion 4 years ago following a gastrointestinal bleed. 7. History of gastrointestinal bleed, unspecified, 4 years ago. 8. History of hyperuricemia. 9. History of chronic iron deficiency anemia. Currently on iron tablets and was recently decreased from two iron tablets a day to one iron tablet a day by her kidney specialist. PAST SURGICAL HISTORY: Appendectomy SOCIAL HISTORY: [facility] resident Ambulates independently at baseline Code status: DNR/DNI healthcare POA - Daughter Christoph FAMILY HISTORY: reviewed with patient, non pertinent ALLERGIES: Please see below. REVIEW OF SYSTEMS: CONSTITUTIONAL: patient denies fevers, chills HEENT: patient denies blurred vision, loss of vision, headache,. CARDIOVASCULAR: patient denies chest pain, palpitations. RESPIRATORY: patient denies shortness of breath, cough, hemoptysis. GASTROINTESTINAL: patient denies abdominal pain, n/v/d, blood in stool. GENITOURINARY: patient denies dysuria, discharge. SKIN: patient denies rashes. MUSCULOSKELETAL: patient denies joint pain, neck pain. NEUROLOGICAL: patient denies focal weakness, numbness, seizures. PSYCHIATRIC: patient denies SI/HI. ENDOCRINE: patient denies polyuria, heat intolerance, cold intolerance. HEMATOLOGIC/LYMPHATIC: patient denies easy bruising. HOME MEDICATIONS: Please see below. PHYSICAL EXAMINATION: VITAL SIGNS: please see below General: NAD, comfortable HEENT: PERRLA, EOMI, sclerae clear Neck: supple, normal ROM, no JVD Respiratory: lungs CTAB, no wheeze, no rales, no crackles CVS: RRR, normal S1, S2, no murmurs Abdo: soft, no masses, no hepatosplenomegaly, BS+, no rebound tenderness Extremities: no edema, pulses 2+ MSK: no joint deformities, normal ROM Neuro: no focal neuro deficits, moving all 4 extremities, CN2-12 intact. Strength 5/5 in all 4 extremities. No nystagmus. Psych: calm, cooperative, AAO x 3 LABORATORY DATA: See below. IMAGING: CXR (07/11/20) Cardiomegaly and findings to suggest pulmonary vascular congestion/early CHF. Lateral view demonstrates moderate pleural Lumbosacral XR (07/11/20): Osteopenia and advanced multilevel degenerative changes. Nonacute compression deformity at L1. No obvious acute fracture or subluxation. Thoracic Spine XR (07/11/20): Osteopenia and advanced multilevel degenerative changes. No evidence for acute fracture/compression injury or subluxation. MICROBIOLOGY: Please see below. PLAN: #Acute diastolic CHF exacerbation - BNP 65817 - was given 40 mg IV lasix, - IV lasix - resume home meds: bisoprolol, spironolactone, hold torsemide - monitor renal function - strict Is and Os - daily weights - replace electrolytes - 2D echo from 2019, EF 40-45%. - repeat echo ordered #Afib w RVR - resume home meds: bisoprolol - given 0.5 mg digoxin in ER, 10 mg IV metoprolol - now rate controlled - no AC due to hx of falls, GIB per chart review - will defer decision to PCP for AC. #CAD - ASA/statin #CKD3 - avoid nephrotoxins #Gout - continue allopurinol #HTN - resume home meds: hydralazine, bisoprolol #Asthma/COPD - singulair - albuterol #Depresion - resume sertraline #Mechanical fall - would confirm with [facility] details of fall, I attempted to reach facility but was not able to speak to nursing - Lumbosacral and thoracic xrays show no acute fractures - PT/OT #R foot fx - immobilizer boot #GERD: omeprazole DVT ppx: lovenox Dispo: Vital Signs Vital Signs Date Time Temp Pulse Resp B/P (MAP) Pulse Ox O2 Delivery O2 Flow Rate FiO2 07/11/20 23:15 135 93 Room Air 07/11/20 23:00 129/89 (102) 07/11/20 17:14 96.3 20 Laboratory Data Labs 24H Laboratory Tests 2 07/11/20 19:06: Immature Granulocyte % (Auto) 1.1, Neutrophils (%) (Auto) 76.3H, Lymphocytes (%) (Auto) 12.1L, Monocytes (%) (Auto) 8.8H, Eosinophils (%) (Auto) 1.1, Basophils (%) (Auto) 0.6, Neutrophils # (Auto) 9.1H, Lymphocytes # (Auto) 1.4L, Monocytes # (Auto) 1.0H, Eosinophils # (Auto) 0.1, Basophils # (Auto) 0.1, Nucleated Red Blood Cells % (auto) 0.0, Prothrombin Time 16.0H, Prothromb Time International Ratio 1.25, Activated Partial Thromboplast Time 30.3, Anion Gap 8, Glomerular Filtration Rate 42.5, Calcium Level 9.2, Magnesium Level 2.2, Total Bilirubin 0.4, Direct Bilirubin 0.2, Aspartate Amino Transf (AST/SGOT) 24, Alanine Aminotransferase (ALT/SGPT) 25, Alkaline Phosphatase 102, Total Creatine Kinase 104, Creatine Kinase MB 4.1H, Creatine Kinase MB Relative Index 3.94, Troponin I 0.03, VO-Mni-R-Type Natriuretic Peptide 45176F, Total Protein 6.8, Albumin 3.8, Albumin/Globulin Ratio 1.3, Thyroid Stimulating Hormone (TSH) 4.500H, Free Thyroxine 1.65H CBC/BMP Laboratory Tests 07/11/20 19:06 Microbiology Microbiology 07/11/20 Respiratory Virus Panel (PCR) (RYAN) - Final, Complete Home Medications Scheduled Acetaminophen (Acetaminophen) 500 Mg Tablet, 1,000 MG PO TID 0600/1200/1900 Allopurinol (Allopurinol) 100 Mg Tab, 200 MG PO QAM Aspirin (Aspirin EC) 81 Mg Tablet.dr, 81 MG PO QAM Atorvastatin Calcium (Atorvastatin Calcium) 40 Mg Tab, 40 MG PO QPM Bisoprolol Fumarate (Bisoprolol Fumarate) 5 Mg Tablet, 5 MG PO BID Cholecalciferol (Vitamin D3) (Vitamin D3) 1,000 Unit Tablet, 1,000 UNITS PO QAM Ferrous Sulfate (Ferrous Sulfate) 325 Mg Tab, 325 MG PO Q2D Hydralazine HCl (Hydralazine HCl) 50 Mg Tablet, 50 MG PO TID 0600/1200/1900 Isosorbide Dinitrate (Isosorbide Dinitrate) 10 Mg Tablet, 10 MG PO TID 0600/1200/1900 Lidocaine HCl (Aspercreme) 4% Cream..g., 1 APLCT TOP BID APPLY TO RIGHT POSTERIOR HUMERUS Montelukast Sodium (Singulair) 10 Mg Tab, 10 MG PO QPM Nut.tx.impaired Digest Fxn (Ensure Clear) 237 Ml Liquid, 237 ML PO BID Omeprazole (Omeprazole) 40 Mg Cap, 40 MG PO QAM Potassium Chloride (Potassium Chloride) 10 Meq Tab.er.prt, 10 MEQ PO QPM Sertraline HCl (Sertraline HCl) 25 Mg Tablet, 25 MG PO QAM Spironolactone (Spironolactone) 25 Mg Tablet, 12.5 MG PO QAM Torsemide (Torsemide) 20 Mg Tablet, 20 MG PO 3XW MON/WED/FRI AT 0600 Umeclidinium [place] (Incruse Ellipta) 62.5 Mcg/Inh Inh, 1 PUFF INH DAILY Scheduled PRN Albuterol Sulfate (Proair Hfa) 108 Mcg/Act Aer, 2 PUFF INH QID PRN for SHORTNESS OF BREATH Bisacodyl (Bisacodyl) 10 Mg Supp.rect, 10 MG IA DAILY PRN for CONSTIPATION Magnesium Hydroxide (Milk of Magnesia) 400 Mg/5 Ml Oral.susp, 2,400 MG PO DAILY PRN for CONSTIPATION Sodium Phosphate,Roberts-Dibasic (Enema) 133 Ml Enema, 1 EB IA DAILY PRN for CONSTIPATION Allergies Coded Allergies: tetanus toxoid, adsorbed (Verified Allergy, Mild, REDNESS / SWELLING, 04/09/19) Penicillins (Verified Allergy, Unknown, 04/09/19) AUGUST GREWAL MD Jul 12, 2020 01:22
[2020-07-12] MEDS ORDERED: BISACODYL 10 MG SUPP PR PRN (03:00)
[2020-07-12] MEDS ORDERED: ALBUTEROL 90 MCG/ACT 8GM HFA INHALER INH PRN (03:00)
[2020-07-12 07:31] LABS: BASO # 0.1 10^3/uL (0.0-0.2); BASO % 0.9 % (0.0-1.0); EOS # 0.1 10^3/uL (0.0-0.5); EOS % 1.1 % (0.0-3.0); HEMATOCRIT 34.2 % (36.0-47.0); HEMOGLOBIN 11.5 g/dl (12.0-15.5); LYMPH # 1.6 10^3/uL (1.5-5.0); LYMPH % 13.3 % (24.0-44.0); MEAN CORPUSCULAR HGB CONC 33.6 g/dl (32.0-36.5); MEAN CORPUSCULAR VOLUME 98.3 fl (80.0-96.0); MONO # 1.4 10^3/uL (0.0-0.8); MONO % 11.8 % (0.0-5.0); NEUTROPHILS # 8.4 10^3/uL (1.5-8.5); NEUTROPHILS % 71.7 % (36.0-66.0); PLATELET COUNT, AUTOMATED 257 10^3/uL (150-450); RED BLOOD COUNT 3.48 10^6/uL (4.00-5.40); WHITE BLOOD COUNT 11.7 10^3/uL (4.0-10.0)
[2020-07-12 09:02] LABS: ALBUMIN 3.9 GM/DL (3.2-5.2); BILIRUBIN,TOTAL 0.6 MG/DL (0.2-1.0); CALCIUM LEVEL 9.3 MG/DL (8.8-10.2); CREATININE FOR GFR 1.29 MG/DL (0.55-1.30); GLOMERULAR FILTRATION RATE 42.1 (>32); MAGNESIUM LEVEL 2.2 MG/DL (1.8-2.4); POTASSIUM SERUM 4.5 MEQ/L (3.5-5.1); TOTAL PROTEIN 6.7 GM/DL (6.4-8.2)
[2020-07-12] MEDS: **hydrALAZINE** 50 MG TAB PO SCH ×3 (12:06→20:54)
[2020-07-12] MEDS: allopurinoL 100 MG TAB PO SCH (12:06)
[2020-07-12] MEDS: OMEPRAZOLE 20 MG CAP PO SCH (12:07)
[2020-07-12] MEDS: SERTRALINE HCL 25 MG TABLET PO SCH (12:07)
[2020-07-12] MEDS: VITAMIN D 1,000 INTERNATIONAL UNITS TABLET PO SCH (12:08)
[2020-07-12] MEDS: ASPIRIN 81 MG ENTERIC TAB PO SCH (12:08)
[2020-07-12] MEDS: SPIRONOLACTONE 12.5MG PER 1/2 TABLET PO SCH (12:08)
[2020-07-12] MEDS: FUROSEMIDE 40MG/4ML VIAL (J1940) IV SCH ×2 (12:08→17:15)
[2020-07-12] MEDS: bisoproloL fumarate 5 MG TAB PO SCH ×2 (12:08→20:52)
[2020-07-12] MEDS: ENOXAPARIN 40MG/0.4ML SYRINGE (J1650 PER 10MG) SC SCH (12:09)
[2020-07-12] MEDS: ISOSORBIDE DIN (ISORDIL) 10 MG TAB PO SCH ×3 (12:21→17:14)
[2020-07-12] MEDS ORDERED: SLF 3 ML SYR IV PRN (14:30)
[2020-07-12 16:00] VITALS: BP 150/78
--- NOTE | 2020-07-12 16:56 | IPNPDOC ---
Text Note Date of Service The patient was seen on 07/12/20. NOTE Subjective: Patient seen and examined at bedside. No new medical complaints. Objective: General: NAD, elderly, frail HEENT: NC/AT Lungs: CTA B/L Heart: +S1S2, tachy Abd: soft, NT, +BS Ext: no edema A/P: 84-year-old female with a history of A. fib, COPD, systolic CHF, CAD, stage III, coronary artery disease, was brought to ER from [facility] after a mechanical fall? (details unclear, attempted to contact [facility] with no success), as well as tachycardia to 130s and shortness of breath. On arrival, patient found to be in A. fib with RVR received a total of 10 mg IV metoprolol with no improvement. Additional 0.5 mg of digoxin were ordered and administered. Patient is a poor historian due to underlying dementia. #Acute/chronic HFpEF - BNP 64847 - was given 40 mg IV lasix, - IV lasix - resume home meds: bisoprolol, spironolactone, hold torsemide - monitor renal function - strict Is and Os - daily weights - replace electrolytes - 2D echo from 2019, EF 40-45%. - repeat echo ordered #Afib w RVR - resume home meds: bisoprolol - given 0.5 mg digoxin in ER, 10 mg IV metoprolol - now rate controlled - no AC due to hx of falls, GIB per chart review - will defer decision to PCP for AC. #CAD - ASA/statin #CKD3 - avoid nephrotoxins #Gout - continue allopurinol #HTN - resume home meds: hydralazine, bisoprolol #Asthma/COPD - singulair - albuterol #Depresion - resume sertraline #Mechanical fall - Lumbosacral and thoracic xrays show no acute fractures - PT/OT #R foot fx - immobilizer boot #GERD: omeprazole DVT ppx: lovenox VS,Fishbone, I+O VS, Fishbone, I+O Laboratory Tests 07/11/20 19:06 07/12/20 07:17 Vital Signs Date Time Temp Pulse Resp B/P (MAP) Pulse Ox O2 Delivery O2 Flow Rate FiO2 07/12/20 12:21 170/96 07/12/20 12:08 97 07/12/20 11:15 92 07/12/20 07:37 20 07/12/20 06:45 Room Air 07/11/20 17:14 96.3 ELISE HUSSEIN MD Jul 12, 2020 16:56
[2020-07-12 20:00] VITALS: BP 112/62
[2020-07-12] MEDS: ATORVASTATIN 20 MG TAB PO SCH (20:53)
[2020-07-12] MEDS: POTASSIUM CHLORIDE 10 MEQ SR TABLET PO SCH (20:53)
[2020-07-12] MEDS: MONTELUKAST 10 MG TAB PO SCH (20:54)
[2020-07-12] MEDS: SLF 3 ML SYR IV SCH (20:54)
--- NOTE | 2020-07-12 21:32 | ECGEPIP ---
[facility] - ED Test Date: 2020-07-11 Pat Name: MIGUELINA GOMEZ Department: Room: [place] [address] Gender: Female Data Developer: YANIRA : 1935 Requested By: MARYLOU Carpenter Order Number: [id number] Reading MD: Bunny Najera Measurements Intervals [place] Rate: 120 P: CT: 0 QRS: 0 QRSD: 136 T: 93 QT: 319 QTc: 452 Interpretive Statements ATRIAL FIBRILLATION WITH RAPID VENTRICULAR RESPONSE WITH ABERRANT CONDUCTION OR VENTRICULAR PREMATURE COMPLEXES LEFT BUNDLE BRANCH BLOCK SEPTAL MYOCARDIAL INFARCTION, OF INDETERMINATE AGE RHYTHM/RATE CHANGE COMPARED TO 07/24/19 Electronically Signed on 07-12-2020 21:32:21 EST by Bunny Najera
[2020-07-13 04:00] VITALS: BP 110/70
[2020-07-13] MEDS: SLF 3 ML SYR IV SCH ×3 (05:38→21:50)
[2020-07-13 08:04] LABS: BASO # 0.1 10^3/uL (0.0-0.2); BASO % 0.6 % (0.0-1.0); EOS # 0.2 10^3/uL (0.0-0.5); EOS % 1.5 % (0.0-3.0); HEMATOCRIT 35.4 % (36.0-47.0); HEMOGLOBIN 11.8 g/dl (12.0-15.5); LYMPH # 1.2 10^3/uL (1.5-5.0); MEAN CORPUSCULAR HEMOGLOBIN 33.4 pg (27.0-33.0); MEAN CORPUSCULAR HGB CONC 33.3 g/dl (32.0-36.5); MEAN CORPUSCULAR VOLUME 100.3 fl (80.0-96.0); MONO # 1.4 10^3/uL (0.0-0.8); MONO % 11.4 % (0.0-5.0); NEUTROPHILS # 9.3 10^3/uL (1.5-8.5); NEUTROPHILS % 75.4 % (36.0-66.0); PLATELET COUNT, AUTOMATED 266 10^3/uL (150-450); RED BLOOD COUNT 3.53 10^6/uL (4.00-5.40); WHITE BLOOD COUNT 12.4 10^3/uL (4.0-10.0)
[2020-07-13 08:05] VITALS: BP 123/58
[2020-07-13] MEDS: FUROSEMIDE 40MG/4ML VIAL (J1940) IV SCH ×2 (08:20→17:02)
[2020-07-13] MEDS: ENOXAPARIN 40MG/0.4ML SYRINGE (J1650 PER 10MG) SC SCH (08:21)
[2020-07-13] MEDS: OMEPRAZOLE 20 MG CAP PO SCH (08:21)
[2020-07-13] MEDS: bisoproloL fumarate 5 MG TAB PO SCH ×2 (08:21→20:24)
[2020-07-13] MEDS: ASPIRIN 81 MG ENTERIC TAB PO SCH (08:21)
[2020-07-13] MEDS: SPIRONOLACTONE 12.5MG PER 1/2 TABLET PO SCH (08:21)
[2020-07-13] MEDS: ISOSORBIDE DIN (ISORDIL) 10 MG TAB PO SCH ×3 (08:21→17:02)
[2020-07-13] MEDS: **hydrALAZINE** 50 MG TAB PO SCH ×3 (08:22→20:22)
[2020-07-13] MEDS: allopurinoL 100 MG TAB PO SCH (08:22)
[2020-07-13] MEDS: SERTRALINE HCL 25 MG TABLET PO SCH (08:22)
[2020-07-13] MEDS: FERROUS SULFATE 325MG TAB PO SCH (08:22)
[2020-07-13] MEDS: VITAMIN D 1,000 INTERNATIONAL UNITS TABLET PO SCH (08:22)
[2020-07-13 08:30] LABS: CREATININE FOR GFR 1.29 MG/DL (0.55-1.30); GLOMERULAR FILTRATION RATE 42.1 (>32); POTASSIUM SERUM 3.9 MEQ/L (3.5-5.1)
--- NOTE | 2020-07-13 10:50 | IPNPDOC ---
Text Note Date of Service The patient was seen on 07/13/20. NOTE Subjective: Patient seen and examined at bedside. No new medical complaints. Presently confused, eating breakfast. Objective: General: NAD, elderly, frail HEENT: NC/AT Lungs: CTA B/L Heart: +S1S2, tachy Abd: soft, NT, +BS Ext: no edema A/P: 84-year-old female with a history of A. fib, COPD, systolic CHF, CAD, stage III, coronary artery disease, was brought to ER from [facility] after a mechanical fall? (details unclear, attempted to contact [facility] with no success), as well as tachy cardia to 130s and shortness of breath. On arrival, patient found to be in A. fib with RVR received a total of 10 mg IV metoprolol with no improvement. Additional 0.5 mg of digoxin were ordered and administered. Patient is a poor historian due to underlying dementia. #Acute/chronic HFpEF -Continue IV Lasix - resume home meds: bisoprolol, spironolactone, hold torsemide - monitor renal function - strict Is and Os - daily weights -Replete electrolytes as needed - 2D echo from 2019, EF 40-45%. - repeat echo ordered #Afib w RVR - resume home meds: bisoprolol - given 0.5 mg digoxin in ER, 10 mg IV metoprolol - now rate controlled - no AC due to hx of falls, GIB per chart review #CAD - ASA/statin #CKD3 - avoid nephrotoxins #Gout - continue allopurinol #HTN - resume home meds: hydralazine, bisoprolol #Asthma/COPD - singulair - albuterol #Depresion - resume sertraline #Mechanical fall - Lumbosacral and thoracic xrays show no acute fractures - PT/OT #R foot fx - immobilizer boot #GERD: omeprazole DVT ppx: lovenox VS,Fishbone, I+O VS, Fishbone, I+O Laboratory Tests 07/13/20 07:44 Vital Signs Date Time Temp Pulse Resp B/P (MAP) Pulse Ox O2 Delivery O2 Flow Rate FiO2 07/13/20 08:21 123/58 07/13/20 08:21 83 07/13/20 08:05 97.7 20 93 Room Air I&O- Last 24 Hours up to 6 AM 07/13/20 06:00 Intake Total 550 ml Output Total 500 ml Balance 50 ml ELISE HUSSEIN MD Jul 13, 2020 10:50
[2020-07-13 12:25] VITALS: BP 151/69
[2020-07-13 15:21] VITALS: BP 119/64
[2020-07-13 20:00] VITALS: BP 151/72
[2020-07-13] MEDS: ATORVASTATIN 20 MG TAB PO SCH (20:21)
[2020-07-13] MEDS: POTASSIUM CHLORIDE 10 MEQ SR TABLET PO SCH (20:23)
[2020-07-13] MEDS: MONTELUKAST 10 MG TAB PO SCH (20:23)
[2020-07-14] MEDS: SLF 3 ML SYR IV SCH ×3 (05:01→21:07)
[2020-07-14 06:00] VITALS: BP 123/72
[2020-07-14 06:18] LABS: BASO # 0.1 10^3/uL (0.0-0.2); BASO % 0.8 % (0.0-1.0); EOS # 0.2 10^3/uL (0.0-0.5); EOS % 2.1 % (0.0-3.0); HEMATOCRIT 33.4 % (36.0-47.0); HEMOGLOBIN 11.2 g/dl (12.0-15.5); LYMPH # 1.2 10^3/uL (1.5-5.0); LYMPH % 10.9 % (24.0-44.0); MEAN CORPUSCULAR HEMOGLOBIN 33.1 pg (27.0-33.0); MEAN CORPUSCULAR HGB CONC 33.5 g/dl (32.0-36.5); MEAN CORPUSCULAR VOLUME 98.8 fl (80.0-96.0); MONO # 1.2 10^3/uL (0.0-0.8); MONO % 11.3 % (0.0-5.0); NEUTROPHILS # 7.8 10^3/uL (1.5-8.5); NEUTROPHILS % 73.8 % (36.0-66.0); PLATELET COUNT, AUTOMATED 252 10^3/uL (150-450); RED BLOOD COUNT 3.38 10^6/uL (4.00-5.40); WHITE BLOOD COUNT 10.6 10^3/uL (4.0-10.0)
[2020-07-14 06:47] LABS: CALCIUM LEVEL 8.9 MG/DL (8.8-10.2); CREATININE FOR GFR 1.15 MG/DL (0.55-1.30); GLOMERULAR FILTRATION RATE 48.1 (>32); POTASSIUM SERUM 3.5 MEQ/L (3.5-5.1)
[2020-07-14] MEDS: ENOXAPARIN 40MG/0.4ML SYRINGE (J1650 PER 10MG) SC SCH (09:00)
[2020-07-14] MEDS: VITAMIN D 1,000 INTERNATIONAL UNITS TABLET PO SCH (09:00)
[2020-07-14] MEDS: SERTRALINE HCL 25 MG TABLET PO SCH (09:00)
[2020-07-14] MEDS: allopurinoL 100 MG TAB PO SCH (09:00)
[2020-07-14] MEDS: SPIRONOLACTONE 12.5MG PER 1/2 TABLET PO SCH (09:00)
[2020-07-14] MEDS: ASPIRIN 81 MG ENTERIC TAB PO SCH (09:00)
[2020-07-14] MEDS: **hydrALAZINE** 50 MG TAB PO SCH ×3 (09:01→21:06)
[2020-07-14] MEDS: ISOSORBIDE DIN (ISORDIL) 10 MG TAB PO SCH ×3 (09:01→18:43)
[2020-07-14] MEDS: bisoproloL fumarate 5 MG TAB PO SCH ×2 (09:01→21:06)
[2020-07-14] MEDS: FUROSEMIDE 40MG/4ML VIAL (J1940) IV SCH ×2 (09:01→18:43)
[2020-07-14] MEDS: OMEPRAZOLE 20 MG CAP PO SCH (09:01)
--- NOTE | 2020-07-14 12:13 | IPNPDOC ---
Text Note Date of Service The patient was seen on 07/14/20. NOTE Subjective: Patient seen and examined at bedside. No new medical complaints. Presently confused, eating breakfast. Objective: General: NAD, elderly, frail HEENT: NC/AT Lungs: CTA B/L Heart: +S1S2, tachy Abd: soft, NT, +BS Ext: no edema A/P: 84-year-old female with a history of A. fib, COPD, systolic CHF, CAD, stage III, coronary artery disease, was brought to ER from [facility] after a mechanical fall? (details unclear, attempted to contact [facility] with no success), as well as tach ycardia to 130s and shortness of breath. On arrival, patient found to be in A. fib with RVR received a total of 10 mg IV metoprolol in ED with no improvement. Additional 0.5 mg of digoxin were ordered and administered. Patient is a poor historian due to underlying dementia. #Acute/chronic HFpEF -Continue IV Lasix - resume home meds: bisoprolol, spironolactone, hold torsemide - monitor renal function - strict Is and Os - daily weights -Replete electrolytes as needed - 2D echo from 2019, EF 40-45%. - repeat echo pending #Afib w RVR - resume home meds: bisoprolol - now rate controlled - no AC due to hx of falls, GIB per chart review #CAD - ASA/statin #CKD3 - avoid nephrotoxins #Gout - continue allopurinol #HTN - resume home meds: hydralazine, bisoprolol #Asthma/COPD - singulair - albuterol #Depresion - resume sertraline #Mechanical fall - Lumbosacral and thoracic xrays show no acute fractures - PT/OT #R foot fx - immobilizer boot #GERD: omeprazole DVT ppx: lovenox Disposition: continue with diuresis, PT VS,Fishbone, I+O VS, Fishbone, I+O Laboratory Tests 07/14/20 06:00 Vital Signs Date Time Temp Pulse Resp B/P (MAP) Pulse Ox O2 Delivery O2 Flow Rate FiO2 07/14/20 09:01 123/73 07/14/20 09:01 92 07/14/20 06:00 97.8 17 96 Room Air I&O- Last 24 Hours up to 6 AM 07/14/20 06:00 Intake Total 1550 ml Output Total 1400 ml Balance 150 ml ELISE HUSSEIN MD Jul 14, 2020 12:13
[2020-07-14 14:00] VITALS: BP 118/79
[2020-07-14] MEDS: POTASSIUM CHLORIDE 10 MEQ SR TABLET PO SCH (21:04)
[2020-07-14] MEDS: MONTELUKAST 10 MG TAB PO SCH (21:04)
[2020-07-14] MEDS: ATORVASTATIN 20 MG TAB PO SCH (21:05)
[2020-07-14 22:00] VITALS: BP 129/74
[2020-07-15] MEDS: SLF 3 ML SYR IV SCH ×3 (05:31→20:50)
[2020-07-15 06:00] VITALS: BP 131/72
--- NOTE | 2020-07-15 07:22 | ECHO ---
DATE OF PROCEDURE: 07/12/2020 Age: 84 Gender: Female Height: 59 inches Weight: 125 pounds Body surface area: 1.51 m2 PATIENT LOCATION: Inpatient PCU, Room 3227. REFERRING PHYSICIAN: Adonis Villa MD INDICATION: Congestive heart failure (CHF). MEASUREMENTS: 2D Measurements: RV 4.5 cm LV 4.2 cm Septum 1.1 cm Posterior wall 1.1 cm Aortic Root 2.9 cm LA 4.5 cm LVEF 50% Doppler Measurements: AV 1.25 m/s LVOT 0.6 m/s LVOT diameter 2.0 cm MV-E 93 Early mitral deceleration time 153 msec E prime medial 6.1, E prime lateral 7.5 Average E/E prime ratio 13.7/PCWP 18.9 mmHg PV 0.75 m/s Pulmonary artery acceleration time 79 msec RVSP 74 mmHg IVC 2.2 cm COMMENTS: Underlying atrial fibrillation with controlled ventricular response. Left bundle branch block. M-mode and two-dimensional echocardiography was performed with pulse, continuous wave, color flow, and tissue Doppler studies. Normal left ventricular size with LV wall thickness upper limits of normal. There was paradoxical septal wall motion, but other left ventricular wall segments were hyperkinetic. The paradoxical motion is likely related to her left bundle branch block, but she also has a flattening of her septum in the diastole in keeping with right ventricular pressure overload. Moderately dilated left atrium with current estimated mean left atrial pressure upper limits of normal to slightly increased. At least moderately dilated right ventricle with right ventricle free wall hypokinesis and severe pulmonary hypertension. Rbis-cm-hahqislnak dilated right atrium and IVC with absent collapse of the inferior vena cava in keeping with a significantly elevated central venous pressure (right heart failure). Normal aortic dimensions. Mild degenerative changes of her aortic valve with adequate cusp separation, but premature cusp closure in keeping with reduced forward stroke volume. Mild degenerative changes of her mitral valvular apparatus with adequate leaflet excursion and no obvious posterior systolic buckling, but moderately severe mitral insufficiency. Normal appearing tricuspid valve with adequate leaflet excursion and no posterior systolic buckling, but severe tricuspid insufficiency. No apparent intracardiac mass or pericardial effusion. Based on the above test findings, this patients cardiac prognosis is extremely guarded. MTDD
[2020-07-15] MEDS: FUROSEMIDE 40MG/4ML VIAL (J1940) IV SCH ×2 (08:20→16:54)
[2020-07-15] MEDS: ENOXAPARIN 40MG/0.4ML SYRINGE (J1650 PER 10MG) SC SCH (08:20)
[2020-07-15] MEDS: bisoproloL fumarate 5 MG TAB PO SCH ×3 (08:20→20:54)
[2020-07-15] MEDS: allopurinoL 100 MG TAB PO SCH (08:21)
[2020-07-15] MEDS: SPIRONOLACTONE 12.5MG PER 1/2 TABLET PO SCH (08:21)
[2020-07-15] MEDS: ISOSORBIDE DIN (ISORDIL) 10 MG TAB PO SCH ×3 (08:21→16:55)
[2020-07-15] MEDS: SERTRALINE HCL 25 MG TABLET PO SCH (08:21)
[2020-07-15] MEDS: FERROUS SULFATE 325MG TAB PO SCH (08:21)
[2020-07-15] MEDS: OMEPRAZOLE 20 MG CAP PO SCH (08:21)
[2020-07-15] MEDS: VITAMIN D 1,000 INTERNATIONAL UNITS TABLET PO SCH (08:21)
[2020-07-15] MEDS: ASPIRIN 81 MG ENTERIC TAB PO SCH (08:21)
[2020-07-15] MEDS: **hydrALAZINE** 50 MG TAB PO SCH ×3 (08:21→20:54)
[2020-07-15 09:04] LABS: HEMATOCRIT 38.6 % (36.0-47.0); HEMOGLOBIN 12.7 g/dl (12.0-15.5); MEAN CORPUSCULAR HEMOGLOBIN 32.9 pg (27.0-33.0); MEAN CORPUSCULAR HGB CONC 32.9 g/dl (32.0-36.5); PLATELET COUNT, AUTOMATED 288 10^3/uL (150-450); RED BLOOD COUNT 3.86 10^6/uL (4.00-5.40)
[2020-07-15 09:56] LABS: BILIRUBIN,TOTAL 0.8 MG/DL (0.2-1.0); CALCIUM LEVEL 9.6 MG/DL (8.8-10.2); CREATININE FOR GFR 1.16 MG/DL (0.55-1.30); GLOMERULAR FILTRATION RATE 47.6 (>32); POTASSIUM SERUM 4.3 MEQ/L (3.5-5.1); TOTAL PROTEIN 7.3 GM/DL (6.4-8.2)
[2020-07-15 14:00] VITALS: BP 144/70
--- NOTE | 2020-07-15 15:01 | CR ---
CONSULTATION DATE: 07/15/2020 CHIEF COMPLAINT: Right foot fracture, 5th metatarsal. HISTORY: An 84-year-old woman who was admitted on July 12 with a history of atrial fibrillation, COPD and multiple medical problems. She indicates that she had a fall a couple of weeks ago and injured her right foot. She was noted to have a fifth metatarsal fracture on previous x-rays. We were asked to evaluate her for a 5th metatarsal fracture. She has an equalizer boot on. Denies any other injury. She is somewhat confused. PAST MEDICAL HISTORY: Notable for atrial fibrillation, coronary artery disease, kidney disease, COPD, CHF, gastrointestinal bleed, hyperuricemia, chronic iron deficiency anemia. PAST SURGICAL HISTORY: Notable for an appendectomy. SOCIAL HISTORY: She is a resident of [facility]. She ambulates independently at baseline. FAMILY HISTORY: Otherwise noncontributory. REVIEW OF SYSTEMS: Currently denies any chest pain or shortness of breath. Denies any easy bruising. Denies any focal weakness or numbness but does have some underlying dementia. PHYSICAL EXAMINATION: She is alert but disoriented, pleasant woman, in no acute distress. She has non-labored breathing. She has good perfusion of her extremities noted. Abdomen is soft, nontender. Extremities: The right lower extremity demonstrates some bruising along the lateral aspect of her foot. She has some tenderness around the distal 5th metatarsal. The skin is otherwise intact. X-rays are reviewed, they demonstrate a mildly displaced 5th metatarsal fracture distally. MEDICATIONS: 1. Tylenol. 2. Allopurinol. 3. Aspirin. 4. Atorvastatin. 5. Bisoprolol. 6. Vitamin D. 7. Ferrous sulfate. 8. Hydralazine. 9. Isosorbide Dinitrate. 10.Aspercreme. 11.Singulair. 12.Ensure. 13.Omeprazole. 14.Potassium. 15.Sertraline. 16.Spironolactone. 17.Torsemide. 18.Incruse Ellipta. 19.Albuterol p.r.n. 20.Colace p.r.n. 21.Milk of Magnesia p.r.n. 22.Enema p.r.n. ALLERGIES: Tetanus toxoid, penicillin. IMPRESSION: An 84-year-old with a right fifth metatarsal fracture in an equalizer boot. RECOMMENDATIONS: Would continue with the boot, would do partial weightbearing with her walker. Elevate when able and we should follow her up in the office in approximately 1-2 weeks. Repeat x-ray will be obtained while she is in the hospital.
--- NOTE | 2020-07-15 15:20 | REP ---
INDICATION: fx COMPARISON: 07/04/2020 TECHNIQUE: AP, lateral, bilateral oblique views right foot. FINDINGS: Osteopenia and advanced degenerative changes along with old healed 5th metatarsal fracture. Hallux valgus deformity noted. Findings are relatively stable. No obvious new acute fracture identified. IMPRESSION: Advanced osteopenia and degenerative changes. No obvious acute fracture or dislocation. <Electronically signed by Torey Varghese > 07/15/20 2721
--- NOTE | 2020-07-15 17:36 | IPNPDOC ---
Text Note Date of Service The patient was seen on 07/15/20. NOTE Subjective: Patient seen and examined at bedside. No new medical complaints. Pleasantly confused. Objective: General: NAD, elderly, frail HEENT: NC/AT Lungs: CTA B/L Heart: +S1S2, tachy Abd: soft, NT, +BS Ext: no edema A/P: 84-year-old female with a history of A. fib, COPD, HFrEF, CAD, CKD, was brought to ER from [facility] after a mechanical fall? (details unclear), as well as t achycardia to 130s and shortness of breath. On arrival, patient found to be in A. fib with RVR received a total of 10 mg IV metoprolol in ED with no improvement. Additional 0.5 mg of digoxin were ordered and administered. Patient is a poor historian due to underlying dementia. #Acute/chronic HFpEF/LBBB -Continue IV Lasix - resumed home meds: bisoprolol, spironolactone, hold torsemide - monitor renal function - strict Is and Os - daily weights -Replete electrolytes as needed - 2D echo from 2019, EF 40-45%. - repeat echo - severe pulmonary HTN, right heart failure, severe tricuspid insufficiency #Afib w RVR - resume home meds: bisoprolol - now rate controlled - no AC due to hx of falls, GIB per chart review #CAD - ASA/statin #CKD3 - avoid nephrotoxins #Gout - continue allopurinol #HTN - resume home meds: hydralazine, bisoprolol #Asthma/COPD - singulair - albuterol #Depresion - resume sertraline #Mechanical fall - Lumbosacral and thoracic xrays show no acute fractures - PT/OT #R foot fx - immobilizer boot - ortho c/s appreciated #GERD: omeprazole DVT ppx: lovenox Disposition: continue with diuresis, PT VS,Fishbone, I+O VS, Fishbone, I+O Laboratory Tests 07/15/20 08:51 07/15/20 08:52 Vital Signs Date Time Temp Pulse Resp B/P (MAP) Pulse Ox O2 Delivery O2 Flow Rate FiO2 07/15/20 16:55 128/74 07/15/20 14:00 98.1 119 17 94 Room Air I&O- Last 24 Hours up to 6 AM 1/11/21 06:00 Intake Total 785 ml Output Total 700 ml Balance 85 ml ELISE HUSSEIN MD Jul 15, 2020 17:36
[2020-07-15] MEDS: MONTELUKAST 10 MG TAB PO SCH (20:48)
[2020-07-15] MEDS: ATORVASTATIN 20 MG TAB PO SCH (20:48)
[2020-07-15] MEDS: POTASSIUM CHLORIDE 10 MEQ SR TABLET PO SCH (20:49)
[2020-07-15 22:00] VITALS: BP 132/82
[2020-07-16] MEDS: SLF 3 ML SYR IV SCH (05:51)
[2020-07-16 06:00] VITALS: BP 138/78
[2020-07-16 07:09] LABS: HEMATOCRIT 37.5 % (36.0-47.0); HEMOGLOBIN 12.5 g/dl (12.0-15.5); MEAN CORPUSCULAR HEMOGLOBIN 33.3 pg (27.0-33.0); MEAN CORPUSCULAR HGB CONC 33.3 g/dl (32.0-36.5); PLATELET COUNT, AUTOMATED 280 10^3/uL (150-450); RED BLOOD COUNT 3.75 10^6/uL (4.00-5.40); WHITE BLOOD COUNT 11.6 10^3/uL (4.0-10.0)
[2020-07-16 07:34] LABS: CALCIUM LEVEL 9.4 MG/DL (8.8-10.2); CREATININE FOR GFR 1.14 MG/DL (0.55-1.30); GLOMERULAR FILTRATION RATE 48.6 (>32); POTASSIUM SERUM 3.8 MEQ/L (3.5-5.1)
[2020-07-16] MEDS ORDERED: TORS20TA2 PO (08:35)
[2020-07-16] MEDS: allopurinoL 100 MG TAB PO SCH (08:47)
[2020-07-16] MEDS: VITAMIN D 1,000 INTERNATIONAL UNITS TABLET PO SCH (08:47)
[2020-07-16] MEDS: SERTRALINE HCL 25 MG TABLET PO SCH (08:48)
[2020-07-16] MEDS: ASPIRIN 81 MG ENTERIC TAB PO SCH (08:48)
[2020-07-16] MEDS: OMEPRAZOLE 20 MG CAP PO SCH (08:48)
[2020-07-16] MEDS: ENOXAPARIN 40MG/0.4ML SYRINGE (J1650 PER 10MG) SC SCH (08:49)
[2020-07-16 08:50] VITALS: BP 127/73
[2020-07-16] MEDS: SPIRONOLACTONE 12.5MG PER 1/2 TABLET PO SCH (08:50)
[2020-07-16] MEDS: bisoproloL fumarate 5 MG TAB PO SCH (08:50)
[2020-07-16] MEDS: **hydrALAZINE** 50 MG TAB PO SCH (08:50)
[2020-07-16] MEDS: ISOSORBIDE DIN (ISORDIL) 10 MG TAB PO SCH (08:51)
[2020-07-16] MEDS: FUROSEMIDE 40MG/4ML VIAL (J1940) IV SCH (08:51)
--- NOTE | 2020-07-16 19:46 | DS.PDOC ---
Discharge Summary General Date of Admission Jul 11, 2020 at 23:53 Date of Discharge 07/16/20 Attending Physician: Heide Seals MD Discharge Summary HISTORY OF PRESENT ILLNESS: 84-year-old female with a history of A. fib, COPD, systolic CHF, CAD, stage III, coronary artery disease, was brought to ER from [facility] after a mechanical fall? (details unclear, attempted to contact [facility] with no success), as well as tachycardia to 130s and shortness of breath. On arrival, patient found to be in A. fib with RVR received a total of 10 mg IV metoprolol with no improvement. Additional 0.5 mg of digoxin were ordered and administered. Patient is a poor historian due to underlying dementia. She denies chest pain, tenderness of breath, nausea, vomiting, diarrhea, fevers or chills. Pertinent labs include WBC count 11.9. Hemoglobin 11.3. Sodium 126. BUN 41. BNP 28,000. Trop neg. Covid-19 negative. Will be admitted to the hospital service for management of A. fib with RVR as well as acute systolic congestive heart failure exacerbation. HOSPITAL COURSE: She was aggressively diuresed during her hospital stay. BNP improved to some, lower extremity swelling much improved. Sodium also improved. Atrial fibrillation with RVR was controlled during her stay. Home heart failure medications were resumed. Repeat echocardiogram showed severe pulmonary HTN, right heart failure, severe tricuspid insufficiency. Patient has an overall guarded prognosis but will need to continue to be watched closely by cardiology at her age, there is not more that can likely be done than medical management. She was eating and drinking well by 07/16/20. Decision was made to discharge back to [facility] to continue diuresis, close monitoring of renal fx and electrolytes and close follow up with cardiology. At time of discharge, patient had no complaints of chest pain, shortness of breath, n/v/d and was on RA. PAST MEDICAL HISTORY: 1. Atrial fibrillation, paroxysmal. 2. Coronary artery disease. 3. Chronic kidney disease stage III. 4. Chronic obstructive pulmonary disease (COPD). 5. Chronic diastolic congestive heart failure (CHF) 6. History of blood transfusion 4 years ago following a gastrointestinal bleed. 7. History of gastrointestinal bleed, unspecified, 4 years ago. 8. History of hyperuricemia. 9. History of chronic iron deficiency anemia. Currently on iron tablets and was recently decreased from two iron tablets a day to one iron tablet a day by her kidney specialist. PAST SURGICAL HISTORY: Appendectomy SOCIAL HISTORY: [facility] resident Ambulates independently at baseline Code status: DNR/DNI healthcare POA - Daughter Christoph FAMILY HISTORY: reviewed with patient, non pertinent ALLERGIES: Please see below. DISCHARGE MEDICATIONS: Please see below. PHYSICAL EXAM: VS: Please see below General: NAD, elderly, frail HEENT: NC/AT Lungs: CTA B/L Heart: +S1S2, tachy Abd: soft, NT, +BS Ext: no edema Neuro: No focal deficits, CN 2-12 intact, following commands LABORATORY: pLEASE SEE BELOW IMAGING: Echocardiogram 07/12/20: EF 50% Underlying atrial fibrillation with controlled ventricular response. Left bundlebranch block. M-mode and two-dimensional echocardiography was performed with pulse, continuouswave, color flow, and tissue Doppler studies. Normal left ventricular size with LV wall thickness upper limits of normal. There was paradoxical septal wall motion, but other left ventricular wall segments were hyperkinetic. The paradoxical motion is likely related to her leftbundle branch block, but she also has a flattening of her septum in the diastolein keeping with right ventricular pressure overload. Moderately dilated left atrium with current estimated mean left atrial pressure upper limits of normal to slightly increased. At least moderately dilated right ventricle with right ventricle free wall hypokinesis and severe pulmonary hypertension. Buqe-ju-gfqujzihjf dilated right atrium and IVC with absent collapse of the inferior vena cava in keeping with a significantly elevated central venous pressure (right heart failure). Normal aortic dimensions. Mild degenerative changes of her aortic valve with adequate cusp separation, butpremature cusp closure in keeping with reduced forward stroke volume. Mild degenerative changes of her mitral valvular apparatus with adequate leafletexcursion and no obvious posterior systolic buckling, but moderately s evere mitral insufficiency. Normal appearing tricuspid valve with adequate leaflet excursion and no posterior systolic buckling, but severe tricuspid insufficiency. No apparent intracardiac mass or pericardial effusion. Based on the above test findings, this patients cardiac prognosis is extremely guarded. ASSESSMENT: 84-year-old female with a history of A. fib, COPD, HFrEF, CAD, CKD, was brought to ER from [facility] after a mechanical fall? (details unclear), as well as tachycardia to 130s and shortness of breath. On arrival, patient found to be in A. fib with RVR received a total of 10 mg IV metoprolol in ED with no improvement. Additional 0.5 mg of digoxin were ordered and administered. Patient is a poor historian due to underlying dementia. PLAN: #Acute/chronic HFpEF/LBBB -BNP slowly improving and will continue to do so with diuresis. -Remains 96% on RA, HD stable and tolerating diuresis well, CR wnl -C/w bisoprolol, spironolactone, torsemide -2D echo from 2019, EF 40-45%. -Echo this admission: EF 50%, severe pulmonary HTN, right heart failure, severe tricuspid insufficiency -C/w med management after discharge, close monitoring of renal function, daily weights, replete electrolytes as needed -Will need close follow up with cardiology as o/p #Mechanical fall - Lumbosacral and thoracic xrays show no acute fractures - PT/OT: Patient is safe to go back to [facility] when medically appropriate. Uses RW and 1 assist #R foot fx - immobilizer boot - ortho c/s appreciated #Afib w RVR -C/w home meds, currently rate controlled - no AC due to hx of falls, GIB per chart review #CAD, old LBBB - Stable - ASA/statin #CKD3 -Cr wnl -Monitor closely o/p with bring on multiple diuretics #Gout - continue allopurinol #HTN -C/w home meds #Asthma/COPD - singulair - albuterol #Depresion - C/w sertraline #GERD: omeprazole DISPOSITION: D/c back to [facility] today, needs close f/u with cardiology. TIME SPENT ON DISCHARGE: Greater than 30 minutes. Vital Signs/I&Os Vital Signs Date Time Temp Pulse Resp B/P (MAP) Pulse Ox O2 Delivery O2 Flow Rate FiO2 07/16/20 08:50 127/73 07/16/20 06:00 98.1 97 18 96 Room Air I&O- Last 24 Hours up to 6 AM 07/16/20 06:00 Intake Total 980 ml Output Total 0 ml Balance 980 ml Laboratory Data Labs 24H Laboratory Tests 2 07/16/20 06:55: Nucleated Red Blood Cells % (auto) 0.0, Anion Gap 6L, Glomerular Filtration Rate 48.6, Calcium Level 9.4, ER-Mlz-F-Type Natriuretic Peptide [id number] 07/16/20 08:12: Coronavirus (COVID-19)(PCR) NEGATIVE CBC/BMP Laboratory Tests 07/16/20 06:55 Microbiology Microbiology 07/11/20 Respiratory Virus Panel (PCR) (RYAN) - Final, Complete Discharge Medications Scheduled Acetaminophen (Acetaminophen) 500 Mg Tablet, 1,000 MG PO TID, (Reported) 0600/1200/1900 Allopurinol (Allopurinol) 100 Mg Tab, 200 MG PO QAM, (Reported) Aspirin (Aspirin EC) 81 Mg Tablet.dr, 81 MG PO QAM, (Reported) Atorvastatin Calcium (Atorvastatin Calcium) 40 Mg Tab, 40 MG PO QPM, (Reported) Bisoprolol Fumarate (Bisoprolol Fumarate) 5 Mg Tablet, 5 MG PO BID, (Reported) Cholecalciferol (Vitamin D3) (Vitamin D3) 1,000 Unit Tablet, 1,000 UNITS PO QAM, (Reported) Ferrous Sulfate (Ferrous Sulfate) 325 Mg Tab, 325 MG PO Q2D, (Reported) Hydralazine HCl (Hydralazine HCl) 50 Mg Tablet, 50 MG PO TID, (Reported) 06001200/1900 Isosorbide Dinitrate (Isosorbide Dinitrate) 10 Mg Tablet, 10 MG PO TID, (Reported) 0600/1900 Lidocaine HCl (Aspercreme) 4% Cream..g., 1 APLCT TOP BID, (Reported) APPLY TO RIGHT POSTERIOR HUMERUS Montelukast Sodium (Singulair) 10 Mg Tab, 10 MG PO QPM, (Reported) Nut.tx.impaired Digest Fxn (Ensure Clear) 237 Ml Liquid, 237 ML PO BID, (Rep orted) Omeprazole (Omeprazole) 40 Mg Cap, 40 MG PO QAM, (Reported) Potassium Chloride (Potassium Chloride) 10 Meq Tab.er.prt, 10 MEQ PO QPM, (Reported) Sertraline HCl (Sertraline HCl) 25 Mg Tablet, 25 MG PO QAM, (Reported) Spironolactone (Spironolactone) 25 Mg Tablet, 12.5 MG PO QAM, (Reported) Torsemide (Torsemide) 20 Mg Tablet, 20 MG PO DAILY MONITOR RENAL FUNCTION WEEKLY Umeclidinium [place] (Incruse Ellipta) 62.5 Mcg/Inh Inh, 1 PUFF INH DAILY, (Reported) Scheduled PRN Albuterol Sulfate (Proair Hfa) 108 Mcg/Act Aer, 2 PUFF INH QID PRN for SHORTNESS OF BREATH, (Reported) Bisacodyl (Bisacodyl) 10 Mg Supp.rect, 10 MG [place] DAILY PRN for CONSTIPATION, (Reported) Magnesium Hydroxide (Milk of Magnesia) 400 Mg/5 Ml Oral.susp, 2,400 MG PO DAILY PRN for CONSTIPATION, (Reported) Sodium Phosphate,[place]-Dibasic (Enema) 133 Ml Enema, 1 EB [place] DAILY PRN for CONSTIPATION, (Reported) Allergies Coded Allergies: tetanus toxoid, adsorbed (Verified Allergy, Mild, REDNESS / SWELLING, 04/09/19) Penicillins (Verified Allergy, Unknown, 04/09/19) Heide Seals MD Jul 16, 2020 19:46
== END 2020-07-16 10:31 | DRG 291 ==
LOC: EDBD 16:58 → M ED 16:58 → M ED INP 23:53 → M PCU 07-12 14:42 → M MSPAV 07-13 15:21
PROVIDERS: ADMIT Family Medicine; ATTEND Internal Medicine
DX: I13.0 Hypertensive heart and chronic kidney disease with heart failure and stage 1 through stage 4 chronic kidney disease, or unspecified chronic kidney disease (principal); I50.33 Acute on chronic diastolic (congestive) heart failure; I48.0 Paroxysmal atrial fibrillation; I25.10 Atherosclerotic heart disease of native coronary artery without angina pectoris; N18.30 Chronic kidney disease, stage 3 unspecified; J44.9 Chronic obstructive pulmonary disease, unspecified; D50.9 Iron deficiency anemia, unspecified; Z66 Do not resuscitate; F32.9 Major depressive disorder, single episode, unspecified; R29.6 Repeated falls; K21.9 Gastro-esophageal reflux disease without esophagitis; Z79.899 Other long term (current) drug therapy; Z88.0 Allergy status to penicillin; Z88.7 Allergy status to serum and vaccine; F03.90 Unspecified dementia, unspecified severity, without behavioral disturbance, psychotic disturbance, mood disturbance, and anxiety; S92.351A Displaced fracture of fifth metatarsal bone, right foot, initial encounter for closed fracture; W19.XXXA Unspecified fall, initial encounter; Y92.9 Unspecified place or not applicable; Z20.822 Contact with and (suspected) exposure to COVID-19

== ENCOUNTER → 2020-07-12 | Outpatient (REF) | payer MEDICARE, MEDICAID | PROVIDERS: ATTEND Internal Medicine | DX: Z20.822 Contact with and (suspected) exposure to COVID-19 (principal) ==

== ENCOUNTER → 2020-07-17 | Outpatient (REF) | payer MEDICARE, MEDICAID | PROVIDERS: ATTEND Internal Medicine | DX: Z20.828 Contact with and (suspected) exposure to other viral communicable diseases (principal) ==

== ENCOUNTER → 2020-07-22 | Outpatient (REF) | payer MEDICARE, MEDICAID ==
[~2020-07-22] MED LIST changes: -LISI-538 PO; +LISI20TA33 PO; +MONT10TA10 PO; -MONT5TAB2 PO
[2020-07-22 12:04] LABS: HEMATOCRIT 35.4 % (36.0-47.0); HEMOGLOBIN 12.2 g/dl (12.0-15.5); MEAN CORPUSCULAR HEMOGLOBIN 33.7 pg (27.0-33.0); MEAN CORPUSCULAR HGB CONC 34.5 g/dl (32.0-36.5); MEAN CORPUSCULAR VOLUME 97.8 fl (80.0-96.0); PLATELET COUNT, AUTOMATED 378 10^3/uL (150-450); RED BLOOD COUNT 3.62 10^6/uL (4.00-5.40)
[2020-07-22 12:53] LABS: CALCIUM LEVEL 9.5 MG/DL (8.8-10.2); CREATININE FOR GFR 1.42 MG/DL (0.55-1.30); GLOMERULAR FILTRATION RATE 37.7 (>32); POTASSIUM SERUM 4.1 MEQ/L (3.5-5.1)
--- NOTE | 2020-07-22 15:56 | REPPI ---
INDICATION: CHF 334-1. COMPARISON: Comparison AP chest x-ray January 11, 2020.. TECHNIQUE: Erect AP portable radiograph. FINDINGS: Cardiomegaly is observed. Vascular cephalization is seen. No acute infiltrate is appreciated. Pleural angles are sharp. 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 Diffuse osteopenia is noted. Vascular calcification is seen. IMPRESSION: No acute infiltrate. Cardiomegaly and cephalization noted. Findings consistent with mild CHF. No evidence of pleural effusion or pulmonary edema. <Electronically signed by Solo Bailey > 07/22/20 7122
== END ==
PROVIDERS: ATTEND Internal Medicine
DX: I51.7 Cardiomegaly (principal); M85.88 Other specified disorders of bone density and structure, other site; I50.9 Heart failure, unspecified

== ENCOUNTER → 2020-07-24 | Outpatient (REF) | payer MEDICARE, MEDICAID ==
[2020-07-24 11:24] LABS: CALCIUM LEVEL 9.9 MG/DL (8.8-10.2); CREATININE FOR GFR 1.59 MG/DL (0.55-1.30); GLOMERULAR FILTRATION RATE 33.1 (>32); POTASSIUM SERUM 3.7 MEQ/L (3.5-5.1)
== END ==
PROVIDERS: ATTEND Internal Medicine
DX: I50.9 Heart failure, unspecified (principal); Z11.52 Encounter for screening for COVID-19
CPT/HCPCS: 36415; 80048; 83880; U0003

== ENCOUNTER → 2020-07-29 | Outpatient (REF) | payer MEDICARE, MEDICAID ==
[2020-07-29 10:05] LABS: HEMATOCRIT 43.9 % (36.0-47.0); HEMOGLOBIN 14.2 g/dl (12.0-15.5); MEAN CORPUSCULAR HEMOGLOBIN 31.6 pg (27.0-33.0); MEAN CORPUSCULAR HGB CONC 32.3 g/dl (32.0-36.5); MEAN CORPUSCULAR VOLUME 97.6 fl (80.0-96.0); PLATELET COUNT, AUTOMATED 532 10^3/uL (150-450); WHITE BLOOD COUNT 9.5 10^3/uL (4.0-10.0)
[2020-07-29 10:49] LABS: CALCIUM LEVEL 10.1 MG/DL (8.8-10.2); CREATININE FOR GFR 1.34 MG/DL (0.55-1.30); GLOMERULAR FILTRATION RATE 40.3 (>32)
--- NOTE | 2020-07-29 16:06 | REPPI ---
INDICATION: CHF 334-1. COMPARISON: Comparison chest x-ray July 22, 2020.. TECHNIQUE: Erect AP portable radiograph. FINDINGS: Cardiomegaly is again observed. Pulmonary vasculature is cephalized but improved and less congested than it was on July 22, 2020. No new infiltrate is seen. There is no evidence of pleural effusion or pulmonary edema. A pseudarthrosis is again noted at the site of a nonunited surgical neck fracture of the right humerus. This is old. No acute bony abnormality. IMPRESSION: Cardiomegaly. Vascular cephalization. CHF pattern is improved radiographically compared with the July 22, 2020 prior study. <Electronically signed by Solo Bailey > 07/29/20 [id number]
== END ==
PROVIDERS: ATTEND Internal Medicine
DX: I50.9 Heart failure, unspecified (principal)

== ENCOUNTER → 2020-07-31 | Outpatient (REF) | payer MEDICARE, MEDICAID ==
[~2020-07-31] MED LIST changes: +LISI-538 PO; -LISI20TA33 PO; -MONT10TA10 PO; +MONT5TAB2 PO
== END ==
PROVIDERS: ATTEND Internal Medicine
DX: Z20.822 Contact with and (suspected) exposure to COVID-19 (principal)

== ENCOUNTER → 2020-08-07 | Outpatient (REF) | payer MEDICARE, MEDICAID ==
[2020-08-07 11:52] LABS: BASO # 0.1 10^3/uL (0.0-0.2); EOS # 0.2 10^3/uL (0.0-0.5); EOS % 1.6 % (0.0-3.0); HEMATOCRIT 41.7 % (36.0-47.0); HEMOGLOBIN 13.7 g/dl (12.0-15.5); LYMPH # 1.3 10^3/uL (1.5-5.0); LYMPH % 13.5 % (24.0-44.0); MEAN CORPUSCULAR HEMOGLOBIN 32.2 pg (27.0-33.0); MEAN CORPUSCULAR HGB CONC 32.9 g/dl (32.0-36.5); MEAN CORPUSCULAR VOLUME 98.1 fl (80.0-96.0); MONO # 0.9 10^3/uL (0.0-0.8); NEUTROPHILS # 6.8 10^3/uL (1.5-8.5); NEUTROPHILS % 72.7 % (36.0-66.0); PLATELET COUNT, AUTOMATED 384 10^3/uL (150-450); RED BLOOD COUNT 4.25 10^6/uL (4.00-5.40); WHITE BLOOD COUNT 9.4 10^3/uL (4.0-10.0)
[2020-08-07 15:04] LABS: ALBUMIN 3.7 GM/DL (3.2-5.2); CREATININE FOR GFR 1.48 MG/DL (0.55-1.30); GLOMERULAR FILTRATION RATE 35.9 (>32); MAGNESIUM LEVEL 2.2 MG/DL (1.8-2.4); PHOSPHORUS LEVEL 3.7 MG/DL (2.5-4.9); POTASSIUM SERUM 3.9 MEQ/L (3.5-5.1); PTH INTACT 76.3 PG/ML (18.5-88.0)
== END ==
PROVIDERS: ATTEND Internal Medicine
DX: I50.9 Heart failure, unspecified (principal); I48.91 Unspecified atrial fibrillation; Z20.822 Contact with and (suspected) exposure to COVID-19
CPT/HCPCS: 36415; 80069; 83735; 83880; 83970; 85025; U0003

== ENCOUNTER → 2020-08-09 | Outpatient (REF) | payer MEDICARE, MEDICAID ==
[~2020-08-09] MED LIST changes: -LISI-538 PO; +LISI20TA33 PO; +MONT10TA10 PO; -MONT5TAB2 PO
[2020-08-09 11:41] LABS: APPEARANCE, URINE CLOUDY (CLEAR); BACTERIA, URINE AUTO 2+ (NEGATIVE); BILIRUBIN, URINE AUTO NEGATIVE (NEGATIVE); BLOOD, URINE BLOOD 1+ (NEGATIVE); COLOR, URINE YELLOW (YELLOW); GLUCOSE, URINE (UA) AUTO NEGATIVE (NEGATIVE); KETONE, URINE AUTO NEGATIVE (NEGATIVE); LEUKOCYTE ESTERASE, URINE AUTO 3+ (NEGATIVE); NITRITE, URINE AUTO NEGATIVE (NEGATIVE); PROTEIN, URINE AUTO NEGATIVE (NEGATIVE); RBC, URINE AUTO 7 /HPF (0-3); SPECIFIC GRAVITY URINE AUTO 1.009 (1.002-1.035); SQUAMOUS EPITHELIAL CELL UR AU 1 /HPF (0-6); UROBILINOGEN, URINE AUTO 0.2 mg/dL (0.0-2.0); WBC, URINE AUTO TNTC /HPF (0-3)
--- NOTE | 2020-08-09 15:04 | REPPI ---
INDICATION: CHF 350-2. COMPARISON: Comparison portable chest x-ray 29 July 2020.. TECHNIQUE: AP erect portable radiograph of the chest. FINDINGS: Moderate cardiac enlargement is again seen unchanged. Pulmonary vasculature is cephalized similar to the prior study. There is no evidence of pleural effusion, focal infiltrate, or diffuse pulmonary edema. A pseudarthrosis is noted at site of an ununited fracture of the proximal humerus on the right. Diffuse osteopenia. IMPRESSION: CHF pattern with pulmonary vascular cephalization and cardiomegaly. <Electronically signed by Solo Bailey > 08/09/20 1500
== END ==
PROVIDERS: ATTEND Internal Medicine
DX: I51.7 Cardiomegaly (principal); M85.80 Other specified disorders of bone density and structure, unspecified site; I50.9 Heart failure, unspecified

== ENCOUNTER → 2020-08-12 | Outpatient (REF) | payer MEDICARE, MEDICAID ==
[2020-08-12 10:24] LABS: CALCIUM LEVEL 9.9 MG/DL (8.8-10.2); CREATININE FOR GFR 1.51 MG/DL (0.55-1.30); DIGOXIN LEVEL 2.3 NG/ML (0.5-2.0); GLOMERULAR FILTRATION RATE 35.1 (>32); POTASSIUM SERUM 3.8 MEQ/L (3.5-5.1)
== END ==
PROVIDERS: ATTEND Internal Medicine
DX: I48.91 Unspecified atrial fibrillation (principal)

== ENCOUNTER → 2020-08-14 | Outpatient (REF) | payer MEDICARE, MEDICAID | PROVIDERS: ATTEND Internal Medicine | DX: Z20.822 Contact with and (suspected) exposure to COVID-19 (principal) ==

== ENCOUNTER → 2020-08-15 | Outpatient (REF) | payer MEDICARE, MEDICAID ==
[2020-08-15 10:25] LABS: CREATININE FOR GFR 1.65 MG/DL (0.55-1.30); GLOMERULAR FILTRATION RATE 31.7 (>32); POTASSIUM SERUM 3.5 MEQ/L (3.5-5.1)
--- NOTE | 2020-08-15 16:32 | REPPI ---
INDICATION: CHF 350-2. COMPARISON: 08/09/2020. TECHNIQUE: SINGLE PORTABLE AP VIEW OF THE CHEST WAS PERFORMED. FINDINGS: Cardiomegaly is unchanged. There is again calcification of the thoracic aorta. The mediastinal silhouette is unchanged. Persistent vascular congestion is noted as well as mild diffuse interstitial edema. Findings appears centrally unchanged.Old fracture proximal right humerus again noted. IMPRESSION: Mild CHF pattern with cardiomegaly, unchanged since prior study. <Electronically signed by Cassius Bhatia > 08/15/20 4241
== END ==
PROVIDERS: ATTEND Internal Medicine
DX: I50.9 Heart failure, unspecified (principal)

== ENCOUNTER → 2020-08-20 | Outpatient (REF) | payer MEDICARE, MEDICAID ==
[2020-08-20 12:00] LABS: CALCIUM LEVEL 9.8 MG/DL (8.8-10.2); CREATININE FOR GFR 1.58 MG/DL (0.55-1.30); GLOMERULAR FILTRATION RATE 33.3 (>32); POTASSIUM SERUM 4.2 MEQ/L (3.5-5.1)
== END ==
PROVIDERS: ATTEND Internal Medicine
DX: I50.9 Heart failure, unspecified (principal)

== ENCOUNTER → 2020-08-21 | Outpatient (REF) | payer MEDICARE, MEDICAID | PROVIDERS: ATTEND Internal Medicine | DX: I50.9 Heart failure, unspecified (principal); Z20.822 Contact with and (suspected) exposure to COVID-19 ==

== ENCOUNTER → 2020-08-23 | Outpatient (REF) | payer MEDICARE, MEDICAID ==
[2020-08-23 17:53] LABS: APPEARANCE, URINE HAZY (CLEAR); BACTERIA, URINE AUTO 1+ (NEGATIVE); BILIRUBIN, URINE AUTO NEGATIVE (NEGATIVE); BLOOD, URINE BLOOD NEGATIVE (NEGATIVE); COLOR, URINE YELLOW (YELLOW); GLUCOSE, URINE (UA) AUTO NEGATIVE (NEGATIVE); KETONE, URINE AUTO NEGATIVE (NEGATIVE); LEUKOCYTE ESTERASE, URINE AUTO 3+ (NEGATIVE); MUCUS, URINE SMALL (NEGATIVE); NITRITE, URINE AUTO NEGATIVE (NEGATIVE); PROTEIN, URINE AUTO NEGATIVE (NEGATIVE); RBC, URINE AUTO 3 /HPF (0-3); SPECIFIC GRAVITY URINE AUTO 1.009 (1.002-1.035); SQUAMOUS EPITHELIAL CELL UR AU 1 /HPF (0-6); UROBILINOGEN, URINE AUTO 0.2 mg/dL (0.0-2.0); WBC, URINE AUTO TNTC /HPF (0-3)
== END ==
PROVIDERS: ATTEND Physician Assistant
DX: I50.9 Heart failure, unspecified (principal); N18.9 Chronic kidney disease, unspecified; Z79.899 Other long term (current) drug therapy

== ENCOUNTER → 2020-08-26 | Outpatient (REF) | payer MEDICARE, MEDICAID ==
[~2020-08-26] MED LIST changes: +DIGO0.123; +LOPR1TAB6 PO; +METO50TA7; +NITR100C2
[2020-08-26 12:00] LABS: HEMATOCRIT 43.6 % (36.0-47.0); HEMOGLOBIN 14.6 g/dl (12.0-15.5); MEAN CORPUSCULAR HGB CONC 33.5 g/dl (32.0-36.5); MEAN CORPUSCULAR VOLUME 95.6 fl (80.0-96.0); PLATELET COUNT, AUTOMATED 324 10^3/uL (150-450); RED BLOOD COUNT 4.56 10^6/uL (4.00-5.40); WHITE BLOOD COUNT 11.4 10^3/uL (4.0-10.0)
[2020-08-26 12:25] LABS: CALCIUM LEVEL 9.6 MG/DL (8.8-10.2); CREATININE FOR GFR 1.78 MG/DL (0.55-1.30); MAGNESIUM LEVEL 2.4 MG/DL (1.8-2.4)
== END ==
PROVIDERS: ATTEND Internal Medicine
DX: I48.91 Unspecified atrial fibrillation (principal)

== ENCOUNTER 2020-08-28 12:58 | Emergency (ER) | payer MEDICARE, MEDICAID ==
[~2020-08-28] VITALS: Ht 152.4 cm; Wt 51.3 kg
[~2020-08-28 12:58] MED LIST changes: -DIGO0.123; -LOPR1TAB6 PO; -METO50TA7; -NITR100C2
[2020-08-28] MEDS ORDERED: METO50TA7 (13:28)
[2020-08-28] MEDS ORDERED: LOPR1TAB6 PO (13:28)
[2020-08-28] MEDS ORDERED: NITR100C2 (13:28)
[2020-08-28] MEDS ORDERED: DIGO0.123 (13:28)
[2020-08-28] MEDS ORDERED: ASPIRIN 81 MG CHEW TABLET PO ONE (13:45)
[2020-08-28] MEDS ORDERED: NS 1,000 ML IV SCH (13:45)
[2020-08-28 14:24] LABS: BASO # 0.1 10^3/uL (0.0-0.2); BASO % 0.8 % (0.0-1.0); EOS # 0.2 10^3/uL (0.0-0.5); EOS % 1.3 % (0.0-3.0); HEMATOCRIT 42.4 % (36.0-47.0); HEMOGLOBIN 14.1 g/dl (12.0-15.5); LYMPH # 1.5 10^3/uL (1.5-5.0); LYMPH % 12.9 % (24.0-44.0); MEAN CORPUSCULAR HEMOGLOBIN 31.8 pg (27.0-33.0); MEAN CORPUSCULAR HGB CONC 33.3 g/dl (32.0-36.5); MEAN CORPUSCULAR VOLUME 95.5 fl (80.0-96.0); MONO # 1.7 10^3/uL (0.0-0.8); NEUTROPHILS # 8.3 10^3/uL (1.5-8.5); NEUTROPHILS % 69.5 % (36.0-66.0); PLATELET COUNT, AUTOMATED 326 10^3/uL (150-450); RED BLOOD COUNT 4.44 10^6/uL (4.00-5.40)
[2020-08-28 14:27] LABS: WHITE BLOOD COUNT 11.9 10^3/uL (4.0-10.0)
--- NOTE | 2020-08-28 14:38 | REP ---
INDICATION: CHEST PAIN. COMPARISON: 07/11/2020, 09/24/2019 TECHNIQUE: AP semi-erect portable chest FINDINGS: Lungs are only marginally adequate the degree of inflation. Underlying fibrosis and COPD. There is left atrial and ventricular enlargement with cardiomegaly similar to the previous studies. Some venous hypertension noted. Underlying fibrosis makes early interstitial edema difficult to exclude. No definite effusion. Calcified aortic arch without aneurysm. Airway intact. Bones demineralized with degenerative changes. There is an old ununited fracture of the right humeral neck. IMPRESSION: 1. Cardiomegaly with left atrial and left ventricular enlargement and some venous hypertension. Underlying fibrosis makes early interstitial edema difficult to exclude. No luz edema or definite effusion. No dense consolidation seen. 2. Calcified aortic arch without aneurysm. No widening of the mediastinum. An old ununited proximal left humeral neck fracture. <Electronically signed by Keron Shultz > 08/28/20 7226
[2020-08-28 14:42] LABS: INR 1.03; PROTHROMBIN TIME 13.7 SECONDS (12.5-14.3)
--- OUTSIDE RECORDS SUMMARY | 2020-08-28 14:43 | CCD ---
Continuity of Care Document (CCD) Created on: 07/24/2020 Chana Goncalves External Reference #: [id number] : [id number] Sex: Female Author Author Chana JASSO-C Organization Unknown Address [address] [address] Phone [phone] Care Team Providers Care Barrel Rib Matting Machine Operator Name Role Phone Bunny Najera MD AUTM Unavailable Patty Kaminski DO AUTM [phone] Problems Active Problems Provider Date Essential hypertension Mindi Doan MD Onset: 017 Social History Type Date Description Comments Sex Unknown ETOH Use Denies alcohol use Tobacco Use Start: Unknown End: Unknown Patient is a former smoker Allergies, Adverse Reactions, Alerts Active Allergies Reaction Severity Comments Date Tetanus 03/18/2017 Medications Active Medications SIG Qnty Indications Ordering Provide r Date Tramadol HCL 50mg Tablets 1 every 4-6 hours as needed pain Unknown Ensure Clear Liquid Unknown Zoloft 50mg Tablets 1 by mouth every day Unknown Centavite A-Z Complete Multivitamin/Mine rals Tablets Unknown Bisoprolol Fumarate 5mg Tablets Unknown Aspirin [address] 1 by mouth every day Unknown Allopurinol 100mg Tablets Unknown Omeprazole 40mg Capsules DR Unknown Isosorbide Dinitrate 10mg Tablets Unknown Hydralazine HCL 50mg Tablets Unknown Vitamin D3 High Potency 1000Unit C apsules 1 by mouth every day - decrease of dose Unknown Singulair 10mg Tablets take one tablet by mouth at bedtime Unknown Incruse Ellipta 62.5mcg/Inh Aeroso l 1 inhalation daily Unknown Ferrous Sulfate 325(65Fe) mg Table ts 1 by mouth every day Unknown Atorvastatin Calcium 40mg Tablets 1 by mouth every day Unknown Advair Diskus 250-50mcg/Dose Aeros ol 1 puff twice a day Unknown Acetaminophen 500mg Tablets t2 tab in in the morning and noon as needed for breakthrough pain Unknown Torsemide 20mg Tablets 2 by mouth every morning and 3 by mouth every night Unknown Immunizations Description No Information Available Vital Signs Description No Information Available Results Description No Information Available Procedures Date Code Description Status 07/09/2020 61859 X-Ray Finger(S) Two Views Comple tamara 07/09/2020 05199 FX Metatarsal W/O Manipulation C ompleted 07/09/2020 53700 FX Phalanx Shaft/Prox/Mid Finger /Thumb W/O Manipulation Completed Medical Devices Description No Information Available Encounters Type Date Location Provider Dx Diagnosis Office Visit 07/09/2020 10:15a [place] Susanne Jasso PA-C S92.354 A Nondisp fx of fifth metatarsal bone, right foot, init S62.647A Nondisp fx of proximal phala nx of left little finger, init Assessments Date Code Description Provider 07/09/2020 S92.354A Nondisplaced fractur e of fifth metatarsal bone, right foot, initial encounter for closed fracture Susanne Jasso PA-C 07/09/2020 S92.354A Nondisplaced fractur e of fifth metatarsal bone, right foot, initial encounter for closed fracture Susanne Jasso PA-C 07/09/2020 S62.647A Nondisplaced fractur e of proximal phalanx of left little finger, initial encounter for closed fracture Susanne Jasso PA-C Plan of Treatment Future Appointment(s):* 07/26/2020 11:00 am - Susanne Jasso PA-C at [place] 07/09/2020 - Susanne Jasso PA-C* S92.354A Nondisplaced fracture of fifth metatarsal bone, right foot, initial encounter for closed fracture* New Orders:* Walker, Ordered: 07/09/20 * Follow up:* 2 weeks rt foot/lt hand xray with klf * S62.647A Nondisplaced fracture of proximal phalanx of left little finger, initial encounter for closed fracture Functional Status Description No Information Available Mental Status Description No Information Available Referrals Description No Information Available
--- OUTSIDE RECORDS SUMMARY | 2020-08-28 14:43 | CCD | Continuity of Care Document ---
Author Author Chana JASSO-C Organization Unknown Address [address] [address] Phone [phone] Care Team Providers Care Director Gift Name Role Phone Bunny Najera MD AUTM Unavailable Patty Kaminski DO AUTM [phone] Problems Active Problems Provider Date Essential hypertension [...] Available Procedures Date Code Description Status 07/09/2020 38650 X-Ray Finger(S) Two Views Comple Therma Flite Description No Information Available Encounters Description No Information Available Assessments Date Code Description Provider 07/09/2020 S92.354A Nondisplaced fractur e of fifth metatarsal bone, right foot, initial encounter for closed fracture Susanne Jasso PA-C Plan of Treatment 07/09/2020 - Susanne Jasso PA-C* S92.354A Nondisplaced fracture of fifth metatarsal bone, right foot, initial encounter for closed fracture* New Orders:* Walker, Ordered: 07/09/20 Functional Status Description No Information Available Mental Status Description No Information Available Referrals Description No Information Available
--- OUTSIDE RECORDS SUMMARY | 2020-08-28 14:43 | CCD | Continuity of Care Document ---
Author Author Chana JASSO-C Organization Unknown Address [address] [address] Phone [phone] Care Team Providers Care Oil Analyst Name Role Phone Bunny Najera MD AUTM Unavailable Patty Kaminski DO AUTM [phone] Problems Active Problems Provider Date Essential hypertension [...] Available Procedures Date Code Description Status 07/09/2020 47125 X-Ray Finger(S) Two Views Comple tamara 07/09/2020 83783 FX Metatarsal W/O Manipulation C ompleted 07/09/2020 45232 FX Phalanx Shaft/Prox/Mid Finger /Thumb W/O Manipulation Completed Medical Devices Description No Information Available Encounters Type Date Location Provider Dx Diagnosis Office Visit 07/09/2020 10:15a [place] Susanne Jasso PA-C S92.354 A Nondisp fx [...] 11:00 am - Susanne Jasso PA-C at [place] 07/09/2020 - Susanne Jasso PA-C* S92.354A Nondisplaced [...]
--- OUTSIDE RECORDS SUMMARY | 2020-08-28 14:43 | CCD | Continuity of Care Document ---
Author Author Chana JASSO-C Organization Unknown Address [address] [address] Phone [phone] Care Team Providers Care Digital Sales Director Name Role Phone Bunny Najera MD AUTM Unavailable Patty Kaminski DO AUTM [phone] Problems Active Problems Provider Date Essential hypertension [...] Information Available Procedures Date Code Description Status 07/26/2020 44713 X-Ray Foot Complete Completed 07/26/2020 31964 X-Ray Finger(S) Two Views Comple tamara 07/09/2020 47764 X-Ray Finger(S) Two Views Comple tamara 07/09/2020 75610 FX Metatarsal W/O Manipulation C ompleted 07/09/2020 09504 FX Phalanx Shaft/Prox/Mid Finger /Thumb W/O Manipulation Completed Medical Devices Description No Information Available Encounters Type Date Location Provider Dx Diagnosis Office Visit 07/09/2020 10:15a [place] Susanne Butcher JUDY Jasso S92.354 A Nondisp fx of fifth metatarsal bone, right foot, init S62.647A Nondisp fx of proximal phala nx of left little finger, init Assessments Date Code Description Provider 07/26/2020 S92.354D Nondisplaced fractur e of fifth metatarsal bone, right foot, subsequent encounter for fracture with routine healing Susanne L. JUDY Jasso 07/26/2020 S62.647D Nondisplaced fractur e of proximal phalanx of left little finger, subsequent encounter for fracture with routine healing Susanne L. JUDY Jasso 07/09/2020 S92.354A Nondisplaced fractur e of fifth metatarsal bone, right foot, initial encounter for closed fracture Susanne Butcher JUDY Jasso 07/09/2020 S92.354A Nondisplaced fractur e of fifth metatarsal bone, right foot, initial encounter for closed fracture Susanne LDominic JUDY Jasso 07/09/2020 S62.647A Nondisplaced fractur e of proximal phalanx of left little finger, initial encounter for closed fracture Susanne Jasso PA-C Plan of Treatment Future Appointment(s):* 08/29/2020 11:30 am - Susanne Jasso PA-C at [place] 07/26/2020 - Susanne Jasso PA-C* S92.354D Nondisplaced fracture of fifth metatarsal bone, right foot, subsequent encounter for fracture with routine healing* Follow up:* in 4 weeks for rt foot & left little finger recheck with repeat xrays of lt foot & little pinky finger with klf * S62.647D Nondisplaced fracture of proximal phalanx of left little finger, subsequent encounter for fracture with routine healing Functional Status Description No Information Available Mental Status Description No Information Available Referrals Description No Information Available
--- OUTSIDE RECORDS SUMMARY | 2020-08-28 14:43 | CCD | Continuity of Care Document ---
Author Author Chana JASSO-C Organization Unknown Address [address] [address] Phone [phone] Care Team Providers Care Psychologist Private Practice Name Role Phone Bunny Najera MD AUTM Unavailable Patty Kaminski DO AUTM [phone] Problems Active Problems Provider Date Essential hypertension iMndi Doan MD Onset: 017 Social History Type [...] Available Procedures Date Code Description Status 07/26/2020 36644 X-Ray Foot Complete Completed 07/26/2020 29906 X-Ray Finger(S) Two Views Comple tamara 07/09/2020 01621 X-Ray Finger(S) Two Views Comple [facility] 07/09/2020 00060 FX Metatarsal W/O Manipulation C ompleted 07/09/2020 39922 FX Phalanx Shaft/Prox/Mid Finger /Thumb W/O Manipulation Completed Medical Devices Description No Information Available Encounters Type Date Location Provider Dx Diagnosis Office Visit 07/09/2020 10:15a [place] Jasso PA-C S92.354 A Nondisp fx of fifth metatarsal bone, right foot, init S62.647A Nondisp fx of proximal phala nx of left little finger, init Assessments Date Code Description Provider 07/26/2020 S92.354D Nondisplaced fractur e of fifth metatarsal bone, right foot, subsequent encounter for fracture with routine healing Susanne Jasso PA-C 07/26/2020 S62.647D Nondisplaced fractur e of proximal phalanx of left little finger, subsequent encounter for fracture with routine healing Susanne Jasso PA-C 07/09/2020 S92.354A Nondisplaced fractur [...] fracture Susanne Jasso PA-C Plan of Treatment 07/26/2020 - Susanne Jasso PA-C* S92.354D Nondisplaced [...]
--- OUTSIDE RECORDS SUMMARY | 2020-08-28 14:43 | CCD | Continuity of Care Document ---
Author Author Chana JASSO-C Organization Unknown Address [address] [address] Phone [phone] Care Team Providers Care Cemetery Manager Name Role Phone Bunny Najera MD AUTM Unavailable Patty Kaminski DO AUTM [phone] Problems Active Problems Provider Date Essential hypertension [...] Available Procedures Date Code Description Status 07/09/2020 01083 X-Ray Finger(S) Two Views Comple tamara 07/09/2020 16218 FX Metatarsal W/O Manipulation C ompleted 07/09/2020 47440 FX Phalanx Shaft/Prox/Mid Finger /Thumb W/O Manipulation Completed Medical Devices Description No Information Available Encounters Type Date Location Provider Dx Diagnosis Office Visit 07/09/2020 10:15a [place] Susanne Jasso PA-C S92.354 A Nondisp fx [...] 11:00 am - Susanne Jasso PA-C at [place] 07/09/2020 - Susanne Jasso PA-C* S92.354A Nondisplaced [...]
--- OUTSIDE RECORDS SUMMARY | 2020-08-28 14:43 | CCD ---
Author Author [facility] Organization [facility] Address Unknown Phone Unavailable Care Team Providers Care Road Engineer Name Role Phone [facility], PA-C Unavailable Unavailabl e Fish, [facility], PA-C Unavailable Unavailabl e Fish, [facility], PA-C Unavailable Unavailabl e Fish, [facility], PA-C Unavailable Unavailabl e Fish, [facility], PA-C Unavailable Unavailabl e Fish, [facility], PA-C Unavailable Unavailabl e Fish, [facility], PA-C Unavailable Unavailabl e Fish, [facility], PA-C Unavailable Unavailabl e Fish, [facility], PA-C Unavailable Unavailabl e Fish, [facility], PA-C Unavailable Unavailabl e Fish, [facility], PA-C Unavailable Unavailabl e Fish, [facility], PA-C Unavailable Unavailabl e Fish, [facility], PA-C Unavailable Unavailabl e Fish, [facility], PA-C Unavailable Unavailabl e Fish, [facility], PA-C Unavailable Unavailabl e Fish, [facility], [facility]-C Unavailable Unavailabl e Fish, [facility], PA-C Unavailable Unavailabl e Fish, [facility], PA-C Unavailable Unavailabl e Fish, [facility], PA-C Unavailable Unavailabl e Fish, [facility], PA-C Unavailable Unavailabl e Fish, [facility], PA-C Unavailable Unavailabl e Fish, [facility], PA-C Unavailable Unavailabl e Fish, [facility], PA-C Unavailable Unavailabl e Fish, [facility], PA-C Unavailable Unavailabl e Fish, [facility], PA-C Unavailable Unavailabl e Fish, [facility], PA-C Unavailable Unavailabl e Fish, [facility], PA-C Unavailable Unavailabl e Fish, [facility], PA-C Unavailable Unavailabl e Fish, [facility], PA-C Unavailable Unavailabl e Fish, [facility], PA-C Unavailable Unavailabl e Fish, [facility], PA-C Unavailable Unavailabl e Fish, [facility], PA-C Unavailable Unavailabl e Fish, [facility], PA-C Unavailable Unavailabl e Fish, [facility], PA-C Unavailable Unavailabl e KATHY FONSECA MD Unavailable Unavailable KATHY FONSECA MD Unavailable Unavailable KATHY FONSECA MD Unavailable Unavailable KATHY FONSECA MD Unavailable Unavailable KATHY FONSECA MD Unavailable Unavailable KATHY FONSECA MD Unavailable Unavailable KATHY FONSECA MD Unavailable Unavailable KATHY FONSECA MD Unavailable Unavailable KATHY FONSECA MD Unavailable Unavailable KATHY FONSECA MD Unavailable Unavailable MARIANKATHY MD Unavailable Unavailable KATHY FONSECA MD Unavailable Unavailable KATHY FONSECA MD Unavailable Unavailable KATHY FONSECA MD Unavailable Unavailable KATHY FONSECA MD Unavailable Unavailable KATHY FONSECA MD Unavailable Unavailable KATHY FONSECA MD Unavailable Unavailable KATHY FONSECA MD Unavailable Unavailable KATHY FONSECA MD Unavailable Unavailable KATHY FONSECA MD Unavailable Unavailable KATHY FONSECA MD Unavailable Unavailable KATHY FONSECA MD Unavailable Unavailable KATHY FONSECA MD Unavailable Unavailable KATHY FONSECA MD Unavailable Unavailable KATHY FONSECA MD Unavailable Unavailable KATHY FONSECA MD Unavailable Unavailable KATHY FONSECA MD Unavailable Unavailable MARIAN, CHAVEZ MD Unavailable Unavailable MARIAN, CHAVEZ MD Unavailable Unavailable MARIAN, CHAVEZ MD Unavailable Unavailable MARIAN, CHAVEZ MD Unavailable Unavailable MARIAN, CHAVEZ MD Unavailable Unavailable MARIAN, CHAVEZ MD Unavailable Unavailable MARIAN, CHAVEZ MD Unavailable Unavailable MARIAN, CHAVEZ MD Unavailable Unavailable MARIAN, CHAVEZ MD Unavailable Unavailable MARIAN, CHAVEZ MD Unavailable Unavailable MARIAN, CHAVEZ MD Unavailable Unavailable MARIAN, CHAVEZ MD Unavailable Unavailable MARIAN, CHAVEZ MD Unavailable Unavailable MARIAN, CHAVEZ MD Unavailable Unavailable MARIAN, CHAVEZ MD Unavailable Unavailable MARIAN, CHAVEZ MD Unavailable Unavailable MARIAN, CHAVEZ MD Unavailable Unavailable MARIAN, CHAVEZ MD Unavailable Unavailable MARIAN, CHAVEZ MD Unavailable Unavailable MARIAN, CHAVEZ MD Unavailable Unavailable MARIAN, CHAVEZ MD Unavailable Unavailable MARIAN, CHAVEZ MD Unavailable Unavailable MARIAN, CHAVEZ MD Unavailable Unavailable MARIAN, CHAVEZ MD Unavailable Unavailable MARIAN, CHAVEZ MD Unavailable Unavailable MARIAN, CHAVEZ MD Unavailable Unavailable MARIAN, CHAVEZ MD Unavailable Unavailable JJ LUCIA MD Unavailable Unavailable JJ LUCIA MD Unavailable Unavailable JJ LUCIA MD Unavailable Unavailable JJ LUCIA MD Unavailable Unavailable JJ LUCIA MD Unavailable Unavailable JJ LUCIA MD Unavailable Unavailable JJ LUCIA MD Unavailable Unavailable JJ LUCIA MD Unavailable Unavailable JJ LUCIA MD Unavailable Unavailable JJ LUCIA MD Unavailable Unavailable JJ LUCIA MD Unavailable Unavailable JJ LUCIA MD Unavailable Unavailable JJ LUCIA MD Unavailable Unavailable JJ LUCIA MD Unavailable Unavailable JJ LUCIA MD Unavailable Unavailable JJ LUCIA MD Unavailable Unavailable JJ LUCIA MD Unavailable Unavailable JJ LUCIA MD Unavailable Unavailable JJ LUCIA MD Unavailable Unavailable JJ LUCIA MD Unavailable Unavailable JJ LUCIA MD Unavailable Unavailable JJ LUCIA MD Unavailable Unavailable JJ LUCIA MD Unavailable Unavailable JJ LUCIA MD Unavailable Unavailable JJ LUCIA MD Unavailable Unavailable JJ LUCIA MD Unavailable Unavailable JJ LUCIA MD Unavailable Unavailable JJ LUCIA MD Unavailable Unavailable JJ LUCIA MD Unavailable Unavailable JJ LUCIA MD Unavailable Unavailable JJ LUCIA MD Unavailable Unavailable JJ LUCIA MD Unavailable Unavailable JJ LUCIA MD Unavailable Unavailable Re-disclosure Warning The records that you are about to access may contain information from federally-assisted alcohol or drug abuse programs. If such information is present, then the following federally mandated warning applies: This information has been disclosed to you from records protected by federal confidentiality rules (42 CFR part 2). The federal rules prohibit you from making any further disclosure of this information unless further disclosure is expressly permitted by the written consent of the person to whom it pertains or as otherwise permitted by 42 CFR part 2. A general authorization for the release of medical or other information is NOT sufficient for this purpose. The Federal rules restrict any use of the information to criminally investigate or prosecute any alcohol or drug abuse patient.The records that you are about to access may contain highly sensitive health information, the redisclosure of which is protected by Article 27-F of the [facility] Public Health law. If you continue you may have access to information: Regarding HIV / AIDS; Provided by facilities licensed or operated by the [facility] Office of Mental Health; or Provided by the [facility] Office for People With Developmental Disabilities. If such information is present, then the following [facility] mandated warning applies: This information has been disclosed to you from confidential records which are protected by state law. State law prohibits you from making any further disclosure of this information without the specific written consent of the person to whom it pertains, or as otherwise permitted by law. Any unauthorized further disclosure in violation of state law may result in a fine or penitentiary sentence or both. A general authorization for the release of medical or other information is NOT sufficient authorization for further disc losure. Family History Family Member Name Family Member Gender Family Member Status Date o f Status Description Data Source(s) Unknown Unknown Problem [facility] ([facility]) Unknown Male Problem [facility] ([facility]) Unknown Unknown Problem [facility] ([facility] [place] Encounters Encounter Providers Location Date Indications Data Source(s ) Outpatient Attender: Susanne JESUS PA-C Physical Therapy 07/09/2020 09:15:00 AM EST [facility] ([facility]) Outpatient Attender: KATHY PICKETT.[email or web address]-MARY 04/05/2020 12:00:00 AM EDT [facility] Outpatient 09/29/2019 09:13:[address] [facility] Outpatient Attender: JJ LUCIA MD Physical Therapy 04:22:00 PM EDT [facility] ([facility]) Outpatient 09/11/2019 01:53:00 PM EDT [facility] Outpatient Attender: KATHY FONSECA MD [email or web address] 08/09/2019 12:00:00 AM EST [facility] Medications Medication Brand Name Start Date Product Form Dose Route Admi nistrative Instructions Pharmacy Instructions Status Indications Reaction Description Data Source(s) 25 mg 08/07/2020 12:00:00 AM EST tablet 3 TAKE ONE-HALF TABLET BY MOUTH EVERY DAY TAKE ONE-HALF TABLET BY MOUTH EVERY DAY SOLD: 08/07/2020 [facility] 40 mg 10/08/2019 12:00:00 AM EDT tablet 1 TAKE ONE TABLET BY MOUTH EVERY DAY AT BEDTIME TAKE ONE TABLET BY MOUTH EVERY DAY AT BEDTIME SOLD: 10/08/2019 [facility] 5 mg 10/08/2019 12:00:00 AM EDT tablet 1 TAKE ONE TABLET BY MOUTH TWICE A DAY TAKE ONE TABLET BY MOUTH TWICE A DAY SOLD: 10/08/2019 [facility] 250 mg 07/27/2019 12:00:00 AM EST tablet 2 TAKE 1 TABLET BY MOUTH EVERY 18 HOURS TAKE 1 TABLET BY MOUTH EVERY 18 HOURS SOLD: 07/27/2019 [facility] Insurance Providers Payer name Policy type / Coverage type Policy ID Covered democrat ID Covered democrat's relationship to zayas Policy Zayas Plan Information EMEDNY [id number] SP [id number] MEDICARE [id number] SP [id number] MEDICARE [id number] SP [id number] A MEDICARE [id number] SP [id number] J97 MEDICAID [id number] Melani [id number] MEDICARE [id number] Melani [id number] J97 MEDICAID [id number] SP [id number] MEDICAID M [id number] S [id number] MEDICARE C [id number] S [id number] [facility]) - [id number] 1 [id number] 1 [id number] [place] - [id number] MEDICARE [id number] SP [id number] D MEDICARE [id number] Melani [id number] D MEDICAID [id number] Medicaid [place] Medig[place] Part B [id number] Self [id number] Medicare [place] Gov[place] Serv[place] Medicare Primary [id number] Self [id number] MEDICAID UNAVAILABLE UNAVAILA BLE MEDICARE C [id number] S [id number] D MEDICARE [id number] SP [id number] D MEDICAID M [id number] [place] [id number] Self [id number] [place] Medicare Primary [id number] Self [id number] [place] [id number] Self [id number] [place] Medicare Primary [id number] Self [id number] Medicare [facility] Medicare Primary [id number] Self [id number] [place] [id number] Self [id number] [place] Medicare Primary [id number] Self [id number] MEDICARE [id number] SP [id number] T MEDICAID [facility] [id number] SP [id number] MEDICARE [id number] SP [id number] D MEDICARE [id number] SP [id number] A MEDICAID [facility] [id number] SP [id number] MEDICAID [facility] [id number] SP [id number] MEDICARE [id number] SP [id number] MEDICARE [id number] SP [id number] MEDICARE [id number] MEDICARE [id number] SP [id number] D MEDICARE [id number] SP [id number] D MEDICARE [place] [id number] D MEDICARE [place] [id number] D Medicare Medicare Primary Self [id number] D Surgeries/Procedures Procedure Description Date Indications Data Source(s) RADEX FINGR MINIMUM 2 VIEWS 07/26/2020 12:00:00 AM EST [facility] ([facility] ) RADEX FOOT COMPLETE MINIMUM 3 VIEWS 07/26/2020 12:00:0 0 AM EST [facility] ([facility] ) CLTX PHLNGL FX PROX/MIDDLE PX/F/T W/O MANJ EA 07/09/19 12:00:00 AM EST [facility] ([facility] ) FX Metatarsal W/O Manipulation 07/09/2020 12:00:00 AM EST [facility] ([facility]) RADEX FINGR MINIMUM 2 VIEWS 07/09/2020 12:00:00 AM EST [facility] ([facility]) RADEX SHOULDER COMPLETE MINIMUM 2 VIEWS 11/01/2019 12: 00:00 AM EDT [facility] ([facility]) RADEX SHOULDER COMPLETE MINIMUM 2 VIEWS 10/12/2019 12: 00:00 AM EDT [facility] ([facility]) Apply Cast Long Arm 10/05/2019 12:00:00 AM EDT [facility] ([facility]) RADEX SHOULDER COMPLETE MINIMUM 2 VIEWS 10/05/2019 12: 00:00 AM EDT [facility] ([facility]) RADEX WRIST COMPLETE MINIMUM 3 VIEWS 10/05/2019 12:00: 00 AM EDT [facility] ([facility]) CLTX PROXIMAL HUMERAL FRACTURE W/O MANIPULATION 2019 12:00:00 AM EDT [facility] ([facility]) Results ID Date Data Source [id number] 08/21/2020 01:00:00 PM EST [facility] Name Value Range Interpretation Code Description Data Jennifer rce(s) Supporting Document(s) SARS coronavirus 2 RNA Not Detected [facility] This lab was ordered by [facility] and reported by [facility]. ID Date Data Source [id number] 08/14/2020 12:00:00 PM EST [facility] Name Value Range Interpretation Code Description Data Jennifer rce(s) Supporting Document(s) SARS coronavirus 2 RNA We are UNABLE to reliably de termine a result for the specimen due to [facility] This lab was ordered by [facility] and reported by [facility]. ID Date Data Source [id number] 08/07/2020 11:30:00 AM EST [facility] Name Value Range Interpretation Code Description Data Jennifer rce(s) Supporting Document(s) SARS coronavirus 2 RNA Not Detected [facility] This lab was ordered by [facility] and reported by [facility]. ID Date Data Source [id number] 07/31/2020 09:15:00 AM EST [facility] Name Value Range Interpretation Code Description Data Jennifer rce(s) Supporting Document(s) SARS coronavirus 2 RNA Not Detected [facility] This lab was ordered by [facility] and reported by [facility]. ID Date Data Source [id number] 07/24/2020 10:00:00 AM EST [facility] Name Value Range Interpretation Code Description Data Jennifer rce(s) Supporting Document(s) SARS coronavirus 2 RNA Not Detected [facility] This lab was ordered by [facility] and reported by [facility]. ID Date Data Source [id number] 07/17/2020 11:00:00 AM EST [facility] Name Value Range Interpretation Code Description Data Jennifer rce(s) Supporting Document(s) SARS coronavirus 2 RNA Not Detected [facility] This lab was ordered by [facility] and reported by [facility]. ID Date Data Source [id number] 07/16/2020 08:12:00 AM EST [facility] Name Value Range Interpretation Code Description Data Jennifer rce(s) Supporting Document(s) SARS coronavirus 2 RNA [Presence] in Res piratory specimen by NAYA with probe detection NEGATIVE [facility] This lab was ordered by [facility] a nd reported by [facility]. ID Date Data Source [id number] 07/11/2020 11:00:00 PM EST [facility] Name Value Range Interpretation Code Description Data Jennifer rce(s) Supporting Document(s) SARS-CoV-2 (COVID 19) NEGATIVE - SARS-CoV-2 (COVID19) [facility] This lab was ordered by [facility] a nd reported by [facility]. ID Date Data Source [id number] 07/08/2020 09:30:00 AM EST [facility] Name Value Range Interpretation Code Description Data Jennifer rce(s) Supporting Document(s) SARS coronavirus 2 RNA Not Detected [facility] This lab was ordered by [facility] and reported by [facility]. ID Date Data Source [id number] 07/02/2020 02:16:00 PM EST [facility] Name Value Range Interpretation Code Description Data Jennifer rce(s) Supporting Document(s) SARS coronavirus 2 RNA [facility] This lab was ordered by [facility] and reported by [facility]. ID Date Data Source [id number] 06/26/2020 11:00:00 AM EST [facility] Name Value Range Interpretation Code Description Data Jennifer rce(s) Supporting Document(s) SARS coronavirus 2 RNA [facility] This lab was ordered by [facility] and reported by [facility]. ID Date Data Source [id number] 06/20/2020 10:45:00 AM EST [facility] Name Value Range Interpretation Code Description Data Jennifer rce(s) Supporting Document(s) SARS coronavirus 2 RNA [facility] This lab was ordered by [facility] and reported by [facility]. ID Date Data Source [id number] 06/16/2020 01:34:00 PM EST [facility] Name Value Range Interpretation Code Description Data Jennifer rce(s) Supporting Document(s) SARS coronavirus 2 RNA [facility] This lab was ordered by [facility] and reported by [facility]. ID Date Data Source [id number] 05/29/2020 01:00:00 PM EST [facility] Name Value Range Interpretation Code Description Data Jennifer rce(s) Supporting Document(s) SARS coronavirus 2 RNA [facility] This lab was ordered by [facility] and reported by [facility]. ID Date Data Source [id number] 05/23/2020 06:00:00 AM EST [facility] Name Value Range Interpretation Code Description Data Jennifer rce(s) Supporting Document(s) SARS coronavirus 2 RNA [facility] This lab was ordered by [facility] and reported by [facility]. ID Date Data Source [id number] 05/16/2020 11:30:00 AM EST [facility] Name Value Range Interpretation Code Description Data Jennifer rce(s) Supporting Document(s) SARS coronavirus 2 RNA [facility] This lab was ordered by [facility] and reported by [facility]. ID Date Data Source [id number] 11/20/2019 10:52:00 AM EDT [facility] Name Value Range Interpretation Code Description Data Jennifer rce(s) Supporting Document(s) SARS CORONAVIRUS 2 RNA [facility] This lab was ordered by [facility] and reported by [facility]. Procedure Vital Signs ID Date Data Source UNK Name Value Range Interpretation Code Description Data Source(s) Body weight 54.886 kg 54.[address] [facility] Body mass index (BMI) [Ratio] 23.6 kg/m2 23.6 k g/m2 [facility] ([facility], ) Body weight 121.00 [lb_av] 121.00 [lb_av] SHAISTA Grimes ([facility], ) Body height 60 [in_i] 60 [in_i] [facility] 5'0" Diastolic blood pressure 82 mm[Hg] 82 mm[Hg] CORNEL ([facility], ) Systolic blood pressure 144 mm[Hg] 144 mm[Hg] Josue VALDIVIA ([facility], )
[2020-08-28] MEDS ORDERED: POTASSIUM CHLORIDE 10 MEQ SR TABLET PO ONE (15:20)
[2020-08-28] MEDS ORDERED: KCL 10MEQ/100ML SWI (KRUN) 10 MEQ in IV 1 EA IV ONE ×2 (15:30→16:30)
[2020-08-28 16:58] LABS: ALBUMIN 3.6 GM/DL (3.2-5.2); BILIRUBIN,DIRECT 0.1 MG/DL (0.0-0.2); BILIRUBIN,TOTAL 0.5 MG/DL (0.2-1.0); CALCIUM LEVEL 9.5 MG/DL (8.8-10.2); CK-MB VALUE MASS 1.3 NG/ML (<3.6); CREATININE FOR GFR 1.84 MG/DL (0.55-1.30); MB/CK RELATIVE INDEX 2.45 (< OR =4); POTASSIUM SERUM 3.2 MEQ/L (3.5-5.1); TOTAL PROTEIN 7.1 GM/DL (6.4-8.2); TROPONIN I 0.05 NG/ML (< 0.10)
[2020-08-28 21:28] VITALS: BP 128/67
--- NOTE | 2020-08-29 09:31 | ECGEPIP ---
[facility] - ED Test Date: 2020-08-28 Pat Name: MIGUELINA GOMEZ Department: Room: - Gender: Female Panel Beater: JEFF : 1935 Requested By: BOBBY COWART Order Number: [id number] Reading MD: Yuliana Suresh Measurements Intervals [place] Rate: 66 P: 140 GA: 172 QRS: -28 QRSD: 158 T: 148 QT: 416 QTc: 436 Interpretive Statements Unusual P axis, possible ectopic atrial rhythm Left bundle branch block Electronically Signed on 08-29-2020 9:31:15 EST by Yuliana Suresh
== END 2020-08-28 21:45 | disposition home or self-care (01) ==
LOC: EDBD 12:58 → M ED 12:58
DX: E87.6 Hypokalemia (principal); I50.9 Heart failure, unspecified; N18.30 Chronic kidney disease, stage 3 unspecified; I44.7 Left bundle-branch block, unspecified; I11.0 Hypertensive heart disease with heart failure; I48.91 Unspecified atrial fibrillation; N17.9 Acute kidney failure, unspecified; E78.5 Hyperlipidemia, unspecified; Z79.899 Other long term (current) drug therapy; Z79.82 Long term (current) use of aspirin; Z88.0 Allergy status to penicillin; Z88.7 Allergy status to serum and vaccine; Z20.822 Contact with and (suspected) exposure to COVID-19
CPT/HCPCS: 36415; 71045; 80047; 80048; 80076; 82550; 82553; 83880; 84484; 85025; 85610; 93005; 93041; 94760; 96360; 96361; 99285; U0003

== ENCOUNTER → 2020-08-28 | Outpatient (REF) | payer MEDICARE, MEDICAID ==
[2020-08-28 10:10] LABS: CREATININE FOR GFR 2.14 MG/DL (0.55-1.30); GLOMERULAR FILTRATION RATE 23.5 (>32); POTASSIUM SERUM 3.3 MEQ/L (3.5-5.1)
== END ==
PROVIDERS: ATTEND Internal Medicine
DX: N17.9 Acute kidney failure, unspecified (principal); Z20.822 Contact with and (suspected) exposure to COVID-19

== ENCOUNTER → 2020-08-29 | Outpatient (REF) | payer MEDICARE, MEDICAID ==
[~2020-08-29] MED LIST changes: +DIGO0.123; +LOPR1TAB6 PO; +METO50TA7; +NITR100C2
[2020-08-29 09:48] LABS: CALCIUM LEVEL 9.5 MG/DL (8.8-10.2); CREATININE FOR GFR 1.36 MG/DL (0.55-1.30); GLOMERULAR FILTRATION RATE 39.6 (>32); POTASSIUM SERUM 4.1 MEQ/L (3.5-5.1)
== END ==
PROVIDERS: ATTEND Internal Medicine
DX: I50.9 Heart failure, unspecified (principal)

== ENCOUNTER → 2020-09-03 | Outpatient (REF) | payer MEDICARE, MEDICAID ==
[~2020-09-03] MED LIST changes: +ASPI-569 PO; -ASPI81TAEC PO
[2020-09-03 11:55] LABS: CALCIUM LEVEL 8.8 MG/DL (8.8-10.2); CREATININE FOR GFR 1.6 MG/DL (0.55-1.30); DIGOXIN LEVEL 1.3 NG/ML (0.5-2.0); GLOMERULAR FILTRATION RATE 32.9 (>32); POTASSIUM SERUM 3.8 MEQ/L (3.5-5.1)
== END ==
PROVIDERS: ATTEND Internal Medicine
DX: I48.91 Unspecified atrial fibrillation (principal)

== ENCOUNTER → 2020-09-04 | Outpatient (REF) | payer MEDICARE, MEDICAID | PROVIDERS: ATTEND Internal Medicine | DX: Z20.822 Contact with and (suspected) exposure to COVID-19 (principal) ==

== ENCOUNTER → 2020-09-11 | Outpatient (REF) | payer MEDICARE, MEDICAID | PROVIDERS: ATTEND Internal Medicine | DX: Z20.822 Contact with and (suspected) exposure to COVID-19 (principal) ==

== ENCOUNTER → 2020-09-16 | Outpatient (REF) | payer MEDICARE, MEDICAID | PROVIDERS: ATTEND Internal Medicine | DX: I48.91 Unspecified atrial fibrillation (principal) ==

== ENCOUNTER → 2020-09-23 | Outpatient (REF) | payer MEDICARE, MEDICAID ==
[2020-09-23 10:40] LABS: HEMATOCRIT 43.3 % (36.0-47.0); HEMOGLOBIN 13.9 g/dl (12.0-15.5); MEAN CORPUSCULAR HGB CONC 32.1 g/dl (32.0-36.5); MEAN CORPUSCULAR VOLUME 99.5 fl (80.0-96.0); PLATELET COUNT, AUTOMATED 338 10^3/uL (150-450); RED BLOOD COUNT 4.35 10^6/uL (4.00-5.40)
[2020-09-23 11:37] LABS: CALCIUM LEVEL 9.4 MG/DL (8.8-10.2); CREATININE FOR GFR 1.18 MG/DL (0.55-1.30); DIGOXIN LEVEL 1.3 NG/ML (0.5-2.0); GLOMERULAR FILTRATION RATE 46.7 (>32); POTASSIUM SERUM 3.9 MEQ/L (3.5-5.1)
== END ==
PROVIDERS: ATTEND Internal Medicine
DX: I48.91 Unspecified atrial fibrillation (principal); Z79.899 Other long term (current) drug therapy

== ENCOUNTER → 2020-10-15 | Outpatient (REF) | payer MEDICARE, MEDICAID | PROVIDERS: ATTEND Internal Medicine | DX: Z20.822 Contact with and (suspected) exposure to COVID-19 (principal) ==

== ENCOUNTER → 2020-10-29 | Outpatient (REF) | payer MEDICARE, MEDICAID ==
[2020-10-29 11:03] LABS: HEMATOCRIT 42.8 % (36.0-47.0); HEMOGLOBIN 14.3 g/dl (12.0-15.5); MEAN CORPUSCULAR HEMOGLOBIN 33.3 pg (27.0-33.0); MEAN CORPUSCULAR HGB CONC 33.4 g/dl (32.0-36.5); MEAN CORPUSCULAR VOLUME 99.5 fl (80.0-96.0); PLATELET COUNT, AUTOMATED 358 10^3/uL (150-450); WHITE BLOOD COUNT 17.9 10^3/uL (4.0-10.0)
[2020-10-29 11:37] LABS: CALCIUM LEVEL 9.4 MG/DL (8.8-10.2); CREATININE FOR GFR 1.35 MG/DL (0.55-1.30); DIGOXIN LEVEL 1.3 NG/ML (0.5-2.0); POTASSIUM SERUM 4.7 MEQ/L (3.5-5.1); URIC ACID 5.2 MG/DL (2.6-6.0)
[2020-10-29 15:16] LABS: APPEARANCE, URINE CLOUDY (CLEAR); BACTERIA, URINE AUTO 1+ (NEGATIVE); BILIRUBIN, URINE AUTO NEGATIVE (NEGATIVE); BLOOD, URINE BLOOD 1+ (NEGATIVE); COLOR, URINE YELLOW (YELLOW); GLUCOSE, URINE (UA) AUTO NEGATIVE (NEGATIVE); KETONE, URINE AUTO NEGATIVE (NEGATIVE); LEUKOCYTE ESTERASE, URINE AUTO 3+ (NEGATIVE); MUCUS, URINE SMALL (NEGATIVE); NITRITE, URINE AUTO NEGATIVE (NEGATIVE); PROTEIN, URINE AUTO NEGATIVE (NEGATIVE); RBC, URINE AUTO 2 /HPF (0-3); SPECIFIC GRAVITY URINE AUTO 1.011 (1.002-1.035); SQUAMOUS EPITHELIAL CELL UR AU 0 /HPF (0-6); UROBILINOGEN, URINE AUTO 0.2 mg/dL (0.0-2.0); WBC, URINE AUTO TNTC /HPF (0-3)
== END ==
PROVIDERS: ATTEND Internal Medicine
DX: D72.829 Elevated white blood cell count, unspecified (principal); Z20.822 Contact with and (suspected) exposure to COVID-19; Z51.81 Encounter for therapeutic drug level monitoring; Z79.899 Other long term (current) drug therapy
CPT/HCPCS: 36415; 80048; 80162; 81001; 83880; 84550; 85027; 87088; U0003

== ENCOUNTER → 2020-11-01 | Outpatient (REF) | payer MEDICARE, MEDICAID ==
[2020-11-01 12:20] LABS: HEMATOCRIT 43.2 % (36.0-47.0); HEMOGLOBIN 14.1 g/dl (12.0-15.5); MEAN CORPUSCULAR HEMOGLOBIN 32.1 pg (27.0-33.0); MEAN CORPUSCULAR HGB CONC 32.6 g/dl (32.0-36.5); MEAN CORPUSCULAR VOLUME 98.4 fl (80.0-96.0); PLATELET COUNT, AUTOMATED 369 10^3/uL (150-450); RED BLOOD COUNT 4.39 10^6/uL (4.00-5.40)
[2020-11-01 12:56] LABS: CREATININE FOR GFR 1.32 MG/DL (0.55-1.30); POTASSIUM SERUM 4.4 MEQ/L (3.5-5.1)
== END ==
PROVIDERS: ATTEND Internal Medicine
DX: D72.829 Elevated white blood cell count, unspecified (principal)

== ENCOUNTER → 2020-11-05 | Outpatient (REF) | payer MEDICARE, MEDICAID ==
[2020-11-05 10:46] LABS: BASO # 0.1 10^3/uL (0.0-0.2); BASO % 0.9 % (0.0-1.0); EOS # 0.3 10^3/uL (0.0-0.5); EOS % 2.3 % (0.0-3.0); HEMATOCRIT 39.5 % (36.0-47.0); HEMOGLOBIN 12.8 g/dl (12.0-15.5); LYMPH # 1.7 10^3/uL (1.5-5.0); LYMPH % 13.1 % (24.0-44.0); MEAN CORPUSCULAR HGB CONC 32.4 g/dl (32.0-36.5); MEAN CORPUSCULAR VOLUME 101.8 fl (80.0-96.0); MONO # 1.1 10^3/uL (0.0-0.8); MONO % 8.2 % (2.0-8.0); NEUTROPHILS # 9.4 10^3/uL (1.5-8.5); NEUTROPHILS % 73.4 % (36.0-66.0); PLATELET COUNT, AUTOMATED 317 10^3/uL (150-450); RED BLOOD COUNT 3.88 10^6/uL (4.00-5.40); WHITE BLOOD COUNT 12.8 10^3/uL (4.0-10.0)
[2020-11-05 11:14] LABS: ALBUMIN 3.3 GM/DL (3.2-5.2); CALCIUM LEVEL 9.2 MG/DL (8.8-10.2); CREATININE FOR GFR 1.29 MG/DL (0.55-1.30); GLOMERULAR FILTRATION RATE 42.1 (>32); PHOSPHORUS LEVEL 3.5 MG/DL (2.5-4.9); POTASSIUM SERUM 4.2 MEQ/L (3.5-5.1); URIC ACID 4.6 MG/DL (2.6-6.0)
[2020-11-05 11:23] LABS: PTH INTACT 100.7 PG/ML (18.5-88.0)
== END ==
PROVIDERS: ATTEND Internal Medicine
DX: I11.0 Hypertensive heart disease with heart failure (principal); I50.9 Heart failure, unspecified

== ENCOUNTER → 2020-11-26 | Outpatient (REF) | payer MEDICARE, MEDICAID ==
[2020-11-26 12:24] LABS: HEMATOCRIT 44.1 % (36.0-47.0); MEAN CORPUSCULAR HEMOGLOBIN 32.8 pg (27.0-33.0); MEAN CORPUSCULAR HGB CONC 31.7 g/dl (32.0-36.5); MEAN CORPUSCULAR VOLUME 103.3 fl (80.0-96.0); PLATELET COUNT, AUTOMATED 370 10^3/uL (150-450); RED BLOOD COUNT 4.27 10^6/uL (4.00-5.40); WHITE BLOOD COUNT 14.4 10^3/uL (4.0-10.0)
[2020-11-26 13:01] LABS: CALCIUM LEVEL 10.2 MG/DL (8.8-10.2); CREATININE FOR GFR 1.17 MG/DL (0.55-1.30); DIGOXIN LEVEL 1.2 NG/ML (0.5-2.0); POTASSIUM SERUM 4.7 MEQ/L (3.5-5.1)
== END ==
PROVIDERS: ATTEND Internal Medicine
DX: I48.91 Unspecified atrial fibrillation (principal)

== ENCOUNTER → 2020-11-28 | Outpatient (REF) | payer MEDICARE, MEDICAID ==
[~2020-11-28] MED LIST changes: +ASPI81CH33 PO; +DEPA250T32 PO; +DICL20GE TP; -DIGO0.123; +ENSU1LIQ36 PO; +ERGO500029 PO; +FLEEENE12 PR; +FLON1SPR NARES; -ISOS10TA PO; +ISOS10TA3 PO; +ISOS10TA9 PO; -ISOS1TAB13 PO; +LANO454C TOP; +METO1TAB87 PO; -MONT10TA10 PO; +MONT10TA97 PO; +OMEP40CA4 PO; -OMEP40CA97 PO; +REST0.05 OD; +VITA500C24 PO; +ZINC1TAB2 PO
[2020-11-28 10:09] LABS: HEMATOCRIT 41.4 % (36.0-47.0); HEMOGLOBIN 13.4 g/dl (12.0-15.5); MEAN CORPUSCULAR HEMOGLOBIN 32.9 pg (27.0-33.0); MEAN CORPUSCULAR HGB CONC 32.4 g/dl (32.0-36.5); MEAN CORPUSCULAR VOLUME 101.7 fl (80.0-96.0); PLATELET COUNT, AUTOMATED 336 10^3/uL (150-450); RED BLOOD COUNT 4.07 10^6/uL (4.00-5.40); WHITE BLOOD COUNT 13.6 10^3/uL (4.0-10.0)
[2020-11-28 10:36] LABS: CALCIUM LEVEL 9.8 MG/DL (8.8-10.2); CREATININE FOR GFR 1.35 MG/DL (0.55-1.30); GLOMERULAR FILTRATION RATE 39.9 (>32); POTASSIUM SERUM 4.5 MEQ/L (3.5-5.1)
== END ==
PROVIDERS: ATTEND Internal Medicine
DX: D72.829 Elevated white blood cell count, unspecified (principal)

== ENCOUNTER → 2020-12-03 | Outpatient (REF) | payer MEDICARE, MEDICAID ==
[2020-12-03 11:39] LABS: HEMOGLOBIN 14.1 g/dl (12.0-15.5); MEAN CORPUSCULAR HEMOGLOBIN 32.7 pg (27.0-33.0); MEAN CORPUSCULAR VOLUME 102.1 fl (80.0-96.0); PLATELET COUNT, AUTOMATED 380 10^3/uL (150-450); RED BLOOD COUNT 4.31 10^6/uL (4.00-5.40); WHITE BLOOD COUNT 15.5 10^3/uL (4.0-10.0)
[2020-12-03 12:01] LABS: CALCIUM LEVEL 9.9 MG/DL (8.8-10.2); CREATININE FOR GFR 1.23 MG/DL (0.55-1.30); GLOMERULAR FILTRATION RATE 44.4 (>32); POTASSIUM SERUM 4.7 MEQ/L (3.5-5.1)
== END ==
PROVIDERS: ATTEND Physician Assistant
DX: I50.9 Heart failure, unspecified (principal)

== ENCOUNTER → 2020-12-10 | Outpatient (REF) | payer MEDICARE, MEDICAID ==
[~2020-12-10] MED LIST changes: -ASPI81CH33 PO; -DEPA250T32 PO; -DICL20GE TP; +DIGO0.123; -ENSU1LIQ36 PO; -ERGO500029 PO; -FLEEENE12 PR; -FLON1SPR NARES; +ISOS10TA PO; -ISOS10TA3 PO; -ISOS10TA9 PO; +ISOS1TAB13 PO; -LANO454C TOP; -METO1TAB87 PO; +MONT10TA10 PO; -MONT10TA97 PO; -OMEP40CA4 PO; +OMEP40CA97 PO; -REST0.05 OD; -VITA500C24 PO; -ZINC1TAB2 PO
[2020-12-10 10:57] LABS: HEMATOCRIT 42.3 % (36.0-47.0); HEMOGLOBIN 13.5 g/dl (12.0-15.5); MEAN CORPUSCULAR HEMOGLOBIN 32.4 pg (27.0-33.0); MEAN CORPUSCULAR HGB CONC 31.9 g/dl (32.0-36.5); MEAN CORPUSCULAR VOLUME 101.4 fl (80.0-96.0); PLATELET COUNT, AUTOMATED 340 10^3/uL (150-450); RED BLOOD COUNT 4.17 10^6/uL (4.00-5.40); WHITE BLOOD COUNT 14.3 10^3/uL (4.0-10.0)
== END ==
PROVIDERS: ATTEND Physician Assistant
DX: D72.829 Elevated white blood cell count, unspecified (principal)

== ENCOUNTER → 2021-01-07 | Outpatient (REF) | payer MEDICARE, MEDICAID ==
[~2021-01-07] MED LIST changes: +OMEP40CA4 PO; -OMEP40CA97 PO
[2021-01-07 12:21] LABS: HEMATOCRIT 44.7 % (36.0-47.0); HEMOGLOBIN 14.3 g/dl (12.0-15.5); MEAN CORPUSCULAR HEMOGLOBIN 32.9 pg (27.0-33.0); PLATELET COUNT, AUTOMATED 383 10^3/uL (150-450); RED BLOOD COUNT 4.34 10^6/uL (4.00-5.40)
[2021-01-07 12:54] LABS: CALCIUM LEVEL 9.6 MG/DL (8.8-10.2); CREATININE FOR GFR 1.16 MG/DL (0.55-1.30); GLOMERULAR FILTRATION RATE 47.5 (>32); POTASSIUM SERUM 4.9 MEQ/L (3.5-5.1)
== END ==
PROVIDERS: ATTEND Internal Medicine
DX: N18.9 Chronic kidney disease, unspecified (principal)

== ENCOUNTER → 2021-01-14 | Outpatient (REF) | payer MEDICARE, MEDICAID ==
[~2021-01-14] MED LIST changes: +ASPI81CH33 PO; +DEPA250T32 PO; +DICL20GE TP; -DIGO0.123; +ENSU1LIQ36 PO; +ERGO500029 PO; +FLEEENE12 PR; +FLON1SPR NARES; -ISOS10TA PO; +ISOS10TA3 PO; +ISOS10TA9 PO; -ISOS1TAB13 PO; +LANO454C TOP; +METO1TAB87 PO; -MONT10TA10 PO; +MONT10TA97 PO; +REST0.05 OD; +VITA500C24 PO; +ZINC1TAB2 PO
== END ==
PROVIDERS: ATTEND Internal Medicine
DX: I12.9 Hypertensive chronic kidney disease with stage 1 through stage 4 chronic kidney disease, or unspecified chronic kidney disease (principal); N18.9 Chronic kidney disease, unspecified; Z79.899 Other long term (current) drug therapy

== ENCOUNTER → 2021-01-15 | Outpatient (REF) | payer MEDICARE, MEDICAID ==
[~2021-01-15] MED LIST changes: -ASPI81CH33 PO; -DEPA250T32 PO; -DICL20GE TP; +DIGO0.123; -ENSU1LIQ36 PO; -ERGO500029 PO; -FLEEENE12 PR; -FLON1SPR NARES; +ISOS10TA PO; -ISOS10TA3 PO; -ISOS10TA9 PO; +ISOS1TAB13 PO; -LANO454C TOP; -METO1TAB87 PO; +MONT10TA10 PO; -MONT10TA97 PO; -REST0.05 OD; -VITA500C24 PO; -ZINC1TAB2 PO
[2021-01-15 11:00] LABS: DIGOXIN LEVEL 1.6 NG/ML (0.5-2.0); URIC ACID 4.7 MG/DL (2.6-6.0)
== END ==
PROVIDERS: ATTEND Internal Medicine
DX: I48.91 Unspecified atrial fibrillation (principal); M10.9 Gout, unspecified

== ENCOUNTER → 2021-02-05 | Outpatient (REF) | payer MEDICARE, MEDICAID ==
[2021-02-05 10:43] LABS: HEMATOCRIT 43.2 % (36.0-47.0); HEMOGLOBIN 14.1 g/dl (12.0-15.5); MEAN CORPUSCULAR HEMOGLOBIN 32.9 pg (27.0-33.0); MEAN CORPUSCULAR HGB CONC 32.6 g/dl (32.0-36.5); MEAN CORPUSCULAR VOLUME 100.9 fl (80.0-96.0); PLATELET COUNT, AUTOMATED 375 10^3/uL (150-450); RED BLOOD COUNT 4.28 10^6/uL (4.00-5.40); WHITE BLOOD COUNT 15.8 10^3/uL (4.0-10.0)
[2021-02-05 11:19] LABS: CALCIUM LEVEL 9.6 MG/DL (8.8-10.2); CREATININE FOR GFR 1.52 MG/DL (0.55-1.30); GLOMERULAR FILTRATION RATE 34.8 (>32); POTASSIUM SERUM 4.6 MEQ/L (3.5-5.1)
[2021-02-05 19:50] LABS: APPEARANCE, URINE TURBID (CLEAR); BACTERIA, URINE AUTO NEGATIVE (NEGATIVE); BILIRUBIN, URINE AUTO NEGATIVE (NEGATIVE); BLOOD, URINE BLOOD NEGATIVE (NEGATIVE); COLOR, URINE YELLOW (YELLOW); GLUCOSE, URINE (UA) AUTO NEGATIVE (NEGATIVE); KETONE, URINE AUTO NEGATIVE (NEGATIVE); LEUKOCYTE ESTERASE, URINE AUTO 3+ (NEGATIVE); NITRITE, URINE AUTO NEGATIVE (NEGATIVE); PROTEIN, URINE AUTO 2+ mg/dL (NEGATIVE); RBC, URINE AUTO 54 /HPF (0-3); SPECIFIC GRAVITY URINE AUTO 1.011 (1.002-1.035); SQUAMOUS EPITHELIAL CELL UR AU 2 /HPF (0-6); TRANSITIONAL EPITHELIAL AUTO 1 /HPF; UROBILINOGEN, URINE AUTO 0.2 mg/dL (0.0-2.0); WBC, URINE AUTO TNTC /HPF (0-3)
== END ==
PROVIDERS: ATTEND Internal Medicine
DX: D72.829 Elevated white blood cell count, unspecified (principal); N39.0 Urinary tract infection, site not specified

== ENCOUNTER → 2021-02-10 | Outpatient (REF) | payer MEDICARE, MEDICAID ==
[2021-02-10 12:33] LABS: HEMATOCRIT 38.2 % (36.0-47.0); HEMOGLOBIN 12.4 g/dl (12.0-15.5); MEAN CORPUSCULAR HEMOGLOBIN 33.2 pg (27.0-33.0); MEAN CORPUSCULAR HGB CONC 32.5 g/dl (32.0-36.5); MEAN CORPUSCULAR VOLUME 102.1 fl (80.0-96.0); PLATELET COUNT, AUTOMATED 331 10^3/uL (150-450); RED BLOOD COUNT 3.74 10^6/uL (4.00-5.40); WHITE BLOOD COUNT 14.6 10^3/uL (4.0-10.0)
== END ==
PROVIDERS: ATTEND Internal Medicine
DX: N39.0 Urinary tract infection, site not specified (principal)

== ENCOUNTER → 2021-02-17 | Outpatient (REF) | payer MEDICARE, MEDICAID | PROVIDERS: ATTEND Internal Medicine | DX: Z79.899 Other long term (current) drug therapy (principal) ==

== ENCOUNTER → 2021-03-12 | Outpatient (REF) | payer MEDICARE, MEDICAID ==
[2021-03-12 12:43] LABS: HEMATOCRIT 40.5 % (36.0-47.0); HEMOGLOBIN 13.1 g/dl (12.0-15.5); MEAN CORPUSCULAR HEMOGLOBIN 33.1 pg (27.0-33.0); MEAN CORPUSCULAR HGB CONC 32.3 g/dl (32.0-36.5); MEAN CORPUSCULAR VOLUME 102.3 fl (80.0-96.0); PLATELET COUNT, AUTOMATED 321 10^3/uL (150-450); RED BLOOD COUNT 3.96 10^6/uL (4.00-5.40); WHITE BLOOD COUNT 12.9 10^3/uL (4.0-10.0)
[2021-03-12 13:19] LABS: CALCIUM LEVEL 9.4 MG/DL (8.8-10.2); CREATININE FOR GFR 1.49 MG/DL (0.55-1.30); GLOMERULAR FILTRATION RATE 35.6 (>32); POTASSIUM SERUM 4.6 MEQ/L (3.5-5.1)
== END ==
PROVIDERS: ATTEND Internal Medicine
DX: I50.9 Heart failure, unspecified (principal); I48.91 Unspecified atrial fibrillation

== ENCOUNTER → 2021-03-19 | Outpatient (REF) | payer MEDICARE, MEDICAID ==
[2021-03-19 12:35] LABS: CALCIUM LEVEL 9.5 MG/DL (8.8-10.2); CREATININE FOR GFR 1.16 MG/DL (0.55-1.30); DIGOXIN LEVEL 1.5 NG/ML (0.5-2.0); GLOMERULAR FILTRATION RATE 47.5 (>32); POTASSIUM SERUM 4.9 MEQ/L (3.5-5.1)
== END ==
PROVIDERS: ATTEND Internal Medicine
DX: I48.91 Unspecified atrial fibrillation (principal); Z79.899 Other long term (current) drug therapy

== ENCOUNTER → 2021-04-16 | Outpatient (REF) | payer MEDICARE, MEDICAID ==
[2021-04-16 10:29] LABS: HEMATOCRIT 42.9 % (36.0-47.0); MEAN CORPUSCULAR HEMOGLOBIN 32.9 pg (27.0-33.0); MEAN CORPUSCULAR HGB CONC 32.6 g/dl (32.0-36.5); MEAN CORPUSCULAR VOLUME 100.7 fl (80.0-96.0); PLATELET COUNT, AUTOMATED 360 10^3/uL (150-450); RED BLOOD COUNT 4.26 10^6/uL (4.00-5.40); WHITE BLOOD COUNT 15.1 10^3/uL (4.0-10.0)
[2021-04-16 11:11] LABS: CALCIUM LEVEL 9.2 MG/DL (8.8-10.2); CREATININE FOR GFR 1.53 MG/DL (0.55-1.30); DIGOXIN LEVEL 1.1 NG/ML (0.5-2.0); GLOMERULAR FILTRATION RATE 34.5 (>32); POTASSIUM SERUM 4.3 MEQ/L (3.5-5.1); URIC ACID 4.9 MG/DL (2.6-6.0)
== END ==
PROVIDERS: ATTEND Internal Medicine
DX: I50.9 Heart failure, unspecified (principal); M10.9 Gout, unspecified

== ENCOUNTER → 2021-05-21 | Outpatient (REF) | payer MEDICARE, MEDICAID ==
[~2021-05-21] MED LIST changes: +ASPI81CH33 PO; +DEPA250T32 PO; +DICL20GE TP; -DIGO0.123; +ENSU1LIQ36 PO; +ERGO500029 PO; +FLEEENE12 PR; +FLON1SPR NARES; -ISOS10TA PO; +ISOS10TA3 PO; +ISOS10TA9 PO; -ISOS1TAB13 PO; +LANO454C TOP; +METO1TAB87 PO; -MONT10TA10 PO; +MONT10TA97 PO; +REST0.05 OD; +VITA500C24 PO; +ZINC1TAB2 PO
[2021-05-21 11:39] LABS: BASO # 0.1 10^3/uL (0.0-0.2); BASO % 0.6 % (0.0-1.0); EOS # 0.2 10^3/uL (0.0-0.5); EOS % 1.4 % (0.0-3.0); HEMATOCRIT 40.7 % (36.0-47.0); HEMOGLOBIN 13.3 g/dl (12.0-15.5); LYMPH # 1.6 10^3/uL (1.5-5.0); LYMPH % 12.8 % (24.0-44.0); MEAN CORPUSCULAR HEMOGLOBIN 33.1 pg (27.0-33.0); MEAN CORPUSCULAR HGB CONC 32.7 g/dl (32.0-36.5); MEAN CORPUSCULAR VOLUME 101.2 fl (80.0-96.0); MONO # 0.9 10^3/uL (0.0-0.8); MONO % 7.3 % (2.0-8.0); NEUTROPHILS # 9.5 10^3/uL (1.5-8.5); NEUTROPHILS % 76.6 % (36.0-66.0); PLATELET COUNT, AUTOMATED 382 10^3/uL (150-450); RED BLOOD COUNT 4.02 10^6/uL (4.00-5.40); WHITE BLOOD COUNT 12.5 10^3/uL (4.0-10.0)
[2021-05-21 12:32] LABS: ALBUMIN 3.3 GM/DL (3.2-5.2); CALCIUM LEVEL 9.7 MG/DL (8.8-10.2); CREATININE FOR GFR 1.49 MG/DL (0.55-1.30); DIGOXIN LEVEL 1.3 NG/ML (0.5-2.0); GLOMERULAR FILTRATION RATE 35.6 (>32); PHOSPHORUS LEVEL 4.1 MG/DL (2.5-4.9); POTASSIUM SERUM 4.9 MEQ/L (3.5-5.1); PTH INTACT 84.1 PG/ML (18.5-88.0)
== END ==
PROVIDERS: ATTEND Internal Medicine
DX: I13.0 Hypertensive heart and chronic kidney disease with heart failure and stage 1 through stage 4 chronic kidney disease, or unspecified chronic kidney disease (principal); I50.9 Heart failure, unspecified; N18.9 Chronic kidney disease, unspecified

== ENCOUNTER → 2021-05-21 | Outpatient (REF) | payer MEDICARE, MEDICAID | PROVIDERS: ATTEND Internal Medicine | DX: I50.9 Heart failure, unspecified (principal); I13.0 Hypertensive heart and chronic kidney disease with heart failure and stage 1 through stage 4 chronic kidney disease, or unspecified chronic kidney disease; N18.9 Chronic kidney disease, unspecified ==

== ENCOUNTER → 2021-05-27 | Outpatient (REF) | payer MEDICARE, MEDICAID ==
[~2021-05-27] MED LIST changes: -ASPI81CH33 PO; -DEPA250T32 PO; -DICL20GE TP; +DIGO0.123; -ENSU1LIQ36 PO; -ERGO500029 PO; -FLEEENE12 PR; -FLON1SPR NARES; +ISOS10TA PO; -ISOS10TA3 PO; -ISOS10TA9 PO; +ISOS1TAB13 PO; -LANO454C TOP; -METO1TAB87 PO; +MONT10TA10 PO; -MONT10TA97 PO; -REST0.05 OD; -VITA500C24 PO; -ZINC1TAB2 PO
[2021-05-27 11:55] LABS: HEMOGLOBIN 14.1 g/dl (12.0-15.5); MEAN CORPUSCULAR HEMOGLOBIN 32.8 pg (27.0-33.0); MEAN CORPUSCULAR HGB CONC 32.8 g/dl (32.0-36.5); PLATELET COUNT, AUTOMATED 437 10^3/uL (150-450); WHITE BLOOD COUNT 17.8 10^3/uL (4.0-10.0)
[2021-05-27 12:33] LABS: ALBUMIN 3.4 GM/DL (3.2-5.2); BILIRUBIN,TOTAL 0.4 MG/DL (0.2-1.0); CALCIUM LEVEL 9.9 MG/DL (8.8-10.2); CREATININE FOR GFR 1.57 MG/DL (0.55-1.30); GLOMERULAR FILTRATION RATE 33.5 (>32); POTASSIUM SERUM 6.3 MEQ/L (3.5-5.1); THYROID STIMULATING HORMONE 2.73 uIU/ML (0.358-3.740); TOTAL PROTEIN 7.6 GM/DL (6.4-8.2)
== END ==
PROVIDERS: ATTEND Nurse Practitioner Adult Health
DX: R41.82 Altered mental status, unspecified (principal)

== ENCOUNTER → 2021-05-28 | Outpatient (REF) | payer MEDICARE, MEDICAID | PROVIDERS: ATTEND Internal Medicine | DX: E87.5 Hyperkalemia (principal) ==

== ENCOUNTER → 2021-06-02 | Outpatient (REF) ==
[~2021-06-02] MED LIST changes: +ASPI81CH33 PO; +DEPA250T32 PO; +DICL20GE TP; -DIGO0.123; +ENSU1LIQ36 PO; +ERGO500029 PO; +FLEEENE12 PR; +FLON1SPR NARES; -ISOS10TA PO; +ISOS10TA3 PO; +ISOS10TA9 PO; -ISOS1TAB13 PO; +LANO454C TOP; +METO1TAB87 PO; -MONT10TA10 PO; +MONT10TA97 PO; +REST0.05 OD; +VITA500C24 PO; +ZINC1TAB2 PO
== END ==
PROVIDERS: ATTEND Internal Medicine
DX: D72.829 Elevated white blood cell count, unspecified (principal); N18.9 Chronic kidney disease, unspecified; E87.5 Hyperkalemia

== ENCOUNTER → 2021-06-02 | Outpatient (REF) | payer MEDICARE, MEDICAID ==
[2021-06-02 20:49] LABS: HEMATOCRIT 35.6 % (36.0-47.0); HEMOGLOBIN 11.7 g/dl (12.0-15.5); MEAN CORPUSCULAR HEMOGLOBIN 33.2 pg (27.0-33.0); MEAN CORPUSCULAR HGB CONC 32.9 g/dl (32.0-36.5); MEAN CORPUSCULAR VOLUME 101.1 fl (80.0-96.0); PLATELET COUNT, AUTOMATED 403 10^3/uL (150-450); RED BLOOD COUNT 3.52 10^6/uL (4.00-5.40); WHITE BLOOD COUNT 14.3 10^3/uL (4.0-10.0)
[2021-06-02 21:08] LABS: CALCIUM LEVEL 8.8 MG/DL (8.8-10.2); CREATININE FOR GFR 1.54 MG/DL (0.55-1.30); GLOMERULAR FILTRATION RATE 34.2 (>32); POTASSIUM SERUM 5.2 MEQ/L (3.5-5.1)
== END ==
PROVIDERS: ATTEND Internal Medicine
DX: D72.829 Elevated white blood cell count, unspecified (principal); N18.9 Chronic kidney disease, unspecified; E87.5 Hyperkalemia

== ENCOUNTER → 2021-06-04 | Outpatient (REF) | payer MEDICARE, MEDICAID ==
[2021-06-04 11:11] LABS: HEMATOCRIT 37.5 % (36.0-47.0); HEMOGLOBIN 12.2 g/dl (12.0-15.5); MEAN CORPUSCULAR HEMOGLOBIN 32.8 pg (27.0-33.0); MEAN CORPUSCULAR HGB CONC 32.5 g/dl (32.0-36.5); MEAN CORPUSCULAR VOLUME 100.8 fl (80.0-96.0); PLATELET COUNT, AUTOMATED 433 10^3/uL (150-450); RED BLOOD COUNT 3.72 10^6/uL (4.00-5.40); WHITE BLOOD COUNT 13.3 10^3/uL (4.0-10.0)
[2021-06-04 11:50] LABS: CALCIUM LEVEL 9.5 MG/DL (8.8-10.2); CREATININE FOR GFR 1.46 MG/DL (0.55-1.30); DIGOXIN LEVEL 1.4 NG/ML (0.5-2.0); GLOMERULAR FILTRATION RATE 36.4 (>32); POTASSIUM SERUM 4.8 MEQ/L (3.5-5.1)
== END ==
PROVIDERS: ATTEND Internal Medicine
DX: I50.9 Heart failure, unspecified (principal); Z79.899 Other long term (current) drug therapy

== ENCOUNTER → 2021-06-05 | Outpatient (REF) | payer MEDICARE, MEDICAID ==
[2021-06-05 17:51] LABS: BASO # 0.1 10^3/uL (0.0-0.2); BASO % 0.8 % (0.0-1.0); EOS # 0.1 10^3/uL (0.0-0.5); EOS % 0.8 % (0.0-3.0); HEMATOCRIT 40.4 % (36.0-47.0); HEMOGLOBIN 13.1 g/dl (12.0-15.5); LYMPH # 1.7 10^3/uL (1.5-5.0); LYMPH % 11.5 % (24.0-44.0); MEAN CORPUSCULAR HEMOGLOBIN 32.4 pg (27.0-33.0); MEAN CORPUSCULAR HGB CONC 32.4 g/dl (32.0-36.5); MONO % 6.5 % (2.0-8.0); NEUTROPHILS # 11.5 10^3/uL (1.5-8.5); PLATELET COUNT, AUTOMATED 470 10^3/uL (150-450); RED BLOOD COUNT 4.04 10^6/uL (4.00-5.40); WHITE BLOOD COUNT 14.6 10^3/uL (4.0-10.0)
[2021-06-05 18:14] LABS: CALCIUM LEVEL 9.5 MG/DL (8.8-10.2); CREATININE FOR GFR 1.39 MG/DL (0.55-1.30); GLOMERULAR FILTRATION RATE 38.5 (>32); POTASSIUM SERUM 5.7 MEQ/L (3.5-5.1)
== END ==
PROVIDERS: ATTEND Internal Medicine
DX: N39.0 Urinary tract infection, site not specified (principal)

== ENCOUNTER → 2021-06-06 | Outpatient (REF) | payer MEDICARE, MEDICAID ==
[~2021-06-06] MED LIST changes: -ASPI81CH33 PO; -DEPA250T32 PO; -DICL20GE TP; +DIGO0.123; -ENSU1LIQ36 PO; -ERGO500029 PO; -FLEEENE12 PR; -FLON1SPR NARES; +ISOS10TA PO; -ISOS10TA3 PO; -ISOS10TA9 PO; +ISOS1TAB13 PO; -LANO454C TOP; -METO1TAB87 PO; +MONT10TA10 PO; -MONT10TA97 PO; -REST0.05 OD; -VITA500C24 PO; -ZINC1TAB2 PO
[2021-06-06 11:03] LABS: CALCIUM LEVEL 9.1 MG/DL (8.8-10.2); CREATININE FOR GFR 1.43 MG/DL (0.55-1.30); GLOMERULAR FILTRATION RATE 37.3 (>32); POTASSIUM SERUM 5.4 MEQ/L (3.5-5.1)
== END ==
PROVIDERS: ATTEND Internal Medicine
DX: N39.0 Urinary tract infection, site not specified (principal)

== ENCOUNTER → 2021-06-07 | Outpatient (REF) | payer MEDICARE, MEDICAID | PROVIDERS: ATTEND Nurse Practitioner Primary Care | DX: D64.9 Anemia, unspecified (principal) ==

== ENCOUNTER → 2021-06-09 | Outpatient (REF) | payer MEDICARE, MEDICAID ==
[2021-06-09 11:03] LABS: HEMATOCRIT 33.9 % (36.0-47.0); HEMOGLOBIN 11.3 g/dl (12.0-15.5); MEAN CORPUSCULAR HEMOGLOBIN 33.4 pg (27.0-33.0); MEAN CORPUSCULAR HGB CONC 33.3 g/dl (32.0-36.5); MEAN CORPUSCULAR VOLUME 100.3 fl (80.0-96.0); PLATELET COUNT, AUTOMATED 440 10^3/uL (150-450); RED BLOOD COUNT 3.38 10^6/uL (4.00-5.40)
[2021-06-09 12:31] LABS: CALCIUM LEVEL 9.2 MG/DL (8.8-10.2); CREATININE FOR GFR 1.29 MG/DL (0.55-1.30); DIGOXIN LEVEL 1.4 NG/ML (0.5-2.0); POTASSIUM SERUM 3.9 MEQ/L (3.5-5.1)
== END ==
PROVIDERS: ATTEND Internal Medicine
DX: I50.9 Heart failure, unspecified (principal)

== ENCOUNTER → 2021-06-12 | Outpatient (CLI) | payer MEDICARE, MEDICAID ==
--- NOTE | 2021-06-12 16:12 | REP ---
INDICATION: FALL. COMPARISON: None. TECHNIQUE: Two views right hip. FINDINGS: No acute fracture or dislocation. There are mild degenerative changes at the hip joint, with mild joint space narrowing, subchondral sclerosis and spurring. Vascular calcifications are seen in the adjacent soft tissues. IMPRESSION: Mild degenerative changes. <Electronically signed by Cassius Bhatia > 06/12/21 0316
== END ==
LOC: M RAD 12:07
PROVIDERS: ATTEND Internal Medicine
DX: M25.551 Pain in right hip (principal); W19.XXXA Unspecified fall, initial encounter; Y92.9 Unspecified place or not applicable

== ENCOUNTER → 2021-06-14 | Outpatient (REF) | payer MEDICARE, MEDICAID ==
[2021-06-14 16:46] LABS: APPEARANCE, URINE CLOUDY (CLEAR); BACTERIA, URINE AUTO 1+ (NEGATIVE); BILIRUBIN, URINE AUTO NEGATIVE (NEGATIVE); BLOOD, URINE BLOOD NEGATIVE (NEGATIVE); COLOR, URINE YELLOW (YELLOW); GLUCOSE, URINE (UA) AUTO NEGATIVE (NEGATIVE); GRANULAR CAST, URINE AUTO 2 /LPF; KETONE, URINE AUTO NEGATIVE (NEGATIVE); LEUKOCYTE ESTERASE, URINE AUTO 3+ (NEGATIVE); NITRITE, URINE AUTO NEGATIVE (NEGATIVE); PROTEIN, URINE AUTO 1+ mg/dL (NEGATIVE); RBC, URINE AUTO 3 /HPF (0-3); SPECIFIC GRAVITY URINE AUTO 1.017 (1.002-1.035); SQUAMOUS EPITHELIAL CELL UR AU 13 /HPF (0-6); WBC, URINE AUTO 67 /HPF (0-3)
== END ==
PROVIDERS: ATTEND Internal Medicine
DX: R41.0 Disorientation, unspecified (principal); R52 Pain, unspecified

== ENCOUNTER → 2021-06-16 | Outpatient (REF) | payer MEDICARE, MEDICAID ==
--- NOTE | 2021-06-16 17:26 | REP ---
INDICATION: CONTINUED PAIN COMPARISON: Right hip series dated 06/12/2021 TECHNIQUE: Single AP view of the pelvis. 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 No obvious acute fracture or dislocation. Surrounding soft tissues are grossly normal. Evidence for peripheral vascular disease noted. IMPRESSION: Symmetric degenerate ages. No acute fracture or dislocation. <Electronically signed by Torey Varghese > 06/16/21 [id number]
[2021-06-16 18:39] LABS: HEMATOCRIT 42.2 % (36.0-47.0); HEMOGLOBIN 13.5 g/dl (12.0-15.5); MEAN CORPUSCULAR HEMOGLOBIN 32.8 pg (27.0-33.0); MEAN CORPUSCULAR VOLUME 102.7 fl (80.0-96.0); PLATELET COUNT, AUTOMATED 462 10^3/uL (150-450); RED BLOOD COUNT 4.11 10^6/uL (4.00-5.40); WHITE BLOOD COUNT 15.1 10^3/uL (4.0-10.0)
[2021-06-16 21:27] LABS: CALCIUM LEVEL 9.3 MG/DL (8.8-10.2); CREATININE FOR GFR 1.56 MG/DL (0.55-1.30); GLOMERULAR FILTRATION RATE 33.7 (>32); POTASSIUM SERUM 5.1 MEQ/L (3.5-5.1)
== END ==
PROVIDERS: ATTEND Internal Medicine
DX: R41.82 Altered mental status, unspecified (principal); M25.551 Pain in right hip

== ENCOUNTER → 2021-06-16 | Outpatient (CLI) | payer MEDICARE, MEDICAID | PROVIDERS: ATTEND Internal Medicine | DX: R10.2 Pelvic and perineal pain (principal) ==

== ENCOUNTER → 2021-06-23 | Outpatient (CLI) | payer MEDICARE, MEDICAID ==
[~2021-06-23] MED LIST changes: +ASPI81CH33 PO; +DEPA250T32 PO; +DICL20GE TP; -DIGO0.123; +ENSU1LIQ36 PO; +ERGO500029 PO; +FLEEENE12 PR; +FLON1SPR NARES; -ISOS10TA PO; +ISOS10TA3 PO; +ISOS10TA9 PO; -ISOS1TAB13 PO; +LANO454C TOP; +METO1TAB87 PO; -MONT10TA10 PO; +MONT10TA97 PO; +REST0.05 OD; +VITA500C24 PO; +ZINC1TAB2 PO
== END ==
LOC: M RAD 10:15
PROVIDERS: ATTEND Nurse Practitioner Primary Care
DX: R29.6 Repeated falls (principal)

== ENCOUNTER → 2021-07-09 | Outpatient (REF) | payer MEDICARE, MEDICAID ==
[2021-07-09 11:44] LABS: MEAN CORPUSCULAR HEMOGLOBIN 32.7 pg (27.0-33.0); MEAN CORPUSCULAR HGB CONC 32.5 g/dl (32.0-36.5); MEAN CORPUSCULAR VOLUME 100.5 fl (80.0-96.0); PLATELET COUNT, AUTOMATED 351 10^3/uL (150-450); RED BLOOD COUNT 3.98 10^6/uL (4.00-5.40); WHITE BLOOD COUNT 16.1 10^3/uL (4.0-10.0)
[2021-07-09 12:43] LABS: CALCIUM LEVEL 9.5 MG/DL (8.8-10.2); CREATININE FOR GFR 1.29 MG/DL (0.55-1.30); DIGOXIN LEVEL 1.4 NG/ML (0.5-2.0); POTASSIUM SERUM 4.7 MEQ/L (3.5-5.1); URIC ACID 4.8 MG/DL (2.6-6.0)
== END ==
PROVIDERS: ATTEND Internal Medicine
DX: M10.9 Gout, unspecified (principal); Z79.899 Other long term (current) drug therapy

== ENCOUNTER 2021-07-21 02:32 | Emergency (ER) | payer MEDICARE, MEDICAID ==
[~2021-07-21] VITALS: Ht 149.9 cm; Wt 42.7 kg
[~2021-07-21 02:32] MED LIST changes: -ASPI81CH33 PO; -DEPA250T32 PO; -DICL20GE TP; -ENSU1LIQ36 PO; -ERGO500029 PO; -FLEEENE12 PR; -FLON1SPR NARES; -LANO454C TOP; -METO1TAB87 PO; -REST0.05 OD; -VITA500C24 PO; -ZINC1TAB2 PO
[2021-07-21] MEDS ORDERED: NS 500 ML IV ONE (02:40)
[2021-07-21] MEDS ORDERED: ACETAMINOPHEN TAB 650MG DOSE (2X325MG) PO ONE (02:45)
[2021-07-21 03:20] LABS: VENOUS BASE EXCESS 0.8 (-2.0-2.0); VENOUS HCO3 23.8 MEQ/L (23.0-27.0); VENOUS O2 SATURATION 82.8 % (60.0-80.0); VENOUS PARTIAL PRESSURE CO2 33.4 mmHg (38.0-50.0); VENOUS PARTIAL PRESSURE O2 44.1 mmHg (30.0-50.0); VENOUS STANDARD HCO3 24.8 MEQ/L; VENOUS TOTAL CO2 24.8 MEQ/L (24.0-28.0)
[2021-07-21 03:24] LABS: BASO # 0.1 10^3/uL (0.0-0.2); BASO % 0.5 % (0.0-1.0); EOS # 0.1 10^3/uL (0.0-0.5); EOS % 0.5 % (0.0-3.0); HEMATOCRIT 43.7 % (36.0-47.0); HEMOGLOBIN 14.6 g/dl (12.0-15.5); LYMPH # 2.2 10^3/uL (1.5-5.0); LYMPH % 14.7 % (24.0-44.0); MEAN CORPUSCULAR HEMOGLOBIN 33.1 pg (27.0-33.0); MEAN CORPUSCULAR HGB CONC 33.4 g/dl (32.0-36.5); MEAN CORPUSCULAR VOLUME 99.1 fl (80.0-96.0); MONO # 1.2 10^3/uL (0.0-0.8); MONO % 8.3 % (2.0-8.0); NEUTROPHILS # 11.1 10^3/uL (1.5-8.5); NEUTROPHILS % 74.9 % (36.0-66.0); PLATELET COUNT, AUTOMATED 350 10^3/uL (150-450); RED BLOOD COUNT 4.41 10^6/uL (4.00-5.40); WHITE BLOOD COUNT 14.9 10^3/uL (4.0-10.0)
[2021-07-21 03:35] LABS: INR 1.06; PROTHROMBIN TIME 14.2 SECONDS (12.7-14.5)
[2021-07-21 03:36] LABS: PARTIAL THROMBOPLASTIN TIME 32.3 SECONDS (25.9-37.0)
[2021-07-21 03:53] LABS: CK-MB VALUE MASS < 1.0 NG/ML (<3.6); CPK CREATINE PHOSPHOKINASE 129 U/L (26-192); MB/CK RELATIVE INDEX 0.78 (< OR =4)
[2021-07-21] MEDS ORDERED: REST0.05 OD (04:04)
[2021-07-21] MEDS ORDERED: ENSU1LIQ36 PO ×2 (04:04)
[2021-07-21] MEDS ORDERED: ASPI81CH33 PO (04:04)
[2021-07-21] MEDS ORDERED: ERGO500029 PO (04:04)
[2021-07-21] MEDS ORDERED: LANO454C TOP (04:04)
[2021-07-21] MEDS ORDERED: FLON1SPR NARES (04:04)
[2021-07-21] MEDS ORDERED: METO1TAB87 PO (04:04)
[2021-07-21] MEDS ORDERED: VITA500C24 PO (04:04)
[2021-07-21] MEDS ORDERED: DEPA250T32 PO (04:04)
[2021-07-21] MEDS ORDERED: ZINC1TAB2 PO (04:04)
[2021-07-21] MEDS ORDERED: FLEEENE12 PR (04:04)
[2021-07-21] MEDS ORDERED: TORS20TA2 PO (04:04)
[2021-07-21] MEDS ORDERED: DICL20GE TP (04:04)
[2021-07-21] MEDS ORDERED: TRAM50TA2 PO (04:04)
[2021-07-21 04:05] LABS: CALCIUM LEVEL 9.5 MG/DL (8.8-10.2); CREATININE FOR GFR 1.27 MG/DL (0.55-1.30); GLOMERULAR FILTRATION RATE 42.8 (>32); POTASSIUM SERUM 5.8 MEQ/L (3.5-5.1)
[2021-07-21] MEDS ORDERED: HOME MED LIST COMPLETE! XX SCH (04:05)
[2021-07-21 04:39] LABS: CK-MB VALUE MASS < 1.0 NG/ML (<3.6); CPK CREATINE PHOSPHOKINASE 36 U/L (26-192); MB/CK RELATIVE INDEX 2.78 (< OR =4)
[2021-07-21 06:12] LABS: CK-MB VALUE MASS < 1.0 NG/ML (<3.6); CPK CREATINE PHOSPHOKINASE 71 U/L (26-192); MB/CK RELATIVE INDEX 1.41 (< OR =4)
[2021-07-21 07:00] VITALS: BP 156/67
== END 2021-07-21 07:20 | disposition home or self-care (01) ==
LOC: M ED 02:32
DX: I48.91 Unspecified atrial fibrillation (principal); U07.1 COVID-19; I11.0 Hypertensive heart disease with heart failure; I50.9 Heart failure, unspecified; F03.90 Unspecified dementia, unspecified severity, without behavioral disturbance, psychotic disturbance, mood disturbance, and anxiety; Z79.899 Other long term (current) drug therapy; Z79.82 Long term (current) use of aspirin; Z88.0 Allergy status to penicillin; Z88.7 Allergy status to serum and vaccine

== ENCOUNTER → 2021-07-31 | Outpatient (REF) | payer MEDICARE, MEDICAID ==
[~2021-07-31] MED LIST changes: +ASPI81CH33 PO; +DEPA250T32 PO; +DICL20GE TP; +ENSU1LIQ36 PO; +ERGO500029 PO; +FLEEENE12 PR; +FLON1SPR NARES; +LANO454C TOP; +METO1TAB87 PO; +REST0.05 OD; +VITA500C24 PO; +ZINC1TAB2 PO
== END ==
PROVIDERS: ATTEND Internal Medicine
DX: N39.0 Urinary tract infection, site not specified (principal)

== ENCOUNTER → 2021-08-07 | Outpatient (REF) | payer MEDICARE, MEDICAID ==
[2021-08-07 11:34] LABS: HEMATOCRIT 40.3 % (36.0-47.0); MEAN CORPUSCULAR HGB CONC 32.3 g/dl (32.0-36.5); MEAN CORPUSCULAR VOLUME 102.3 fl (80.0-96.0); PLATELET COUNT, AUTOMATED 387 10^3/uL (150-450); RED BLOOD COUNT 3.94 10^6/uL (4.00-5.40); WHITE BLOOD COUNT 11.7 10^3/uL (4.0-10.0)
[2021-08-07 12:37] LABS: CALCIUM LEVEL 9.4 MG/DL (8.8-10.2); CREATININE FOR GFR 1.22 MG/DL (0.55-1.30); DIGOXIN LEVEL 0.9 NG/ML (0.5-2.0); GLOMERULAR FILTRATION RATE 44.8 (>32); POTASSIUM SERUM 4.9 MEQ/L (3.5-5.1)
== END ==
PROVIDERS: ATTEND Internal Medicine
DX: N18.9 Chronic kidney disease, unspecified (principal); I50.9 Heart failure, unspecified; Z79.899 Other long term (current) drug therapy

== ENCOUNTER → 2021-09-15 | Outpatient (REF) | payer MEDICARE, MEDICAID ==
[~2021-09-15] MED LIST changes: -D31000TA2 PO; +VITA100093 PO
[2021-09-15 12:12] LABS: CALCIUM LEVEL 9.9 MG/DL (8.8-10.2); PHOSPHORUS LEVEL 4.5 MG/DL (2.5-4.9)
[2021-09-15 12:22] LABS: PTH INTACT 136.8 PG/ML (18.5-88.0); TOTAL 25(OH) VITAMIN D 51.9 NG/ML (30.0-100.0)
== END ==
PROVIDERS: ATTEND Internal Medicine
DX: E20.9 Hypoparathyroidism, unspecified (principal)

== ENCOUNTER → 2021-09-24 | Outpatient (REF) | payer MEDICARE, MEDICAID ==
[2021-09-24 10:18] LABS: HEMATOCRIT 45.8 % (36.0-47.0); MEAN CORPUSCULAR HGB CONC 32.8 g/dl (32.0-36.5); MEAN CORPUSCULAR VOLUME 100.7 fl (80.0-96.0); PLATELET COUNT, AUTOMATED 321 10^3/uL (150-450); RED BLOOD COUNT 4.55 10^6/uL (4.00-5.40); WHITE BLOOD COUNT 14.5 10^3/uL (4.0-10.0)
[2021-09-24 11:30] LABS: ALBUMIN 3.7 GM/DL (3.2-5.2); BILIRUBIN,TOTAL 0.3 MG/DL (0.2-1.0); CALCIUM LEVEL 9.5 MG/DL (8.8-10.2); CREATININE FOR GFR 1.47 MG/DL (0.55-1.30); DIGOXIN LEVEL 1.3 NG/ML (0.5-2.0); GLOMERULAR FILTRATION RATE 36.1 (>32); POTASSIUM SERUM 4.6 MEQ/L (3.5-5.1); TOTAL PROTEIN 7.9 GM/DL (6.4-8.2); URIC ACID 4.7 MG/DL (2.6-6.0)
== END ==
PROVIDERS: ATTEND Internal Medicine
DX: I50.9 Heart failure, unspecified (principal)

== ENCOUNTER → 2021-10-14 | Outpatient (REF) | payer MEDICARE, MEDICAID | LOC: M SFHCDERM 17:13 | PROVIDERS: ATTEND Dermatology | DX: C44.619 Basal cell carcinoma of skin of left upper limb, including shoulder (principal) ==

== ENCOUNTER → 2021-10-22 | Outpatient (REF) | payer MEDICARE, MEDICAID ==
[2021-10-22 17:38] LABS: HEMATOCRIT 40.4 % (36.0-47.0); HEMOGLOBIN 13.3 g/dl (12.0-15.5); MEAN CORPUSCULAR HEMOGLOBIN 32.9 pg (27.0-33.0); MEAN CORPUSCULAR HGB CONC 32.9 g/dl (32.0-36.5); PLATELET COUNT, AUTOMATED 294 10^3/uL (150-450); RED BLOOD COUNT 4.04 10^6/uL (4.00-5.40); WHITE BLOOD COUNT 14.5 10^3/uL (4.0-10.0)
[2021-10-22 18:18] LABS: CALCIUM LEVEL 9.3 MG/DL (8.8-10.2); CREATININE FOR GFR 1.73 MG/DL (0.55-1.30); GLOMERULAR FILTRATION RATE 29.9 (>32); POTASSIUM SERUM 4.9 MEQ/L (3.5-5.1)
== END ==
PROVIDERS: ATTEND Internal Medicine
DX: I13.0 Hypertensive heart and chronic kidney disease with heart failure and stage 1 through stage 4 chronic kidney disease, or unspecified chronic kidney disease (principal)

== ENCOUNTER → 2021-11-05 | Outpatient (REF) | payer MEDICARE, MEDICAID | PROVIDERS: ATTEND Internal Medicine | DX: I50.9 Heart failure, unspecified (principal); Z53.9 Procedure and treatment not carried out, unspecified reason ==

== ENCOUNTER → 2021-11-24 | Outpatient (REF) | payer MEDICARE, MEDICAID ==
[2021-11-24 12:01] LABS: HEMATOCRIT 44.2 % (36.0-47.0); HEMOGLOBIN 14.5 g/dl (12.0-15.5); MEAN CORPUSCULAR HEMOGLOBIN 32.7 pg (27.0-33.0); MEAN CORPUSCULAR HGB CONC 32.8 g/dl (32.0-36.5); MEAN CORPUSCULAR VOLUME 99.8 fl (80.0-96.0); PLATELET COUNT, AUTOMATED 286 10^3/uL (150-450); RED BLOOD COUNT 4.43 10^6/uL (4.00-5.40); WHITE BLOOD COUNT 14.4 10^3/uL (4.0-10.0)
[2021-11-24 12:48] LABS: CALCIUM LEVEL 9.4 MG/DL (8.8-10.2); CREATININE FOR GFR 1.52 MG/DL (0.55-1.30); DIGOXIN LEVEL 1.1 NG/ML (0.5-2.0); GLOMERULAR FILTRATION RATE 34.7 (>32); POTASSIUM SERUM 5.1 MEQ/L (3.5-5.1)
[2021-11-24 23:04] LABS: APPEARANCE, URINE TURBID (CLEAR); BACTERIA, URINE AUTO 1+ (NEGATIVE); BILIRUBIN, URINE AUTO NEGATIVE (NEGATIVE); BLOOD, URINE BLOOD NEGATIVE (NEGATIVE); COLOR, URINE YELLOW (YELLOW); GLUCOSE, URINE (UA) AUTO NEGATIVE (NEGATIVE); KETONE, URINE AUTO NEGATIVE (NEGATIVE); LEUKOCYTE ESTERASE, URINE AUTO 3+ (NEGATIVE); NITRITE, URINE AUTO POSITIVE (NEGATIVE); PROTEIN, URINE AUTO 2+ mg/dL (NEGATIVE); RBC, URINE AUTO 5 /HPF (0-3); SPECIFIC GRAVITY URINE AUTO 1.019 (1.002-1.035); SQUAMOUS EPITHELIAL CELL UR AU 0 /HPF (0-6); UROBILINOGEN, URINE AUTO 0.2 mg/dL (0.0-2.0); WBC, URINE AUTO TNTC /HPF (0-3)
== END ==
PROVIDERS: ATTEND Internal Medicine
DX: I50.9 Heart failure, unspecified (principal); R82.998 Other abnormal findings in urine

== ENCOUNTER → 2021-11-25 | Outpatient (REF) | payer MEDICARE, MEDICAID | PROVIDERS: ATTEND Internal Medicine | DX: Z53.9 Procedure and treatment not carried out, unspecified reason (principal) ==

== ENCOUNTER → 2021-12-03 | Outpatient (REF) | payer MEDICARE, MEDICAID ==
[2021-12-03 12:23] LABS: HEMATOCRIT 41.2 % (36.0-47.0); HEMOGLOBIN 13.6 g/dl (12.0-15.5); MEAN CORPUSCULAR HEMOGLOBIN 33.6 pg (27.0-33.0); MEAN CORPUSCULAR VOLUME 101.7 fl (80.0-96.0); PLATELET COUNT, AUTOMATED 231 10^3/uL (150-450); RED BLOOD COUNT 4.05 10^6/uL (4.00-5.40); WHITE BLOOD COUNT 8.9 10^3/uL (4.0-10.0)
[2021-12-03 12:53] LABS: CALCIUM LEVEL 9.6 MG/DL (8.8-10.2); CREATININE FOR GFR 1.48 MG/DL (0.55-1.30); DIGOXIN LEVEL 1.2 NG/ML (0.5-2.0); GLOMERULAR FILTRATION RATE 35.8 (>32); POTASSIUM SERUM 4.6 MEQ/L (3.5-5.1)
== END ==
PROVIDERS: ATTEND Internal Medicine
DX: I50.9 Heart failure, unspecified (principal)

== ENCOUNTER → 2022-01-13 | Outpatient (CLI) | payer MEDICARE, MEDICAID | PROVIDERS: ATTEND Internal Medicine | DX: R09.89 Other specified symptoms and signs involving the circulatory and respiratory systems (principal) ==

== ENCOUNTER → 2022-01-14 | Outpatient (REF) | payer MEDICARE, MEDICAID ==
[2022-01-14 13:10] LABS: HEMATOCRIT 47.1 % (36.0-47.0); HEMOGLOBIN 15.4 g/dl (12.0-15.5); MEAN CORPUSCULAR HEMOGLOBIN 32.5 pg (27.0-33.0); MEAN CORPUSCULAR HGB CONC 32.7 g/dl (32.0-36.5); MEAN CORPUSCULAR VOLUME 99.4 fl (80.0-96.0); PLATELET COUNT, AUTOMATED 283 10^3/uL (150-450); RED BLOOD COUNT 4.74 10^6/uL (4.00-5.40); WHITE BLOOD COUNT 10.3 10^3/uL (4.0-10.0)
[2022-01-14 14:22] LABS: ALBUMIN 4.1 GM/DL (3.2-5.2); CALCIUM LEVEL 9.9 MG/DL (8.8-10.2); CREATININE FOR GFR 1.34 MG/DL (0.55-1.30); GLOMERULAR FILTRATION RATE 40.1 (>32); PHOSPHORUS LEVEL 3.5 MG/DL (2.5-4.9); POTASSIUM SERUM 4.3 MEQ/L (3.5-5.1)
[2022-01-14 14:42] LABS: CREATININE FOR GFR 1.31 MG/DL (0.55-1.30); GLOMERULAR FILTRATION RATE 41.2 (>32); POTASSIUM SERUM 4.5 MEQ/L (3.5-5.1)
== END ==
PROVIDERS: ATTEND Nurse Practitioner Family
DX: I50.9 Heart failure, unspecified (principal)

== ENCOUNTER → 2022-01-26 | Outpatient (REF) | payer MEDICARE, MEDICAID ==
[2022-01-26 11:22] LABS: BASO # 0.1 10^3/uL (0.0-0.2); EOS # 0.2 10^3/uL (0.0-0.5); EOS % 2.6 % (0.0-3.0); HEMOGLOBIN 14.8 g/dl (12.0-15.5); LYMPH # 1.5 10^3/uL (1.5-5.0); LYMPH % 16.4 % (24.0-44.0); MEAN CORPUSCULAR HEMOGLOBIN 32.5 pg (27.0-33.0); MEAN CORPUSCULAR HGB CONC 32.9 g/dl (32.0-36.5); MEAN CORPUSCULAR VOLUME 98.7 fl (80.0-96.0); MONO # 0.8 10^3/uL (0.0-0.8); MONO % 9.4 % (2.0-8.0); NEUTROPHILS # 6.2 10^3/uL (1.5-8.5); NEUTROPHILS % 69.5 % (36.0-66.0); PLATELET COUNT, AUTOMATED 233 10^3/uL (150-450); RED BLOOD COUNT 4.56 10^6/uL (4.00-5.40); WHITE BLOOD COUNT 8.9 10^3/uL (4.0-10.0)
[2022-01-26 11:42] LABS: ALBUMIN 3.6 GM/DL (3.2-5.2); CALCIUM LEVEL 9.4 MG/DL (8.8-10.2); CREATININE FOR GFR 1.05 MG/DL (0.55-1.30); GLOMERULAR FILTRATION RATE 53.2 (>32); URIC ACID 4.4 MG/DL (2.6-6.0)
[2022-01-26 13:33] LABS: PTH INTACT 134.1 PG/ML (18.5-88.0)
== END ==
PROVIDERS: ATTEND Internal Medicine
DX: I50.9 Heart failure, unspecified (principal)

== ENCOUNTER → 2022-02-26 | Outpatient (REF) | payer MEDICARE, MEDICAID ==
[2022-02-26 14:27] LABS: HEMATOCRIT 46.3 % (36.0-47.0); HEMOGLOBIN 15.3 g/dl (12.0-15.5); PLATELET COUNT, AUTOMATED 231 10^3/uL (150-450); RED BLOOD COUNT 4.63 10^6/uL (4.00-5.40); WHITE BLOOD COUNT 11.4 10^3/uL (4.0-10.0)
[2022-02-26 15:07] LABS: CALCIUM LEVEL 9.3 MG/DL (8.8-10.2); CREATININE FOR GFR 1.2 MG/DL (0.55-1.30); GLOMERULAR FILTRATION RATE 45.6 (>32); POTASSIUM SERUM 4.3 MEQ/L (3.5-5.1)
[2022-02-26 15:12] LABS: APPEARANCE, URINE MANUAL CLEAR (CLEAR); COLOR, URINE MANUAL YELLOW (YELLOW)
[2022-02-26 15:13] LABS: BILIRUBIN, URINE MANUAL NEGATIVE (NEGATIVE); GLUCOSE, URINE (UA) MANUAL NEGATIVE (NEGATIVE); KETONE, URINE MANUAL NEGATIVE (NEGATIVE); NITRITE, URINE MANUAL NEGATIVE (NEGATIVE); PROTEIN, URINE MANUAL TRACE mg/dL (NEGATIVE); UROBILINOGEN, URINE MANUAL NORMAL (NORMAL)
[2022-02-26 15:14] LABS: BLOOD URINE MANUAL POSITIVE (NEGATIVE); LEUKOCYTE ESTERASE, URINE MAN NEGATIVE (NEGATIVE)
[2022-02-26 15:40] LABS: BACTERIA, URINE NONE SEEN; HYALINE CAST, URINE NONE SEEN /lpf (0-1); RBC, URINE NONE SEEN /hpf (0-3); SQUAMOUS EPITHELIAL CELL URINE NONE SEEN /hpf (SMALL AMT)
== END ==
PROVIDERS: ATTEND Internal Medicine
DX: N39.0 Urinary tract infection, site not specified (principal)

== ENCOUNTER → 2022-03-16 | Outpatient (CLI) | payer MEDICARE, MEDICAID | LOC: M RAD 13:27 | PROVIDERS: ATTEND Nurse Practitioner Family | DX: S00.03XA Contusion of scalp, initial encounter (principal); M43.02 Spondylolysis, cervical region; M48.02 Spinal stenosis, cervical region; W19.XXXA Unspecified fall, initial encounter ==

== ENCOUNTER → 2022-03-16 | Outpatient (REF) | payer MEDICARE, MEDICAID | PROVIDERS: ATTEND Internal Medicine | DX: N39.0 Urinary tract infection, site not specified (principal) ==

== ENCOUNTER → 2022-03-16 | Outpatient (REF) | payer MEDICARE, MEDICAID ==
[2022-03-16 10:07] LABS: EOS % 1.7 % (0.0-3.0); HEMATOCRIT 43.8 % (36.0-47.0); HEMOGLOBIN 14.4 g/dl (12.0-15.5); LYMPH % 16.8 % (24.0-44.0); MEAN CORPUSCULAR HEMOGLOBIN 33.3 pg (27.0-33.0); MEAN CORPUSCULAR HGB CONC 32.9 g/dl (32.0-36.5); MEAN CORPUSCULAR VOLUME 101.4 fl (80.0-96.0); MONO % 6.7 % (2.0-8.0); NEUTROPHILS % 71.5 % (36.0-66.0); PLATELET COUNT, AUTOMATED 290 10^3/uL (150-450); RED BLOOD COUNT 4.32 10^6/uL (4.00-5.40); WHITE BLOOD COUNT 13.2 10^3/uL (4.0-10.0)
[2022-03-16 10:08] LABS: BASO # 0.1 10^3/uL (0.0-0.2); EOS # 0.2 10^3/uL (0.0-0.5); LYMPH # 2.2 10^3/uL (1.5-5.0); MONO # 0.9 10^3/uL (0.0-0.8); NEUTROPHILS # 9.5 10^3/uL (1.5-8.5)
[2022-03-16 11:09] LABS: ALBUMIN 3.3 GM/DL (3.2-5.2); CALCIUM LEVEL 9.8 MG/DL (8.8-10.2); CREATININE FOR GFR 1.06 MG/DL (0.55-1.30); DIGOXIN LEVEL 1.1 NG/ML (0.5-2.0); GLOMERULAR FILTRATION RATE 52.6 (>32); PHOSPHORUS LEVEL 3.1 MG/DL (2.5-4.9); POTASSIUM SERUM 4.7 MEQ/L (3.5-5.1)
== END ==
PROVIDERS: ATTEND Internal Medicine
DX: N18.9 Chronic kidney disease, unspecified (principal)

== ENCOUNTER → 2022-03-18 | Outpatient (REF) | payer MEDICARE, MEDICAID | PROVIDERS: ATTEND Internal Medicine | DX: N39.0 Urinary tract infection, site not specified (principal) ==

== ENCOUNTER → 2022-03-23 | Outpatient (REF) | payer MEDICARE, MEDICAID | PROVIDERS: ATTEND Internal Medicine | DX: N18.9 Chronic kidney disease, unspecified (principal); Z53.8 Procedure and treatment not carried out for other reasons ==

== ENCOUNTER → 2022-03-25 | Outpatient (REF) | payer MEDICARE, MEDICAID ==
[2022-03-25 13:28] LABS: ALBUMIN 3.5 GM/DL (3.2-5.2); BILIRUBIN,TOTAL 0.5 MG/DL (0.2-1.0); CALCIUM LEVEL 9.2 MG/DL (8.8-10.2); CREATININE FOR GFR 1.15 MG/DL (0.55-1.30); DIGOXIN LEVEL 1.4 NG/ML (0.5-2.0); GLOMERULAR FILTRATION RATE 47.9 (>32); POTASSIUM SERUM 4.5 MEQ/L (3.5-5.1); TOTAL PROTEIN 7.1 GM/DL (6.4-8.2); URIC ACID 4.8 MG/DL (2.6-6.0)
== END ==
PROVIDERS: ATTEND Internal Medicine
DX: N18.9 Chronic kidney disease, unspecified (principal); D63.1 Anemia in chronic kidney disease